=== PATIENT | male | born 1950 | race Caucasian/White ===

== ENCOUNTER 2017-05-16 08:00 | Day surgery (SDC) | payer MEDICARE, OTHER ==
[~2017-05-16] VITALS: Ht 167.6 cm; Wt 105.7 kg
[~2017-05-16 08:00] MED LIST: ASCORBIC ACID250 MG PO; ASPIR 8181 MG PO; ASPIRIN EC325 MG PO; ASPIRIN325 MG PO; AZATHIOPRINE50 MG PO; DOXYCYCLINE HY100 MG PO; FLUOXETINE HCL20 MG PO; GABAPENTIN300 MG PO; GLIPIZIDE XL5 MG; GLIPIZIDE5 MG PO; IMURAN50 MG PO; JANUVIA100 MG PO; LANTUS SOL100 UNIT/1 SUB-Q; LISINOPRIL-HCT1 EACH PO; METFORMIN HCL1000 MG PO; METOPROLOL SUCC50 MG PO; SIMVASTATIN10 MG PO; TRAZODONE HCL50 MG PO; VIT C-BIOFLAVO1 EACH; VITAMIN C500 M1 PO; VITAMIN D32000 UNIT PO; VITAMIN D3400 UNIT PO; VITAMIN D5000 UNIT; VITAMIN E400 UNI5 PO; [UNRECOGNIZED DRUG - OTHER]
--- NOTE | 2017-05-16 09:57 | NUR ---
05[facility]16/17 [facility]957 [facility] AR[facility]IV[facility] PACU SLEEPY. ABD SOFT AND PASSING FLATUS. BLOOD SUGAR 319. DR AMBROSIO.
--- NOTE | 2017-05-24 18:42 | OR ---
[facility] [address], [place] [address] Signed DATE OF OPERATION: 05/16/2017 SURGEON: Mt Owens MD PREOPERATIVE DIAGNOSES: 1. History of sigmoidectomy for diverticular disease, 1999. 2. Screening. POSTOPERATIVE DIAGNOSES: 1. Periappendiceal polyp/biopsy. 2. A 4 mm polyp at 18 cm. 3. Minimal small distal left colon diverticulosis. 4. Internal hemorrhoids. PROCEDURE: Colonoscopy with hot biopsy. ESTIMATED BLOOD LOSS: None. INDICATIONS: Robbie is a 67-year-old gentleman, who had a colonoscopy. His last colonoscopy back in 2005. He had a previous sigmoid resection in 1999 for diverticular disease. There was still a couple diverticula in that distal left colon. Otherwise, no findings. He has no previous history of colonic polyps. There is no family history of colon cancer or polyps. In the meantime, he said he is doing great. He said he retired and moved [place] to [place] He [place] being there very much, but he does come to town almost every day, just to visit go to lunch and so forth. In the office, I gave him a pamphlet on colonoscopy. We looked at that together along with the risks including, but not limited to, gas bloating, crampy abdominal pain, bleeding, perforation, requiring surgery, and missed diagnosis. We also discussed the need for IV conscious sedation. He has done well with Versed and fentanyl in the past. He did develop diabetes and he has trouble controlling it. 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 I think it is affected his ability to think in detail. Overall, he does fine, but in more detail I think the harder is for him. Nevertheless, he has been through colonoscopy before. He has expressed understanding and wished to proceed. PROCEDURE NOTE: Robbie was taken into our endoscopy suite and placed in the left lateral decubitus position. He was given IV sedation with 4 mg of Versed and 100 mcg of fentanyl. A Electronically Signed By: MT OWENS MD 05/24/17 1842 PATIENT NAME: ROBBIE RESTREPO OPERATIVE REPORT DATE OF : 54 PHYSICIAN: MT OWENS MD REPORT #: [id number] REPORT IS CONFIDENTIAL AND NOT TO BE RELEASED WITHOUT AUTHORIZATION [facility] [address] [place] [address] Signed digital rectal exam was performed and this was unremarkable. The adult colonoscope was introduced and advanced under direct visualization of camera. Unfortunately, he still had quite a bit large stool balls scattered throughout the entire colon. We slowly, but surely made our way up the colon and into the cecum itself. We could easily see the appendiceal orifice. Next to the appendiceal orifice was a small area that we decided to go ahead and biopsy. It is probably fine, but we would check that for definitive diagnosis and treatment. The scope was then slowly withdrawn. We could see the end of his left colon near the anastomosis. The actual anastomosis I think was covered in some stool. Down in the top of his rectum at 18 cm was a small 4 mm polyp, which we removed with a hot biopsy forceps. Upon retroflexion of the scope, he also has moderate internal hemorrhoids. After this, the gas was suctioned out and the colonoscope removed. Robbie tolerated the procedure quite well. RECOMMENDATIONS: I will see Robbie back in my office in 7 to 14 days to review his results. He could always consider a double bowel prep and repeating his colonoscopy over shorter interval. Mt Owens MD ALB/MODL /[id number] cc: MD Leoncio Castellanos MD Electronically Signed By: MT OWENS MD 05/24/17 1842 PATIENT NAME: ROBBIE RESTREPO OPERATIVE REPORT DATE OF : 54 PHYSICIAN: MT OWENS MD REPORT #: [id number] REPORT IS CONFIDENTIAL AND NOT TO BE RELEASED WITHOUT AUTHORIZATION
== END 2017-05-16 10:07 | disposition home or self-care (01) ==
LOC: OPS 08:00 → DS 08:00 → OPS 10:07
PROVIDERS: Colon & Rectal Surgery
PROC: 0DBP8ZX Excision of Rectum, Via Natural or Artificial Opening Endoscopic, Diagnostic (ICD-10-PCS; 2017-05-16)
PROC: 0DBH8ZX Excision of Cecum, Via Natural or Artificial Opening Endoscopic, Diagnostic (ICD-10-PCS; principal; 2017-05-16 06:45)
DX: Z12.11 Encounter for screening for malignant neoplasm of colon (principal); K62.1 Rectal polyp; K62.6 Ulcer of anus and rectum; K57.30 Diverticulosis of large intestine without perforation or abscess without bleeding; K64.8 Other hemorrhoids; I12.9 Hypertensive chronic kidney disease with stage 1 through stage 4 chronic kidney disease, or unspecified chronic kidney disease; E11.22 Type 2 diabetes mellitus with diabetic chronic kidney disease; N18.3 Chronic kidney disease, stage 3 (moderate); E78.89 Other lipoprotein metabolism disorders; M06.9 Rheumatoid arthritis, unspecified; F32.9 Major depressive disorder, single episode, unspecified; F43.9 Reaction to severe stress, unspecified; D64.9 Anemia, unspecified; Z86.19 Personal history of other infectious and parasitic diseases; Z87.891 Personal history of nicotine dependence; Z86.14 Personal history of Methicillin resistant Staphylococcus aureus infection; Z90.49 Acquired absence of other specified parts of digestive tract; Z98.890 Other specified postprocedural states; Z79.899 Other long term (current) 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
CPT/HCPCS: 88305; 99153; G0500; J2250; J3010; J7120

== ENCOUNTER 2017-09-25 14:33 | Emergency (ER) | payer MEDICARE, OTHER ==
[~2017-09-25] VITALS: Ht 167.6 cm; Wt 105.7 kg
--- NOTE | 2017-09-25 19:07 | EKG ---
[facility] [address] [facility] [place] [address] Signed Normal sinus rhythm Minimal voltage criteria for LVH, may be normal variant Borderline ECG No previous ECGs available Confirmed by TANO SANTOS MD ([id number]) on 09/25/2017 7:07:08 PM Electronically Signed By: TANO SANTOS MD 09/25/17 1907 PATIENT NAME: ROBBIE RESTREPO SHIVANI Electrocardiogram DATE OF : 54 PHYSICIAN: TANO SANTOS MD REPORT #: [id number] REPORT IS CONFIDENTIAL AND NOT TO BE RELEASED WITHOUT AUTHORIZATION
== END 2017-09-25 18:00 | disposition short-term general hospital (02) ==
LOC: ED 14:33
DX: I21.4 Non-ST elevation (NSTEMI) myocardial infarction (principal); I10 Essential (primary) hypertension; E11.9 Type 2 diabetes mellitus without complications; Z79.899 Other long term (current) 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; Z79.4 Long term (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 of insulin
CPT/HCPCS: 71046; 80053; 83735; 83880; 84484; 85025; 93005; 93010; 96374; 99285

== ENCOUNTER 2017-11-26 16:26 | Emergency (ER) | payer MEDICARE, OTHER ==
[~2017-11-26] VITALS: Ht 167.6 cm; Wt 90.7 kg
[2017-11-26] MEDS ORDERED: FERROUS SULFAT325 MG PO (17:08)
[2017-11-26] MEDS ORDERED: FUROSEMIDE20 MG PO (17:08)
[2017-11-26] MEDS ORDERED: ADMELOG SO100 UNIT/1 (17:09)
[2017-11-26] MEDS ORDERED: MIRTAZAPINE30 MG PO (17:10)
[2017-11-26] MEDS ORDERED: NITROGLYCERIN0.4 MG SL (17:11)
[2017-11-26] MEDS ORDERED: DITROPAN XL5 MG PO (17:12)
[2017-11-26] MEDS ORDERED: AMBIEN5 MG PO (17:36)
[2017-11-26] MEDS ORDERED: MESTINON60 MG PO (17:38)
[2017-11-26] MEDS ORDERED: OXYCODONE HYDROC5 GM MISC (20:31)
[2017-11-26] MEDS ORDERED: PERCOCET 5-3251 EACH PO (20:46)
[2017-11-26] MEDS ORDERED: OXYCODONE HCL5 MG PO (20:55)
--- NOTE | 2017-11-27 20:47 | EKG ---
[facility] [address] [facility] [place] [address] Signed Normal sinus rhythm ST \T\ T wave abnormality, consider inferolateral ischemia Prolonged QT Abnormal ECG When compared with ECG of 26-NOV-2017 16:34, (Unconfirmed) No significant change was found Confirmed by ISAMAR WHITE MD ([id number]) on 11/27/2017 8:47:20 PM Electronically Signed By: ISAMAR WHITE MD 11/27/17 2047 PATIENT NAME: ROBBIE RESTREPO Electrocardiogram DATE OF : 54 PHYSICIAN: ISAMAR WHITE MD REPORT #: [id number] REPORT IS CONFIDENTIAL AND NOT TO BE RELEASED WITHOUT AUTHORIZATION
--- NOTE | 2017-11-27 20:47 | EKG ---
[facility] [address] [facility] [place] [address] Signed Normal sinus rhythm ST \T\ T wave abnormality, consider inferolateral ischemia Abnormal ECG When compared with ECG of 26-NOV-2017 16:29, (Unconfirmed) MA interval has decreased Confirmed by ISAMAR WHITE MD ([id number]) on 11/27/2017 8:46:59 PM Electronically Signed By: ISAMAR WHITE MD 11/27/17 2047 PATIENT NAME: ROBBIE RESTREPO Electrocardiogram DATE OF : 54 PHYSICIAN: ISAMAR WHITE MD REPORT #: [id number] REPORT IS CONFIDENTIAL AND NOT TO BE RELEASED WITHOUT AUTHORIZATION
== END 2017-11-26 21:00 | disposition home or self-care (01) ==
LOC: ED 16:26
DX: M54.6 Pain in thoracic spine (principal); F41.9 Anxiety disorder, unspecified; F32.9 Major depressive disorder, single episode, unspecified; I10 Essential (primary) hypertension; E11.9 Type 2 diabetes mellitus without complications; Z87.891 Personal history of nicotine dependence; Z88.8 Allergy status to other drugs, medicaments and biological substances; Z91.018 Allergy to other foods; Z79.899 Other long term (current) 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; Z79.4 Long term (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 of insulin
CPT/HCPCS: 71046; 80053; 83735; 83880; 84484; 85025; 93005; 93010; 99285

== ENCOUNTER 2018-10-17 11:48 | Emergency (ER) | payer MEDICARE, OTHER ==
[~2018-10-17] VITALS: Ht 167.6 cm; Wt 95.5 kg
[~2018-10-17 11:48] MED LIST changes: +ADMELOG SO100 UNIT/1 SUB-Q; +AMBIEN5 MG PO; +ASPIR-LOW81 MG PO; +ATORVASTATIN CA40 MG PO; +COZAAR50 MG PO; +DITROPAN XL5 MG PO; +ELIQUIS5 MG PO; +FERROUS SULFAT325 MG PO; +FUROSEMIDE20 MG PO; +GABAPENTIN100 MG PO; +GABAPENTIN400 MG PO; +LOSARTAN POTASS25 MG PO; +MESTINON60 MG PO; +METFORMIN HCL500 M1 PO; +MIRTAZAPINE30 MG PO; +NITROGLYCERIN0.4 MG SL; +OXYBUTYNIN CHLOR5 MG PO; +OXYCODONE HCL5 MG PO; +OXYCODONE HYDROC5 GM MISC; +PERCOCET 5-3251 EACH PO; +POTASSIUM CHLO20 ME1 PO
--- OUTSIDE RECORDS SUMMARY | 2018-10-17 11:50 | XMS ---
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 Ajit VISIT COUNT (12 MO.) [facility] T[facility] 5 NOTE: Visits indicate total known visits. ED/UCC VISIT TRACKING (12 MO.) 10/17/2018 11:48 [facility] [place] TYPE: Emergency COMPLAINT: - BLOOD PRESSURE PROBLEM 02/05/2018 20:37 [facility] Lyndsey PughGerardoChidiGerardo [place] [facility] TYPE: Emergency DIAGNOSES: - Back Pain - Fall - Contusion of unspecified back wall of thorax, initial encounter 01/18/2018 11:02 [facility] TYPE: Emergency COMPLAINT: - LT SIDED TINGLING/VISION PROBLEM 12/06/2017 21:58 [facility] TYPE: Emergency COMPLAINT: - PULMONARY EMBOLISM 11/26/2017 16:26 [facility] TYPE: Emergency COMPLAINT: - POST OP PROBLEM DIAGNOSES: - Personal history of nicotine dependence - Allergy to other foods - Allergy status to other drugs, medicaments and biological substances status - Other m[facility] (current) 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 - Essential (primary) hypertension - 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 faculty for medical 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 (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 of 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 - Major depressive disorder, single episode, unspecified - Anxiety disorder, unspecified - Type 2 diabetes mellitus without complications - Pain in thoracic spine INPATIENT VISIT TRACKING (12 MO.) 01/18/2018 11:03 [facility] [place] TYPE: Medical Surgical COMPLAINT: - WEAKNESS DIAGNOSES: - Hypertensive chronic kidney disease with stage 1 through stage 4 chronic kidney disease, or unspecified chronic kidney disease - Atherosclerotic heart disease of [place] coronary artery without angina pectoris - Myasthenia gravis without (acute) exacerbation - Personal history of transient ischemic attack (TIA), and cerebral infarction without residual deficits - adjunct faculty for medical terminology (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 - alf (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 of antithrombotics/antiplatelets - Type 2 diabetes mellitus with diabetic chronic kidney disease - alf (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 of opiate analgesic - Other specified abnormalities of plasma proteins - Personal history of pulmonary embolism - Presence of aortocoronary bypass graft - Old myocardial infarction - Weakness - Dizziness and giddiness - Do not resuscitate - Presence of xenogenic heart valve - Anesthesia of skin - Personal history of Methicillin resistant Staphylococcus aureus infection - Unspecified mood [affective] disorder - Chronic kidney disease, stage 2 (mild) - Occlusion and stenosis of bilateral carotid arteries - Type 2 diabetes mellitus with diabetic nephropathy - Allergy status to other drugs, medicaments and biological substances status - Other manager intermediate (current) 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 - Personal history of other infectious and parasitic diseases - alf (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 of insulin 12/06/2017 21:[address] 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 DIAGNOSES: - Chronic systolic (congestive) heart failure - Other fatigue - Acute on chronic systolic (congestive) heart failure - Presence of prosthetic heart valve - Type 2 diabetes mellitus with unspecified complications - Nonrheumatic aortic (valve) insufficiency - Hyperglycemia, unspecified - Sleep apnea, unspecified - Atherosclerotic heart disease of [place] coronary artery without angina pectoris - Body mass index (BMI) 34.0-34.9, adult - Nonrheumatic mitral (valve) insufficiency - Hypoxemia - Retention of urine, unspecified - Non-ST elevation (NSTEMI) myocardial infarction - Acute kidney failure, unspecified - Thrombocytopenia, unspecified - Precipitous drop in hematocrit - Metabolic syndrome - Essential (primary) hypertension - Heart failure, unspecified - Other obesity due to excess calories - alf (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 of insulin [email or web address]
== END 2018-10-17 16:47 | disposition home or self-care (01) ==
LOC: ED 11:48
DX: R51 Headache (principal); E11.65 Type 2 diabetes mellitus with hyperglycemia; I25.2 Old myocardial infarction; Z86.73 Personal history of transient ischemic attack (TIA), and cerebral infarction without residual deficits; Z87.891 Personal history of nicotine dependence; Z90.49 Acquired absence of other specified parts of digestive tract; Z95.1 Presence of aortocoronary bypass graft; Z88.8 Allergy status to other drugs, medicaments and biological substances; Z91.09 Other allergy status, other than to drugs and biological substances; Z79.899 Other long term (current) 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; Z79.82 Long term (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; Z79.84 Long term (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 drugs
CPT/HCPCS: 70450; 71046; 80053; 83880; 84484; 85025; 96374; 99285-25; J1170

== ENCOUNTER 2019-02-12 03:33 | Emergency (ER) | payer MEDICARE, OTHER ==
[~2019-02-12] VITALS: Ht 167.6 cm; Wt 95.5 kg
[2019-02-12] MEDS ORDERED: AMLODIPINE BESY10 MG PO (03:46)
[2019-02-12] MEDS ORDERED: MYRBETRIQ50 MG PO (03:46)
[2019-02-12] MEDS ORDERED: DROPLET NE EAC MC (03:47)
--- NOTE | 2019-02-12 20:39 | EKG ---
[facility] [address] [facility] [place], [place] [address] Signed Sinus bradycardia Otherwise normal ECG When compared with ECG of 18-JAN-2018 11:44, No significant change was found Confirmed by TANO SANTOS MD ([id number]) on 02/12/2019 8:39:20 PM Electronically Signed By: TANO SANTOS MD 02/12/19 2039 PATIENT NAME: ROBBIE RESTREPO SHIVANI Electrocardiogram DATE OF : 54 PHYSICIAN: TANO SANTOS MD REPORT #: [id number] REPORT IS CONFIDENTIAL AND NOT TO BE RELEASED WITHOUT AUTHORIZATION
== END 2019-02-12 05:41 | disposition home or self-care (01) ==
LOC: ED 03:33
DX: R51 Headache (principal); R53.1 Weakness; R53.81 Other malaise; E11.65 Type 2 diabetes mellitus with hyperglycemia; I10 Essential (primary) hypertension; I25.2 Old myocardial infarction; I25.10 Atherosclerotic heart disease of native coronary artery without angina pectoris; Z87.891 Personal history of nicotine dependence; Z88.8 Allergy status to other drugs, medicaments and biological substances; Z91.018 Allergy to other foods; Z79.899 Other long term (current) 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; Z79.84 Long term (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 drugs; Z79.82 Long term (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
CPT/HCPCS: 70450; 71045; 93005; 93010; 99284-25; J7040

== ENCOUNTER 2019-03-02 09:17 | Emergency (ER) | payer MEDICARE, OTHER ==
[~2019-03-02] VITALS: Ht 167.6 cm; Wt 95.5 kg
[~2019-03-02 09:17] MED LIST changes: +AMLODIPINE BESY10 MG PO; +DROPLET NE EAC MC; +MYRBETRIQ50 MG PO
--- OUTSIDE RECORDS SUMMARY | 2019-03-02 09:20 | XMS ---
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 Ajit VISIT COUNT (12 MO.) 3 [facility] TOTAL 3 NOTE: Visits indicate total known visits. ED/UCC VISIT TRACKING (12 MO.) 03/02/2019 09:18 [facility] [place] TYPE: Emergency COMPLAINT: - SKIN PROBLEM 02/12/2019 03:34 [facility] [place] TYPE: Emergency COMPLAINT: - STROKE SYMPTOMS DIAGNOSES: - Other malaise - Athscl heart disease of [place] coronary artery w/o ang pctrs - 1 Type 2 diabetes mellitus with hyperglycemia - Allergy to other foods - group home (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 - long term care phlebotomist (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 drugs - Headache - Essential (primary) hypertension - Old myocardial infarction - Personal history of nicotine dependence - Allergy status to oth drug/meds/biol subst status - Weakness - Other half-way (current) 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 10/17/2018 11:48 [facility] [place] TYPE: Emergency COMPLAINT: - BLOOD PRESSURE PROBLEM DIAGNOSES: - Headache - Essential (primary) hypertension - Prsnl hx of TIA (TIA), and cereb infrc w/o resid deficits - Acquired absence of other specified parts of digestive tract - Other exterminator termite (current) 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 - Old myocardial infarction - long term care phlebotomist (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 - Personal history of nicotine dependence - 1 Type 2 diabetes mellitus with hyperglycemia - Oth allergy status, oth than to drugs and biolg substances - Allergy status to oth drug/meds/biol subst status - Presence of aortocoronary bypass graft - group home (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 drugs INPATIENT VISIT TRACKING (12 MO.) No inpatient visits to display in this time frame [email or web address]
[2019-03-02] MEDS ORDERED: DOXYCYCLINE HY100 MG PO (11:08)
== END 2019-03-02 11:19 | disposition home or self-care (01) ==
LOC: ED 09:17
DX: L03.115 Cellulitis of right lower limb (principal); E11.65 Type 2 diabetes mellitus with hyperglycemia; I10 Essential (primary) hypertension; I25.2 Old myocardial infarction; Z87.891 Personal history of nicotine dependence; Z91.018 Allergy to other foods; Z88.8 Allergy status to other drugs, medicaments and biological substances; Z79.84 Long term (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 drugs; Z79.82 Long term (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; Z79.899 Other long term (current) 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
CPT/HCPCS: 80053; 85025; 96365; 99283-25; J7060

== ENCOUNTER 2019-04-28 08:42 | Emergency (ER) | payer MEDICARE, OTHER ==
[~2019-04-28] VITALS: Ht 167.6 cm; Wt 95.5 kg
[2019-04-28] MEDS ORDERED: AZATHIOPRINE50 MG PO (08:58)
[2019-04-28] MEDS ORDERED: LOSARTAN POTAS100 MG PO (08:58)
[2019-04-28] MEDS ORDERED: KEFLEX500 MG PO (09:10)
[2019-04-28] MEDS ORDERED: BACTRIM DS TAB1 EACH PO (09:10)
== END 2019-04-28 09:15 | disposition home or self-care (01) ==
LOC: ED 08:42
DX: L03.115 Cellulitis of right lower limb (principal); I10 Essential (primary) hypertension; E11.9 Type 2 diabetes mellitus without complications; I25.10 Atherosclerotic heart disease of native coronary artery without angina pectoris; I25.2 Old myocardial infarction; Z86.73 Personal history of transient ischemic attack (TIA), and cerebral infarction without residual deficits; Z88.8 Allergy status to other drugs, medicaments and biological substances; Z91.018 Allergy to other foods; Z79.899 Other long term (current) 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; Z79.84 Long term (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 drugs; Z79.82 Long term (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; Z79.01 Long term (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 of anticoagulants
CPT/HCPCS: 99282

== ENCOUNTER 2019-06-10 03:13 | Emergency (ER) | payer MEDICARE, OTHER ==
[~2019-06-10] VITALS: Ht 167.6 cm; Wt 95.5 kg
[~2019-06-10 03:13] MED LIST changes: +BACTRIM DS TAB1 EACH PO; +KEFLEX500 MG PO; +LOSARTAN POTAS100 MG PO
[2019-06-10] MEDS ORDERED: NORCO 5-325 TA1 EACH PO (05:57)
== END 2019-06-10 06:12 | disposition home or self-care (01) ==
LOC: ED 03:13
DX: S30.1XXA Contusion of abdominal wall, initial encounter (principal); W18.30XA Fall on same level, unspecified, initial encounter; I10 Essential (primary) hypertension; E11.9 Type 2 diabetes mellitus without complications; I25.2 Old myocardial infarction; Z88.8 Allergy status to other drugs, medicaments and biological substances; Z91.018 Allergy to other foods; Z79.899 Other long term (current) 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; Z79.84 Long term (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 drugs; Z79.82 Long term (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
CPT/HCPCS: 74177; 80053; 81001; 82150; 83690; 85025; 99284-25; Q9967

== ENCOUNTER 2019-11-13 10:17 | Emergency (ER) | payer MEDICARE, OTHER ==
[~2019-11-13] VITALS: Ht 167.6 cm; Wt 95.5 kg
[~2019-11-13 10:17] MED LIST changes: +NORCO 5-325 TA1 EACH PO
[2019-11-13] MEDS ORDERED: HYDROCHLOROTHIA25 MG PO (14:08)
--- NOTE | 2019-11-13 16:39 | EKG ---
[facility] [address] [facility] [place], [place] [address] Signed Normal sinus rhythm Normal ECG When compared with ECG of 12-FEB-2019 04:07, No significant change was found Confirmed by KIMI KAPLAN DO ([id number]) on 11/13/2019 4:39:38 PM Electronically Signed By: KIMI KAPLAN DO 11/13/19 1639 PATIENT NAME: ROBBIE RESTREPO SHIVANI Electrocardiogram DATE OF : 54 PHYSICIAN: KIMI KAPLAN DO REPORT #: [id number] REPORT IS CONFIDENTIAL AND NOT TO BE RELEASED WITHOUT AUTHORIZATION
== END 2019-11-13 14:19 | disposition home or self-care (01) ==
LOC: ED 10:17
DX: S06.0X9A Concussion with loss of consciousness of unspecified duration, initial encounter (principal); G44.309 Post-traumatic headache, unspecified, not intractable; H61.23 Impacted cerumen, bilateral; I10 Essential (primary) hypertension; E11.9 Type 2 diabetes mellitus without complications; I25.2 Old myocardial infarction; Z88.8 Allergy status to other drugs, medicaments and biological substances; Z91.018 Allergy to other foods; Z79.899 Other long term (current) 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; Z79.82 Long term (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; Z79.01 Long term (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 of anticoagulants; W19.XXXA Unspecified fall, initial encounter
CPT/HCPCS: 70450; 72125; 80053; 81001; 83735; 84484; 85025; 93005; 93010; 99284-25

== ENCOUNTER 2020-07-16 13:20 | Emergency (ER) | payer MEDICARE, OTHER ==
[~2020-07-16] VITALS: Ht 167.6 cm; Wt 95.5 kg
[~2020-07-16 13:20] MED LIST changes: +HYDROCHLOROTHIA25 MG PO
--- NOTE | 2020-07-16 19:14 | EKG ---
[facility] [address] [facility] [place] [address] Signed Normal sinus rhythm ST \T\ T wave abnormality, consider lateral ischemia Prolonged QT Abnormal ECG When compared with ECG of 13-NOV-2019 11:42, No significant change was found Confirmed by ISAMAR WHITE MD ([id number]) on 07/16/2020 7:14:04 PM Electronically Signed By: ISAMAR WHITE MD 07/16/201913 PATIENT NAME: ROBBIE RESTREPO SHIVANI Electrocardiogram DATE OF : 54 PHYSICIAN: ISAMAR WHITE MD REPORT #: [id number] REPORT IS CONFIDENTIAL AND NOT TO BE RELEASED WITHOUT AUTHORIZATION
== END 2020-07-16 20:02 | disposition short-term general hospital (02) ==
LOC: ED 13:20
DX: I21.4 Non-ST elevation (NSTEMI) myocardial infarction (principal); G89.29 Other chronic pain; R51.9 Headache, unspecified; I10 Essential (primary) hypertension; E11.9 Type 2 diabetes mellitus without complications; I25.10 Atherosclerotic heart disease of native coronary artery without angina pectoris; I25.2 Old myocardial infarction; Z87.891 Personal history of nicotine dependence; Z88.8 Allergy status to other drugs, medicaments and biological substances; Z91.018 Allergy to other foods; Z20.822 Contact with and (suspected) exposure to COVID-19; Z79.84 Long term (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 drugs; Z79.899 Other long term (current) 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; Z79.82 Long term (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
CPT/HCPCS: 70450; 71045; 80053; 81001; 83735; 84484; 85025; 85610; 85730; 93005; 93010; 99285-25; C9803; U0003

== ENCOUNTER 2020-12-08 17:46 | Emergency (ER) | payer MEDICARE, OTHER ==
[~2020-12-08] VITALS: Ht 167.6 cm; Wt 95.5 kg
[2020-12-08] MEDS ORDERED: BRILINTA90 MG PO (18:12)
--- NOTE | 2020-12-08 20:14 | EKG ---
[facility] [address] [facility] [place], [place] [address] Signed Normal sinus rhythm Prolonged QT Abnormal ECG When compared with ECG of 16-JUL-2020 16:13, No significant change was found Confirmed by KIMI KAPLAN DO ([id number]) on 12/08/2020 8:13:50 PM Electronically Signed By: KIMI KAPLAN DO 12/08/202013 PATIENT NAME: ROBBIE RESTREPO SHIVANI Electrocardiogram DATE OF : 54 PHYSICIAN: KIMI KAPLAN DO REPORT #: [id number] REPORT IS CONFIDENTIAL AND NOT TO BE RELEASED WITHOUT AUTHORIZATION
== END 2020-12-08 20:52 | disposition home or self-care (01) ==
LOC: ED 17:46
DX: E86.0 Dehydration (principal); I10 Essential (primary) hypertension; E11.9 Type 2 diabetes mellitus without complications; I25.2 Old myocardial infarction; Z87.891 Personal history of nicotine dependence; Z88.8 Allergy status to other drugs, medicaments and biological substances; Z91.018 Allergy to other foods; Z79.899 Other long term (current) 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; Z79.82 Long term (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
CPT/HCPCS: 80053; 83735; 84484; 85025; 93005; 93010; 99284-25; J7030

== ENCOUNTER 2021-01-27 06:17 | Emergency (ER) | payer MEDICARE, OTHER ==
[~2021-01-27] VITALS: Ht 167.6 cm; Wt 93.9 kg
[~2021-01-27 06:17] MED LIST changes: +BRILINTA90 MG PO
[2021-01-27] MEDS ORDERED: AZATHIOPRINE50 MG PO (07:29)
[2021-01-27] MEDS ORDERED: PROZAC40 MG PO (07:30)
[2021-01-27] MEDS ORDERED: CARVEDILOL12.5 MG PO (07:30)
[2021-01-27] MEDS ORDERED: NEURONTIN300 MG PO (07:31)
[2021-01-27] MEDS ORDERED: LANTUS SOL100 UNIT/1 SUB-Q (07:32)
[2021-01-27] MEDS ORDERED: METFORMIN HCL500 M2 PO (07:33)
[2021-01-27] MEDS ORDERED: K-TAB ER20 MEQ PO (07:34)
[2021-01-27] MEDS ORDERED: ZOFRAN4 MG PO (07:34)
[2021-01-27] MEDS ORDERED: BRILINTA90 MG PO (07:37)
== END 2021-01-27 08:18 | disposition home or self-care (01) ==
LOC: ED 06:17
PROC: 0T9B70Z Drainage of Bladder with Drainage Device, Via Natural or Artificial Opening (ICD-10-PCS; principal; 2021-01-27)
DX: R32 Unspecified urinary incontinence (principal); I10 Essential (primary) hypertension; Z91.19 Patient's noncompliance with other medical treatment and regimen; E11.9 Type 2 diabetes mellitus without complications; I25.10 Atherosclerotic heart disease of native coronary artery without angina pectoris; I25.2 Old myocardial infarction; Z86.73 Personal history of transient ischemic attack (TIA), and cerebral infarction without residual deficits; Z87.891 Personal history of nicotine dependence; Z88.8 Allergy status to other drugs, medicaments and biological substances; Z91.018 Allergy to other foods; Z79.899 Other long term (current) 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; Z79.84 Long term (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 drugs; Z79.82 Long term (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
CPT/HCPCS: 51702; 81001; 99283-25

== ENCOUNTER 2021-02-14 01:24 | Emergency (ER) | payer MEDICARE, OTHER ==
[~2021-02-14] VITALS: Ht 167.6 cm; Wt 94.2 kg
[~2021-02-14 01:24] MED LIST changes: +CARVEDILOL12.5 MG PO; +K-TAB ER20 MEQ PO; +METFORMIN HCL500 M2 PO; +NEURONTIN300 MG PO; +PROZAC40 MG PO; +ZOFRAN4 MG PO
--- OUTSIDE RECORDS SUMMARY | 2021-02-14 01:26 | XMS ---
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 - 2 Visits in 30 Days CARE PROVIDERS PRACHI COSTA [facility] Current PHONE: [phone] Shaunna has no Care Guidelines for this patient. Ajit VISIT COUNT (12 MO.) 4 [facility] TOTAL 4 NOTE: Visits indicate total known visits. ED/UCC VISIT TRACKING (12 MO.) 02/14/2021 01:25 [facility] [place] TYPE: Emergency COMPLAINT: - BLOOD IN URINE BAG 01/27/2021 06:17 [facility] TYPE: Emergency COMPLAINT: - URINARY PROBLEM DIAGNOSES: - Patient's noncompliance with other medical treatment and regimen - Atherosclerotic heart disease of [place] coronary artery without angina pectoris - [facility] (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 drugs - Personal history of transient ischemic attack (TIA), and cerebral infarction without residual deficits - termite control service representative (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 - Allergy status to other drugs, medicaments and biological substances - Unspecified urinary incontinence - Old myocardial infarction - Allergy to other foods - Other termite control service representative (current) 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 - Essential (primary) hypertension - Type 2 diabetes mellitus without complications - Personal history of nicotine dependence 12/08/2020 17:47 [facility] TYPE: Emergency COMPLAINT: - FLU SYMPTOMS DIAGNOSES: - Dizziness and giddiness - Allergy status to other drugs, medicaments and biological substances - Other senior living (current) 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 - [facility] (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 - Dehydration - Essential (primary) hypertension - Type 2 diabetes mellitus without complications - Personal history of nicotine dependence - Allergy to other foods - Old myocardial infarction 07/16/2020 13:22 [facility] TYPE: Emergency COMPLAINT: - HEADACHE, FALLING, DIABETIC ISSUES DIAGNOSES: - Personal history of nicotine dependence - Headache, unspecified - Type 2 diabetes mellitus without complications - Essential (primary) hypertension - Allergy status to other drugs, medicaments and biological substances - Non-ST elevation (NSTEMI) myocardial infarction - Atherosclerotic heart disease of [place] coronary artery without angina pectoris - termite control service representative (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 drugs - Allergy to other foods - Other termite control service representative (current) 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 - Other chronic pain - Old myocardial infarction - [facility] (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 INPATIENT VISIT TRACKING (12 MO.) 07/16/2020 21:12 [facility] Lyndsey [facility] TYPE: Medical Surgical DIAGNOSES: - NSTEMI - Non-ST elevation (NSTEMI) myocardial infarction - Type 2 diabetes mellitus with unspecified complications - Essential (primary) hypertension - Atherosclerotic heart disease of [place] coronary artery without angina pectoris - Myasthenia gravis without (acute) exacerbation [email or web address]
[2021-02-14] MEDS ORDERED: ATORVASTATIN CA80 MG PO (01:38)
== END 2021-02-14 03:00 | disposition home or self-care (01) ==
LOC: ED 01:24
DX: R31.9 Hematuria, unspecified (principal); I10 Essential (primary) hypertension; I25.10 Atherosclerotic heart disease of native coronary artery without angina pectoris; I25.2 Old myocardial infarction; M10.9 Gout, unspecified; Z87.891 Personal history of nicotine dependence; Z91.018 Allergy to other foods; Z88.2 Allergy status to sulfonamides; Z88.8 Allergy status to other drugs, medicaments and biological substances; Z79.52 Long term (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 of systemic steroids; Z79.4 Long term (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 of insulin; Z79.899 Other long term (current) 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
CPT/HCPCS: 81001; 99283

== ENCOUNTER 2021-02-14 13:41 | Emergency (ER) | payer MEDICARE, OTHER ==
[~2021-02-14] VITALS: Ht 167.6 cm; Wt 94.2 kg
[~2021-02-14 13:41] MED LIST changes: +ATORVASTATIN CA80 MG PO
--- OUTSIDE RECORDS SUMMARY | 2021-02-14 13:44 | XMS ---
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 Ajit VISIT COUNT (12 MO.) 5 [facility] TOTAL 5 NOTE: Visits indicate total known visits. ED/UCC VISIT TRACKING (12 MO.) 02/14/2021 13:42 [facility] TYPE: Emergency COMPLAINT: - POSS STROKE 02/14/2021 01:25 [facility] TYPE: Emergency COMPLAINT: - BLOOD IN URINE BAG 01/27/2021 06:17 [facility] TYPE: Emergency COMPLAINT: - URINARY PROBLEM DIAGNOSES: - Patient's noncompliance with other medical treatment and regimen - Atherosclerotic heart disease of [place] coronary artery without angina pectoris - intermodal customer service (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 drugs - Personal history of transient ischemic attack (TIA), and cerebral infarction without residual deficits - [facility] (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 - Allergy status to other drugs, medicaments and biological substances - Unspecified urinary incontinence - Old myocardial infarction - Allergy to other foods - Other exterminator helper termite (current) 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 - Essential (primary) hypertension - Type 2 diabetes mellitus without complications - Personal history of nicotine dependence 12/08/2020 17:47 [facility] TYPE: Emergency COMPLAINT: - FLU SYMPTOMS DIAGNOSES: - Dizziness and giddiness - Allergy status to other drugs, medicaments and biological substances - Other exterminator helper termite (current) 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 - [facility] (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 - Dehydration - Essential (primary) hypertension - Type 2 diabetes mellitus without complications - Personal history of nicotine dependence - Allergy to other foods - Old myocardial infarction 07/16/2020 13:22 [facility] [place] TYPE: Emergency COMPLAINT: - HEADACHE, FALLING, DIABETIC ISSUES DIAGNOSES: - Personal history of nicotine dependence - Headache, unspecified - Type 2 diabetes mellitus without complications - Essential (primary) hypertension - Allergy status to other drugs, medicaments and biological substances - Non-ST elevation (NSTEMI) myocardial infarction - Atherosclerotic heart disease of [place] coronary artery without angina pectoris - [facility] (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 drugs - Allergy to other foods - Other care home (current) 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 - Other chronic pain - Old myocardial infarction - [facility] (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 INPATIENT VISIT TRACKING (12 MO.) 07/16/2020 21:12 [facility] Perri [facility] TYPE: Medical Surgical DIAGNOSES: - NSTEMI - Non-ST elevation (NSTEMI) myocardial infarction - Type 2 diabetes mellitus with unspecified complications - Essential (primary) hypertension - Atherosclerotic heart disease of [place] coronary artery without angina pectoris - Myasthenia gravis without (acute) exacerbation [email or web address]
--- NOTE | 2021-02-14 18:57 | EKG ---
[facility] [address] [facility] [place] [address] \T\ T wave abnormality, consider lateral ischemia Abnormal ECG When compared with ECG of 08-DEC-2020 18:18, No significant change was found Confirmed by TANO SANTOS MD ([id number]) on 02/14/2021 6:57:33 PM Electronically Signed By: TANO SANTOS MD 02/14/21 1857 PATIENT NAME: ROBBIE RESTREPO SHIVANI Electrocardiogram DATE OF : 54 PHYSICIAN: TANO SANTOS MD REPORT #: [id number] REPORT IS CONFIDENTIAL AND NOT TO BE RELEASED WITHOUT AUTHORIZATION
== END 2021-02-14 16:59 | disposition home or self-care (01) ==
LOC: ED 13:41
DX: F12.90 Cannabis use, unspecified, uncomplicated (principal); R41.82 Altered mental status, unspecified; M10.9 Gout, unspecified; R29.700 NIHSS score 0; I10 Essential (primary) hypertension; I25.10 Atherosclerotic heart disease of native coronary artery without angina pectoris; I25.2 Old myocardial infarction; Z88.2 Allergy status to sulfonamides; Z91.018 Allergy to other foods; Z88.8 Allergy status to other drugs, medicaments and biological substances; Z79.2 Long term (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 of antibiotics; Z79.82 Long term (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; Z79.899 Other long term (current) 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; Z87.891 Personal history of nicotine dependence
CPT/HCPCS: 70450; 70496; 70498; 71045; 80053; 84484; 85025; 85610; 85730; 93005; 93010; 99285-25; Q9967

== ENCOUNTER 2021-03-03 09:33 | Emergency (ER) | payer MEDICARE, OTHER ==
[~2021-03-03] VITALS: Ht 167.6 cm; Wt 94.6 kg
--- OUTSIDE RECORDS SUMMARY | 2021-03-03 09:36 | XMS ---
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 Care History Medical/Surgical 02/16/2021 [facility] - PATIENT IS CURRENTLY RECEIVING HOME HEALTH SERVICES THRU [facility]. PLEASE CONTACT HOME HEALTH AGENCY IF PATIENT IS SEEN IN THE ED. - PER REQUEST OF PATIENT- SENDING RECENT ED CHART NOTES TO [facility]. [place]. VISIT COUNT (12 MO.) 6 [facility] TOTAL 6 NOTE: Visits indicate total known visits. ED/UCC VISIT TRACKING (12 MO.) 03/03/2021 09:33 [facility] [place] TYPE: Emergency COMPLAINT: - WEAKNESS 02/14/2021 13:42 [facility] [place] TYPE: Emergency COMPLAINT: - POSS STROKE DIAGNOSES: - Cannabis use, unspecified, uncomplicated - Weakness - Other senior living (current) 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 - Essential (primary) hypertension - Atherosclerotic heart disease of [place] coronary artery without angina pectoris - Personal history of nicotine dependence - Allergy status to other drugs, medicaments and biological substances - custodial (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 of antibiotics - custodial (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 - Altered mental status, unspecified - Allergy to other foods - Gout, unspecified - Allergy status to sulfonamides - NIHSS score 0 - Old myocardial infarction 02/14/2021 01:25 [facility] [place] TYPE: Emergency COMPLAINT: - BLOOD IN URINE BAG DIAGNOSES: - Unspecified urinary incontinence - Hematuria, unspecified - Personal history of nicotine dependence - Essential (primary) hypertension - Allergy status to sulfonamides - Gout, unspecified - oil heaterman (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 of systemic steroids - custodial (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 of insulin - Allergy to other foods - 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 - Old myocardial infarction - Atherosclerotic heart disease of [place] coronary artery without angina pectoris - Allergy status to other drugs, medicaments and biological substances 01/27/2021 06:17 [facility] [place] TYPE: Emergency COMPLAINT: - URINARY PROBLEM DIAGNOSES: - Patient's noncompliance with other medical treatment and regimen - Atherosclerotic heart disease of [place] coronary artery without angina pectoris - custodial (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 drugs - Personal history of transient ischemic attack (TIA), and cerebral infarction without residual deficits - oil heaterman (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 - Allergy status to other drugs, medicaments and biological substances - Unspecified urinary incontinence - Old myocardial infarction - Allergy to other foods - 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 - Essential (primary) hypertension - Type 2 diabetes mellitus without complications - Personal history of nicotine dependence 12/08/2020 17:47 [facility] [place] TYPE: Emergency COMPLAINT: - FLU SYMPTOMS DIAGNOSES: - Dizziness and giddiness - Allergy status to other drugs, medicaments and biological substances - Other senior living (current) 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 - custodial (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 - Dehydration - [...] myocardial infarction - Atherosclerotic heart disease of [place] coronary artery without angina pectoris - custodial (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 drugs - Allergy to other foods - Other senior living (current) 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 - Other chronic pain - Old myocardial infarction - custodial (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 INPATIENT VISIT TRACKING (12 MO.) 07/16/2020 21:[address] [facility] TYPE: Medical Surgical DIAGNOSES: - NSTEMI - Non-ST elevation (NSTEMI) myocardial infarction - Type 2 diabetes mellitus with unspecified complications - Essential (primary) hypertension - Atherosclerotic heart disease of [place] coronary artery without angina pectoris - Myasthenia gravis without (acute) exacerbation [email or web address]
[2021-03-03] MEDS ORDERED: JANUVIA100 MG PO (09:47)
[2021-03-03] MEDS ORDERED: LISINOPRIL10 MG PO (11:32)
--- NOTE | 2021-03-04 18:13 | EKG ---
[facility] [address] [place] [address] Signed Normal sinus rhythm Nonspecific ST and T wave abnormality Abnormal ECG When compared with ECG of 14-FEB-2021 14:55, Vent. rate has increased BY 31 BPM Confirmed by TANO SANTOS MD ([id number]) on 03/04/2021 6:13:35 PM Electronically Signed By: TANO SANTOS MD 03/04/211812 PATIENT NAME: ROBBIE RESTREPO SHIVANI Electrocardiogram DATE OF : 54 PHYSICIAN: TANO SANTOS MD REPORT #: [id number] REPORT IS CONFIDENTIAL AND NOT TO BE RELEASED WITHOUT AUTHORIZATION
== END 2021-03-03 11:55 | disposition home or self-care (01) ==
LOC: ED 09:33
DX: I10 Essential (primary) hypertension (principal); R53.1 Weakness; E11.9 Type 2 diabetes mellitus without complications; I25.10 Atherosclerotic heart disease of native coronary artery without angina pectoris; I25.2 Old myocardial infarction; M10.9 Gout, unspecified; Z87.891 Personal history of nicotine dependence; Z91.018 Allergy to other foods; Z88.8 Allergy status to other drugs, medicaments and biological substances; Z79.82 Long term (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; Z79.899 Other long term (current) 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; Z79.4 Long term (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 of insulin; Z79.84 Long term (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 drugs
CPT/HCPCS: 80053; 83735; 84484; 85025; 93005; 93010; 99285-25

== ENCOUNTER 2021-04-07 08:58 | Emergency (ER) | payer MEDICARE, OTHER ==
[~2021-04-07] VITALS: Ht 167.6 cm; Wt 94.3 kg
[~2021-04-07 08:58] MED LIST changes: +LISINOPRIL10 MG PO
--- OUTSIDE RECORDS SUMMARY | 2021-04-07 09:06 | XMS ---
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 Care History Medical/Surgical 02/16/2021 [facility] - PATIENT IS CURRENTLY RECEIVING HOME HEALTH SERVICES THRU [facility]. PLEASE CONTACT HOME HEALTH AGENCY IF PATIENT IS SEEN IN THE ED. - PER REQUEST OF PATIENT- SENDING RECENT ED CHART NOTES TO [facility]. E.D. VISIT COUNT (12 MO.) 7 [facility] TOTAL 7 NOTE: Visits indicate total known visits. ED/UCC VISIT TRACKING (12 MO.) 04/07/2021 08:59 [facility] [place] TYPE: Emergency COMPLAINT: - ALTERED MENTAL STATUS 03/03/2021 09:33 [facility] [place] TYPE: Emergency COMPLAINT: - WEAKNESS DIAGNOSES: - Other residential (current) 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 - Allergy to other foods - Allergy status to other drugs, medicaments and biological substances - Old myocardial infarction - Weakness - Gout, unspecified - terminal make up operator (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 - senior living (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 of insulin - Personal history of nicotine dependence - senior living (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 drugs - Type 2 diabetes mellitus without complications - Essential (primary) hypertension - Atherosclerotic heart disease of [place] coronary artery without angina pectoris 02/14/2021 13:42 [facility] [place] TYPE: Emergency COMPLAINT: - POSS STROKE DIAGNOSES: - Cannabis use, unspecified, uncomplicated - Weakness - 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 - Essential (primary) hypertension - Atherosclerotic heart disease of [place] coronary artery without angina pectoris - Personal history of nicotine dependence - Allergy status to other drugs, medicaments and biological substances - senior living (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 of antibiotics - terminal make up operator (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 - Altered mental [...] status to sulfonamides - Gout, unspecified - terminal make up operator (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 of systemic steroids - terminal make up operator (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 of insulin - Allergy to other foods - 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 - Old myocardial infarction - Atherosclerotic heart disease of [place] coronary artery without angina pectoris - Allergy status to other drugs, medicaments and biological substances 01/27/2021 06:17 [facility] [place] TYPE: Emergency COMPLAINT: - URINARY PROBLEM DIAGNOSES: - Patient's noncompliance with other medical treatment and regimen - Atherosclerotic heart disease of [place] coronary artery without angina pectoris - senior living (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 drugs - Personal history of transient ischemic attack (TIA), and cerebral infarction without residual deficits - senior living (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 - Allergy status to other drugs, medicaments and biological substances - Unspecified urinary incontinence - Old myocardial infarction - Allergy to other foods - Other residential (current) 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 - Essential (primary) hypertension - Type 2 diabetes mellitus without complications - Personal history of nicotine dependence 12/08/2020 17:47 [facility] [place] TYPE: Emergency COMPLAINT: - FLU SYMPTOMS DIAGNOSES: - Dizziness and giddiness - Allergy status to other drugs, medicaments and biological substances - 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 - terminal make up operator (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 - Dehydration - [...] myocardial infarction - Atherosclerotic heart disease of [place] coronary artery without angina pectoris - senior living (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 drugs - Allergy to other foods - Other residential (current) 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 - Other chronic pain - Old myocardial infarction - senior living (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 INPATIENT VISIT TRACKING (12 MO.) 07/16/2020 21:12 [place] [facility] TYPE: Medical Surgical DIAGNOSES: - NSTEMI - Non-ST elevation (NSTEMI) myocardial infarction - Type 2 diabetes mellitus with unspecified complications - Essential (primary) hypertension - Atherosclerotic heart disease of [place] coronary artery without angina pectoris - Myasthenia gravis without (acute) exacerbation [email or web address]
--- NOTE | 2021-04-07 19:57 | EKG ---
[facility] [address] [place] [address] Signed Normal sinus rhythm Minimal voltage criteria for LVH, may be normal variant ( [employer] product ) Nonspecific ST and T wave abnormality Abnormal ECG When compared with ECG of 03-MAR-2021 10:09, No significant change was found Confirmed by KIMI KAPLAN DO ([id number]) on 04/07/2021 7:57:09 PM Electronically Signed By: KIMI KAPLAN DO 04/07/211956 PATIENT NAME: ROBBIE RESTREPO SHIVANI Electrocardiogram DATE OF : 54 PHYSICIAN: KIMI KAPLAN DO REPORT #: [id number] REPORT IS CONFIDENTIAL AND NOT TO BE RELEASED WITHOUT AUTHORIZATION
== END 2021-04-07 14:00 | disposition home or self-care (01) ==
LOC: ED 08:58
DX: U07.1 COVID-19 (principal); Z23 Encounter for immunization; I10 Essential (primary) hypertension; E11.9 Type 2 diabetes mellitus without complications; I25.10 Atherosclerotic heart disease of native coronary artery without angina pectoris; I25.2 Old myocardial infarction; M10.9 Gout, unspecified; Z87.891 Personal history of nicotine dependence; Z88.8 Allergy status to other drugs, medicaments and biological substances; Z91.018 Allergy to other foods; Z79.899 Other long term (current) 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; Z79.82 Long term (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; Z79.4 Long term (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 of insulin; Z79.84 Long term (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 drugs
CPT/HCPCS: 71045; 80053; 81001; 83605; 83880; 84484; 85025; 87040; 87502; 93005; 93010; 99285-25; C9803; M0247; U0003

== ENCOUNTER 2021-06-10 15:38 | Inpatient (IN) | payer MEDICARE, OTHER ==
[~2021-06-10] VITALS: Ht 167.6 cm; Wt 90.4 kg
--- OUTSIDE RECORDS SUMMARY | 2021-06-10 15:42 | XMS ---
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 Care History Medical/Surgical 04/12/2021 [facility] - PATIENT RECENTLY DISCHARGED FROM [facility] . 02/16/2021 [facility] - PATIENT IS CURRENTLY RECEIVING HOME HEALTH SERVICES THRU [facility]. PLEASE CONTACT HOME HEALTH AGENCY IF PATIENT IS SEEN IN THE ED. - PER REQUEST OF PATIENT- SENDING RECENT ED CHART NOTES TO [facility]. E.D. VISIT COUNT (12 MO.) 8 [facility] TOTAL 8 NOTE: Visits indicate total known visits. 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 - Essential (primary) hypertension - Other fpc (current) 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 - Gout, unspecified - Type 2 diabetes mellitus without complications - Altered mental status, unspecified - Atherosclerotic heart disease of [place] coronary artery without angina pectoris - Encounter for immunization - Allergy status to other drugs, medicaments and biological substances - COVID-19 - Allergy to other foods - Personal history of nicotine dependence 03/03/2021 09:33 [facility] [place] TYPE: Emergency COMPLAINT: - WEAKNESS DIAGNOSES: - 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 - Allergy to other foods - Allergy status to other drugs, medicaments and biological substances - Old myocardial infarction - Weakness - Gout, unspecified - halfway (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 - halfway (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 of insulin - Personal history of nicotine dependence - halfway (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 drugs - Type 2 diabetes mellitus without complications - Essential (primary) hypertension - Atherosclerotic heart disease of [place] coronary artery without angina pectoris 02/14/2021 13:42 [facility] [place] TYPE: Emergency COMPLAINT: - POSS STROKE DIAGNOSES: - Cannabis use, unspecified, uncomplicated - Weakness - 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 - Essential (primary) hypertension - Atherosclerotic heart disease of [place] coronary artery without angina pectoris - Personal history of nicotine dependence - Allergy status to other drugs, medicaments and biological substances - regional intermodal truck driver (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 of antibiotics - regional intermodal truck driver (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 - Altered mental [...] status to sulfonamides - Gout, unspecified - regional intermodal truck driver (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 of systemic steroids - regional intermodal truck driver (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 of insulin - Allergy to other foods - 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 - Old myocardial infarction - Atherosclerotic heart disease of [place] coronary artery without angina pectoris - Allergy status to other drugs, medicaments and biological substances 01/27/2021 06:17 [facility] [place] TYPE: Emergency COMPLAINT: - URINARY PROBLEM DIAGNOSES: - Patient's noncompliance with other medical treatment and regimen - Atherosclerotic heart disease of [place] coronary artery without angina pectoris - halfway (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 drugs - Personal history of transient ischemic attack (TIA), and cerebral infarction without residual deficits - halfway (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 - Allergy status to other drugs, medicaments and biological substances - Unspecified urinary incontinence - Old myocardial infarction - Allergy to other foods - Other fpc (current) 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 - Essential (primary) hypertension - Type 2 diabetes mellitus without complications - Personal history of nicotine dependence 12/08/2020 17:47 [facility] [place] TYPE: Emergency COMPLAINT: - FLU SYMPTOMS DIAGNOSES: - Dizziness and giddiness - Allergy status to other drugs, medicaments and biological substances - 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 - regional intermodal truck driver (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 - Dehydration - [...] myocardial infarction - Atherosclerotic heart disease of [place] coronary artery without angina pectoris - regional intermodal truck driver (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 drugs - Allergy to other foods - Other fpc (current) 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 - Other chronic pain - Old myocardial infarction - halfway (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 INPATIENT VISIT TRACKING (12 MO.) 07/16/2020 21:12 [place] [facility] TYPE: Medical Surgical DIAGNOSES: - NSTEMI - Non-ST elevation (NSTEMI) myocardial infarction - Type 2 diabetes mellitus with unspecified complications - Essential (primary) hypertension - Atherosclerotic heart disease of [place] coronary artery without angina pectoris - Myasthenia gravis without (acute) exacerbation [email or web address]
[2021-06-11] MEDS ORDERED: LISINOPRIL20 MG PO (13:34)
[2021-06-11] MEDS ORDERED: PIOGLITAZONE HC15 MG PO (13:35)
[2021-06-11] MEDS ORDERED: BRILINTA90 MG PO (13:39)
--- NOTE | 2021-06-11 15:30 | NUR ---
MED REC COMPLETED BY PHARMACY
--- NOTE | 2021-06-11 18:23 | NUR ---
PT. ASSISTED TO BATHROOM WITH FWW. INSTRUCTED ON SAFETY AND CALL LIGHT.
--- NOTE | 2021-06-11 19:49 | NUR ---
BEDSIDE REPORT, PT SITTING UP IN RECLINER, RIGHT HAND ELEVATED IN PILLOW SLING. PT ALERT AND ORIENTED. CHAIR ALARM IN PLACE PT HAS BEEN GETTING UP WITHOUT CALLING ON DAYSHIFT. PT HAS NO REQUESTS AT THIS TIME
--- NOTE | 2021-06-11 20:29 | NUR ---
PT ASSISTED BACK TO BED FROM RECLINER. HE REPORTS NO PAIN OR NAUSEA, V/S STABLE
--- NOTE | 2021-06-11 20:54 | NUR ---
DRESSING CHANGED SEE ASSESSMENT
--- NOTE | 2021-06-11 22:22 | NUR ---
OUTLINED REDNESS ON PT RIGHT HAND NOTED TO EXTEND PROXIMAL TO WRIST.
--- NOTE | 2021-06-12 00:25 | NUR ---
IN TO ASSIST RN WITH BOOST IN BED
--- NOTE | 2021-06-12 00:26 | NUR ---
PT REPORTS HE HAS NOT BEEN ABLE TO SLEEP THE PAST FEW HOURS, WHEN ASKED IF THERE IS ANYTHING STAFF CAN PROVIDE TO HELP WITH SLEEP, HE SAID NO, WHEN ASKED IF HE WOULD LIKE A SNACK HE SAID "YES PLEASE" LUNCH BOX IN FRIDGE ON UNIT PROVIDED TO PT, ASSISTED WITH SETTING UP LUNCH BOX AND BOOSTED PT UP IN BED AND SAT HEAD OF BED UP. PT REPORTS HE HAS NO OTHER NEEDS AT THIS TIME.
--- NOTE | 2021-06-12 02:30 | NUR ---
IN TO ASSIST RN WITH VITALS, PT ASSISTED UP TO THE TOILET, PT WAS ALREADY INCONT OF URINE, WHOLE NEW BED CHANGE, NEW ATTENDS IN PLACE, PT BACK TO BED, NO FURTHER NEEDS
--- NOTE | 2021-06-12 03:31 | NUR ---
PT HAS BEEN SLEEPING INTERMITTENLY, RIGHT HAND TO PROXIMAL ABOVE WRIST OUTLINED FOR REDNESS AND PAIN. HE IS ONE PERSON ASSIST WITH FWW, HE HAS HAD INCONT OF URINE, FULL BED CHANGE X2. HE WAS HUNGERY IN NIGHT WAS GIVEN LUNCH BOX. HE HAS REPORTED NO PAIN OTHER THAN WITH DRESSING CHANGE. HE REMAINS STABLE ON TELEMETRY. TREATMENT INCLUDES ABX THERAPY AND DRESSING CHANGE. HE IS ORIENTED X4, HAS HAD BED ALARM ON HE HAS ATTEMPTED TO TRANSFER WITHOUT CALL, FOR PT SAFETY. NO NEW CONCERNS THIS SHIFT.
--- NOTE | 2021-06-12 04:28 | NUR ---
PT RESTING IN BED EYES CLOSED RR EVEN AT 17 BPM, NO DISTRESS NOTED AT THIS TIME.
--- NOTE | 2021-06-12 05:42 | NUR ---
PT UP TO BATHROOM, STANDBY ASSIST WITH FWW. NO DISTRESS NOTED AT THIS TIME. HE REPORTS NO PAIN, NO SOB, NO NAUSEA.
--- NOTE | 2021-06-12 05:50 | NUR ---
VSS, UP TO THE TOILET, INCONT ATTENDS, NEW IN PLACE, PT UP TO THE EGDE OF THE BED, SITTING, PROVIDED TIME TO SIT, THEN PT THEN ASSISTED TO THE CAHIR, ALARM IS IN PLACE, PERSONAL ITEMS AND CALL LIGHT IN REACH, NO FURTHER NEEDS AT THIS TIME
--- NOTE | 2021-06-12 08:30 | NUR ---
REPORT RECEIVED FROM NIGHT RN AND PT. CARE RESUMED. PT. IS ALERT AND ORIENTED. ASSISTED FROM CHAIR TO BED WITH FWW. BED ALARM ON, PT. IS IMPULSIVE. PT. REPORTS TOLERABLE PAIN IN RIGHT THIRD FINGER. DRESSING IS C.D.I. REDNESS IN RIGHT HAND HAS BEEN OUTLINED AND IS WITHIN OUTLINE. BLE HAS +2 EDEMA THAT PT. REPORTS IS CHRONIC. LT. UPPER ARM IV IS LEAKING AND REMOVED WITH CATH. INTACT. DISCUSSED MEDS, POC AND SAFETY. PATIENT LEFT RESTING WITH CALL LIGHT IN REACH.
--- NOTE | 2021-06-12 12:54 | NUR ---
PT ASSISTED UP TO CHAIR SBA WITH FWW FOR LUNCH. PT DENIES PAIN. CALL LIGHT IN REACH.
--- NOTE | 2021-06-12 19:33 | NUR ---
SHIFT REPORT RECEIVED FROM ROGELIO XIAO. PT RESTING IN BED, WATCHING TV. TELE HR SR @ 71, SPO2 96% ON RA. NO NEEDS AT THIS TIME. CALL LIGHT IN REACH.
--- NOTE | 2021-06-12 20:24 | NUR ---
PRN VALIUM 10 MG IV GIVEN PRIOR TO CARES. PATIENT CARE COMPLETE. REPOSITIONED. RESTRAINT CARE COMPLETE AND ROM. PULSES FELT STRONG. ORAL CARE AND SUCTIONING COMPLETE.
--- NOTE | 2021-06-12 20:34 | NUR ---
assisted pt to stand at bedside to use urinal, minimal assist required. pt voided clear yellow urine. assisted back to bed. pt c/o "neck ache", prn given. side rails up x2, call light in reach. bed alarm on. pt denies further needs at this time.
--- NOTE | 2021-06-12 21:15 | NUR ---
ASSESSMENT, VS AND I&O COMPLETED. SCHEDULED MED PROVIDED. GCS 15, A&O X4. LUNGS CLEAR. HEART TONES HAVE MURMUR AND CLICK. ABD SOFT, NONTENDER, BOWEL TONES ACTIVE. BLE HAVE 2+ EDEMA. RIGHT MIDDLE FINGER WOUND CLEANED AND DRESSED, PT DENIES PAIN. NUMBNESS AND TINGLING IN FEET, PULSES INTACT. CMS INTACT IN UPPER EXTREMITIES.IV WNL, CDI, FLUSHED WELL. IV FLUIDS INFUSING PER ORDER. RIGHT HAND ELEVATED. SNACK AND WATER PROVIDED. NO OTHER NEEDS. CALL LIGHT IN REACH.
--- NOTE | 2021-06-12 22:25 | NUR ---
SCHEDULED MED PROVIDED. PT DENIES PAIN AT THIS TIME. NO OTHER NEEDS. CALL LIGHT IN REACH.
--- NOTE | 2021-06-12 23:46 | NUR ---
PT BED ALARMING. PT ASSISTED, FWW TO BR AND TO CHAIR. WARM TEA PROVIDED. CHAIR ALARM ON. CALL LIGHT IN REACH.
--- NOTE | 2021-06-13 00:10 | NUR ---
PT CHAIR ALARM SOUNDING. PT TRYING TO TURN OFF CHAIR ALARM, EDUCATION ON SAFETY PROVIDED. PT ASSISTED TO BED. ALL NEEDS AT BEDSIDE. RIGHT HAND ELEVATED. BED ALARM ON, RAILS UP, CALL LIGHT IN REACH.
--- NOTE | 2021-06-13 02:00 | NUR ---
PT RESTING IN BED, EYES CLOSED. RR EVEN, UNLABORED. CALL LIGHT IN REACH, BED ALARM ON.
--- NOTE | 2021-06-13 04:05 | NUR ---
PT FOUND SITTING UP IN BED, SLEEPING. PT WAKES WHEN DOOR IS OPENED. PT STATES HE IS CONFUSED BUT ANSWERS ALL ORIENTATION QUESTIONS PROPERLY. PT STATES HE FEELS LIKE HE IS ORINETED AFTER SEVERAL MINUTES. PT HAS NO NEW WEAKNESS, SPEECH CHANGES OR FACIAL DROOP. PT UP TO BR, FWW. BRIEFS AND BEDDING CHANGED, NEW GOWN PROVIDED. PT UP IN CHAIR, CHAIR ALARM ON, SAFETY EDUCATION PROVIDED. ASSESSMENT COMPLETED. WOUND DRESSING CDI. HOT CHOCOLATE PROVIDED. NO OTHER NEEDS. CALL LIGHT IN REACH WITH CHAIR ALARM ON.
--- NOTE | 2021-06-13 05:19 | NUR ---
PT CHAIR ALARM SOUNDING, PT WANTS TO USE BR. SBA FWW TO BR AND BACK TO BED. VS AND I&O COMPLETED. PT STATES HE HAS A 4/10 GUILLERMO, PRN PAIN MED PROVIDED. SCHEDULED MED PROVIDED. NO OTHER NEEDS. CALL LIGHT IN REACH, RAILS UP, BED ALARM ON.
--- NOTE | 2021-06-13 07:33 | NUR ---
Shift report received from NINOSKA Nixon, pt resting safely w/ call light in reach, bed alarm on, and eyes closed. RR even and unlabored on RA.
--- NOTE | 2021-06-13 08:54 | NUR ---
PATIENT WANTED TO SLEEP.
--- NOTE | 2021-06-13 09:32 | NUR ---
Pt sitting up in bed w/ call light in reach and bed alarm on, eating breakfast. Morning assesment complete, scheduled meds given, and IV fluids hung and infusing per provider order. removed dressing and asseses would on R middle finger, no new orders at this time, dressing change completed. Pt denies any pain or needs at this time.
--- NOTE | 2021-06-13 11:31 | NUR ---
PATIENT UP TO BATHROOM TO BM, SBA. INCONTINENT OF COPIOUS AMOUNTS OF URINE. DRY ATTENDS IN PLACE
--- NOTE | 2021-06-13 11:55 | NUR ---
Pt sitting up in chair w/ call light in reach and chair alarm on, eating lunch. Insulin given per SS/provider order, IV abx hung and infusing, pt denies any pain or further needs at this time.
--- NOTE | 2021-06-13 14:00 | NUR ---
Pt sitting up in chair w/ call light in reach. IV abx hung and infusing w/ IU fluids per provider order. Pt denies any needs at this time, dressing to R middle finger CDI.
--- NOTE | 2021-06-13 14:06 | NUR ---
PT NAPPING. CALL LIGHT WITHIN REACH NO FURTHER NEEDS
--- NOTE | 2021-06-13 16:28 | NUR ---
Pt sitting up in chair w/ call light in reach, IV fluids and abx infusing per provider orders. Pt denies any needs at this time
--- NOTE | 2021-06-13 18:33 | NUR ---
Pt sitting up in chair w/ call light in reach, IV abx complete, IV fluids insfusing per provider orders, no needs at this time, chair alarm on.
--- NOTE | 2021-06-13 19:32 | NUR ---
pt lac iv site leaking, bent at insertion site. removed, tried 2x, unable to restart. pt cooperative, procedures explained. will notify charge nurse.
--- NOTE | 2021-06-13 19:54 | NUR ---
NEW IV STARTED IN RFA, 20 G. BRISK BLOOD RETURN NOTED, FLUSHED WITH 10 ML NS. FLUSHES WELL. PT TOLERATED WELL, STATES "I DIDN'T FEEL IT". DENIES FURTHER NEEDS AT THIS TIME CALL LIGHT IN REACH.
--- NOTE | 2021-06-13 21:12 | NUR ---
iv restarted earlier rfa. dressing to r fingers, to be changed as per orders. on room air, see assessment. chair alarm in place. pleasantly forgetful. cooperative, encouraged to elevate legs, declines. tolerating liquids well. medicated with tylenol prior to dressing changes. procedure excplained, cooperative. cbg w ss insulin, see emar, uses call light
--- NOTE | 2021-06-13 22:25 | NUR ---
up to br, voided, back to bed with 1pa, ivf infusing. R mid finger dressing changed. viable red/pink moist area. rinsed with NS, dried, covered with adaptic/gauze kerlix and coban. very coop. no c/o pain. Up in chair watching tv
--- NOTE | 2021-06-13 23:33 | NUR ---
Pt back to bed. no c/o pain.
--- NOTE | 2021-06-14 01:45 | NUR ---
resting, eyes closed. on room air, IVF infusing. turns and repositions in bed, legs elevated. R hand mid finger dressing intact elevated w pillows. Fluids and liquids at bedside
--- NOTE | 2021-06-14 03:12 | NUR ---
RESATING, EYES CLOSED, ON ROOM AIR, IVF INFUSING. R ARM ELEVATED
--- NOTE | 2021-06-14 05:59 | NUR ---
ON ROOM AIR, SBA, IVF INFUSING W/O PROBLEMS. R MID FINGER DRESSING INTACT, ELEVATED WITH PILLOWS DRESSING CHANGED THIS SHIFT. IMPROVING. EDEMA TO LE ENCOURAGED TO ELEVATE LEGS, TOLERATING LIQUIDS AND DIET WELL, CBG 281 RECEIVED SS INSULIN. ALERT, ORIENTED, COOPERATIVE. VOIDING QS, SBA
[2021-06-14] MEDS ORDERED: CLINDAMYCIN HC300 MG PO (08:06)
--- NOTE | 2021-06-14 08:45 | NUR ---
PER AM MEETING WITH DR. WHITE PATIENT TO DISCHARGE HOME TODAY. PATIENT STATES HE CURRENTLY HAS A CAREGIVER AT HOME DUE TO SOME MILD COGNATIVE DECLINE. PER DR. WHITE AND STAFF NO FURTHER CASE MANAGEMENT NEEDS AT THIS TIME.
--- NOTE | 2021-06-14 09:12 | NUR ---
PATIENT'S FINGER REDRESSED AFTER NEW PICTURES TAKEN FOR THE CHART. PATIENT WAS INCONTINENT URINE THROUGHOUT THE BED AND CLUB ATTENDANT'S CALLED TO GET PATIENT WASHED UP AND SET UP FOR BREAKFAST. CLUB ATTENDANT'S WITH PATIENT NOW.
--- NOTE | 2021-06-14 09:40 | NUR ---
PATIENT UP IN THE BEDSIDE ARMCHAIR AND HAS FINISHED BREAKFAST. AM MEDS HAVE BEEN PASSED AND AM ASSESSMENT COMPLETE. PATIENT DENIES ANY OTHER CARE NEEDS AT THIS TIME. PATIENT HAS DRESSING CHANGE SUPPLIES FOR 4 DAYS AND WILL BE CALLING HIS RIDE SHORTLY AND WILL LET ME KNOW WHEN HIS RIDE WILL ARRIVE. CALL LIGHT IN REACH.
--- NOTE | 2021-06-14 10:30 | NUR ---
PATIENT'S CAREGIVER/LIFE PARTNER INGE IS HERE AND DC INSTRUCTIONS READ TO BOTH INDIVIDUALS AND WRITTEN COPIES GIVEN. IV WAS DC'D INTACT. INFORMED OF PRESCRITION TO AGRICULTURAL INSPECTOR AT THE PHARMACY AND PHARMACIST HAS ALREADY SPOKEN TO BOTH INDIVIDUALS WELL. VS ARE STABLE AND NINOSKA JAMA TAKING PATIENT OUT IN WHEELCHAIR.
== END 2021-06-14 10:30 | disposition home or self-care (01) | DRG 602 ==
LOC: ED 15:38 → MS 06-11 11:19
PROVIDERS: ADMIT Student in an Organized Health Care Education/Training Program; ATTEND Student in an Organized Health Care Education/Training Program
PROC: 0H9QXZZ Drainage of Finger Nail, External Approach (ICD-10-PCS; principal; 2021-06-11)
DX: L03.011 Cellulitis of right finger (principal); G93.41 Metabolic encephalopathy; I25.10 Atherosclerotic heart disease of native coronary artery without angina pectoris; M10.9 Gout, unspecified; Z20.822 Contact with and (suspected) exposure to COVID-19; G70.00 Myasthenia gravis without (acute) exacerbation; I12.9 Hypertensive chronic kidney disease with stage 1 through stage 4 chronic kidney disease, or unspecified chronic kidney disease; N18.9 Chronic kidney disease, unspecified; E11.22 Type 2 diabetes mellitus with diabetic chronic kidney disease; E11.21 Type 2 diabetes mellitus with diabetic nephropathy; F41.9 Anxiety disorder, unspecified; F32.A Depression, unspecified; I25.2 Old myocardial infarction; Z86.73 Personal history of transient ischemic attack (TIA), and cerebral infarction without residual deficits; Z98.890 Other specified postprocedural states; Z86.14 Personal history of Methicillin resistant Staphylococcus aureus infection; Z87.19 Personal history of other diseases of the digestive system; Z87.891 Personal history of nicotine dependence; Z95.5 Presence of coronary angioplasty implant and graft; Z95.1 Presence of aortocoronary bypass graft; Z88.8 Allergy status to other drugs, medicaments and biological substances; Z91.018 Allergy to other foods; Z79.4 Long term (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 of insulin; Z79.82 Long term (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; Z79.899 Other long term (current) 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
CPT/HCPCS: 26010; 36415; 70450; 73140; 80048; 80053; 80202; 83735; 85025; 99285-25; A9270; C9803; J0692; J1650; J1815; J2270; J2405; J3370; J7050; J7060; J7121; Q9967; U0003

== ENCOUNTER 2021-06-29 17:09 | Emergency (ER) | payer MEDICARE, OTHER ==
[~2021-06-29] VITALS: Ht 167.6 cm; Wt 91.6 kg
[~2021-06-29 17:09] MED LIST changes: +CLINDAMYCIN HC300 MG PO; +LISINOPRIL20 MG PO; +PIOGLITAZONE HC15 MG PO
--- OUTSIDE RECORDS SUMMARY | 2021-06-29 17:12 | XMS ---
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 Care History Medical/Surgical 04/12/2021 [facility] - PATIENT RECENTLY DISCHARGED FROM [facility] . 02/16/2021 [facility] - PATIENT IS CURRENTLY RECEIVING HOME HEALTH SERVICES THRU [facility]. PLEASE CONTACT HOME HEALTH AGENCY IF PATIENT IS SEEN IN THE ED. - PER REQUEST OF PATIENT- SENDING RECENT ED CHART NOTES TO [facility]. E.D. VISIT COUNT (12 MO.) 9 [place] TOTAL 9 NOTE: Visits indicate total known visits. ED/UCC VISIT TRACKING (12 MO.) 06/29/2021 17:10 [facility] [place] TYPE: Emergency COMPLAINT: - R KNEE PAIN 06/10/2021 15:40 [facility] [place] TYPE: Emergency COMPLAINT: - R MIDDLE FINGER FESTER/PAIN 04/07/2021 08:59 [facility] [place] TYPE: Emergency COMPLAINT: - ALTERED MENTAL STATUS DIAGNOSES: - Old myocardial infarction - halfway (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 - halfway (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 of insulin - halfway (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 drugs - Essential (primary) hypertension - Other senior care (current) 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 - Gout, unspecified - Type 2 diabetes mellitus without complications - Altered mental status, unspecified - Atherosclerotic heart disease of [place] coronary artery without angina pectoris - Encounter for immunization - Allergy status to other drugs, medicaments and biological substances - COVID-19 - Allergy to other foods - Personal history of nicotine dependence 03/03/2021 09:33 [facility] [place] TYPE: Emergency COMPLAINT: - WEAKNESS DIAGNOSES: - Other senior care (current) 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 - Allergy to other foods - Allergy status to other drugs, medicaments and biological substances - Old myocardial infarction - Weakness - Gout, unspecified - joint terminal attack controller (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 - halfway (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 of insulin - Personal history of nicotine dependence - halfway (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 drugs - Type 2 diabetes mellitus without complications - Essential (primary) hypertension - Atherosclerotic heart disease of [place] coronary artery without angina pectoris 02/14/2021 13:42 [facility] [place] TYPE: Emergency COMPLAINT: - POSS STROKE DIAGNOSES: - Cannabis use, unspecified, uncomplicated - Weakness - Other senior care (current) 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 - Essential (primary) hypertension - Atherosclerotic heart disease of [place] coronary artery without angina pectoris - Personal history of nicotine dependence - Allergy status to other drugs, medicaments and biological substances - halfway (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 of antibiotics - joint terminal attack controller (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 - Altered mental [...] status to sulfonamides - Gout, unspecified - halfway (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 of systemic steroids - joint terminal attack controller (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 of insulin - Allergy to other foods - Other senior care (current) 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 - Old myocardial infarction - Atherosclerotic heart disease of [place] coronary artery without angina pectoris - Allergy status to other drugs, medicaments and biological substances 01/27/2021 06:17 [facility] [place] TYPE: Emergency COMPLAINT: - URINARY PROBLEM DIAGNOSES: - Patient's noncompliance with other medical treatment and regimen - Atherosclerotic heart disease of [place] coronary artery without angina pectoris - joint terminal attack controller (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 drugs - Personal history of transient ischemic attack (TIA), and cerebral infarction without residual deficits - halfway (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 - Allergy status to other drugs, medicaments and biological substances - Unspecified urinary incontinence - Old myocardial infarction - Allergy to other foods - Other lobsterman (current) 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 - Essential (primary) hypertension - Type 2 diabetes mellitus without complications - Personal history of nicotine dependence 12/08/2020 17:47 [facility] TYPE: Emergency COMPLAINT: - FLU SYMPTOMS DIAGNOSES: - Dizziness and giddiness - Allergy status to other drugs, medicaments and biological substances - Other lobsterman (current) 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 - halfway (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 - Dehydration - [...] myocardial infarction - Atherosclerotic heart disease of [place] coronary artery without angina pectoris - joint terminal attack controller (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 drugs - Allergy to other foods - Other senior care (current) 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 - Other chronic pain - Old myocardial infarction - halfway (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 INPATIENT VISIT TRACKING (12 MO.) 06/11/2021 11:[address] [facility] [place] TYPE: Medical Surgical COMPLAINT: - CELLULITIS DIAGNOSES: - Atherosclerotic heart disease of [place] coronary artery without angina pectoris - Old myocardial infarction - Other lobsterman (current) 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 - Other senior care (current) 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 - Chronic kidney disease, unspecified - Atherosclerotic heart disease of [place] coronary artery without angina pectoris - Allergy to other foods - Presence of coronary angioplasty implant and graft - Hypertensive chronic kidney disease with stage 1 through stage 4 chronic kidney disease, or unspecified chronic kidney disease - Presence of aortocoronary bypass graft - Metabolic encephalopathy - Personal history of transient ischemic attack (TIA), and cerebral infarction without residual deficits - Cellulitis of right finger - Type 2 diabetes mellitus with diabetic nephropathy - joint terminal attack controller (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 of insulin - Metabolic encephalopathy - Myasthenia gravis without (acute) exacerbation - Chronic kidney disease, unspecified - Anxiety disorder, unspecified - Essential (primary) hypertension - Allergy to other foods - Personal history of other diseases of the digestive system - DEPRESSION, UNSPECIFIED - Type 2 diabetes mellitus with diabetic nephropathy - Cellulitis of left finger - Type 2 diabetes mellitus without complications - Personal history of nicotine dependence - DEPRESSION, UNSPECIFIED - Personal history of nicotine dependence - Personal history of Methicillin resistant Staphylococcus aureus infection - Type 2 diabetes mellitus with diabetic chronic kidney disease - Presence of coronary angioplasty implant and graft - Personal history of other diseases of the digestive system - Personal history of Methicillin resistant Staphylococcus aureus infection - Gout, unspecified - halfway (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 of insulin - Type 2 diabetes mellitus with diabetic chronic kidney disease - Old myocardial infarction - Personal history of transient ischemic attack (TIA), and cerebral infarction without residual deficits - Other specified postprocedural states - Myasthenia gravis without (acute) exacerbation - joint terminal attack controller (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 - Hypertensive chronic kidney disease with stage 1 through stage 4 chronic kidney disease, or unspecified chronic kidney disease - halfway (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 - Presence of aortocoronary bypass graft - Other specified postprocedural states - Allergy status to other drugs, medicaments and biological substances - Gout, unspecified - Anxiety disorder, unspecified - Allergy status to other drugs, medicaments and biological substances [facility] DIAGNOSES: - NSTEMI - Non-ST elevation (NSTEMI) myocardial infarction - Type 2 diabetes mellitus with unspecified complications - Essential (primary) hypertension - Atherosclerotic heart disease of [place] coronary artery without angina pectoris - Myasthenia gravis without (acute) exacerbation [id number]
[2021-06-29] MEDS ORDERED: POTASSIUM CHLO20 ME1 PO (17:25)
[2021-06-29] MEDS ORDERED: PIOGLITAZONE HC15 MG PO (17:26)
== END 2021-06-29 18:43 | disposition home or self-care (01) ==
LOC: ED 17:09
DX: S83.91XA Sprain of unspecified site of right knee, initial encounter (principal); I10 Essential (primary) hypertension; E11.9 Type 2 diabetes mellitus without complications; I25.10 Atherosclerotic heart disease of native coronary artery without angina pectoris; I25.2 Old myocardial infarction; M10.9 Gout, unspecified; Z87.891 Personal history of nicotine dependence; Z88.0 Allergy status to penicillin; Z88.8 Allergy status to other drugs, medicaments and biological substances; Z91.018 Allergy to other foods; Z79.82 Long term (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; Z79.84 Long term (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 drugs; Z79.899 Other long term (current) 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; X50.9XXA Other and unspecified overexertion or strenuous movements or postures, initial encounter
CPT/HCPCS: 73560; 99283-25; A9270

== ENCOUNTER 2021-07-11 22:01 | Emergency (ER) | payer MEDICARE, OTHER ==
[~2021-07-11] VITALS: Ht 167.6 cm; Wt 89.4 kg
--- OUTSIDE RECORDS SUMMARY | 2021-07-11 22:04 | XMS ---
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 Care History Medical/Surgical 04/12/2021 [facility] - PATIENT RECENTLY DISCHARGED FROM [facility] OF . 02/16/2021 [facility] - PATIENT IS CURRENTLY RECEIVING HOME HEALTH SERVICES THRU [facility]. PLEASE CONTACT HOME HEALTH AGENCY IF PATIENT IS SEEN IN THE ED. - PER REQUEST OF PATIENT- SENDING RECENT ED CHART NOTES TO [facility]. E.D. VISIT COUNT (12 MO.) 10 [place] TOTAL 10 NOTE: Visits indicate total known visits. ED/UCC VISIT TRACKING (12 MO.) 07/11/2021 22:01 [facility] [place] TYPE: Emergency COMPLAINT: - WEAKNESS 06/29/2021 17:10 [facility] [place] TYPE: Emergency COMPLAINT: - R KNEE PAIN DIAGNOSES: - Old myocardial infarction - Allergy status to penicillin - Other and unspecified overexertion or strenuous movements or postures, initial encounter - Essential (primary) hypertension - Personal history of nicotine dependence - Allergy to other foods - Atherosclerotic heart disease of [place] coronary artery without angina pectoris - Gout, unspecified - [facility] [place] [facility] (current[facility] 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 - marine oil terminal superintendent (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 - marine oil terminal superintendent (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 drugs - Pain in right knee - Sprain of unspecified site of right knee, initial encounter - Allergy status to other drugs, medicaments and biological substances - Type 2 diabetes mellitus without complications 06/10/2021 15:40 [facility] TYPE: Emergency COMPLAINT: - R MIDDLE FINGER FESTER/PAIN 04/07/2021 08:59 [facility] TYPE: Emergency COMPLAINT: - ALTERED MENTAL STATUS DIAGNOSES: - Old myocardial infarction - marine oil terminal superintendent (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 - USP (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 of insulin - USP (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 drugs - Essential (primary) hypertension - Other [place] [facility] (current) 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 - Gout, unspecified - Type 2 diabetes mellitus without complications - Altered mental status, unspecified - Atherosclerotic heart disease of [place] coronary artery without angina pectoris - Encounter for immunization - Allergy status to other drugs, medicaments and biological substances - COVID-19 - Allergy to other foods - Personal history of nicotine dependence 03/03/2021 09:33 [facility] TYPE: Emergency COMPLAINT: - WEAKNESS DIAGNOSES: - [facility] [place] [facility] (current[facility] 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 - Allergy to other foods - Allergy status to other drugs, medicaments and biological substances - Old myocardial infarction - Weakness - Gout, unspecified - USP (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 - marine oil terminal superintendent (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 of insulin - Personal history of nicotine dependence - USP (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 drugs - Type 2 diabetes mellitus without complications - Essential (primary) hypertension - Atherosclerotic heart disease of [place] coronary artery without angina pectoris 02/14/2021 13:42 [facility] TYPE: Emergency COMPLAINT: - POSS STROKE DIAGNOSES: - Cannabis use, unspecified, uncomplicated - Weakness - Other 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 supervisor (current) 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 - Essential (primary) hypertension - Atherosclerotic heart disease of [place] coronary artery without angina pectoris - Personal history of nicotine dependence - Allergy status to other drugs, medicaments and biological substances - USP (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 of antibiotics - USP (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 - Altered mental [...] status to sulfonamides - Gout, unspecified - marine oil terminal superintendent (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 of systemic steroids - marine oil terminal superintendent (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 of insulin - Allergy to other foods - Other 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 supervisor (current) 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 - Old myocardial infarction - Atherosclerotic heart disease of [place] coronary artery without angina pectoris - Allergy status to other drugs, medicaments and biological substances 01/27/2021 06:17 [facility] TYPE: Emergency COMPLAINT: - URINARY PROBLEM DIAGNOSES: - Patient's noncompliance with other medical treatment and regimen - Atherosclerotic heart disease of [place] coronary artery without angina pectoris - USP (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 drugs - Personal history of transient ischemic attack (TIA), and cerebral infarction without residual deficits - USP (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 - Allergy status to other drugs, medicaments and biological substances - Unspecified urinary incontinence - Old myocardial infarction - Allergy to other foods - Other [place] [facility] (current) 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 - Essential (primary) hypertension - Type 2 diabetes mellitus without complications - Personal history of nicotine dependence 12/08/2020 17:47 [facility] TYPE: Emergency COMPLAINT: - FLU SYMPTOMS DIAGNOSES: - Dizziness and giddiness - Allergy status to other drugs, medicaments and biological substances - Other 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 supervisor (current) 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 - marine oil terminal superintendent (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 - Dehydration - [...] myocardial infarction - Atherosclerotic heart disease of [place] coronary artery without angina pectoris - USP (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 drugs - Allergy to other foods - Other 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 supervisor (current) 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 - Other chronic pain - Old myocardial infarction - USP (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 INPATIENT VISIT TRACKING (12 MO.) 06/11/2021 11:19 [facility] TYPE: Medical Surgical COMPLAINT: - CELLULITIS DIAGNOSES: - Atherosclerotic heart disease of [place] coronary artery without angina pectoris - Old myocardial infarction - Other [place] [facility] ([facility] 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 - Other [place] [facility] (current) 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 - Chronic kidney disease, unspecified - Atherosclerotic heart disease of [place] coronary artery without angina pectoris - Allergy [...] 2 diabetes mellitus with diabetic nephropathy - USP (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 of insulin - Metabolic encephalopathy [...] Staphylococcus aureus infection - Gout, unspecified - USP (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 of insulin - Type 2 diabetes mellitus with diabetic chronic kidney disease - Old myocardial infarction - Personal history of transient ischemic attack (TIA), and cerebral infarction without residual deficits - Other specified postprocedural states - Myasthenia gravis without (acute) exacerbation - marine oil terminal superintendent (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 - Hypertensive chronic kidney disease with stage 1 through stage 4 chronic kidney disease, or unspecified chronic kidney disease - USP (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 - Presence of aortocoronary bypass graft - Other specified postprocedural states - Allergy status to other drugs, medicaments and biological substances - Gout, unspecified - Anxiety disorder, unspecified - Allergy status to other drugs, medicaments and biological substances 07/16/2020 21:12 [facility] TYPE: Medical Surgical DIAGNOSES: - NSTEMI - Non-ST elevation (NSTEMI) myocardial infarction - Type 2 diabetes mellitus with unspecified complications - Essential (primary) hypertension - Atherosclerotic heart disease of [place] coronary artery without angina pectoris - Myasthenia gravis without (acute) exacerbation [email or web address]
--- NOTE | 2021-07-12 20:35 | EKG ---
[facility] [address] [place], [place] [address] Signed Normal sinus rhythm Cannot rule out Anterior infarct , age undetermined Abnormal ECG When compared with ECG of 07-APR-2021 09:03, No significant change was found Confirmed by ISAMAR WHITE MD ([id number] on 07/12/2021 8:34:54 PM Electronically Signed By: ISAMAR WHITE MD 07/12/212034 PATIENT NAME: ROBBIE RESTREPO SHIVANI Electrocardiogram DATE OF : 54 PHYSICIAN: ISAMAR WHITE MD REPORT #: [id number] REPORT IS CONFIDENTIAL AND NOT TO BE RELEASED WITHOUT AUTHORIZATION
[2021-07-13] MEDS ORDERED: PROZAC40 MG PO (00:34)
[2021-07-13] MEDS ORDERED: PRAVASTATIN SOD10 MG PO (00:35)
[2021-07-13] MEDS ORDERED: SLOW-MAG71.5 MG PO (17:36)
== END 2021-07-12 01:00 | disposition home or self-care (01) ==
LOC: ED 22:01
DX: E86.0 Dehydration (principal); N17.9 Acute kidney failure, unspecified; R53.1 Weakness; I10 Essential (primary) hypertension; E11.9 Type 2 diabetes mellitus without complications; I25.10 Atherosclerotic heart disease of native coronary artery without angina pectoris; I25.2 Old myocardial infarction; M10.9 Gout, unspecified; Z87.891 Personal history of nicotine dependence; Z88.8 Allergy status to other drugs, medicaments and biological substances; Z88.0 Allergy status to penicillin; Z91.018 Allergy to other foods; Z79.82 Long term (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; Z79.899 Other long term (current) 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; Z79.84 Long term (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 drugs; Z20.822 Contact with and (suspected) exposure to COVID-19
CPT/HCPCS: 36415; 51701; 71045; 80048; 80053; 81001; 83880; 84484; 85025; 93005; 93010; 99285-25; C9803; J7030; U0003

== ENCOUNTER 2021-07-12 23:46 | Emergency (ER) | payer MEDICARE, OTHER ==
[~2021-07-12] VITALS: Ht 167.6 cm; Wt 89.4 kg
--- OUTSIDE RECORDS SUMMARY | 2021-07-12 23:48 | XMS ---
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 Care History Medical/Surgical 04/12/2021 [facility] - PATIENT RECENTLY DISCHARGED FROM [facility] . 02/16/2021 [facility] - PATIENT IS CURRENTLY RECEIVING HOME HEALTH SERVICES THRU [facility]. PLEASE CONTACT HOME HEALTH AGENCY IF PATIENT IS SEEN IN THE ED. - PER REQUEST OF PATIENT- SENDING RECENT ED CHART NOTES TO [facility]. E.D. VISIT COUNT (12 MO.) 11 [place] TOTAL 11 NOTE: Visits indicate total known visits. ED/UCC VISIT TRACKING (12 MO.) 07/12/2021 23:46 [facility] [place] TYPE: Emergency COMPLAINT: - VOMITING 07/11/2021 22:01 [facility] [place] TYPE: Emergency [...] other foods - Atherosclerotic heart disease of [place] coronary artery without angina pectoris - Gout, unspecified - Other halfway (current) 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 - halfway (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 - medical terminologist (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 drugs - [...] STATUS DIAGNOSES: - Old myocardial infarction - medical terminologist (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 - medical terminologist (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 of insulin - halfway (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 drugs - Essential (primary) hypertension - Other intermediate manager (current) 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 - Gout, unspecified - Type 2 diabetes mellitus without complications - Altered mental status, unspecified - Atherosclerotic heart disease of [place] coronary artery without angina pectoris - Encounter for immunization - Allergy status to other drugs, medicaments and biological substances - COVID-19 - Allergy to other foods - Personal history of nicotine dependence 03/03/2021 09:33 [facility] [place] TYPE: Emergency COMPLAINT: - WEAKNESS DIAGNOSES: - Other halfway (current) 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 - Allergy to other foods - Allergy status to other drugs, medicaments and biological substances - Old myocardial infarction - Weakness - Gout, unspecified - medical terminologist (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 - halfway (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 of insulin - Personal history of nicotine dependence - medical terminologist (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 drugs - Type 2 diabetes mellitus without complications - Essential (primary) hypertension - Atherosclerotic heart disease of [place] coronary artery without angina pectoris 02/14/2021 13:42 [facility] [place] TYPE: Emergency COMPLAINT: - POSS STROKE DIAGNOSES: - Cannabis use, unspecified, uncomplicated - Weakness - Other halfway (current) 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 - Essential (primary) hypertension - Atherosclerotic heart disease of [place] coronary artery without angina pectoris - Personal history of nicotine dependence - Allergy status to other drugs, medicaments and biological substances - halfway (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 of antibiotics - medical terminologist (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 - Altered mental [...] status to sulfonamides - Gout, unspecified - medical terminologist (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 of systemic steroids - medical terminologist (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 of insulin - Allergy to other foods - Other intermediate manager (current) 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 - Old myocardial infarction - Atherosclerotic heart disease of [place] coronary artery without angina pectoris - Allergy status to other drugs, medicaments and biological substances 01/27/2021 06:17 [facility] [place] TYPE: Emergency COMPLAINT: - URINARY PROBLEM DIAGNOSES: - Patient's noncompliance with other medical treatment and regimen - Atherosclerotic heart disease of [place] coronary artery without angina pectoris - halfway (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 drugs - Personal history of transient ischemic attack (TIA), and cerebral infarction without residual deficits - halfway (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 - Allergy status to other drugs, medicaments and biological substances - Unspecified urinary incontinence - Old myocardial infarction - Allergy to other foods - Other halfway (current) 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 - Essential (primary) hypertension - Type 2 diabetes mellitus without complications - Personal history of nicotine dependence 12/08/2020 17:47 [facility] [place] TYPE: Emergency COMPLAINT: - FLU SYMPTOMS DIAGNOSES: - Dizziness and giddiness - Allergy status to other drugs, medicaments and biological substances - Other intermediate manager (current) 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 - halfway (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 [...] myocardial infarction - Atherosclerotic heart disease of [place] coronary artery without angina pectoris - medical terminologist (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 drugs - Allergy to other foods - Other halfway (current) 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 - Other chronic pain - Old myocardial infarction - halfway (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 INPATIENT VISIT TRACKING (12 MO.) 06/11/2021 11:[address] [facility] [place] TYPE: Medical Surgical COMPLAINT: - CELLULITIS DIAGNOSES: - Atherosclerotic heart disease of [place] coronary artery without angina pectoris - Old myocardial infarction - Other halfway (current) 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 - Other intermediate manager (current) 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 - Chronic kidney disease, unspecified - Atherosclerotic heart disease of [place] coronary artery without angina pectoris - Allergy [...] 2 diabetes mellitus with diabetic nephropathy - medical terminologist (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 of insulin - Metabolic encephalopathy [...] - Myasthenia gravis without (acute) exacerbation - medical terminologist (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 - Hypertensive chronic kidney disease with stage 1 through stage 4 chronic kidney disease, or unspecified chronic kidney disease - medical terminologist (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 - Presence of aortocoronary bypass graft - Other specified postprocedural states - Allergy status to other drugs, medicaments and biological substances - Gout, unspecified - Anxiety disorder, unspecified - Allergy status to other drugs, medicaments and biological substances 07/16/2020 21:[address] [facility] TYPE: Medical Surgical DIAGNOSES: - NSTEMI - Non-ST elevation (NSTEMI) myocardial infarction - Type 2 diabetes mellitus with unspecified complications - Essential (primary) hypertension - Atherosclerotic heart disease of [place] coronary artery without angina pectoris - Myasthenia gravis without (acute) exacerbation [email or web address]
[2021-07-13] MEDS ORDERED: PROZAC40 MG PO (00:34)
[2021-07-13] MEDS ORDERED: PRAVASTATIN SOD10 MG PO (00:35)
[2021-07-13] MEDS ORDERED: SLOW-MAG71.5 MG PO (17:36)
== END 2021-07-13 02:34 | disposition home or self-care (01) ==
LOC: ED 23:46
DX: R11.10 Vomiting, unspecified (principal); E11.9 Type 2 diabetes mellitus without complications; I10 Essential (primary) hypertension; I25.10 Atherosclerotic heart disease of native coronary artery without angina pectoris; I25.2 Old myocardial infarction; M10.9 Gout, unspecified; Z87.891 Personal history of nicotine dependence; Z88.8 Allergy status to other drugs, medicaments and biological substances; Z91.018 Allergy to other foods; Z88.0 Allergy status to penicillin; Z79.899 Other long term (current) 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; Z79.82 Long term (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; Z79.84 Long term (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 drugs
CPT/HCPCS: 36415; 80053; 85025; 96374; 99284-25; J2765; J7030

== ENCOUNTER 2021-07-13 13:30 | Emergency (ER) | payer MEDICARE, OTHER ==
[~2021-07-13] VITALS: Ht 167.6 cm; Wt 89.6 kg
[~2021-07-13 13:30] MED LIST changes: +PRAVASTATIN SOD10 MG PO
--- OUTSIDE RECORDS SUMMARY | 2021-07-13 13:32 | XMS ---
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 Current PHONE: [phone] Shaunna has no Care Guidelines for this patient. Care History Medical/Surgical 04/12/2021 [facility] - PATIENT RECENTLY DISCHARGED FROM [facility] . 02/16/2021 [facility] - PATIENT IS CURRENTLY RECEIVING HOME HEALTH SERVICES THRU [facility]. PLEASE CONTACT HOME HEALTH AGENCY IF PATIENT IS SEEN IN THE ED. - PER REQUEST OF PATIENT- SENDING RECENT ED CHART NOTES TO [facility]. E.D. VISIT COUNT (12 MO.) [address] [facility] TOTAL 12 NOTE: Visits indicate total known visits. 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 - assisted (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 drugs - [...] STATUS DIAGNOSES: - Old myocardial infarction - 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 - 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 (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 of insulin - assisted (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 drugs - Essential (primary) hypertension - Other middle or intermediate school principal (current) 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 - Gout, unspecified - Type 2 diabetes mellitus without complications - Altered mental status, unspecified - Atherosclerotic heart disease of [place] coronary artery without angina pectoris - Encounter for immunization - Allergy status to other drugs, medicaments and biological substances - COVID-19 - Allergy to other foods - Personal history of nicotine dependence 03/03/2021 09:33 [facility] [place] TYPE: Emergency COMPLAINT: - WEAKNESS DIAGNOSES: - Other middle or intermediate school principal (current) 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 - Allergy to other foods - Allergy status to other drugs, medicaments and biological substances - Old myocardial infarction - Weakness - Gout, unspecified - assisted (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 - assisted (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 of insulin - Personal history of nicotine dependence - 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 (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 drugs - Type 2 diabetes mellitus without complications - Essential (primary) hypertension - Atherosclerotic heart disease of [place] coronary artery without angina pectoris 02/14/2021 13:42 [facility] [place] TYPE: Emergency COMPLAINT: - POSS STROKE DIAGNOSES: - Cannabis use, unspecified, uncomplicated - Weakness - Other middle or intermediate school principal (current) 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 - Essential (primary) hypertension - Atherosclerotic heart disease of [place] coronary artery without angina pectoris - Personal history of nicotine dependence - Allergy status to other drugs, medicaments and biological substances - 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 (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 of antibiotics - 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 - [...] status to sulfonamides - Gout, unspecified - 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 (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 of systemic steroids - 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 (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 of insulin - Allergy to other foods - Other middle or intermediate school principal (current) 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 - Old myocardial infarction - Atherosclerotic heart disease of [place] coronary artery without angina pectoris - Allergy status to other drugs, medicaments and biological substances 01/27/2021 06:17 [facility] [place] TYPE: Emergency COMPLAINT: - URINARY PROBLEM DIAGNOSES: - Patient's noncompliance with other medical treatment and regimen - Atherosclerotic heart disease of [place] coronary artery without angina pectoris - assisted (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 drugs - Personal history of transient ischemic attack (TIA), and cerebral infarction without residual deficits - 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 - Allergy status to other drugs, medicaments and biological substances - Unspecified urinary incontinence - Old myocardial infarction - Allergy to other foods - Other fci (current) 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 - Essential (primary) hypertension - Type 2 diabetes mellitus without complications - Personal history of nicotine dependence 12/08/2020 17:47 [facility] [place] TYPE: Emergency COMPLAINT: - FLU SYMPTOMS DIAGNOSES: - Dizziness and giddiness - Allergy status to other drugs, medicaments and biological substances - Other middle or intermediate school principal (current) 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 - 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 - [...] myocardial infarction - Atherosclerotic heart disease of [place] coronary artery without angina pectoris - 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 (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 drugs - Allergy to other foods - Other fci (current) 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 - Other chronic pain - Old myocardial infarction - assisted (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 INPATIENT VISIT TRACKING (12 MO.) 06/11/2021 11:19 [facility] [place] TYPE: Medical Surgical COMPLAINT: - CELLULITIS DIAGNOSES: - Atherosclerotic heart disease of [place] coronary artery without angina pectoris - Old myocardial infarction - Other middle or intermediate school principal (current) 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 - Other middle or intermediate school principal (current) 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 - Chronic kidney disease, unspecified - Atherosclerotic heart disease of [place] coronary artery without angina pectoris - Allergy [...] 2 diabetes mellitus with diabetic nephropathy - 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 (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 of insulin - Metabolic encephalopathy [...] Staphylococcus aureus infection - Gout, unspecified - assisted (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 of insulin - Type 2 diabetes mellitus with diabetic chronic kidney disease - Old myocardial infarction - Personal history of transient ischemic attack (TIA), and cerebral infarction without residual deficits - Other specified postprocedural states - Myasthenia gravis without (acute) exacerbation - assisted (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 - Hypertensive chronic kidney disease with stage 1 through stage 4 chronic kidney disease, or unspecified chronic kidney disease - assisted (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 - Presence of aortocoronary bypass graft - Other specified postprocedural states - Allergy status to other drugs, medicaments and biological substances - Gout, unspecified - Anxiety disorder, unspecified - Allergy status to other drugs, medicaments and biological substances [facility] DIAGNOSES: - NSTEMI - Non-ST elevation (NSTEMI) myocardial infarction - Type 2 diabetes mellitus with unspecified complications - Essential (primary) hypertension - Atherosclerotic heart disease of [place] coronary artery without angina pectoris - Myasthenia gravis without (acute) exacerbation [email or web address]
[2021-07-13] MEDS ORDERED: SLOW-MAG71.5 MG PO (17:36)
--- NOTE | 2021-07-14 07:23 | EKG ---
[facility] [address] [place] [address] Signed Normal sinus rhythm Nonspecific ST and T wave abnormality Abnormal ECG When compared with ECG of 11-JUL-2021 22:26, Nonspecific T wave abnormality, worse in Inferior leads Confirmed by ISAMAR WHITE MD ([id number] on 07/14/2021 7:23:15 AM Electronically Signed By: ISAMAR WHITE MD 07/14/21 07 PATIENT NAME: ROBBIE RESTREPO SHIVANI Electrocardiogram DATE OF : 54 PHYSICIAN: ISAMAR WHITE MD REPORT #: [id number] REPORT IS CONFIDENTIAL AND NOT TO BE RELEASED WITHOUT AUTHORIZATION
== END 2021-07-13 18:10 | disposition home or self-care (01) ==
LOC: ED 13:30
DX: E83.42 Hypomagnesemia (principal); Z04.3 Encounter for examination and observation following other accident; I10 Essential (primary) hypertension; E11.9 Type 2 diabetes mellitus without complications; I25.10 Atherosclerotic heart disease of native coronary artery without angina pectoris; I25.2 Old myocardial infarction; M10.9 Gout, unspecified; Z87.891 Personal history of nicotine dependence; Z91.018 Allergy to other foods; Z88.8 Allergy status to other drugs, medicaments and biological substances; Z88.0 Allergy status to penicillin; Z79.82 Long term (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; Z79.84 Long term (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 drugs; Z79.899 Other long term (current) 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
CPT/HCPCS: 36415; 70450; 71045; 72125; 80053; 81001; 82310; 82553; 83735; 84484; 85025; 87045; 87493; 93005; 93010; 96365; 96375; 97162; 99285-25; J2405; J3475; J7030

== ENCOUNTER 2021-07-16 06:28 | Inpatient (IN) | payer MEDICARE, OTHER ==
[~2021-07-16] VITALS: Ht 167.6 cm; Wt 85.9 kg
[~2021-07-16 06:28] MED LIST changes: +SLOW-MAG71.5 MG PO
--- OUTSIDE RECORDS SUMMARY | 2021-07-16 06:30 | XMS ---
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 Care History Medical/Surgical 07/14/2021 [facility] CHW CALLED PATIENT LIFE [employer] INGE-PATIENT WAS NOT ANSWERING HIS PHONE- CONCERNED FOR PATIENT SAFETY AT HOME ALONE DUE TO RECENT FALLS. INGE STATED PATIENT HAS A NEUROLOGIST DR WORTHINGTON AND IS CURRENTLY WAITING FOR A REFERRAL TO PROCESS AT [facility] LOC[facility]. CHW CALLED [facility]- ASKED FOR AN URGENT FOLLOW UP APT DUE TO RECENT ED VISITS AND CONTINUED FALLS. THEY HAD PATIENT WAITING FOR AN AUTH. I HAD STATED MEDICARE PATIENT AN AUTH IS NOT NEEDED. THEY QUICKLY SENT FOR MD REVIEW. INGE CONTACTED CHW-STATED THEY HAD AN APT SCHEDULED WITH NEUROLOGIST DR WORTHINGTON 07/20/21 IN [place] AND INGE WILL TAKE THE PATIENT FOR THE APT. CHW CONTACTED LOCAL POLICE DEPT FOR A WELFARE CHECK DUE TO NOT BEING ABLE TO CONTACT PATIENT AND LIFE [employer]NER WAS AT WORK. [employer] CONTACTED CHW AND STATED PATIENT WAS DOING FINE AND JUST DID NOT HAVE HIS PHONE NEAR HIM. SO THEY ADVISED HIM TO KEEP HIS PHONE ON HIM AND USE THE WALKER. THEY STATED HE LOOKED BETTER THAN THE PREVIOUS DAY. INGE STATED THEY WILL BE GOING TO DR NATANAEL DILLARD ON 07/16/21 @ 12:15 AND INGE WILL MAKE SURE PATIENT MAKES IT TO THE APT. THEY WILL FOLLOW UP WITH CHW WITH UPDATES. NEUROLOGIST- DR WORTHINGTON CONTACT NUMBER [phone] 04/12/2021 [facility] - PATIENT RECENTLY DISCHARGED FROM [facility] . 02/16/2021 [facility] - PATIENT IS CURRENTLY RECEIVING HOME HEALTH SERVICES THRU [facility]. PLEASE CONTACT HOME HEALTH AGENCY IF PATIENT IS SEEN IN THE ED. - PER REQUEST OF PATIENT- SENDING RECENT ED CHART NOTES TO [facility]. E.D. VISIT COUNT (12 MO.) 13 [facility]. TOTAL 13 NOTE: Visits indicate total known visits. ED/UCC VISIT TRACKING (12 MO.) 07/16/2021 06:28 [facility] [place] TYPE: Emergency COMPLAINT: - WEAKNESS 07/13/2021 13:30 [facility] TYPE: Emergency COMPLAINT: - FALL DIAGNOSES: - Allergy status to other drugs, medicaments and biological substances - Old myocardial infarction - Encounter for examination and observation following other accident - Gout, unspecified - Weakness - Personal history of nicotine dependence - Atherosclerotic heart disease of [place] coronary artery without angina pectoris - Type 2 diabetes mellitus without complications - Other custodial (current) 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 - Essential (primary) hypertension - terminal operator (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 drugs - Allergy status to penicillin - FPC (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 - Hypomagnesemia - Allergy to other foods 07/12/2021 23:46 [facility] [place] TYPE: Emergency COMPLAINT: - VOMITING DIAGNOSES: - Other custodial (current) 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 - Essential (primary) hypertension - Allergy to other foods - Old myocardial infarction - Allergy status to other drugs, medicaments and biological substances - Personal history of nicotine dependence - Type 2 diabetes mellitus without complications - Allergy status to penicillin - Gout, unspecified - FPC (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 - terminal operator (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 drugs - Vomiting, unspecified - Atherosclerotic heart disease of [place] coronary artery without angina pectoris 07/11/2021 22:01 [facility] [place] TYPE: Emergency COMPLAINT: - WEAKNESS DIAGNOSES: - Personal history of nicotine dependence - FPC (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 - Allergy status to penicillin - Type 2 diabetes mellitus without complications - Old myocardial infarction - Weakness - Gout, unspecified - Acute kidney failure, unspecified - Allergy status to other drugs, medicaments and biological substances - Essential (primary) hypertension - Other terminal operator (current) 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 - Allergy to other foods - Atherosclerotic heart disease of [place] coronary artery without angina pectoris - terminal operator (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 drugs - Dehydration 06/29/2021 17:10 [facility] [place] TYPE: Emergency COMPLAINT: - R KNEE PAIN DIAGNOSES: - Old myocardial infarction - Allergy status to penicillin - Other and unspecified overexertion or strenuous movements or postures, initial encounter - Essential (primary) hypertension - Personal history of nicotine dependence - Allergy to other foods - Atherosclerotic heart disease of [place] coronary artery without angina pectoris - Gout, unspecified - Other terminal operator (current) 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 - FPC (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 - terminal operator (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 drugs - [...] STATUS DIAGNOSES: - Old myocardial infarction - terminal operator (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 - terminal operator (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 of insulin - terminal operator (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 drugs - Essential (primary) hypertension - Other terminal operator (current) 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 - Gout, unspecified - Type 2 diabetes mellitus without complications - Altered mental status, unspecified - Atherosclerotic heart disease of [place] coronary artery without angina pectoris - Encounter for immunization - Allergy status to other drugs, medicaments and biological substances - COVID-19 - Allergy to other foods - Personal history of nicotine dependence 03/03/2021 09:33 [facility] TYPE: Emergency COMPLAINT: - WEAKNESS DIAGNOSES: - Other custodial (current) 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 - Allergy to other foods - Allergy status to other drugs, medicaments and biological substances - Old myocardial infarction - Weakness - Gout, unspecified - FPC (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 - FPC (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 of insulin - Personal history of nicotine dependence - FPC (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 drugs - Type 2 diabetes mellitus without complications - Essential (primary) hypertension - Atherosclerotic heart disease of [place] coronary artery without angina pectoris 02/14/2021 13:42 [facility] TYPE: Emergency COMPLAINT: - POSS STROKE DIAGNOSES: - Cannabis use, unspecified, uncomplicated - Weakness - Other terminal operator (current) 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 - Essential (primary) hypertension - Atherosclerotic heart disease of [place] coronary artery without angina pectoris - Personal history of nicotine dependence - Allergy status to other drugs, medicaments and biological substances - FPC (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 of antibiotics - FPC (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 - Altered mental [...] status to sulfonamides - Gout, unspecified - FPC (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 of systemic steroids - FPC (current) use of insulin - Allergy to other foods - Other terminal operator (current) 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 - Old myocardial infarction - Atherosclerotic heart disease of [place] coronary artery without angina pectoris - Allergy status to other drugs, medicaments and biological substances 01/27/2021 06:17 [facility] [place] TYPE: Emergency COMPLAINT: - URINARY PROBLEM DIAGNOSES: - Patient's noncompliance with other medical treatment and regimen - Atherosclerotic heart disease of [place] coronary artery without angina pectoris - terminal operator (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 drugs - Personal history of transient ischemic attack (TIA), and cerebral infarction without residual deficits - FPC (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 - Allergy status to other drugs, medicaments and biological substances - Unspecified urinary incontinence - Old myocardial infarction - Allergy to other foods - Other custodial (current) 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 - Essential (primary) hypertension - Type 2 diabetes mellitus without complications - Personal history of nicotine dependence 12/08/2020 17:47 [facility] TYPE: Emergency COMPLAINT: - FLU SYMPTOMS DIAGNOSES: - Dizziness and giddiness - Allergy status to other drugs, medicaments and biological substances - Other terminal operator (current) 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 - terminal operator (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 - Dehydration [...] myocardial infarction - Atherosclerotic heart disease of [place] coronary artery without angina pectoris - FPC (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 drugs - Allergy to other foods - Other terminal operator (current) 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 - Other chronic pain - Old myocardial infarction - FPC (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 INPATIENT VISIT TRACKING (12 MO.) 06/11/2021 11:19 [facility] TYPE: Medical Surgical COMPLAINT: - CELLULITIS DIAGNOSES: - Atherosclerotic heart disease of [place] coronary artery without angina pectoris - Old myocardial infarction - Other terminal operator (current) 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 - Other terminal operator (current) 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 - Chronic kidney disease, unspecified - Atherosclerotic heart disease of [place] coronary artery without angina pectoris - Allergy [...] 2 diabetes mellitus with diabetic nephropathy - FPC (current) use of insulin - Metabolic encephalopathy [...] Staphylococcus aureus infection - Gout, unspecified - terminal operator (current) use of insulin - Type 2 diabetes mellitus with diabetic chronic kidney disease - Old myocardial infarction - Personal history of transient ischemic attack (TIA), and cerebral infarction without residual deficits - Other specified postprocedural states - Myasthenia gravis without (acute) exacerbation - terminal operator (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 - Hypertensive chronic kidney disease with stage 1 through stage 4 chronic kidney disease, or unspecified chronic kidney disease - terminal operator (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 - Presence of aortocoronary bypass graft - Other specified postprocedural states - Allergy status to other drugs, medicaments and biological substances - Gout, unspecified - Anxiety disorder, unspecified - Allergy status to other drugs, medicaments and biological substances [facility] DIAGNOSES: - NSTEMI - Non-ST elevation (NSTEMI) myocardial infarction - Type 2 diabetes mellitus with unspecified complications - Essential (primary) hypertension - Atherosclerotic heart disease of [place] coronary artery without angina pectoris - Myasthenia gravis without (acute) exacerbation [email or web address]
[2021-07-16] MEDS ORDERED: CEPHALEXIN500 MG PO (09:54)
--- NOTE | 2021-07-16 13:17 | NUR ---
REPORT RECEIVED FROM NINOSKA MUSA. AWAITING PTS ARRIVAL TO UNIT.
--- NOTE | 2021-07-16 14:04 | NUR ---
PT ARRIVED FROM ER. PT TRANSFERED TO BED WITH 3 PERSON ASSIST. PT DENIES PAIN AND NAUSEA. PT DIORIENTED TO PLACE, EVENTS AND DATE/TIME. PT STATES "I'[place]ICAL [place]." PT REORIENTED TO PLACE, TIME AND EVENTS BUT IS UNABLE TO REPEAT INFORMATION GIVEN. PT ABLE TO FOLLOW DIRECTIONS. GENERALIZED WEAKENESS NOTED. PT IS ABLE TO LIFT ARMS AND LEGS. TREMMORS NOTED. PT REPORTS FEELING "WEAK." PT ANSWERING QUESTIONS APPROPRIATLY ALTHOUGH PT DOES NOT ALWAYS MAKE SENSE. LUNG SOUNDS CLEAR. HEART TONES REGULAR. FAINT PULSES NOTED TO BLE, STRONG RADIAL PULSES NOTED. RIGHT LOWER EXTREMITY SHOWS +2 EDEMA. PT REPORTS OLD INJURIES TO THIS LEG, SCARS NOTED. PT DENIES NUMBNESS AND TINGLING IN EXREMITIES. FEET NOTED TO BE KORINA AND DRY.PT NOTED TO BE RECENTLY INCONTANT. RED POPULAR RASH NOTED OVER BACK AND BACKSIDE WELL IN TUTU AREA. PT REPORTS "I JUST DON'T LIKET TO GET UP. DEPENDS CHANGED. TUTU CARE DONE. IRREGULAR WOUND NOTED TO COCCYX, AREA CLEANED, PICUTRES TAKEN (CONSENT SIGNED), AND ALELVYN APPLIED. SEE PHOTOGRAPHS. YELLOW/WHITE SLOUGH NOTED IN WOUND BED. PT REPORTS HE USES HIS WHEELCHAIR AT HOME AND "SCOOTS" FROM PLACE TO PLACE. MEDICATIONS GIVEN. PT WATCHING TV. NO ADDITIONAL REQUESTS OR COMPLAINTS. CALL LIGHT WITHIN REACH. BED RAILS UP. BED ALARM ON.
--- NOTE | 2021-07-16 14:53 | NUR ---
CONSULTED REGARDING INSULIN. DR. WHITE STATES TO HOLD 1200 INSULIN AND WAIT FOR 1700 DOSE. THIS RN TO ROOM TO CHECK ON PT. PT HAS STRIPPED CLOTHING AND IS 1/2 OUT OF BED. PT ASSTED BACK TO BED. SHEET USED TO COVER PT. PT CONTINUES TO BE CONFUSED AND DISORIENTED. PT DENIES NASUEA. NO ADDITONAL NEEDS. BED RAILS UP BED ALARM ON.
--- NOTE | 2021-07-16 15:44 | EKG ---
[facility] [address] [place] [address] Signed Normal sinus rhythm Minimal voltage criteria for LVH, may be normal variant ( Tiger product ) Nonspecific ST and T wave abnormality Abnormal ECG When compared with ECG of 13-JUL-2021 13:35, Nonspecific T wave abnormality no longer evident in Inferior leads Confirmed by ISAMAR WHITE MD ([id number]) on 07/16/2021 3:43:55 PM Electronically Signed By: ISAMAR WHITE MD 07/16/21 1544 PATIENT NAME: ROBBIE RESTREPO Electrocardiogram DATE OF : 54 PHYSICIAN: ISAMAR WHITE MD REPORT #: [id number] REPORT IS CONFIDENTIAL AND NOT TO BE RELEASED WITHOUT AUTHORIZATION
--- NOTE | 2021-07-16 16:38 | NUR ---
THIS RN TO ROOM TO CHECK ON PT. PT RESTING ON RIGHT SIDE, PTS PARNETER AT BEDSIDED. PT REMAINS DISORIENTED TO PLACE, TIME AND EVENTS BUT IS CALM AND COOPERATIVE AT THIS TIME. PT DENIES PAIN AND NASUEA AT THIS TIME. CALL LIGTH WITHIN REACH. BED ALARM ON.
--- NOTE | 2021-07-16 17:04 | NUR ---
DINNER ARRIVED, DELIVERED TO PT. PT ASSISTED WITH REPOSITIONING IN BED FOR DINNER. MEDICATION GIVEN (SEE MAR). PT EATING DINNER, SIGNIFICANT OTHER AT BEDSIDE. CALL LIGHT WITHIN REACH. BED RAILS UP. BED ALARM ON.
--- NOTE | 2021-07-16 17:49 | NUR ---
THIS RN TO ROOM TO CHECK ON PT. PT CHEWING ON CAP FROM WATER BOTTLE. THIS RN OFFERS TO OPEN WATER BOTTLE AND PT STATES "NO!" PT FRUSTRATED WITH INTERACTIONS. WATER OPENED FOR PT AND PT TAKES A DRINK AND ABANDONS ENDEVOR. PT DENIES PAIN. NO ADDITIONAL REQUESTS OR COMPLAINTS. PT CONTINUES TO BE DISORIENTED TO PLACE, TIME/DATE AND EVENTS. CALL LIGHT WITHIN REACH. BED ALARM ON.
--- NOTE | 2021-07-16 18:03 | NUR ---
PT ADDMITED THIS SHIFT FOR UTI, CONFUSION AND DECONDITIONING. PT UP WITH 2 PERSON ASSIST AND FRONT WHEEL WALKER, TO BEDSIDE COMODE, HEAVY ASSIST. PT TOELRATING 60 GRAM CARB DIET WITH GOOD APPITITE, BLOOD SUGAR CHECKS WITH MEALS WITH SLIDING SCALE INSULIN GIVEN. PT DISORIENTED TO PLACE, EVENTS, AND DATE/TIME. IV ABX GIVEN. IV FLUIDS GIVEN. PT DENIES PAIN THIS HSIFT. WOUND NOTED OVER COCYX, PICTURES TAKEN. PT INCONTINANT AT THIS TIME. DEPENDS IN PLACE. BED/CHAIR ALARM FOR SAFETY, PT DOES NOT USE CALL LIGHT.
--- NOTE | 2021-07-16 18:13 | NUR ---
MED REC COMPLETED
--- NOTE | 2021-07-16 18:39 | NUR ---
THIS RN CALLED TO ROOM BY RUG BACKING STENCILER. PT HAS PULLED OUT HIS LEFT FORARM IV SITE. GAUZE AND COBAN APPLIED. IV FLUIDS TRANSFERED TO LEFT AC IV SITE. EDUCATION DONE WITH PT. PT REORIENTED TO PLACE AND EVENTS. VITAL SIGNS STABLE. DEPENDS CHANGED. TUTU CARE DONE. LINENS CHANGED. PT REPOSITIONED IN BED FOR COMFORT. PT UNABLE TO STAND AT EDGE OF BED EVEN WITH 2 PERSON ASSISTANCE AND FWW. NO ADDITONAL NEEDS AT THIS TIME. BED ALARM ON. CALL LIGHT WITHIN REACH. BED ALARM ON.
--- NOTE | 2021-07-16 23:14 | NUR ---
PT'S SIG OTHER CALLED SAYING PT PULLED IV OUT. IT BLED A LITTLE ON THE SHEET AND IT HAD ALREADY STOPPED BLEEDING. COVERED WITH COBAN AND GAUZE. PT PULLED IT OFF BEFORE THIS RN LEFT THE ROOM, IT IS NOT BLEEDING SO WE LEFT IT OFF. PT DENIES NEEDS. CALL LIGHT IS CLOSE.
--- NOTE | 2021-07-17 04:00 | NUR ---
zofran given for nausea. Pt states nausea is resolving. IVF infusing without issue.
--- NOTE | 2021-07-17 06:32 | NUR ---
PT HAS BEEN RESTLESS. HAS ONLY BEEN ASLEEP FOR THE LAST SEVERAL HOURS. EXPERIENCED NAUSEA WITH SMALL AMOUNT OF EMESIS. ZOFRAN GIVEN. PT STATES NAUSEA RESOLVED. MOVES SELF IN BED HOWEVER LACKS THE STRENGTH TO STAND. TREMORS PRESENT AT TIMES. NOT ABLE TO MAKE DECISIONS OR UNDERSTAND COMPLEX IDEAS. HAS PULLED OUT MULTIPLE IV'S.
--- NOTE | 2021-07-17 07:10 | NUR ---
REPORT RECEIVED FROM VEENA RN, PT RESTING IN BED. PT AWAKE, REMAINS DISORINTED. IV FLUIDS COMPLETE, NEW BAG HUNG. PT DENIES PAIN AND NAUSEA. NO ADDITIONAL REQUESTS OR COMPLAINTS. CALL LIGHT WITHIN REACH. BED RAILS UP. BED ALARM ON.
--- NOTE | 2021-07-17 07:43 | NUR ---
MORNING ASSESSMENT AND MEDICATION DUE. PT RESTING IN BED. PTS SIGNIFICANT OTHER AT BEDSIDE. PT DENIES PAIN AND NAUSEA. PT REMAINS DISORIENTED TO PLACE ("I'M IN [place]. IN THE [place]") AND DATE/TIME ("June"), PT UNABEL TO STATE YEAR OR WHY HE IS AT THE HOSPITAL. PT UNABLE TO REPEAT BACK INFORMATION WHEN TOLD WHERE HE IS. ORTHOSTATIC VITALS SIGNS ATTEMPTED. PT UNABLE TO SIT OR STAND ON HIS OWN. 2ND BLOOD PRESSURE TAKEN WITH PT STTING IN BED, HEAD OF BED ELEVATED TO 80 DEGREES. BLOOD PRESSURE NOTED TO BE ELEVATED, MEDICATION GIVEN. MESSAGE SENT TO MD. PT MAKES MINIMAL ATTEMPTS TO MOVE ARMS, LEGS OR ASSIST WITH CARES. PT UNABLE TO STAND. DELVIS LIFT UP TO CHAIR. DEPENDS SATURATED WITH URINE AND EXTRA LARGE SOFT BROWN STOOL NOTED WELL. TUTU CARE DONE. BARRIER CREAM APPLIED. NEW ALLEVYN APPLIED. PT IS ABLE TO ASSIST MINIMALLY WITH ROLLING SIDE TO SIDE. EQUAL TAP GRINDER STRENGTH BILATERALLY. PT REMAINS UP TO CHAIR. MEDICATION GIVEN. CALL LIGTH WITHIN REACH. PTS SIGNIFICANT OTHER REMAINS AT BEDSIDE. NO ADDITIONAL NEEDS AT THIS TIME.
--- NOTE | 2021-07-17 09:48 | NUR ---
THIS RN TO ROOM TO CHECK ON PT. PT UP TO CHAIR. PT NOW ALERT AND ORIENTED TO ALL. PT IS ABLE TO STATE HE IS IN [place], PT KNOWS THE MONTH BUT NOT THE YEAR. PT ALSO ABLE TO STATE HE IS AT THE HOSPITAL "BECAUSE I'M WEAK." VITAL SIGNS TAKEN. BLOOD PRESSURE IMPROVING. MEDICATION GIVEN. PT DENIES PAIN AND NAUSEA. NO ADDITIONAL REQUESTS OR COMPLAINTS. CALL LIGHT WITHIN REACH.
--- NOTE | 2021-07-17 11:11 | NUR ---
THIS RN TO ROOM TO CHECK ON PT. PT ABLE TO GET UP TO BEDSIDE COMODE NOW WITH 2 PERSON ASSIST, BOARD SAW RUNNER'S WORKING WITH PT. PT HAS ADDITIONAL SOFT BOWEL MOVEMENT. TUTU CARE DONE, FRESH DEPENDS IN PLACE. 2 PERSON ASSIST BACK TO CHAIR. PT REMAINS ORIENTED AT THIS TIME AND IS ANSWERING QUESTIONS APPROPRIATLY. BOARD SAW RUNNER'S REMAIN WITH PT. NO ADDITIONAL REQUESTS OR COMPLAINTS. CALL LIGHT WITHIN REACH.
--- NOTE | 2021-07-17 11:13 | NUR ---
Pt uses call light appropriately to use that BSC. Pt stood using FWW and 2 person assist with ques to transfer to the BSC. Pt did well and followed directions. Pt had bowel movement in briefs and small amount in BSC. Pt used call light appropriately to notify staff that he was finished. Pt transfered well from BSC to chair as well, with minimal verbal cues. Sacrum dressing was changed at this time as it had gotten stool on it. Call light in reach. Pt rests in chair.
--- NOTE | 2021-07-17 12:15 | NUR ---
PT READY FOR LUNCH. LUNCH DELIVERED. BLOOD SUGAR TAKEN. PT PULLING AT IV LINE. FAMILY ENCOUAGED TO CALL NURSING STAFF IF PT PULLS AT LINES. PT NOW DISORINTED TO PLACE "I'M IN THE [employer] PARKING LOT." DATE/TIME ("JULY 2022) AND EVENTS. BUT IS ABLE TO INTERACT WITH MORE FOCUS AND CAN REPEAT BACK INFORMATION/REORIENTATION. PT REPORTS HIS DEPENDS IS WET. PT UP TO STAND WITH 2 PERSON ASSIST AND FWW. DEPENDS DRY, SMALL SMEAR OF STOOL NOTED. PT DECLINES BEDSIDE COMODE USE. TUTU CARE DONE. DEPENDS CHANGED. NO ADDITIONAL REQUESTS OR COMPLAINTS. CALL LIGHT WITHIN REACH. FAMILY AT BEDSIDE.
--- NOTE | 2021-07-17 13:20 | NUR ---
PATIENT IN CHAIR RESTING AT THIS TIME. VITALS AND I&O'S CHARTED. CALL LIGHT IN REACH. NO FURTHER NEEDS AT THIS TIME.
--- NOTE | 2021-07-17 14:00 | NUR ---
THIS RN TO ROOM TO CHECK ON PT. PT RESTING IN CHAIR WITH EYES CLOSED, RESPIRATIONS EVEN AND UNLABORED. PTS SIGNIFICANT OTHER ALSO AT BEDSIDE RESTING WITH EYES CLOSED. PT ALLOWED TO REST. CALL LIGHT WITHIN REACH.
--- NOTE | 2021-07-17 15:30 | NUR ---
AFTERNOON ASSESSMETN AND MEDICATION DUE. PT FOUND AWAKE IN CHAIR AND COVERED IN STOOL FROM HIPS TO FEET. PT UP TO STAND. TUTU CARE DONE. PT ONTO BEDSIDE COMODE AND HAS ADDITIONAL LOOSE STOOL BOWEL MOVEMENT. PT UP TO SHOWER. ASSESSMENT DONE. LUNG SOUNDS CLEAR. HEART TONES REGULAR. PT AGAIN DISORIENTED TO ALL STATING HE IS "IN THE PARKING LOT." PT IS ABLE TO STATE HE IS IN [place]. DOES NOT KNOW MONTH OR YEAR OR EVENTS. PT ABLE TO STAND WITH FWW AND CONSIDERABLET 2 PERSON ASSIST, PIVOTS UP TO BEDSIDE COMODE AND TO SHOWER CHAIR. BOWEL TONES HYPERACTIVE. PT REMAINS UP TO SHOWER WITH NOC TECHNICIAN'S X2. TUTU CARE DONE. FRESH GOWN, DEPENDS, SOCKS, BARRIER CREAM APPLIED. NEW ALLEVYN APPLIED. NO ADDITONAL NEEDS AT THIS TIME.
--- NOTE | 2021-07-17 16:32 | NUR ---
THIS RN TO ROOM TO CHECK ON PT. PT FINISHED WITH SHOWER AND BACK TO BED. PT RESTING ON RIGHT SIDE. PT DENEIS PAIN AND NAUSEA. BLOOD SUGAR TAKEN, NO INSULIN NEEDED. MEDICATION GIVEN. PT REPORTS "IT'S GOOD TO BE CLEAN." NO ADDITONAL REQUESTS OR COMPLAINTS. BED RAILS UP. BED ALARM ON. CALL LIGHT WITHIN REACH.
--- NOTE | 2021-07-17 17:02 | NUR ---
PT HERE FOR UTI AND DECONDITIONING. PT UP TO CHAIR THIS SHIFT WITH DELVIS LIFT IN AM AND ABLE TO STAND WITH FWW AND 2 PERSON ASSIST IN AFTERNOON. PT TOLERATING 60G CARB DIET WITH GOOD APPITITE. BLOOD SUGAR CHECKS AND SLIDING SCALE INSLUIN PERFORMED. PT HAS MULITPLE EPISODES OF INCONTINANT SOFT BROWN STOOL THIS SHIFT. FREQUENT TUTU CARE. [place] HELD. PT GENERALLY DISORIENTED AND CONFUSED HOWEVER HAS PERIODS OF LUCIDITY THIS SHIFT. LUNG SOUNDS CLEAR. HEART TONES REGULAR. NEW ALLEVYN PLACED TO COCCYX. SHOWER THIS HSIFT. PT INCONTINANT OF URINE WITH MULTIPLE SATURATED DEPENDS. PT/OT INVOLVED. PT DENIES PAIN THIS SHIFT. NO EMESIS NOTED SO FAR THIS SHIFT. PT USES CALL LIGHT INCONSISTANTLY. BED/CHAIR ALARM FOR SAFETY.
--- NOTE | 2021-07-17 17:20 | NUR ---
DINNER DELIVERED TO PT. PT DROWSY BUT AWAKENS TO VOICE AND LIGHT TOUCH. DR. SANTOS TO BEDSIDE FOR ROUDNS. UPDATED ON PTS CONDITION. PT OREINTED TO PLACE AT THIS TIME, REMAINS DISORIENTED TO DATE/TIME AND SITUATION. VITAL SIGNS STABLE. PT DENIES PAIN AND NAUSEA. NO ADDITIONAL REQUESTS OR COMPLAINTS. CALL LIGHT WIHTIN REACH. BED RAILS UP. BED ALARM ON.
--- NOTE | 2021-07-17 18:36 | NUR ---
THIS RN TO ROOM TO CHECK ON PT. PT FINISHED WITH DINNER, ABLE TO EAT ~50%. DEPENDS WET. TUTU CARE DONE. DEPENDS CHANGED WITH 2 PERSON ASSIST. PT DENIES PAIN AND NAUSEA. PT DENIES ANY ADDITIONAL REQUESTS OR COMPLAINTS. CALL LIGHT WITHIN REACH. BED RAILS UP. PTS SIGNIFICANT OTHER AT BEDSIDE.
--- NOTE | 2021-07-17 20:00 | NUR ---
PT CALM AND RESTING WITH EYE CLOSED. BRIEF CHECKED.
--- NOTE | 2021-07-17 21:45 | NUR ---
VS AND ACCU-CHECK COMPLETE, PT ATTENDS CDI AT THIS TIME, PT AWAKES TO VOICE, NO FURTHER NEEDS AT THIS TIME
--- NOTE | 2021-07-18 01:31 | NUR ---
HAS BEEN SLEEPING WELL THIS SHIFT. MOVES SELF IN BED.
--- NOTE | 2021-07-18 04:00 | NUR ---
IN TO ASSIST RN WITH PT INCONT BM AND URINE, NEW ATTENDS AND CHUX IN PLACE, PT BOOSTED IN BED, PT WAS OFFERED SIPS OF WATER, PT DECLINED NEED, NO FURTHER NEEDS AT THIS TIME, BED ALARM SET
--- NOTE | 2021-07-18 05:57 | NUR ---
PT HAS SLEPT WELL THROUGH THE NIGHT. NOTED IN DIFFERENT POSITIONS IN THE BED THOUGHOUT THE NIGHT. WAS INCONTINENT OF STOOL AND URINE. FLUIDS OFFERED THOUGHOUT THE SHIFT. DENIES ANY NAUSEA, SOB, CP.
--- NOTE | 2021-07-18 07:25 | NUR ---
REPORT RECEIVED FROM NINOSKA PYANE. PT UP TO CHAIR WITH 2 PERSON ASSIST AND FWW. DEPENDS CHANGED, TUTU CARE DONE. PT DENIES PAIN AND NAUSEA. NO ADDITIONAL REQUESTS OR COMPLAINTS. CALL LIGHT WITHIN REACH. PRINCESS, HELPING HANDS RN, AT BEDSIDE WITH PT.
--- NOTE | 2021-07-18 07:57 | NUR ---
PT AWAKE IN CHAIR WATCHING TV. CALL LIGHT IN REACH. WHITE BOARD UPDATED. NO FURTHER NEEDS AT THIS TIME.
--- NOTE | 2021-07-18 08:03 | NUR ---
MORNING ASSESSMENT AND MEDICATION DUE. PT UP TO CHAIR. PT DENIES PAIN AND NAUSEA. PT ALERT AND OREINTED TO SELF, FAMILY, AND SITUATION. PT NOT ABLE TO STATE THAT HE IS AT THE HOPSITAL, PT STATES HE IS IN "[place]." AFTER REORIENTATION PT IS ABLE TO REPEAT BACK WHERE HE IS AND STATE THAT HE IS AT THE HOSPITAL FOR "A URINE INFECTION." PT ANSWERS QUESTIONS APPROPRIATLY. PT REMAINS DISORIENTED TO DATE/TIME. PT REMAINS GENERALLY WEAK BUT IS ABLE TO STAND WITH FWW AND HEAVY 2 PERSON ASSIST. OCCATIONAL TREMORS NOTED. LUGN SOUNDS CLEAR. HEART MURMUR CONTINUES, UNCHANGED. +1 PITTINE EEMA NOTED IN RIGHT LOWER LEG, LEGS ELEVATED. PT SIGNIFICANT OTHER REPORTS CHRONIC PROBLEMS WITH ANKLE SWELLING R/T PAST SURGERIES AND INJURIES. NO DIARRHEA NOTED AT THIS TIME BUT WAS OCCURING OVER ENVIRONMENTAL ENGINEERING TECHNICIAN. BOWEL TONES ACTIVE. MIRILAX HELD. WOUDN TO COCCYX UNCHANGED, RASH TO TUTU AREA IMPROVING. PTS SIGNIFICAN OTHER AT BEDSIDE. NO ADDITIONAL REQUESTS OR COMPLAINTS. CALL LIGHT WITHIN REACH. BED
--- NOTE | 2021-07-18 09:16 | NUR ---
PATIENT SALINE LOCKED. DRESSING WNL.
--- NOTE | 2021-07-18 10:29 | NUR ---
THIS RN TO ROOM TO CHECK ON PT. PT UP TO RESTROOM WITH 2 PERSON ASSIST AND FWW. PT ABLE TO AMBULATE TO TOILET, VERY SLOW BUT ABLE TO TAKE SHUFFELING STEPS. PT VOIDS AND HAS BOWEL MOVEMENT. TUTU CARE DONE. FRESH DEPENDS IN PLACE. 2 PERSON ASSIST FWW BACK TO CHAIR. IV SALINE LOCKED. ALCOHOL CAP APPLIED. NO ADDITIONAL REQUESTS OR COMPLAINTS. CALL LIGHT WITHIN REACH.
--- NOTE | 2021-07-18 11:44 | NUR ---
THIS RN TO ROOM TO CHECK ON PT. PT SLIDING OUT OF CHAIR. PT ASSISTED WITH REPOSITIONING IN CHAIR. PT UP TO STAND WITH 2 PERSON ASSIST AND FWW. BLOOD SUGAR CHECK PERFORMED, INSULIN GIVEN. PT EATING A SNACK PRIOR TO LUNCH. PT DENEIS PAIN AND NAUSEA. PT CONTINUES TO BE DROWSY BUT RESPONDING APPROPRIATLY. NO ADDITIONAL REQUESTS OR COMPLAINTS. CALL LIGHT WITHIN REACH.
--- NOTE | 2021-07-18 12:27 | NUR ---
THIS RN TO ROOM TO CHECK ON PT. PT NOT EATING VERY MUCH LUNCH. PT DROWSY BUT AWAKENS TO VOICE. PT OREINTED TO ALL BUT YEAR AT THIS TIME. PT DENIES REQUESTS OR COMPLAINTS. CALL LIGHT WITHIN REACH. PT ENCOURAGED TO TRY A FEW BITES OF FOOD. PT AGREES. PT DENEIS PAIN AND NASUEA. NO ADDITONAL REQUESTS OR COMPLAINTS. CALL LIGHT WITHIN REACH.
--- NOTE | 2021-07-18 13:25 | NUR ---
PATIENT IN CHAIR WATCHING TV AT THIS TIME. VITALS AND I&O'S CHARTED. NO VOID AT THIS TIME, RN IN ROOM AND AWARE. CALL LIGHT IN REACH. NO FURTHER NEEDS AT THIS TIME.
--- NOTE | 2021-07-18 13:27 | NUR ---
AFTERNOON ASSESSMENT DUE. PT REMAINS UP TO CHAIR. PT RESTING WITH EYES CLOSED, DROWSY, BUT AWAKENS TO VOICE. PT NOW ORIENTED TO ALL INCLUDING DATE/TIME/YEAR. PT DENIES PAIN AND NAUSEA. PT NOW ABLE TO STAND WITH MINIMAL ASSISTANCE AND STAY STANDING WITH FWW. DEPENDS CHANGED, TUTU CARE DONE. SMALL SMEAL OF STOOL NOTED. DEPNDS DRY, NO VOIDS RECORDED FOR THIS SHIFT. PT ENCOARUGED TO DRINK FLUID. DRINKS 100ML OF WATER. PT DECLINES LUNCH STATING "I'M NOT HUNGRY." BOWEL TONES ACTIVE. STOOL REMAINS SOFT BUT LESS FREQUENT TODAY. MINMIAL EDEMA NOTED IN RIGHT LOWER LEG. FOAM DRESSING REMAINS OVER COCCYX. PT OFFERED TIME BACK TO BED TO REST. PT STATES "NO, I'LL STAY IN THE CHAIR." MD UPDATED REGARDING PTS URINE OUTPUT. MD STATES TO ENCORUAGE ORAL HYDRATION, NO ADDITONAL NEW ORDERS. PT REMAINS UP TO CHAIR. CALL LIGHT WITHIN REACH.
--- NOTE | 2021-07-18 15:15 | NUR ---
MEDICATION DUE. PT FINISHED WITH PHYSICAL THERAPY. PT WAS ABLE TO AMBULATE A FULL LAP IN [place] WITH 1 PERSON ASSIST AND FRONT WHEEL WALKER. PT UP TO CHAIR. DEPENDS REMAINS DRY. PT ENCAOURGED TO DRINK FLUID, DRINKS ANOTHER 150ML WATER. MEDICATIONS GIVEN. PT DENIES PAIN AND NAUSEA. NO ADDITIONAL REQUESTS OR COMPLAINTS. CALL LIGHT WITHIN REACH.
--- NOTE | 2021-07-18 15:53 | NUR ---
PT HERE FOR UTI AND DECONDITIONING. PT UP WITH 1 PERSON ASSIST AND FWW WALKER TO CHAIR, RESTROOM AND TO AMBULATE IN [place] THIS SHIFT. PT HAS MINIMAL APPITITE FOR 60G CARB DIET. BLOOD SUGAR CHECKS WITH SLIDING SCALE INSULIN PERFORMED. PT DROWSY THIS SHIFT BUT INCREASINGLY ORIENTED. ORIENTED X4 THIS AFTERNOON. MINIMAL DIARRHEA NOTED THIS SHIFT. BOWEL TONES ACTIVE. ALLEVYN REMAINS OVER COCCYX, WOUND UNCHANGED. IV SALINE LOCKED, PT DRINKING MINIMAL PO FLUIDS. ORAL HYDRATION ENCOURAGED. IV ABX. PT VOIDING MINMALLY THIS SHIFT, MONITORING. PT USES CALL LIGHT INCONSISTANTLY. FAMILY AT BEDSIDE THIS SHIFT.
--- NOTE | 2021-07-18 17:23 | NUR ---
MEDICATION DUE. THIS RN TO ROOM TO CHECK ON PT. PT REMAINS UP TO CHAIR. PT ASSISTED WITH REPOSITONING IN CHAIR FOR DINNER. MEDICAITON GIVEN. PT DENIES PAIN AND NAUSEA. DEPENDS REMAIN DRY, PT ASSISTED WITH DRINKING WATER. PTS SIGNIFCANT OTHER ALSO ENCROUAGED TO ASSIST PT WITH DRINKING WATER. NO ADDITIONAL REQUESTS OR COMPLAINTS. CALL [facility] WITHIN REACH.
--- NOTE | 2021-07-18 18:06 | NUR ---
THIS RN TO ROOM TO CHECK ON PT AND ASSESS PTS VOIDING STATUS. PT UP TO STAND. PT DENIES NEED TO VOID AND STATES HE IS NOT WET. PT ALERT AND OREINTED TO ALL AT THIS TIME. DEPENDS SATURATED. TUTU CARE DONE, DEPENDS CHANGED. ONGOING ENCORUAGEMENT TO DRINK WATER GIVEN. PT AND SIGNIFICANT OTHER VERBALIZE UNDERSTANDING. PT DENIES PAIN AND NAUSEA. NO ADDITIONAL REQUESTS OR COMPLAINTS. ONE PERSON ASSIST WITH FWW BACK TO BED. HEAD OF BED ELEVATED TO 20 DEGREES. PT REPORTS FEELING COMFORTABLE. BED RAILS UP. CALL LIGHT WITHIN REACH. BED ALARM ON.
--- NOTE | 2021-07-18 20:20 | NUR ---
ALERT. DENIES ANY NEEDS. PT DRY. FLUIDS OFFERED BUT DECLINED
--- NOTE | 2021-07-18 23:00 | NUR ---
PT APPEARS ASLEEP. RESPIRATIONS EVEN AND UNLABORED.
--- NOTE | 2021-07-19 00:45 | NUR ---
THIS ANTIQUE FINISHER AND PRIMARY RN VEENA Torres CHANGED PATIENT'S INCONTINENT OF URINE ATTENDS AND PATIENT REPOSITIONED. WARM BLANKET PROVIDED. BED ALARM ON FOR SAFETY.
--- NOTE | 2021-07-19 01:34 | NUR ---
Texted [facility] and they will have a bed open this week. Lydia asked I fax the chart. Face sheet, H&P, progress notes, Covid test results faxed.
--- NOTE | 2021-07-19 02:50 | NUR ---
Pt opened eyes during rounding. Denies any needs. Fluids offered. Pt declinced. Pt's brief dry.
--- NOTE | 2021-07-19 05:19 | NUR ---
ASSISTED RN VEENA Torres CHANGED PATIENT'S INCONTINENT ATTEND. CHANGED BED LINEN AND GOWN. V/S AND I&O'S DONE. PICKED UP GARBAGE AND USED BLANKET. PRIMARY RN WAS WITH PATIENT.
--- NOTE | 2021-07-19 05:32 | NUR ---
PT DOZED ON AND OFF THROUGH THE NIGHT. PT FEELS HE HAS NOT GOTTEN A GOOD NIGHT'S SLEEP. DOES NOT USE CALL LIGHT AND DOES NOT EXPRESS HIS NEEDS HOWEVER IF ASKED SPECIFICIALLY HE WILL. FOR EXAMPLE IF ASKED IF HE NEEDS OR WANTS ANYTHING PT WILL SAY NO. THEN WHEN IMMEDIATELY AFTER ASKED IF HE WOULD LIKE HIS TV AND LIGHTS OFF OR IF HE WOULD LIKE WATER PT STATES YES. PT DOES NOT APPEAR TO BE DRINKING WATER ON HIS OWN AND DOES NOT EXPRESS THIRST. .
--- NOTE | 2021-07-19 07:43 | NUR ---
REPORT RECIEVED FROM VEENA Torres RN
--- NOTE | 2021-07-19 08:16 | NUR ---
PATIENT UP TO CHAIR WITH ASSIST, TRANSITORY NAUSEA, PATIENT NOW DENIES THE NEED FOR ZOFRAN. PATIENT DENIES PAIN, AWAITING BREAKFAST AND WILL PLAN TO GIVEN MEDICATIONS WITH FOOD.
--- NOTE | 2021-07-19 09:18 | NUR ---
OT IN TO WORK WITH PATIENT.
--- NOTE | 2021-07-19 10:37 | NUR ---
PATIENT UP AMBULATING IN [place] WITH PHYSICAL THERAPY.
--- NOTE | 2021-07-19 11:00 | NUR ---
Spoke with pt and he lives with is SO, Kaden. He uses a cane, walker , or crutches. He has had bilat fx of lower legs. Pt has had several ER trips due to falls and weakness. Pt feels ER trips are due to his UTI Myasthenia gravis, hx of fx in lower legs. He is not sure if he wants a SNF as recommended by Dr. Nguyen. He will discuss with is [facility]. I called and spoke with Kaden as pt is a poor historian. Per Kaden, pt needs a SNF for rehab. Kaden works and pt has become deconditioned and is has worsened with his UTI. He will call and speak with pt.
--- NOTE | 2021-07-19 11:15 | NUR ---
Notified by Dr. Nguyen and he spoke with pt. He is in agreement to go to a SNF.
--- NOTE | 2021-07-19 12:56 | NUR ---
LAB IN TO DRAW BLOOD. PATIENT UP TO CHAIR. 5 UNITS OF NOVOLOG GIVEN FOR BG OF 237.
--- NOTE | 2021-07-19 13:51 | NUR ---
Received call from douglas Alfonso in agreement to go to a SNF. UPdated I have faxed his chart to [facility] in [facility]. They are both wanting pt to stay in [facility].
--- NOTE | 2021-07-19 13:59 | NUR ---
PT AWAKE IN CHAIR WATCHING TV. CALL LIGHT IN REACH. NO FURTHER NEEDS AT THIS TIME.
--- NOTE | 2021-07-19 14:12 | NUR ---
PATIENT REFUSED TO HAVE HIS ATTENDS CHANGED.
--- NOTE | 2021-07-19 15:10 | NUR ---
PATIENT GIVEN AFTERNOON MEDICATIONS. THIS NURSE ASKED PATIENT IF HE WOULD BE WILLING TO CHANGE HIS OWN ATTENDS, HE CHECKED ATTENDS AND SAID, "I'M DRY, I SWEAR."
--- NOTE | 2021-07-19 16:14 | NUR ---
PATIENT UP AND OUT OF ROOM, PT CALLED TO HELP PATIENT. ABLE TO GIVE PATIENT WALKER AND REDIRECT HIM TO HIS ROOM. PATIENT IS ACUTELY CONFUSED, SOMEWHAT ARGUMENTATIVE. TAKEN BACK TO ROOM, ATTENDS CHANGED WITH LARGE URINARY INCONTINENCE. PATIENT IS IN BED, PILLOW UNDER LEFT SIDE. LEFT BUTTOCK ALLEVYN REMOVED.
--- NOTE | 2021-07-19 17:30 | NUR ---
PATIENT IS RESTING IN BED, REFUSES DINNER, BG IS 103 WITH NO INSULIN, GLUCOPHAGE HELD.
--- NOTE | 2021-07-19 18:03 | NUR ---
PATIENT GIVEN 4MG IV ZOFRAN FOR NAUSEA.
--- NOTE | 2021-07-19 18:58 | NUR ---
PATIENT IN BED RESTING AT THIS TIME. VISITOR IN ROOM. PATIENT DID NOT WANT ANY DINNER. VITALS AND I&O'S CHARTED. CALL LIGHT IN REACH. BED ALARM ON. NO FURTHER NEEDS AT THIS TIME.
--- NOTE | 2021-07-19 19:32 | NUR ---
RECEIVED REPORT FROM DAY SHIFT RN. PATIENT IS RESTING IN BED. NO NEEDS NOTED. CALL LIGHT IN REACH. BED ALARM ON FOR SAFETY.
--- NOTE | 2021-07-19 21:15 | NUR ---
THIS LABOR TRAINER ASSISTED NINOSKA CHONG. V/S AND I&O'S TAKEN AND RECORDED. CHANGED PATIENT'S INCONTINENT ATTENDS. BLOOD SUGAR CHECK DONE. BED LINEN CHANGED AND PUT ON FRESH GOWN. FED AND FINISHED VANILLA PUDDING AND DRINK WATER. NO OTHER CARE NEEDS AT THIS TIME. BED ALARM ON FOR SAFETY. CALL LIGHT WITHIN REACH.
--- NOTE | 2021-07-19 21:43 | NUR ---
PATIENT ASSESMENT COMPLETED. PATIENTS BEDDING CHANGED AND ATTEND CHANGED PATIENT INCONT OF URINE. PATIENT DENIES ANY PAIN. PATIENTS BS WNL. PATIENTS VITALS TAKEN AND RECORDED. INTAKE AND OUTPUT RECORDED. PATIENTS SCHEDULED MEDICATION GIVEN PER ORDER. PATIENT DENIES ANY NEEDS. PATIENT ATE PUDDING FOR A SNACK. IV FLUSHED AND SL PER ORDER. FRECH ICE WATER PROVIDED. PATIENT DENIES ANY FURTHER NEEDS. CALL LIGHT IN REACH. BED ALARM ON FOR SAFETY.
--- NOTE | 2021-07-19 22:49 | NUR ---
PATIENT IS RESTING IN BED WATCHING TV. NO NEEDS NOTED. CALL LIGHT IN REACH. BED ALARM ON FOR SAFETY.
--- NOTE | 2021-07-20 00:42 | NUR ---
PATIENT IS RESTING IN BED WITH EYES CLOSED, RR 18. PATIENT IS WEARING HOME CPAP. CALL LIGHT IN REACH.
--- NOTE | 2021-07-20 00:43 | NUR ---
PATIENT IS RESTING IN BED WITH EYES CLSOED, RR 16. CALL LIGHT IN REACH. BED ALARM ON FOR SAFETY.
--- NOTE | 2021-07-20 02:59 | NUR ---
THIS CORPORATE BANKING OFFICER AND NINOSKA CHONG CHANGED PATIENT'S INCONTINENT ATTENDS, GOWN AND WHITE CHUX. BARRIER CREAM APPLIED. BED ALARM ON. CALL LIGHT WITHIN REACH.
--- NOTE | 2021-07-20 03:02 | NUR ---
PATIENT INCONT OF URINE. PATIENTS ATTEND CHANGED AND TUTU CARE COMPLETED. PATIENT REPOSITIONED IN BED. PATIENT PROVIDED WITH WARM BLANKET. PATIENT DENIES ANY FURTHER NEEDS. CALL LIGHT IN REACH. BED ALARM ON FOR SAFETY.
--- NOTE | 2021-07-20 05:18 | NUR ---
PATIENTS BED ALARM ALERTED STAFF. PATIENT STATED "I NEED TO GO TO THE BATHROOM". PATIENT ASSISTED TO THE RESTROOM A 1PA W/FWW. PATIENT INCONT URINE. PATIENT HAD SMALL BM. PATIENT IS BACK IN BED RESTING. PATIENTS VITALS TAKEN AND RECORDED. INTAKE AND OUTPUT RECORDED. PATIENT DENIES ANY NEEDS. CALL LIGHT IN REACH. BED ALARM ON FOR SAFETY.
--- NOTE | 2021-07-20 07:49 | NUR ---
REPORT RECIEVED FROM NINOSKA CHONG. PT LAYING IN BED WITH EYES CLOSED AND BED ALARMS ON.
--- NOTE | 2021-07-20 08:00 | NUR ---
Texted [facility], and requested when they will have beds open this week. Faxed H&P, Face sheet, progress notes, covid test, and medication list to [facility].
--- NOTE | 2021-07-20 09:14 | NUR ---
PT RESTING IN BED EATING BREAKFAST AND WATCHING TV. PARTNER BROUGHT HIM A COFFEE FROM [employer], HAS NOW GONE TO WORK. PT ANSWERS QUESTIONS APPROP. AND IS PLEASANT THIS MORNING. ADMINISTERED MORNING MEDS WO DIFFICULTY. DRINKING MIRALAX. VS STABLE. PT DRY.
--- NOTE | 2021-07-20 11:21 | NUR ---
Received message from [facility], they can accept this pt on Monday at 10:00. Called and updated Kaden and asked if can transport and he will. Went to pts room at 12:30 to update Kaden is in the room and has let Ray know. Kaden let me know he cancelled pts neurology appt which was scheduled for today in [place].
--- NOTE | 2021-07-20 12:45 | NUR ---
PT IN BED HOLDING HANDS WITH HIS PARTNER IN THE CHAIR. PT DID NOT EAT ANY OF HIS LUNCH AND STATED HE DID NOT LIKE IT. OFFERED OTHER FOOD BUT HE JUST WANTED SOME JUICE. MIXED ENSURE CLEAR WITH CRANGRAPE IT HAS THE LOWEST CARB.
--- NOTE | 2021-07-20 14:54 | NUR ---
PATIENT HAD LARGE INCONT. THIS PARTY PLAN DEMONSTRATOR AND RN EVITA IN TO CHANGE PATIENT. TUTU CARE DONE. NEW ATTENDS IN PLACE. PATIENT UP TO CHAIR, 2PA FWW. CHAIR ALARM ON. PARTNER IN ROOM. DR. SANTOS THEN IN ROOM. CALL LIGHT IN REACH. NO FURTHER NEEDS AT THIS TIME.
--- NOTE | 2021-07-20 18:24 | NUR ---
PATIENT IN CHAIR WATCHING TV, VISITOR IN ROOM. VITALS AND I&O'S CHARTED. BLOOD PRESSURE LOWER THAN PATIENTS NORMAL, RN NOTIFIED. CALL LIGHT IN REACH. NO FURTHER NEEDS AT THIS TIME.
--- NOTE | 2021-07-20 18:31 | NUR ---
PT NOT WANTING TO EAT ANY DINNER FOR US TONIGHT BUT HIS PARTNER WAS ABLE TO GET HIM TO EAT SOME NACHOS FROM DOWNSTAIRS. DENIES NEED TO VOID. DRY ATTENDS.
--- NOTE | 2021-07-20 19:45 | NUR ---
RECEIVED REPORT FROM DAY SHIFT RN. PATIENT IS RESTING IN RECLINER. NO NEEDS NOTED. CALL LIGHT IN REACH.
--- NOTE | 2021-07-20 20:20 | NUR ---
CHAIR ALARM SOUNDING, PT STANDING FACING WINDOW, SAID HE WANTED TO GO TO BED. SLOW TO MOVE FEET, FOLLOW INSTRUCTIONS SLOW, WANTED TO KNOW WHO WAS GOING TO GET HIM UP. FIRST SAID HE WAS AT [facility], SM[facility]ED, ASKED PT IF ROOM LOOKED LIKE [facility], HE SAID NO, [facility]. DENIED NEED TO USE BATHROOM, COVERED, BED ALARM PLACED, CALL LIGHT IN HAND, INSTRUCTED TO CALL IF HE NEEDED TO GET UP. LIGHTS OUT, TV OFF PER CHOICE.
--- NOTE | 2021-07-20 20:45 | NUR ---
THIS CHRISTMAS TREE GROWER ASSISTED NINOSKA CHONG CHANGED PATIENT'S INCONTINENT ATTENDS AND GOWN. BARRIER CREAM APPLIED. PATIENT IS BOOSTED UP/REPOSITIONED IN BED. BED ALARM ON FOR SAFETY. CALL LIGHT WITHIN REACH.
--- NOTE | 2021-07-20 20:59 | NUR ---
PATIENT ASSESMENT COMPLETED. PATIENTS VITALS TAKEN AND RECORDED. PATIENT INCONT OR URINE ATTEND CAHNGED, AND TUTU CARE COMPLETED. PATIENT REPOSITIONED IN BED. SCHEDULED MEDICATIONS GIVEN PER ORDER. PATIENTS IV FLUSHES WELL AND IS SL PER ORDER. PATIENT DENIES ANY PAIN. NO FURTHER NEEDS NOTED. CALL LIGHT IN REACH. BED ALARM ON FOR SAFETY.
--- NOTE | 2021-07-20 23:45 | NUR ---
PATIENT IS RESTING IN BED WITH EYES CLSOED, RR 15. CALL LIGHT IN REACH. BED ALARM ON FOR SAFETY.
--- NOTE | 2021-07-21 02:03 | NUR ---
PATIENTS ATTEND CHECKED AND IS DRY AT THIS TIME. PATIENT DENIES ANY NEEDS. CALL LIGHT IN REACH. BED ALARM ON FOR SAFETY.
--- NOTE | 2021-07-21 03:59 | NUR ---
PATIENT IS RESTING IN BED WITH EYES CLSOED, RR 16. CALL LIGHT IN REACH. BED ALARM ON FOR SAFETY.
--- NOTE | 2021-07-21 05:57 | NUR ---
PATIENT INCONT OF URINE BEDDING AND ATTEND CHANGED. ALLEVYN ON COCYX INTACT. BARRIER CREAM APPLIED TO TUTU AREA. VITALS TAKEN AND RECORDED. INTAKE AND OUTPUT RECORDED. PATIENT PROVIDED SIPS OF WATER. NO NEEDS NTOED. CALL LIGHT IN REACH. BED ALARM ON FOR SAFETY.
--- NOTE | 2021-07-21 07:45 | NUR ---
this rn received report from brett sood. pt appears to be resting at this time with respirtians noted. bed alarm on
--- NOTE | 2021-07-21 08:15 | NUR ---
this rn in pts room to assist jim bundy. full bed change done and pt up to chair at this time due to incontience of urine. pt states before he moved that he was having hiccups, when pt up to chair pt did vomit 100ml. this rn provided pt with 4mg of zofran.
--- NOTE | 2021-07-21 08:20 | NUR ---
Plan remains for dc to SNF on Monday.
--- NOTE | 2021-07-21 08:45 | NUR ---
this rn in pts room to recheck pts nausea- pt states that he feels like it is heartburn-this rn repositioned pt in chair and provided pt with 7up and crackers. pt needs nothing further- chair alarm on
--- NOTE | 2021-07-21 09:17 | NUR ---
PATIENT WAS INCONT. OF URINE RIGHT AT SHIFT CHANGE, BEDBATH PROVIDED. 2PA PATIENT AMBULATED TO CHAIR WITH FWW. FAMILY IN ROOM. PATIENT NAUSEOUS- 100 INTO EMESIS BAG. RN AWARE. PATIENT REFUSED BREAKFAST, DRINKS AND CRACKERS ON BEDSIDE TABLE. VITALS AND I&OS CHARTED, CALL LIGHT IN EASY REACH. CHAIR ALARM ON FOR SAFETY.
--- NOTE | 2021-07-21 09:45 | NUR ---
this rn in pts room to give morning meds. pt states that he took a sip of 7up but no crackers- pt willing to take morning meds now though. no other needs at this time. pt did eat a cracker prior to P.T. coming in to work with pt.
--- NOTE | 2021-07-21 11:45 | NUR ---
this rn in pts room with jim bundy to change pt due to this rn walking by pts room and pt using tissues to wipe up a bowel movement. when this rn back in room after getting supplies- pt bletched and then vomited and peed on the floor. pt cleaned up. emesis appeared to look like stomach acid. pt reports that he still feels nauseous. this rn called - new orders placed.
--- NOTE | 2021-07-21 12:05 | NUR ---
this rn in pts room to give pt compazine. pt sitting up in chair, still states that he is nauseous. pt prefers to sit forward in chair than lay backwards. call light within reach and pt does not show the ability to remember to use it. chair alarm on
--- NOTE | 2021-07-21 13:59 | NUR ---
PT SITTING IN CHAIR, ALERT AND SEEMS TO BE ENJOYING SITTING IN SUN. VISIT PROGRESSED IT WAS APPARENT THAT PT HAD SOME COGNITIVE DECLINE. PT MENTIONED HE HAD BEEN OUTSIDE THIS AM AND THAT WIND WAS COLD. BEGAN TO ALSO SAY THINGS THAT FURTHER SHOWED DIFFICULTY IN HIS THOUGHT PROCESS. GAVE ENCOURAGEMENT, WILL CONTINUE TO FOLLOW
--- NOTE | 2021-07-21 14:10 | NUR ---
THIS RN HEARD PTS CHAIR ALARM. PT WAS STARTING TO TRY AND STAND UP. PT WANTS TO GO BACK TO BED. THIS RN ASSISTED PT BACK TO BED. PT WANTING TO SIT ON EDGE OF BED AT THIS TIME. PT PULLED IV OUT, STATED HE THOUGHT HE DIDN'T NEED IT ANYMORE. THIS RN ENCOURAGED PT TO EAT SOMETHING, EDUCATED PT ABOUT THAT HIS VOMIT APPEARED TO BE STOMACH ACID- PT DENIED WANTING FOOD BUT STATES THAT HE FEELS MUCH BETTER.
--- NOTE | 2021-07-21 16:46 | NUR ---
THIS RN TO ROOM TO ASSIST WITH IV START. IV STARTED TO RIGHT FORARM PER PROTOCOL. BRISK BLOOD RETURN NOTED WITH IV START. IV SALINE LOCKED AT THIS TIME, ALCOHOL CAP APPLIED. SOCK USED A SLEEVE TO COVER IV AND PREVENT UNINTENTIONAL DISLOGING. BED RAILS UP. CALL LIGHT WITHIN REACH. NO ADDITIONAL REQUESTS OR COMPLAINTS. PTS PRIMARY RN UPDATED.
--- NOTE | 2021-07-21 17:30 | NUR ---
THIS RN IN PTS ROOM TO GIVE PT SCHEDULED MEDS AND TO CHANGE PT. PT TOLERATED WELL AND THIS RN ENCOURAGED PT TO DRINK CLEAR ENSURE. PT STATES THAT HE IS FEELING OKAY DESPITE HAVING DIRARRHEA AGAIN AND HIS FACE APPEARS RED. CALL LIGHT WITHIN REACH AND BED ALARM ON
--- NOTE | 2021-07-21 18:15 | NUR ---
PTS S.O. IN ROOM AND CALLED OUT TO STATE THAT PT HAD VOMITED AGAIN. THIS RN IN ROOM TO ASSESS PT. DAVID RN IN ROOM TO GIVE 4MG ZOFRAN. PTS S.O. ASKING FOR MED LIST AND WANTS "TO RESEARCH" MEDS DUE TO NAUSEA MED LIST PROVIDED AND THIS RN DISCUSSED ABOUT TIMES THE MD MIGHT BE BY TO SEE PT.
--- NOTE | 2021-07-21 19:37 | NUR ---
RECEIVED REPORT FROM DAY SHIFT RN. PATIENT IS RESTING IN BED WATCHING TV. PATIENT DENIES ANY NEEDS. CALL LIGHT IN REACH. BED ALARM ON FOR SAFETY.
--- NOTE | 2021-07-21 20:30 | NUR ---
IN WITH RN TO GET VITALS, ASSISTED PT TO THE TOILET, 1PA-SBA FWW, PT BACK TO BED, BED ALARM SET, NO FURTHER NEEDS AT THIS TIME
--- NOTE | 2021-07-21 20:36 | NUR ---
PATIENT ASSESMENT COMPLETED. VITALS TAKEN AND RECORDED. PATIENTS INTAKE AND OUTPUT RECORDED. ATTEND IS DRY. PATIENT ASSISTED TO THE RESTROOM A SBA W/FWW. PATIENT ABLE TO VOID SMALL AMOUNT. PATIENT IS BACK IN BED RESTING WITH BED ALARM ON. PATIENTS SCHEDULED MEDICATION GIVEN PER ORDER. MELATONIN PRN GIVEN PER ORDER. PATIENT DENIES ANY PAIN OR NAUSEA. PATIENTS IV FLUSHED AND IS SL PER ORDER. NO FURTHER NEEDS. NOTED. CALL LIGHT IN REACH. BED ALARM ON FOR SAFETY.
--- NOTE | 2021-07-21 22:16 | NUR ---
PATIENT IS RESTING IN BED WITH EYES CLSOED, RR 15. CALL LIGHT IN REACH. BED ALARM ON FOR SAFETY.
--- NOTE | 2021-07-21 23:14 | NUR ---
PATIENT IS RESTING IN BED WATCHING TV. PATIENT DENIES ANY NEEDS. CALL LIGHT IN REACH. BED ALARM ON FOR SAFETY.
--- NOTE | 2021-07-22 02:25 | NUR ---
PATIENT INCONT OF STOOL AND URINE. PATIENTS ATTEND CHANGED, ALLEVYN ON COCYX CHANGED, BARRIER CREAM APPLIED TO TUTU AREA. PATIENT REPOSITIONE DIN BED. PATIENT DENIES [place] NEEDS. CALL LIGHT IN REACH. BED ALARM ON FOR SAFETY.
--- NOTE | 2021-07-22 04:39 | NUR ---
PATIENT IS RESTING IN BED WITH EYES CLOSED, RR 16. CALL LIGHT IN REACH. BED ALARM ON FOR SAFETY.
--- NOTE | 2021-07-22 06:28 | NUR ---
VITALS TAKEN AND RECORDED. INTAKE AND OUTPUT RECORDED. PATIENTS ATTEND CHANGE, TUTU CARE COMPLETED, BARRIER CREAM APPLIED TO TUTU AREA. PATIENR PROVIDED WITH SIPS OF WATER. NO NEEDS NOTED. CALL LIGHT IN REACH. BED ALARM ON FOR SAFETY.
--- NOTE | 2021-07-22 07:07 | NUR ---
Bedside Report completed at door due to patient is resting. He is laying on his left side, appearing to be in no acute distress. Bed alarm in place. Reviewed medication, labs, history, and plan of care with the night nurse.
--- NOTE | 2021-07-22 08:22 | NUR ---
Gave the patient his AM medications, the SCHOOL BOAT DRIVER and myself assisted him to his chair. Chair alarm is on.
--- NOTE | 2021-07-22 09:05 | NUR ---
Patient completed his breakfast, continues to sit up in the chair. He has no compliants or needs at this time. Chair alarm continued
--- NOTE | 2021-07-22 10:03 | NUR ---
Patient ambulating the son with PT. SCHEDULE ANNOUNCER did notify of some low BPs and a manual completed by PT showing decreased BP. Patient is asymptomatic and will be reassessed after completed of his walk.
--- NOTE | 2021-07-22 11:28 | NUR ---
Patient c/o dizziness/nausea. Patient has had periodic episodes of low BP this AM, hydration discussed with patient and signifcant other Kaden. Will update MD. Patient is stable at this time.
--- NOTE | 2021-07-22 11:54 | NUR ---
Dr Nguyen was notified of patient's flucuating BP, and the OT got a reading in the 80s. The patient is sitting in the chair, some dizziness per the patient, talk with the patient about possible hydration needing to be increased, he verablized understanding and so did his signifcant other Kaden. Kaden did ask for the physical therapist name from this morning and says he needed to have it before seeing the MD. The [employer] IN[employer]UMENT REPAIRER was able to give the name, I also gave a heads up to the MD, and will update the Charge Nurse. Patient's manual BP is 102/48
--- NOTE | 2021-07-22 13:18 | NUR ---
Patient is receiving IV fluid bolus at this time. He continues to sit up in his chair. Chair alarm continues to be in place as well.
--- NOTE | 2021-07-22 14:25 | NUR ---
THIS [employer] OR [employer] OBS[employer]ER ASKED PT TO USE BR, PT REFUSED STATED HE JUST WENT
--- NOTE | 2021-07-22 14:46 | NUR ---
Patient up in the chair. He states he has no needs at this time. He reports no more dizziness since his fluid bolus. 1500 medication given
--- NOTE | 2021-07-22 15:26 | NUR ---
PT REFUSED TO GO TO BR, RN NOTIFED.
--- NOTE | 2021-07-22 15:59 | NUR ---
patient continues to refuse to get up for the bathroom. Plan to walk him in about 20 minutes, then just ambulate him to the bathroom and have him attempt to urinate, and change his attends if needed
--- NOTE | 2021-07-22 16:33 | NUR ---
attempt again to try and have the patient use the restroom and/or check his attends. He continues to refuses and states he doesnt need his attends checked. I advised him on the importance of allowing us, however he is adament that he is dry. I did ask again if he would go for a walk and he refuses. I am hoping when his signifcant other arrives he will be able to assist.
--- NOTE | 2021-07-22 17:13 | NUR ---
patient continues to deny us to check his attends, nor go to the bathroom.
--- NOTE | 2021-07-22 18:12 | NUR ---
Patient allowed myself to change his attend. He stood in front of the chair with LOEN and Kaden (significant other). His pull-up was removed, minimal moisture with small stool. Clean the patient front to back, placed attends on him.
--- NOTE | 2021-07-22 19:05 | NUR ---
RECEIVED BEDSIDE REPORT FROM DAYSHIFT NURSE. PT SITTING UP IN THE CHAIR IN NO ACUTE DISTRESS VISITING WITH FAMILY. DENIES ANY NEEDS AT THIS TIME, CALL LIGHT WITHIN REACH .
--- NOTE | 2021-07-22 20:08 | NUR ---
iv fluids provided. iv wnl. s.o. in room. call light in reach.
--- NOTE | 2021-07-22 21:00 | NUR ---
ASSESSMENT COMPLETED, SIGNICANT OTHER AT BEDSIDE. PO SCHEDULED MEDS GIVEN TOLERTAED WELL. NO S/SX OF ANY DISTRESS NOTED. PT ALERT X PERSON AND PLACE. REAPPLIED ALLEVYN DRESSING STAGE 1-2 PRESSURE SORE NOTED TO BUTTOCKS . CALL LIGHT WITHIN REACH .
--- NOTE | 2021-07-22 22:50 | NUR ---
IN TO CHECK ON PT, PT IS NOT INCONT OF URINE AT THIS TIME, PT DID NOT WANT TO GET UP AT THIS TIME, SIP OF WATER REFUSED BY PT, IV ALARMING, RN TOLD, WILL CHECK BACK WITH PT ON VOIDING NEEDS, BED ALARM IS IN PLACE
--- NOTE | 2021-07-22 23:15 | NUR ---
in to assist rn with pivoting pt to the bsc, pt has voided and passed bm, pt assisted back to bed, bed alarm set, no further needs
--- NOTE | 2021-07-23 00:24 | NUR ---
PT LAYING IN BED WITH EYES CLOSED IN NO ACUTE DISTRESS. RESP EVEN AND UNLABORED. CALL LIGHT WITHIN REACH WILL CONTINUE TO MONITOR.
--- NOTE | 2021-07-23 02:52 | NUR ---
BED ALARM SET OFF, PT TURNING OVER TO THE RIGHT SIDE, LEGS OFF OF THE BED, PT IS VERY INCONT AT THIS TIME, NEW LINEN ON THE BED, NEW CHUX, NEW PT GOWN, PT CLEANED UP, BED ALARM SET, FRESH ICE WATER GIVEN
--- NOTE | 2021-07-23 03:12 | NUR ---
PT INCONT X 2 SATURATED BED. PT REPORTS NOT KNOWING WHEN HE IS WET OR HAS NO URGENCY. COMPLETE BED CHANGE PROVIDED, REAPPLIED ALLEVYN. BED ALARM ON AND CALL LIGHT WITHIN REACH.
--- NOTE | 2021-07-23 05:30 | NUR ---
IN TO GET VITALS, PT IS INCONT WITH TUTU PAD, REMOVED, BED ALARM REMAINS IN PLACE, NO FURTHER NEEDS
--- NOTE | 2021-07-23 06:40 | NUR ---
COVID 19 SWAB DONE TO BOTH NARES AND SENT TO IN HOUSE LAB.
--- NOTE | 2021-07-23 06:48 | NUR ---
PT LAYING IN BED IN NO ACUTE DISTRESS , RESP EVEN AND UNLABORED. PT REPORTS FEELING WELL. POC TO DC TO REHAB TODAY CALL LIGHT WITHIN REACH .
--- NOTE | 2021-07-23 07:02 | NUR ---
Patient sleeping at this time, bedside shift report given outside of room. White board was updated for the day. Plan at this time is to still discharge to [facility].
--- NOTE | 2021-07-23 08:55 | NUR ---
patient up in the chair, with his breakfast in front of him. AM medications are being given, IV fluids were stopped by the MD this AM. MD is preparing his discharge to [facility] at this time. IV flushed without difficulty.
[2021-07-23] MEDS ORDERED: PYRIDOSTIGMINE60 MG PO (08:57)
[2021-07-23] MEDS ORDERED: TYLENOL325 MG PO (08:59)
--- NOTE | 2021-07-23 09:09 | NUR ---
patient finishing breakfast, Kaden (significant other) at bedside. The patient is drinking and eating better this AM, after receiving 2 bolus and continous infusion of IV fluids until this AM. He is up in the chair at this time.
--- NOTE | 2021-07-23 09:13 | NUR ---
Assessment completed, IV assess removed.
--- NOTE | 2021-07-23 09:24 | NUR ---
DC ORDERS RECVD FROM DR. SANTOS. DC PACKET FAXED TO [facility] AND PLACED ON PATIENTS CHART.
--- NOTE | 2021-07-23 10:06 | NUR ---
BEDBATH GIVEN, PATIENT S/O REQUEST MACIEL TRIM AND CLEAN UP OF PATIENTS NECK HAIR. PATIENT DRESSED IN PERSONAL CLOTHES AND READY FOR D/C. VITALS AND I&OS CHARTED. NO OTHER NEEDS AT THIS TIME
--- NOTE | 2021-07-23 10:22 | NUR ---
Call report to NINOSKA Lechuga at [facility].
--- NOTE | 2021-07-23 11:31 | NUR ---
PT SITTING IN CHAIR-DRESSED AND WAITING FOR DC. FAMILY PRESENT, PT SMILES AND THANKED ME FOR COMING BY. GAVE BLESSING AND WILL FOLLOW
== END 2021-07-23 10:25 | disposition home or self-care (01) | DRG 689 ==
LOC: ED 06:28 → MS 12:19
PROVIDERS: ADMIT Internal Medicine; ATTEND Internal Medicine
DX: N30.00 Acute cystitis without hematuria (principal); G93.41 Metabolic encephalopathy; R53.2 Functional quadriplegia; I67.4 Hypertensive encephalopathy; E86.0 Dehydration; E83.42 Hypomagnesemia; I25.10 Atherosclerotic heart disease of native coronary artery without angina pectoris; Z95.5 Presence of coronary angioplasty implant and graft; E11.9 Type 2 diabetes mellitus without complications; G70.00 Myasthenia gravis without (acute) exacerbation; I35.0 Nonrheumatic aortic (valve) stenosis; Z88.8 Allergy status to other drugs, medicaments and biological substances; Z90.49 Acquired absence of other specified parts of digestive tract; Z98.890 Other specified postprocedural states; Z79.899 Other long term (current) 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; Z79.82 Long term (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; Z79.84 Long term (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 drugs; I16.0 Hypertensive urgency; B95.4 Other streptococcus as the cause of diseases classified elsewhere; Z88.0 Allergy status to penicillin; Z91.018 Allergy to other foods; F41.9 Anxiety disorder, unspecified; F32.A Depression, unspecified; Z95.1 Presence of aortocoronary bypass graft; Z79.01 Long term (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 of anticoagulants; Z95.2 Presence of prosthetic heart valve; Z87.891 Personal history of nicotine dependence; I10 Essential (primary) hypertension
CPT/HCPCS: 36415; 80048; 81001; 83036; 83735; 84484; 85025; 85610; 87077; 87088; 87186; 93005; 93010; 96365; 96366; 96367; 97110; 97116; 97163; 97165; 97530; 99285-25; C9803; J0696; J0780; J1650; J1815; J2405; J3475; J7030; J7121; U0003

== ENCOUNTER 2021-08-07 12:53 | Emergency (ER) | payer OTHER, MEDICARE ==
[~2021-08-07] VITALS: Ht 167.6 cm; Wt 86.0 kg
[~2021-08-07 12:53] MED LIST changes: +CEPHALEXIN500 MG PO; +PYRIDOSTIGMINE60 MG PO; +TYLENOL325 MG PO
--- OUTSIDE RECORDS SUMMARY | 2021-08-07 12:54 | XMS ---
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 Service Advocate Contact Events No recent Security Events currently on file CRITERIA MET - 6 ED Visits in 6 Months - [facility] - 2 Visits in 30 Days - [facility] - Has Care Guidelines CARE PROVIDERS CHLOE KINGSTON DPM PHONE: [phone] JORGE LUIS DENG Internal Medicine Current PHONE: Unknown CARLOS SANCHEZ Nurse Practitioner Current PHONE: [phone] PRACHI COSTA Family Medicine 02/15/2021-Current PHONE: Unknown DEE ESPAÑA Nurse Practitioner: Family Current PHONE: Unknown JORGE SOUTH Internal Medicine Current PHONE: [phone] CHRYSTAL REA Nurse Practitioner Current PHONE: [phone] MARIA A VICK Recording Studio Set Up Worker [facility]ONE: Unknown [facility] Current PHONE: [phone] KELLY NUÑEZ Physician Recording Studio Set Up Worker [facility]: Unknown Shaunna has no Care Guidelines for this patient. Care History Medical/Surgical 07/15/2021 [facility] CHW CALLED PATIENT [facility]GE-PATIENT WAS NOT ANSWERING HIS PHONE- CONCERNED FOR PATIENT SAFETY AT HOME ALONE DUE TO RECENT FALLS. INGE STATED PATIENT HAS A NEUROLOGIST DR WORTHINGTON AND IS CURRENTLY WAITING FOR A REFERRAL TO PROCESS AT [facility] LOCATION. CHW CALLED [facility]- ASKED FOR AN URGENT FOLLOW UP APT DUE TO RECENT ED VISITS AND CONTINUED FALLS. THEY HAD PATIENT WAITING FOR AN AUTH. I HAD STATED MEDICARE PATIENT AN AUTH IS NOT NEEDED. THEY QUICKLY SENT FOR MD REVIEW. INGE CONTACTED CHW-STATED THEY HAD AN APT SCHEDULED WITH NEUROLOGIST DR WORTHINGTON 07/20/21 IN [place] AND INGE WILL TAKE THE PATIENT FOR [...] STATED THEY WILL BE GOING TO DR SANTOYO APT ON 07/16/21 @ 12:15 AND INGE WILL MAKE SURE PATIENT MAKES IT TO THE APT. THEY WILL FOLLOW UP WITH CHW WITH UPDATES. PATIENT HAS HAD HOME HEALTH SERVICES PREVIOUSLY BUT WOULD DECLINE PT AND AT TIMES WOULD NOT BE AT HOME WHEN THEY WOULD SHOW UP FOR HIS APT. PATIENT WOULD BENEFIT FROM PT AND OT FOLLOW UP. PATIENT HAS AN APT @ 12:15PM FOR FURTHER REFERRAL NEEDS. [facility] IS AWARE AND AGREES. NEUROLOGIST- DR WORTHINGTON CONTACT NUMBER [phone] 04/12/2021 [facility] - PATIENT RECENTLY DISCHARGED FROM [facility] . 02/16/2021 [facility] - PATIENT IS CURRENTLY RECEIVING HOME HEALTH SERVICES THRU [facility] PLEASE CONTACT HOME HEALTH AGENCY IF PATIENT IS SEEN IN THE ED. - PER REQUEST OF PATIENT- SENDING RECENT ED CHART NOTES TO [facility]. E.D. VISIT COUNT (12 MO.) [facility] TOTAL 13 NOTE: Visits indicate total known visits. ED/UCC VISIT TRACKING (12 MO.) 08/07/2021 12:53 [facility] [place] TYPE: Emergency COMPLAINT: - FALL 07/16/2021 06:28 [facility] [place] TYPE: Emergency COMPLAINT: - WEAKNESS 07/13/2021 13:30 [facility] [place] TYPE: Emergency COMPLAINT: - FALL DIAGNOSES: - Allergy status to other drugs, medicaments and biological substances - Old myocardial infarction - Encounter for examination and observation following other accident - Gout, unspecified - Weakness - Personal history of nicotine dependence - Atherosclerotic heart disease of [place] coronary artery without angina pectoris - Type 2 diabetes mellitus without complications - Other fci (current) 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 - Essential (primary) hypertension - halfway (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 drugs - Allergy status to penicillin - terminal makeup operator (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 - Hypomagnesemia - Allergy to other foods 07/12/2021 23:46 [facility] [place] TYPE: Emergency COMPLAINT: - VOMITING DIAGNOSES: - Other fci (current) 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 - Essential (primary) hypertension - Allergy to other foods - Old myocardial infarction - Allergy status to other drugs, medicaments and biological substances - Personal history of nicotine dependence - Type 2 diabetes mellitus without complications - Allergy status to penicillin - Gout, unspecified - halfway (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 - terminal makeup operator (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 drugs - Vomiting, unspecified - Atherosclerotic heart disease of [place] coronary artery without angina pectoris 07/11/2021 22:01 [facility] [place] TYPE: Emergency COMPLAINT: - WEAKNESS DIAGNOSES: - Personal history of nicotine dependence - terminal makeup operator (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 - Allergy status to penicillin - Type 2 diabetes mellitus without complications - Old myocardial infarction - Weakness - Gout, unspecified - Acute kidney failure, unspecified - Allergy status to other drugs, medicaments and biological substances - Essential (primary) hypertension - Other fci (current) 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 - Allergy to other foods - Atherosclerotic heart disease of [place] coronary artery without angina pectoris - halfway [...] other foods - Atherosclerotic heart disease of [place] coronary artery without angina pectoris - Gout, unspecified - Other fci (current) 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 - terminal makeup operator (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 - terminal makeup operator (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 drugs [...] - halfway (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 - terminal makeup operator (current) use of insulin - terminal makeup operator (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 drugs - Essential (primary) hypertension - Other fci (current) 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 - Gout, unspecified - Type 2 diabetes mellitus without complications - Altered mental status, unspecified - Atherosclerotic heart disease of [place] coronary artery without angina pectoris - Encounter for immunization - Allergy status to other drugs, medicaments and biological substances - COVID-19 - Allergy to other foods - Personal history of nicotine dependence 03/03/2021 09:33 [facility] [place] TYPE: Emergency COMPLAINT: - WEAKNESS DIAGNOSES: - Other tank terminal gauger (current) 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 - Allergy to other [...] (primary) hypertension - Atherosclerotic heart disease of [place] coronary artery without angina pectoris 02/14/2021 13:42 [facility] TYPE: Emergency COMPLAINT: - POSS STROKE DIAGNOSES: - Cannabis use, unspecified, uncomplicated - Weakness - Other fci (current) 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 - Essential (primary) hypertension - Atherosclerotic heart disease of [place] coronary artery without angina pectoris - Personal history of nicotine dependence - Allergy status to other drugs, medicaments and biological substances - halfway (current) use of antibiotics - halfway (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 - Altered mental [...] to sulfonamides - Gout, unspecified - terminal makeup operator (current) use of systemic steroids - halfway (current) use of insulin - Allergy to other foods - Other fci (current) 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 - Old myocardial infarction - Atherosclerotic heart disease of [place] coronary artery without angina pectoris - Allergy status to other drugs, medicaments and biological substances 01/27/2021 06:17 [facility] [place] TYPE: Emergency COMPLAINT: - URINARY PROBLEM DIAGNOSES: - Patient's noncompliance with other medical treatment and regimen - Atherosclerotic heart disease of [place] coronary artery without angina pectoris - terminal makeup operator (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 drugs - Personal history of transient ischemic attack (TIA), and cerebral infarction without residual deficits - halfway (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 - Allergy status to other drugs, medicaments and biological substances - Unspecified urinary incontinence - Old myocardial infarction - Allergy to other foods - Other tank terminal gauger (current) 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 - Essential (primary) hypertension - Type 2 diabetes mellitus without complications - Personal history of nicotine dependence 12/08/2020 17:47 [facility] TYPE: Emergency COMPLAINT: - FLU SYMPTOMS DIAGNOSES: - Dizziness and giddiness - Allergy status to other drugs, medicaments and biological substances - Other fci (current) 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 - halfway (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 - Dehydration - Essential (primary) hypertension - Type 2 diabetes mellitus without complications - Personal history of nicotine dependence - Allergy to other foods - Old myocardial infarction INPATIENT VISIT TRACKING (12 MO.) 07/16/2021 12:19 [facility] TYPE: Medical Surgical COMPLAINT: - CHEST PAIN,WEAKNESS,UTI,MYASTHENIA GRAVIS,HYPOMAGE DIAGNOSES: - Type 2 diabetes mellitus without complications - Allergy status to other drugs, medicaments and biological substances - Presence of coronary angioplasty implant and graft - Functional quadriplegia - Other specified postprocedural states - Essential (primary) hypertension - Personal history of nicotine dependence - Urinary tract infection, site not specified - Atherosclerotic heart disease of [place] coronary artery without angina pectoris - Hypomagnesemia - Presence of coronary angioplasty implant and graft - Acute cystitis without hematuria - Hypomagnesemia - terminal makeup operator (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 drugs - DEPRESSION, UNSPECIFIED - Atherosclerotic heart disease of [place] coronary artery without angina pectoris - terminal makeup operator (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 drugs - Allergy status to other drugs, medicaments and biological substances - Myasthenia gravis without (acute) exacerbation - Myasthenia gravis without (acute) exacerbation - Allergy to other foods - terminal makeup operator (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 - halfway (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 of anticoagulants - Other streptococcus as the cause of diseases classified elsewhere - Acute cystitis without hematuria - Other fci (current) 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 - Presence of prosthetic heart valve - Metabolic encephalopathy - Hypertensive urgency - Presence of aortocoronary bypass graft - Other tank terminal gauger (current) 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 - Type 2 diabetes mellitus without complications - Functional quadriplegia - Allergy status to penicillin - Anxiety disorder, unspecified - Acquired absence of other specified parts of digestive tract - Metabolic encephalopathy - Nonrheumatic aortic (valve) stenosis - Nonrheumatic aortic (valve) stenosis - Other specified postprocedural states - Acquired absence of other specified parts of digestive tract - halfway (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 - Hypertensive encephalopathy - Dehydration - Dehydration - Hypertensive encephalopathy 06/11/2021 11:[address] [facility] [place] TYPE: Medical Surgical COMPLAINT: - CELLULITIS DIAGNOSES: - Atherosclerotic heart disease of [place] coronary artery without angina pectoris - Old myocardial infarction - Other tank terminal gauger (current) 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 - Other fci (current) 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 - Chronic kidney disease, unspecified - Atherosclerotic heart disease of [place] coronary artery without angina pectoris - Allergy [...] 2 diabetes mellitus with diabetic nephropathy - terminal makeup operator (current) use of insulin - Metabolic encephalopathy [...] aureus infection - Gout, unspecified - terminal makeup operator (current) use of insulin - Type 2 diabetes mellitus with diabetic chronic kidney disease - Old myocardial infarction - Personal history of transient ischemic attack (TIA), and cerebral infarction without residual deficits - Other specified postprocedural states - Myasthenia gravis without (acute) exacerbation - halfway (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 - Hypertensive chronic kidney disease with stage 1 through stage 4 chronic kidney disease, or unspecified chronic kidney disease - terminal makeup operator (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 - Presence of aortocoronary bypass graft - Other specified postprocedural states - Allergy status to other drugs, medicaments and biological substances - Gout, unspecified - Anxiety disorder, unspecified - Allergy status to other drugs, medicaments and biological substances [email or web address]
[2021-08-07] MEDS ORDERED: AZATHIOPRINE50 MG PO (14:24)
[2021-08-07] MEDS ORDERED: DULCOLAX10 MG PR (14:25)
[2021-08-07] MEDS ORDERED: FLEET ENEMA EX230 ML PR (14:26)
[2021-08-07] MEDS ORDERED: FISH OIL 1,0001 EAC2 PO (14:26)
[2021-08-07] MEDS ORDERED: LISINOPRIL10 MG PO (14:27)
[2021-08-07] MEDS ORDERED: METFORMIN HCL500 M1 PO (14:28)
[2021-08-07] MEDS ORDERED: ONDANSETRON ODT4 MG PO (14:31)
== END 2021-08-07 17:15 ==
LOC: ED 12:53
DX: S09.90XA Unspecified injury of head, initial encounter (principal); E83.42 Hypomagnesemia; W01.10XA Fall on same level from slipping, tripping and stumbling with subsequent striking against unspecified object, initial encounter; I10 Essential (primary) hypertension; E11.9 Type 2 diabetes mellitus without complications; I25.10 Atherosclerotic heart disease of native coronary artery without angina pectoris; I25.2 Old myocardial infarction; M10.9 Gout, unspecified; Z87.891 Personal history of nicotine dependence; Z88.8 Allergy status to other drugs, medicaments and biological substances; Z88.0 Allergy status to penicillin; Z91.018 Allergy to other foods; Z79.899 Other long term (current) 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; Z79.84 Long term (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 drugs; Z79.82 Long term (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
CPT/HCPCS: 36415; 70450; 72125; 80053; 83735; 85025; 86850; 86900; 86901; 96365; 96375; 99284-25; J0360; J3475

== ENCOUNTER 2021-08-28 19:12 | Emergency (ER) | payer MEDICARE, OTHER ==
[~2021-08-28] VITALS: Ht 167.6 cm; Wt 85.7 kg
[~2021-08-28 19:12] MED LIST changes: +DULCOLAX10 MG PR; +FISH OIL 1,0001 EAC2 PO; +FLEET ENEMA EX230 ML PR; +ONDANSETRON ODT4 MG PO
--- OUTSIDE RECORDS SUMMARY | 2021-08-28 19:14 | XMS ---
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 Starch Crab Events No recent Security Events currently on file CRITERIA MET - 6 ED Visits in 6 Months - [facility] - Has Care Guidelines - [facility] - 2 Visits in 30 Days CARE PROVIDERS CHLOE KINGSTON DPM PHONE: [phone] JORGE LUIS DENG Internal Medicine Current PHONE: Unknown CARLOS SANCHEZ Nurse Practitioner Current PHONE: [phone] PRACHI COSTA Family Medicine 02/15/2021-Current PHONE: Unknown DEE ESPAÑA Nurse Practitioner: Family Current PHONE: Unknown JORGE SOUTH Internal Medicine Current PHONE: [phone] CHRYSTAL REA Nurse Practitioner Current PHONE: [phone] MARIA A VICK [address] Sign Installer Current PHONE: Unknown ELLIOT CARDENAS Nurse Practitioner Current PHONE: Unknown MARQUIS [facility] Current PHONE: [phone] KELLY NUÑEZ Physician Road Sign Installer [facility]: Unknown Shaunna has no Care Guidelines for this patient. Care History Medical/Surgical 07/15/2021 [facility] CHW CALLED PATIENT [facility] INGE-PATIENT WAS NOT ANSWERING HIS PHONE- CONCERNED FOR PATIENT SAFETY AT HOME ALONE DUE TO RECENT FALLS. IGNE STATED PATIENT HAS A NEUROLOGIST DR WORTHINGTON AND IS CURRENTLY WAITING FOR A REFERRAL TO PROCESS AT [facility]. CHW CALLED [facility]- ASKED FOR AN URGENT FOLLOW UP APT DUE TO RECENT ED VISITS AND CONTINUED FALLS. THEY HAD PATIENT WAITING FOR AN AUTH. I HAD STATED MEDICARE PATIENT AN AUTH IS NOT NEEDED. THEY QUICKLY SENT FOR MD REVIEW. INGE CONTACTED CHW-STATED THEY HAD AN APT SCHEDULED WITH NEUROLOGIST DR WORTHINGTON 07/20/21 IN [place] AND INGE WILL TAKE THE PATIENT FOR [...] AND AGREES. NEUROLOGIST- DR WORTHINGTON CONTACT NUMBER [phone] 04/12/2021 [facility] - PATIENT RECENTLY DISCHARGED FROM [facility] . 02/16/2021 [facility] - PATIENT IS CURRENTLY RECEIVING HOME HEALTH SERVICES THRU [facility]. PLEASE CONTACT HOME HEALTH AGENCY IF PATIENT IS SEEN IN THE ED. - PER REQUEST OF PATIENT- SENDING RECENT ED CHART NOTES TO [facility]. E.D. VISIT COUNT (12 MO.) 14 [facility] TOTAL 14 NOTE: Visits indicate total known visits. ED/UCC VISIT TRACKING (12 MO.) 08/28/2021 19:13 [facility] [place] TYPE: Emergency COMPLAINT: - WEAKNESS 08/07/2021 12:53 [facility] [place] TYPE: Emergency COMPLAINT: - FALL DIAGNOSES: - Gout, unspecified - Allergy status to other drugs, medicaments and biological substances - Allergy to other foods - Essential (primary) hypertension - Hypomagnesemia - Other alf (current) 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 - Type 2 diabetes mellitus without complications - [facility] (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 drugs - Fall on same level from slipping, tripping and stumbling with subsequent striking against unspecified object, initial encounter - Personal history of nicotine dependence - Atherosclerotic heart disease of [place] coronary artery without angina pectoris - Old myocardial infarction - Allergy status to penicillin - Unspecified injury of head, initial encounter - 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 07/16/2021 06:28 [facility] [place] TYPE: Emergency COMPLAINT: - WEAKNESS 07/13/2021 13:30 [facility] [place] TYPE: Emergency COMPLAINT: - FALL DIAGNOSES: - Allergy status to other drugs, medicaments and biological substances - Old myocardial infarction - Encounter for examination and observation following other accident - Gout, unspecified - Weakness - Personal history of nicotine dependence - Atherosclerotic heart disease of [place] coronary artery without angina pectoris - Type 2 diabetes mellitus without complications - 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 - Essential (primary) hypertension - 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 - Allergy status to penicillin - [facility] (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 - Hypomagnesemia - Allergy to other foods 07/12/2021 23:46 [facility] TYPE: Emergency COMPLAINT: - VOMITING DIAGNOSES: - Other alf (current) 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 - Essential (primary) hypertension - Allergy to other foods - Old myocardial infarction - Allergy status to other drugs, medicaments and biological substances - Personal history of nicotine dependence - Type 2 diabetes mellitus without complications - Allergy status to penicillin - Gout, unspecified - [facility] (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 - 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 - Vomiting, unspecified - Atherosclerotic heart disease of [place] coronary artery without angina pectoris 07/11/2021 22:01 [facility] [place] TYPE: Emergency COMPLAINT: - WEAKNESS DIAGNOSES: - Personal history of nicotine dependence - [facility] (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 - Allergy status to penicillin - Type 2 diabetes mellitus without complications - Old myocardial infarction - Weakness - Gout, unspecified - Acute kidney failure, unspecified - Allergy status to other drugs, medicaments and biological substances - Essential (primary) hypertension - 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 - Allergy to other foods - Atherosclerotic heart disease of [place] coronary artery without angina pectoris - [facility] (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 drugs - Dehydration 06/29/2021 17:10 [facility] [place] TYPE: Emergency COMPLAINT: - R KNEE PAIN DIAGNOSES: - Old myocardial infarction - Allergy status to penicillin - Other and unspecified overexertion or strenuous movements or postures, initial encounter - Essential (primary) hypertension - Personal history of nicotine dependence - Allergy to other foods - Atherosclerotic heart disease of [place] coronary artery without angina pectoris - Gout, unspecified - Other alf (current) 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 - [facility] (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 - 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 [...] STATUS DIAGNOSES: - Old myocardial infarction - [facility] (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 - 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 - [facility] (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 drugs - Essential (primary) hypertension - Other alf (current) 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 - Gout, unspecified - Type 2 diabetes mellitus without complications - Altered mental status, unspecified - Atherosclerotic heart disease of [place] coronary artery without angina pectoris - Encounter for immunization - Allergy status to other drugs, medicaments and biological substances - COVID-19 - Allergy to other foods - Personal history of nicotine dependence 03/03/2021 09:33 [facility] [place] TYPE: Emergency COMPLAINT: - WEAKNESS DIAGNOSES: - 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 - Allergy to other foods - Allergy status to other drugs, medicaments and biological substances - Old myocardial infarction - Weakness - Gout, unspecified - [facility] (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 - 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 - Personal history of nicotine dependence - 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 - Type 2 diabetes mellitus without complications - Essential (primary) hypertension - Atherosclerotic heart disease of [place] coronary artery without angina pectoris 02/14/2021 13:42 [facility] TYPE: Emergency COMPLAINT: - POSS STROKE DIAGNOSES: - Cannabis use, unspecified, uncomplicated - Weakness - 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 - Essential (primary) hypertension - Atherosclerotic heart disease of [place] coronary artery without angina pectoris - Personal history of nicotine dependence - Allergy status to other drugs, medicaments and biological substances - [facility] (current) use of antibiotics - [facility] (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 - Altered mental [...] status to sulfonamides - Gout, unspecified - [facility] (current) use of systemic steroids - [facility] (current) use of insulin - Allergy to other foods - Other alf (current) 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 - Old myocardial infarction - Atherosclerotic heart disease of [place] coronary artery without angina pectoris - Allergy status to other drugs, medicaments and biological substances 01/27/2021 06:17 [facility] [place] TYPE: Emergency COMPLAINT: - URINARY PROBLEM DIAGNOSES: - Patient's noncompliance with other medical treatment and regimen - Atherosclerotic heart disease of [place] coronary artery without angina pectoris - [facility] (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 drugs - Personal history of transient ischemic attack (TIA), and cerebral infarction without residual deficits - 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 - Allergy status to other drugs, medicaments and biological substances - Unspecified urinary incontinence - Old myocardial infarction - Allergy to other foods - 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 - Essential (primary) hypertension - Type 2 diabetes mellitus without complications - Personal history of nicotine dependence 12/08/2020 17:47 [facility] [place] TYPE: Emergency COMPLAINT: - FLU SYMPTOMS DIAGNOSES: - Dizziness and giddiness - Allergy status to other drugs, medicaments and biological substances - 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 - DEPRESSION, UNSPECIFIED - Atherosclerotic heart disease of [place] coronary artery without angina pectoris - [facility] (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 drugs - Allergy status to other drugs, medicaments and biological substances - Myasthenia gravis without (acute) exacerbation - Myasthenia gravis without (acute) exacerbation - Allergy to other foods - 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 - [facility] (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 of anticoagulants - Other streptococcus as the cause of diseases classified elsewhere - Acute cystitis without hematuria - 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 - Presence of prosthetic heart valve - Metabolic encephalopathy - Hypertensive urgency - Presence of aortocoronary bypass graft - 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 - Other alf (current) 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 - Chronic kidney disease, unspecified - Atherosclerotic heart disease of [place] coronary artery without angina pectoris - Allergy [...] 2 diabetes mellitus with diabetic nephropathy - [facility] (current) use of insulin - Metabolic encephalopathy [...] Staphylococcus aureus infection - Gout, unspecified - [facility] (current) use of insulin - Type 2 diabetes mellitus with diabetic chronic kidney disease - Old myocardial infarction - Personal history of transient ischemic attack (TIA), and cerebral infarction without residual deficits - Other specified postprocedural states - Myasthenia gravis without (acute) exacerbation - 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
== END 2021-08-28 21:55 | disposition home or self-care (01) ==
LOC: ED 19:12
DX: R53.1 Weakness (principal); I10 Essential (primary) hypertension; E11.9 Type 2 diabetes mellitus without complications; I25.10 Atherosclerotic heart disease of native coronary artery without angina pectoris; I25.2 Old myocardial infarction; M10.9 Gout, unspecified; Z87.891 Personal history of nicotine dependence; Z88.0 Allergy status to penicillin; Z88.8 Allergy status to other drugs, medicaments and biological substances; Z91.018 Allergy to other foods; Z79.899 Other long term (current) 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; Z79.84 Long term (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 drugs; Z79.82 Long term (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
CPT/HCPCS: 36415; 70450; 80053; 81001; 85025; 96374; 99285-25; J2405

== ENCOUNTER 2021-09-03 06:47 | Emergency (ER) | payer MEDICARE, OTHER ==
[~2021-09-03] VITALS: Ht 167.6 cm; Wt 84.1 kg
--- OUTSIDE RECORDS SUMMARY | 2021-09-03 06:48 | XMS ---
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 Events No recent Security Events currently on file CRITERIA MET - [facility] - 2 Visits in 30 Days - [facility] - Has Care Guidelines - 6 ED Visits in 6 Months CARE PROVIDERS CHLOE KINGSTON DPM PHONE: [phone] JORGE LUIS DENG Internal Medicine Current PHONE: Unknown CARLOS SANCHEZ Nurse Practitioner Current PHONE: [phone] PRACHI COSTA Family Medicine 02/15/2021-Current PHONE: Unknown DEE ESPAÑA Nurse Practitioner: Family Current PHONE: Unknown JORGE SOUTH Internal Medicine Current PHONE: [phone] CHRYSTAL REA Nurse Practitioner Current PHONE: [phone] MARIA A VICK Membership Director Current PHONE: Unknown ELLIOT CARDENAS Nurse Practitioner Current PHONE: Unknown MARQUIS [facility] Current PHONE: [phone] KELLY NUÑEZ Physician Membership Director Current PHONE: Unknown [facility] Current PHONE: Unknown Shaunna has no Care Guidelines for this patient. Care History Medical/Surgical 07/15/2021 [facility] CHW CALLED PATIENT [facility] INGE-PATIENT WAS NOT ANSWERING HIS PHONE- CONCERNED FOR PATIENT SAFETY AT HOME ALONE DUE TO RECENT FALLS. INGE STATED PATIENT HAS A NEUROLOGIST DR WORTHINGTON AND IS CURRENTLY WAITING FOR A REFERRAL TO PROCESS AT [facility]. CHW CALLED [facility]- ASKED FOR AN URGENT FOLLOW UP APT DUE TO RECENT ED VISITS AND CONTINUED FALLS. THEY HAD PATIENT WAITING FOR AN AUTH. I HAD STATED MEDICARE PATIENT AN AUTH IS NOT NEEDED. THEY QUICKLY SENT FOR MD REVIEW. INGE CONTACTED CHW-STATED THEY HAD AN APT SCHEDULED WITH NEUROLOGIST DR WORTHINGTON 07/20/21 IN [place] AND INGE WILL TAKE THE PATIENT FOR [...] AND AGREES. NEUROLOGIST- DR WORTHINGTON CONTACT NUMBER [phone] 04/12/2021 [facility] - PATIENT RECENTLY DISCHARGED FROM [facility] . 02/16/2021 [facility] - PATIENT IS CURRENTLY RECEIVING HOME HEALTH SERVICES THRU [facility]. PLEASE CONTACT HOME HEALTH AGENCY IF PATIENT IS SEEN IN THE ED. - PER REQUEST OF PATIENT- SENDING RECENT ED CHART NOTES TO [facility]. E.D. VISIT COUNT (12 MO.) 15 [facility] TOTAL 15 NOTE: Visits indicate total known visits. 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 - Weakness - Atherosclerotic heart disease of [place] coronary artery without angina pectoris - Allergy status to penicillin - Old myocardial infarction - Allergy status to other drugs, medicaments and biological substances - Gout, unspecified 08/07/2021 12:53 [facility] [place] TYPE: Emergency COMPLAINT: - FALL DIAGNOSES: - Gout, unspecified - Allergy status to other drugs, medicaments and biological substances - Allergy to other foods - Essential (primary) hypertension - Hypomagnesemia - Other 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 supervisor (current) 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 - Type 2 diabetes mellitus without complications - MCFP (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 drugs - Fall on same level from slipping, tripping and stumbling with subsequent striking against unspecified object, initial encounter - Personal history of nicotine dependence - Atherosclerotic heart disease of [place] coronary artery without angina pectoris - Old myocardial infarction - Allergy status to penicillin - Unspecified injury of head, initial encounter - MCFP (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 07/16/2021 06:28 [facility] [...] nicotine dependence - Atherosclerotic heart disease of [place] coronary artery without angina pectoris - Type 2 diabetes mellitus without complications - Other 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 supervisor (current) 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 - Essential (primary) hypertension - MCFP (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 drugs - Allergy status to penicillin - MCFP (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 - Hypomagnesemia - Allergy to other foods 07/12/2021 23:46 [facility] [place] TYPE: Emergency COMPLAINT: - VOMITING DIAGNOSES: - Other 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 supervisor (current) 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 - Essential (primary) hypertension - Allergy to other foods - Old myocardial infarction - Allergy status to other drugs, medicaments and biological substances - Personal history of nicotine dependence - Type 2 diabetes mellitus without complications - Allergy status to penicillin - Gout, unspecified - MCFP (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 - 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 - Vomiting, unspecified - Atherosclerotic heart disease of [place] coronary artery without angina pectoris 07/11/2021 22:01 [facility] [place] TYPE: Emergency COMPLAINT: - WEAKNESS DIAGNOSES: - Personal history of nicotine dependence - 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 - Allergy status to penicillin - Type 2 diabetes mellitus without complications - Old myocardial infarction - Weakness - Gout, unspecified - Acute kidney failure, unspecified - Allergy status to other drugs, medicaments and biological substances - Essential (primary) hypertension - Other 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 supervisor (current) 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 - Allergy to other foods - Atherosclerotic heart disease of [place] coronary artery without angina pectoris - 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 - Dehydration 06/29/2021 17:10 [facility] TYPE: Emergency COMPLAINT: - R KNEE PAIN DIAGNOSES: - Old myocardial infarction - Allergy status to penicillin - Other and unspecified overexertion or strenuous movements or postures, initial encounter - Essential (primary) hypertension - Personal history of nicotine dependence - Allergy to other foods - Atherosclerotic heart disease of [place] coronary artery without angina pectoris - Gout, unspecified - Other 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 supervisor (current) 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 - MCFP (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 - 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 - [...] STATUS DIAGNOSES: - Old myocardial infarction - 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 - 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 - MCFP (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 drugs - Essential (primary) hypertension - Other 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 supervisor (current) 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 - Gout, unspecified - Type 2 diabetes mellitus without complications - Altered mental status, unspecified - Atherosclerotic heart disease of [place] coronary artery without angina pectoris - Encounter for immunization - Allergy status to other drugs, medicaments and biological substances - COVID-19 - Allergy to other foods - Personal history of nicotine dependence 03/03/2021 09:33 [facility] TYPE: Emergency COMPLAINT: - WEAKNESS DIAGNOSES: - Other 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 supervisor (current) 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 - Allergy to other foods - Allergy status to other drugs, medicaments and biological substances - Old myocardial infarction - Weakness - Gout, unspecified - MCFP (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 - 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 - Personal history of nicotine dependence - MCFP (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 drugs - Type 2 diabetes mellitus without complications - Essential (primary) hypertension - Atherosclerotic heart disease of [place] coronary artery without angina pectoris 02/14/2021 13:42 [facility] TYPE: Emergency COMPLAINT: - POSS STROKE DIAGNOSES: - Cannabis use, unspecified, uncomplicated - Weakness - Other senior care (current) 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 - Essential (primary) hypertension - Atherosclerotic heart disease of [place] coronary artery without angina pectoris - Personal history of nicotine dependence - Allergy status to other drugs, medicaments and biological substances - 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 supervisor (current) 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 of antibiotics - 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 - Altered mental [...] status to sulfonamides - Gout, unspecified - MCFP (current) use of systemic steroids - MCFP (current) use of insulin - Allergy to other foods - Other 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 supervisor (current) 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 - Old myocardial infarction - Atherosclerotic heart disease of [place] coronary artery without angina pectoris - Allergy status to other drugs, medicaments and biological substances 01/27/2021 06:17 [facility] TYPE: Emergency COMPLAINT: - URINARY PROBLEM DIAGNOSES: - Patient's noncompliance with other medical treatment and regimen - Atherosclerotic heart disease of [place] coronary artery without angina pectoris - 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 - Personal history of transient ischemic attack (TIA), and cerebral infarction without residual deficits - MCFP (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 - Allergy status [...] medicaments and biological substances - Other senior care (current) 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 - MCFP (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 - Dehydration - Essential (primary) hypertension - Type 2 diabetes mellitus without complications - Personal history of nicotine dependence - Allergy to other foods - Old myocardial infarction INPATIENT VISIT TRACKING (12 MO.) 07/16/2021 12:19 [facility] TYPE: Medical Surgical COMPLAINT: - CHEST PAIN,WEAKNESS,UTI,MYASTHENIA GRAVIS,HYPOMAGE DIAGNOSES: - Acute cystitis without hematuria - Hypomagnesemia - Allergy status to other drugs, medicaments and biological substances - Presence of coronary angioplasty implant and graft - Functional quadriplegia - Other specified postprocedural states - Essential (primary) hypertension - Personal history of nicotine dependence - Urinary tract infection, site not specified - Atherosclerotic heart disease of [place] coronary artery without angina pectoris - Hypomagnesemia - Presence of coronary angioplasty implant and graft - Hypertensive encephalopathy - Type 2 diabetes mellitus without complications - MCFP (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 drugs - DEPRESSION, UNSPECIFIED - Atherosclerotic heart disease of [place] coronary artery without angina pectoris - 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 - Allergy status to other drugs, medicaments and biological substances - Myasthenia gravis without (acute) exacerbation - Myasthenia gravis without (acute) exacerbation - Allergy to other foods - MCFP (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 - 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 supervisor (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 of anticoagulants - Other streptococcus as the cause of diseases classified elsewhere - Acute cystitis without hematuria - Other 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 supervisor (current) 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 - Presence of prosthetic heart valve - Metabolic encephalopathy - Hypertensive urgency - Presence of aortocoronary bypass graft - Other 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 supervisor (current) 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 - Type 2 diabetes mellitus without complications - Functional quadriplegia - Allergy status to penicillin - Anxiety disorder, unspecified - Acquired absence of other specified parts of digestive tract - Metabolic encephalopathy - Nonrheumatic aortic (valve) stenosis - Nonrheumatic aortic (valve) stenosis - Depression, unspecified - Other specified postprocedural states - Acquired absence of other specified parts of digestive tract - MCFP (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 - Hypertensive encephalopathy - Dehydration - Dehydration 06/11/2021 11:[address] [facility] [place] TYPE: Medical Surgical COMPLAINT: - CELLULITIS DIAGNOSES: - Atherosclerotic heart disease of [place] coronary artery without angina pectoris - Old myocardial infarction - Other senior care (current) 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 - Other 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 supervisor (current) 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 - Chronic kidney disease, unspecified - Atherosclerotic heart disease of [place] coronary artery without angina pectoris - Allergy [...] 2 diabetes mellitus with diabetic nephropathy - MCFP (current) use of insulin - Metabolic encephalopathy [...] Staphylococcus aureus infection - Gout, unspecified - 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 - Type 2 diabetes mellitus with diabetic chronic kidney disease - Old myocardial infarction - Personal history of transient ischemic attack (TIA), and cerebral infarction without residual deficits - Other specified postprocedural states - Myasthenia gravis without (acute) exacerbation - 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 - Hypertensive chronic kidney disease with stage 1 through stage 4 chronic kidney disease, or unspecified chronic kidney disease - 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 - Presence of aortocoronary bypass graft - Other specified postprocedural states - Allergy status to other drugs, medicaments and biological substances - Gout, unspecified - Anxiety disorder, unspecified - Allergy status to other drugs, medicaments and biological substances [email or web address]
== END 2021-09-03 09:45 | disposition home or self-care (01) ==
LOC: ED 06:47
DX: G70.00 Myasthenia gravis without (acute) exacerbation (principal); R53.1 Weakness; I10 Essential (primary) hypertension; E11.9 Type 2 diabetes mellitus without complications; I25.10 Atherosclerotic heart disease of native coronary artery without angina pectoris; I25.2 Old myocardial infarction; M10.9 Gout, unspecified; Z87.891 Personal history of nicotine dependence; Z88.8 Allergy status to other drugs, medicaments and biological substances; Z91.018 Allergy to other foods; Z88.0 Allergy status to penicillin; Z79.899 Other long term (current) 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; Z79.84 Long term (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 drugs
CPT/HCPCS: 36415; 80048; 81001; 83735; 85025; 99285; J7040

== ENCOUNTER 2021-09-10 06:17 | Emergency (ER) | payer MEDICARE, OTHER ==
[~2021-09-10] VITALS: Ht 167.6 cm; Wt 88.5 kg
--- OUTSIDE RECORDS SUMMARY | 2021-09-10 06:24 | XMS ---
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 - Has Care Guidelines - [facility] - 2 Visits in 30 Days CARE PROVIDERS CHLOE KINGSTON DPM PHONE: [phone] JORGE LUIS DENG Internal Medicine Current PHONE: Unknown CARLOS SANCHEZ Nurse Practitioner Current PHONE: [phone] PRACHI COSTA Family Medicine 02/15/2021-Current PHONE: Unknown DEE ESPAÑA Nurse Practitioner: Family Current PHONE: Unknown JORGE SOUTH Internal Medicine Current PHONE: [phone] CHRYSTAL REA Nurse Practitioner Current PHONE: [phone] MARIA A VICK Mid Level Game Designer Current PHONE: Unknown ELLIOT CARDENAS Nurse Practitioner Current PHONE: Unknown MARQUIS [facility] Current PHONE: [phone] KELLY NUÑEZ Physician Mid Level Game Designer [facility]: Unknown Shaunna has no Care Guidelines for this patient. Care History Medical/Surgical 07/15/2021 [facility] CHW CALLED PATIENT LIFE [facility]NER INGE-PATIENT WAS NOT ANSWERING HIS PHONE- CONCERNED FOR PATIENT SAFETY AT HOME ALONE DUE TO RECENT FALLS. INGE STATED PATIENT HAS A NEUROLOGIST DR WORTHINGTON AND IS CURRENTLY WAITING FOR A REFERRAL TO PROCESS AT [facility] LOCATION. CHW CALLED [facility]- ASKED FOR AN URGENT FOLLOW UP APT DUE TO RECENT ED VISITS AND CONTINUED FALLS. THEY HAD PATIENT WAITING FOR AN AUTH. I HAD STATED MEDICARE PATIENT AN AUTH IS NOT NEEDED. THEY QUICKLY SENT FOR MD REVIEW. INGE CONTACTED CHW-STATED THEY HAD AN APT SCHEDULED WITH NEUROLOGIST DR WORTHINGTON 07/20/21 [facility] AND [facility] WILL TAKE THE PATIENT FOR [...] AND AGREES. NEUROLOGIST- DR WORTHINGTON CONTACT NUMBER [phone] 04/12/2021 [facility] - PATIENT RECENTLY DISCHARGED FROM [facility] . 02/16/2021 [facility] - PATIENT IS CURRENTLY RECEIVING HOME HEALTH SERVICES THRU [facility] PLEASE CONTACT HOME HEALTH AGENCY IF PATIENT IS SEEN IN THE ED. - PER REQUEST OF PATIENT- SENDING RECENT ED CHART NOTES TO [facility]. E.D. VISIT COUNT (12 MO.) 17 [facility] TOTAL 17 NOTE: Visits indicate total known visits. 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 - Allergy to other foods - Allergy status to other drugs, medicaments and biological substances - Old myocardial infarction - Weakness - Gout, unspecified - 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 - Allergy status to penicillin - Type 2 diabetes mellitus without complications 09/03/2021 06:47 [facility] [place] TYPE: Emergency COMPLAINT: - WEAKNESS DIAGNOSES: - Other chcf (current) 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 - Personal history of nicotine dependence - Allergy status to other drugs, medicaments and biological substances - Gout, unspecified - Allergy status to penicillin - Essential (primary) hypertension - 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 - Weakness - Allergy to other foods - 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 - Myasthenia gravis without (acute) exacerbation - Type 2 diabetes mellitus without complications - Old myocardial infarction 08/28/2021 19:13 [facility] [place] TYPE: Emergency COMPLAINT: - WEAKNESS DIAGNOSES: - longterm (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 - Type 2 diabetes mellitus without complications - Allergy to other foods - Personal history of nicotine dependence - Other chcf (current) 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 - Essential (primary) hypertension - 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 - Weakness - 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 - Allergy [...] Essential (primary) hypertension - Hypomagnesemia - Other chcf (current) 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 - Type 2 diabetes mellitus without complications - 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 - Fall on same level from slipping, tripping and stumbling with subsequent striking against unspecified object, initial encounter - Personal history of nicotine dependence - 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 - Old myocardial infarction - Allergy status to penicillin - Unspecified injury of head, initial encounter - longterm (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 07/16/2021 06:28 [facility] [...] nicotine dependence - 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 - Type 2 diabetes mellitus without complications - Other chcf (current) 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 - Essential (primary) hypertension - longterm (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 drugs - Allergy status to penicillin - 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 - Hypomagnesemia - Allergy to other foods 07/12/2021 23:46 [facility] [place] TYPE: Emergency COMPLAINT: - VOMITING DIAGNOSES: - 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 - Essential (primary) hypertension - Allergy to other foods - Old myocardial infarction - Allergy status to other drugs, medicaments and biological substances - Personal history of nicotine dependence - Type 2 diabetes mellitus without complications - Allergy status to penicillin - Gout, unspecified - longterm (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 - longterm (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 drugs - Vomiting, unspecified - 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 07/11/2021 22:01 [facility] [place] TYPE: Emergency COMPLAINT: - WEAKNESS DIAGNOSES: - Personal history of nicotine dependence - longterm (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 - Allergy status to penicillin - Type 2 diabetes mellitus without complications - Old myocardial infarction - Weakness - Gout, unspecified - Acute kidney failure, unspecified - Allergy status to other drugs, medicaments and biological substances - Contact with and (suspected) exposure to COVID-19 - Essential (primary) hypertension - Other chcf (current) 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 - Allergy to other foods - 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 - 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 - Dehydration 06/29/2021 17:10 [facility] [place] TYPE: Emergency COMPLAINT: - R KNEE PAIN DIAGNOSES: - Old myocardial infarction - Allergy status to penicillin - Other and unspecified overexertion or strenuous movements or postures, initial encounter - Essential (primary) hypertension - Personal history of nicotine dependence - Allergy to other foods - 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 - Gout, unspecified - Other chcf (current) 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 - longterm (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 - 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 [...] STATUS DIAGNOSES: - Old myocardial infarction - longterm (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 - longterm (current) use of insulin - 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 - Essential (primary) hypertension - 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 - Gout, unspecified - Type 2 diabetes mellitus without complications - Altered mental status, unspecified - 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 - Encounter for immunization - Allergy status to other drugs, medicaments and biological substances - COVID-19 - Allergy to other foods - Personal history of nicotine dependence 03/03/2021 09:33 [facility] [place] TYPE: Emergency COMPLAINT: - WEAKNESS DIAGNOSES: - Other chcf (current) 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 - Allergy to other foods - Allergy status to other drugs, medicaments and biological substances - Old myocardial infarction - Weakness - Gout, unspecified - 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 - 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 - Personal history of nicotine dependence - 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 - Type 2 diabetes mellitus without complications - Essential (primary) hypertension - 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 02/14/2021 13:42 [facility] [place] TYPE: Emergency COMPLAINT: - POSS STROKE DIAGNOSES: - Cannabis use, unspecified, uncomplicated - Weakness - 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 - Essential (primary) hypertension - 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 - Personal history of nicotine dependence - Allergy status to other drugs, medicaments and biological substances - 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 - longterm (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 - Altered mental [...] status to sulfonamides - Gout, unspecified - longterm (current) use of systemic steroids - longterm (current) use of insulin - Allergy to other foods - 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 - Old myocardial infarction - 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 - Allergy status to other drugs, medicaments and biological substances 01/27/2021 06:17 [facility] [place] TYPE: Emergency COMPLAINT: - URINARY PROBLEM DIAGNOSES: - Patient's noncompliance with other medical treatment and regimen - 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 - longterm (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 drugs - Personal history of transient ischemic attack (TIA), and cerebral infarction without residual deficits - 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 - Allergy status to other drugs, medicaments and biological substances - Unspecified urinary incontinence - Old myocardial infarction - Allergy to other foods - Other chcf (current) 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 - Essential (primary) hypertension - Type 2 diabetes mellitus without complications - Personal history of nicotine dependence 12/08/2020 17:47 [facility] [place] TYPE: Emergency COMPLAINT: - FLU SYMPTOMS DIAGNOSES: - Dizziness and giddiness - Allergy status to other drugs, medicaments and biological substances - Other chcf (current) 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 - 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 - Dehydration [...] not specified - 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 - Hypomagnesemia - Presence of coronary angioplasty implant and graft - Hypertensive encephalopathy - Type 2 diabetes mellitus without complications - 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 - DEPRESSION, UNSPECIFIED - 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 - 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 - Allergy status to other drugs, medicaments and biological substances - Myasthenia gravis without (acute) exacerbation - Myasthenia gravis without (acute) exacerbation - Allergy to other foods - 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 - Old myocardial infarction - Metabolic encephalopathy - Myasthenia gravis without (acute) exacerbation - Chronic kidney disease, unspecified - Anxiety disorder, unspecified - Essential (primary) hypertension - Allergy to other foods - Personal history of other diseases of the digestive system - DEPRESSION, UNSPECIFIED - Depression, unspecified - Type 2 diabetes mellitus with diabetic nephropathy - Cellulitis of left finger - Contact with and (suspected) exposure to COVID-19 - Type 2 diabetes mellitus without complications [...] Staphylococcus aureus infection - Gout, unspecified - longterm (current) use of insulin - Type 2 diabetes mellitus with diabetic chronic kidney disease - Old myocardial infarction - Personal history of transient ischemic attack (TIA), and cerebral infarction without residual deficits - Other specified postprocedural states - Myasthenia gravis without (acute) exacerbation - longterm (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 - Hypertensive chronic kidney disease with stage 1 through stage 4 chronic kidney disease, or unspecified chronic kidney disease - longterm (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 - Presence of aortocoronary bypass graft - Other specified postprocedural states - Allergy status to other drugs, medicaments and biological substances - Gout, unspecified - Anxiety disorder, unspecified - Allergy status to other drugs, medicaments and biological substances - Type 2 diabetes mellitus with diabetic nephropathy [email or web address]
--- NOTE | 2021-09-10 18:55 | EKG ---
[facility] [address] [facility] [facility] [place] [address] Signed Normal sinus rhythm Minimal voltage criteria for LVH, may be normal variant ( Bradley product ) Possible Inferior infarct , age undetermined Abnormal ECG When compared with ECG of 16-JUL-2021 06:50, No significant change was found Confirmed by ISAMAR WHITE MD ([id number] on 09/10/2021 6:55:43 PM Electronically Signed By: ISAMAR WHITE MD 09/10/21 1855 PATIENT NAME: ROBBIE RESTREPO SHIVANI Electrocardiogram DATE OF : 54 PHYSICIAN: ISAMAR WHITE MD REPORT #: [id number] REPORT IS CONFIDENTIAL AND NOT TO BE RELEASED WITHOUT AUTHORIZATION
== END 2021-09-10 11:02 | disposition home or self-care (01) ==
LOC: ED 06:17
DX: R53.1 Weakness (principal); I10 Essential (primary) hypertension; E11.9 Type 2 diabetes mellitus without complications; I25.10 Atherosclerotic heart disease of native coronary artery without angina pectoris; I25.2 Old myocardial infarction; M10.9 Gout, unspecified; Z87.891 Personal history of nicotine dependence; Z88.8 Allergy status to other drugs, medicaments and biological substances; Z88.0 Allergy status to penicillin; Z91.018 Allergy to other foods; Z79.899 Other long term (current) 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; Z79.84 Long term (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 drugs; Z79.82 Long term (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; Z20.822 Contact with and (suspected) exposure to COVID-19
CPT/HCPCS: 36415; 51701; 80053; 81001; 83735; 85025; 85610; 87502; 93005; 93010; 99285-25; C9803; J7040; U0003

== ENCOUNTER 2021-09-12 05:51 | Emergency (ER) | payer MEDICARE, OTHER ==
[~2021-09-12] VITALS: Ht 167.6 cm; Wt 88.5 kg
--- OUTSIDE RECORDS SUMMARY | 2021-09-12 05:54 | XMS ---
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 Events No recent Security Events currently on file CRITERIA MET - [facility] - Has Care Guidelines - [facility] - 2 Visits in 30 Days - 6 ED Visits in 6 Months CARE PROVIDERS CHLOE KINGSTON DPM PHONE: [phone] JORGE LUIS DENG Internal Medicine Current PHONE: Unknown CARLOS SANCHEZ Nurse Practitioner Current PHONE: [phone] PRACHI COSTA Family Medicine 02/15/2021-Current PHONE: Unknown DEE ESPAÑA Nurse Practitioner: Family Current PHONE: Unknown JORGE SOUTH Internal Medicine Current PHONE: [phone] CHRYSTAL REA Nurse Practitioner Current PHONE: [phone] MARIA A VICK Brothel Keeper Current PHONE: Unknown ELLIOT CARDENAS Nurse Practitioner Current PHONE: Unknown [facility] Current PHONE: [phone] KELLY NUÑEZ Physician Brothel Keeper Current PHONE[facility]Current PHONE: Unknown Shaunna has no Care Guidelines for this patient. Care History Medical/Surgical 07/15/2021 [facility] CHW CALLED PATIENT LIFE [facility]NER INGE-PATIENT WAS NOT ANSWERING HIS PHONE- CONCERNED FOR PATIENT SAFETY AT HOME ALONE DUE TO RECENT FALLS. INGE STATED PATIENT HAS A NEUROLOGIST DR WORTHINGTON AND IS CURRENTLY WAITING FOR A REFERRAL TO PROCESS AT [facility] LOCATION. CHW CALLED [facility]- ASKED FOR AN URGENT FOLLOW UP APT DUE TO RECENT ED VISITS AND CONTINUED FALLS. THEY HAD PATIENT WAITING FOR AN AUTH. I HAD STATED MEDICARE PATIENT AN AUTH IS NOT NEEDED. THEY QUICKLY SENT FOR MD REVIEW. INGE CONTACTED CHW-STATED THEY HAD AN APT SCHEDULED WITH NEUROLOGIST DR WORTHINGTON 07/20/21 IN [place] AND INGE WILL TAKE THE PATIENT FOR [...] AND AGREES. NEUROLOGIST- DR WORTHINGTON CONTACT NUMBER [phone] 04/12/2021 [facility] - PATIENT RECENTLY DISCHARGED FROM [facility] . 02/16/2021 [facility] - PATIENT IS CURRENTLY RECEIVING HOME HEALTH SERVICES THRU [facility]. PLEASE CONTACT HOME HEALTH AGENCY IF PATIENT IS SEEN IN THE ED. - PER REQUEST OF PATIENT- SENDING RECENT ED CHART NOTES TO [facility]. E.D. VISIT COUNT ([address] 18 [facility] TOTAL 18 NOTE: Visits indicate total known visits. ED/UCC VISIT TRACKING (12 MO.) 09/12/2021 05:51 [facility] [place] TYPE: Emergency COMPLAINT: - WEAKNESS 09/10/2021 06:18 [facility] [place] TYPE: Emergency COMPLAINT: - WEAKNESS 09/05/2021 06:33 [facility] [place] TYPE: Emergency COMPLAINT: - URINE PROBLEMS DIAGNOSES: - termite exterminator (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 - Other oil heaterman (current) 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 - Retention of urine, unspecified - Personal history of nicotine dependence - Essential (primary) hypertension - Atherosclerotic heart disease of [place] coronary artery without angina pectoris - Allergy to other foods - Allergy status to other drugs, medicaments and biological substances - Old myocardial infarction - Weakness - Gout, unspecified - termite exterminator (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 drugs - Allergy status to penicillin - Type 2 diabetes mellitus without complications 09/03/2021 06:47 [facility] [place] TYPE: Emergency COMPLAINT: - WEAKNESS DIAGNOSES: - Other oil heaterman (current) 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 - Personal history of nicotine dependence - Allergy status to other drugs, medicaments and biological substances - Gout, unspecified - Allergy status to penicillin - Essential (primary) hypertension - MCC (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 drugs - Weakness - Allergy to other foods - Atherosclerotic heart disease of [place] coronary artery without angina pectoris - Myasthenia gravis without (acute) exacerbation - Type 2 diabetes mellitus without complications - Old myocardial infarction 08/28/2021 19:13 [facility] [place] TYPE: Emergency COMPLAINT: - WEAKNESS DIAGNOSES: - MCC (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 - Type 2 diabetes mellitus without complications - Allergy to other foods - Personal history of nicotine dependence - Other oil heaterman (current) 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 - Essential (primary) hypertension - termite exterminator (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 drugs - Weakness - Atherosclerotic heart disease of [place] coronary artery without angina pectoris - Allergy [...] Essential (primary) hypertension - Hypomagnesemia - Other oil heaterman (current) 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 - Type 2 diabetes mellitus without complications - MCC (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 drugs - Fall on same level from slipping, tripping and stumbling with subsequent striking against unspecified object, initial encounter - Personal history of nicotine dependence - Atherosclerotic heart disease of [place] coronary artery without angina pectoris - Old myocardial infarction - Allergy status to penicillin - Unspecified injury of head, initial encounter - termite exterminator (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 07/16/2021 06:28 [facility] [...] nicotine dependence - Atherosclerotic heart disease of [place] coronary artery without angina pectoris - Type 2 diabetes mellitus without complications - Other jail (current) 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 - Essential (primary) hypertension - MCC (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 drugs - Allergy status to penicillin - termite exterminator (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 - Hypomagnesemia - Allergy to other foods 07/12/2021 23:46 [facility] [place] TYPE: Emergency COMPLAINT: - VOMITING DIAGNOSES: - Other oil heaterman (current) 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 - Essential (primary) hypertension - Allergy to other foods - Old myocardial infarction - Allergy status to other drugs, medicaments and biological substances - Personal history of nicotine dependence - Type 2 diabetes mellitus without complications - Allergy status to penicillin - Gout, unspecified - termite exterminator (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 - MCC (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 drugs - Vomiting, unspecified - Atherosclerotic heart disease of [place] coronary artery without angina pectoris 07/11/2021 22:01 [facility] TYPE: Emergency COMPLAINT: - WEAKNESS DIAGNOSES: - Personal history of nicotine dependence - termite exterminator (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 - Allergy status to penicillin - Type 2 diabetes mellitus without complications - Old myocardial infarction - Weakness - Gout, unspecified - Acute kidney failure, unspecified - Allergy status to other drugs, medicaments and biological substances - Contact with and (suspected) exposure to COVID-19 - Essential (primary) hypertension - Other jail (current) 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 - Allergy to other foods - Atherosclerotic heart disease of [place] coronary artery without angina pectoris - MCC [...] other foods - Atherosclerotic heart disease of [place] coronary artery without angina pectoris - Gout, unspecified - Other jail (current) 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 - termite exterminator (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 - termite exterminator (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 drugs - [...] STATUS DIAGNOSES: - Old myocardial infarction - termite exterminator (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 - termite exterminator (current) use of insulin - MCC (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 drugs - Essential (primary) hypertension - Other jail (current) 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 - Gout, unspecified - Type 2 diabetes mellitus without complications - Altered mental status, unspecified - Atherosclerotic heart disease of [place] coronary artery without angina pectoris - Encounter for immunization - Allergy status to other drugs, medicaments and biological substances - COVID-19 - Allergy to other foods - Personal history of nicotine dependence 03/03/2021 09:33 [facility] TYPE: Emergency COMPLAINT: - WEAKNESS DIAGNOSES: - Other jail (current) 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 - Allergy to other foods - Allergy status to other drugs, medicaments and biological substances - Old myocardial infarction - Weakness - Gout, unspecified - MCC (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 - MCC (current) use of insulin - Personal history of nicotine dependence - termite exterminator (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 drugs - Type 2 diabetes mellitus without complications - Essential (primary) hypertension - Atherosclerotic heart disease of [place] coronary artery without angina pectoris 02/14/2021 13:42 [facility] TYPE: Emergency COMPLAINT: - POSS STROKE DIAGNOSES: - Cannabis use, unspecified, uncomplicated - Weakness - Other oil heaterman (current) 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 - Essential (primary) hypertension - Atherosclerotic heart disease of [place] coronary artery without angina pectoris - Personal history of nicotine dependence - Allergy status to other drugs, medicaments and biological substances - termite exterminator (current) use of antibiotics - termite exterminator (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 - Altered mental [...] status to sulfonamides - Gout, unspecified - MCC (current) use of systemic steroids - MCC (current) use of insulin - Allergy to other foods - Other jail (current) 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 - Old myocardial infarction - Atherosclerotic heart disease of [place] coronary artery without angina pectoris - Allergy status to other drugs, medicaments and biological substances 01/27/2021 06:17 [facility] TYPE: Emergency COMPLAINT: - URINARY PROBLEM DIAGNOSES: - Patient's noncompliance with other medical treatment and regimen - Atherosclerotic heart disease of [place] coronary artery without angina pectoris - MCC (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 drugs - Personal history of transient ischemic attack (TIA), and cerebral infarction without residual deficits - MCC (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 - Allergy status to other drugs, medicaments and biological substances - Unspecified urinary incontinence - Old myocardial infarction - Allergy to other foods - Other oil heaterman (current) 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 - Essential (primary) hypertension - Type 2 diabetes mellitus without complications - Personal history of nicotine dependence 12/08/2020 17:47 [facility] [place] TYPE: Emergency COMPLAINT: - FLU SYMPTOMS DIAGNOSES: - Dizziness and giddiness - Allergy status to other drugs, medicaments and biological substances - Other oil heaterman (current) 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 - MCC (current) use [...] not specified - Atherosclerotic heart disease of [place] coronary artery without angina pectoris - Hypomagnesemia - Presence of coronary angioplasty implant and graft - Hypertensive encephalopathy - Type 2 diabetes mellitus without complications - MCC (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 drugs - DEPRESSION, UNSPECIFIED - Atherosclerotic heart disease of [place] coronary artery without angina pectoris - termite exterminator (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 drugs - Allergy status to other drugs, medicaments and biological substances - Myasthenia gravis without (acute) exacerbation - Myasthenia gravis without (acute) exacerbation - Allergy to other foods - MCC (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 - MCC (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 of anticoagulants - Other streptococcus as the cause of diseases classified elsewhere - Acute cystitis without hematuria - Other jail (current) 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 - Presence of prosthetic heart valve - Metabolic encephalopathy - Hypertensive urgency - Presence of aortocoronary bypass graft - Other oil heaterman (current) 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 - Type 2 diabetes [...] other specified parts of digestive tract - MCC (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 - Hypertensive encephalopathy - Dehydration - Dehydration 06/11/2021 11:[address] [facility] [place] TYPE: Medical Surgical COMPLAINT: - CELLULITIS DIAGNOSES: - MCC (current) use of insulin - Other oil heaterman (current) 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 - Other jail (current) 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 - Chronic kidney disease, unspecified - Atherosclerotic heart disease of [place] coronary artery without angina pectoris - Allergy [...] right finger - Atherosclerotic heart disease of [place] coronary artery without angina pectoris - Old [...] Staphylococcus aureus infection - Gout, unspecified - MCC (current) use of insulin - Type 2 diabetes mellitus with diabetic chronic kidney disease - Old myocardial infarction - Personal history of transient ischemic attack (TIA), and cerebral infarction without residual deficits - Other specified postprocedural states - Myasthenia gravis without (acute) exacerbation - MCC (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 - Hypertensive chronic kidney disease with stage 1 through stage 4 chronic kidney disease, or unspecified chronic kidney disease - termite exterminator (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 - Presence of aortocoronary bypass graft - Other specified postprocedural states - Allergy status to other drugs, medicaments and biological substances - Gout, unspecified - Anxiety disorder, unspecified - Allergy status to other drugs, medicaments and biological substances - Type 2 diabetes mellitus with diabetic nephropathy [email or web address]
[2021-09-12] MEDS ORDERED: AMITRIPTYLINE H25 MG PO (06:46)
== END 2021-09-12 07:00 | disposition home or self-care (01) ==
LOC: ED 05:51
DX: R30.0 Dysuria (principal); I10 Essential (primary) hypertension; E11.9 Type 2 diabetes mellitus without complications; I25.10 Atherosclerotic heart disease of native coronary artery without angina pectoris; M10.9 Gout, unspecified; Z87.891 Personal history of nicotine dependence; Z88.0 Allergy status to penicillin; Z88.8 Allergy status to other drugs, medicaments and biological substances; Z91.018 Allergy to other foods; Z79.899 Other long term (current) 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; Z79.84 Long term (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 drugs; Z79.82 Long term (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
CPT/HCPCS: 36415; 51701; 51798; 80048; 81001; 85025; 99283-25

== ENCOUNTER 2021-09-16 12:58 | Emergency (ER) | payer MEDICARE, OTHER ==
[~2021-09-16] VITALS: Ht 167.6 cm; Wt 88.8 kg
[~2021-09-16 12:58] MED LIST changes: +AMITRIPTYLINE H25 MG PO
--- OUTSIDE RECORDS SUMMARY | 2021-09-16 13:00 | XMS ---
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 No recent Security Events currently on file CRITERIA MET - [facility] - Has Care Guidelines - [facility] - 2 Visits in 30 Days - 6 ED Visits in 6 Months CARE PROVIDERS CHLOE KINGSTON DPM PHONE: [phone] JORGE LUIS DENG Internal Medicine Current PHONE: Unknown CARLOS SANCHEZ Nurse Practitioner Current PHONE: [phone] PRACHI COSTA Family Medicine 02/15/2021-Current PHONE: Unknown DEE ESPAÑA Nurse Practitioner: Family Current PHONE: Unknown JORGE SOUTH Internal Medicine Current PHONE: [phone] CHRYSTAL REA Nurse Practitioner Current PHONE: [phone] MARIA A VICK Licensed Veterinary Technician Current PHONE: Unknown ELLIOT CARDENAS Nurse Practitioner Current PHONE: Unknown [facility]IS [facility] Current PHONE: [phone] KELLY NUÑEZ Physician Licensed Veterinary Technician [facility]: Unknown Shaunna has no Care Guidelines for this patient. Care History Medical/Surgical 07/15/2021 [facility] CHW CALLED PATIENT LIFE PARTNER INGE-PATIENT WAS NOT ANSWERING HIS PHONE- CONCERNED FOR PATIENT SAFETY AT HOME ALONE DUE TO RECENT FALLS. INGE STATED PATIENT HAS A NEUROLOGIST DR WORTHINGTON AND IS CURRENTLY WAITING FOR A REFERRAL TO PROCESS AT [facility] LOCATION. CHW CALLED [facility]- ASKED FOR AN URGENT FOLLOW UP APT DUE TO RECENT ED VISITS AND CONTINUED FALLS. THEY HAD PATIENT WAITING FOR AN AUTH. I HAD STATED MEDICARE PATIENT AN AUTH IS NOT NEEDED. THEY QUICKLY SENT FOR MD REVIEW. INGE CONTACTED CHW-STATED THEY HAD AN APT SCHEDULED WITH NEUROLOGIST DR WORTHINGTON 07/20/21 IN [place] AND INGE WILL TAKE THE PATIENT FOR [...] AND AGREES. NEUROLOGIST- DR WORTHINGTON CONTACT NUMBER [phone] 04/12/2021 [facility] - PATIENT RECENTLY DISCHARGED FROM [facility] . 02/16/2021 [facility] - PATIENT IS CURRENTLY RECEIVING HOME HEALTH SERVICES THRU [facility]. PLEASE CONTACT HOME HEALTH AGENCY IF PATIENT IS SEEN IN THE ED. - PER REQUEST OF PATIENT- SENDING RECENT ED CHART NOTES TO [facility]. E.D. VISIT COUNT (12 MO.) 19 [facility] TOTAL 19 NOTE: Visits indicate total known visits. 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 - Weakness - Type 2 diabetes mellitus without complications - shelter (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 - Allergy status to penicillin - Allergy status to other drugs, medicaments and biological substances - Personal history of nicotine dependence - Gout, unspecified - Dysuria - 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 - Allergy to other foods 09/10/2021 06:18 [facility] [place] TYPE: Emergency COMPLAINT: - WEAKNESS DIAGNOSES: - Personal history of nicotine dependence - shelter (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 - 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 - Old myocardial infarction - Essential (primary) hypertension - Atherosclerotic heart disease of ute coronary artery without angina pectoris - Allergy status to penicillin - Contact with and (suspected) exposure to COVID-19 - Type 2 diabetes mellitus without complications - Weakness - 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 - Allergy status to other drugs, medicaments and biological substances - Gout, unspecified - Allergy to other foods 09/05/2021 06:33 [facility] [place] TYPE: Emergency COMPLAINT: - URINE PROBLEMS DIAGNOSES: - shelter (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 - Other nursing home (current) 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 - Retention of urine, unspecified - Personal history of nicotine dependence - Essential (primary) hypertension - Atherosclerotic heart disease of ute coronary artery without angina pectoris - Allergy to other foods - Allergy status to other drugs, medicaments and biological substances - Old myocardial infarction - Weakness - Gout, unspecified - 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 - Allergy status to penicillin - Type 2 diabetes mellitus without complications 09/03/2021 06:47 [facility] [place] TYPE: Emergency COMPLAINT: - WEAKNESS DIAGNOSES: - Other nursing home (current) 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 - Personal history of nicotine dependence - Allergy status to other drugs, medicaments and biological substances - Gout, unspecified - Allergy status to penicillin - Essential (primary) hypertension - shelter (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 drugs - Weakness - Allergy to other foods - Atherosclerotic heart disease of ute coronary artery without angina pectoris - Myasthenia gravis without (acute) exacerbation - Type 2 diabetes mellitus without complications - Old myocardial infarction 08/28/2021 19:13 [facility] [place] TYPE: Emergency COMPLAINT: - WEAKNESS DIAGNOSES: - shelter (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 - Type 2 diabetes mellitus without complications - Allergy to other foods - Personal history of nicotine dependence - Other nursing home (current) 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 - Essential (primary) hypertension - shelter (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 drugs - Weakness - Atherosclerotic heart disease of ute coronary artery without angina pectoris - Allergy [...] Essential (primary) hypertension - Hypomagnesemia - 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 - Type 2 diabetes mellitus without complications - 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 - Fall on same level from slipping, tripping and stumbling with subsequent striking against unspecified object, initial encounter - Personal history of nicotine dependence - Atherosclerotic heart disease of ute coronary artery without angina pectoris - Old myocardial infarction - Allergy status to penicillin - Unspecified injury of head, initial encounter - shelter (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 07/16/2021 06:28 [facility] [...] nicotine dependence - Atherosclerotic heart disease of ute coronary artery without angina pectoris - Type 2 diabetes mellitus without complications - Other nursing home (current) 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 - Essential (primary) hypertension - shelter (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 drugs - Allergy status to penicillin - shelter (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 - Hypomagnesemia - Allergy to other foods 07/12/2021 23:46 [facility] [place] TYPE: Emergency COMPLAINT: - VOMITING DIAGNOSES: - 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 - Essential (primary) hypertension - Allergy to other foods - Old myocardial infarction - Allergy status to other drugs, medicaments and biological substances - Personal history of nicotine dependence - Type 2 diabetes mellitus without complications - Allergy status to penicillin - Gout, unspecified - shelter (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 - shelter (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 drugs - Vomiting, unspecified - Atherosclerotic heart disease of ute coronary artery without angina pectoris 07/11/2021 22:01 [facility] [place] TYPE: Emergency COMPLAINT: - WEAKNESS DIAGNOSES: - Personal history of nicotine dependence - shelter (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 - Allergy status to penicillin - Type 2 diabetes mellitus without complications - Old myocardial infarction - Weakness - Gout, unspecified - Acute kidney failure, unspecified - Allergy status to other drugs, medicaments and biological substances - Contact with and (suspected) exposure to COVID-19 - Essential (primary) hypertension - 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 - Allergy to other foods - Atherosclerotic heart disease of ute coronary artery without angina pectoris - shelter (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 drugs - Dehydration 06/29/2021 17:10 [facility] [place] TYPE: Emergency COMPLAINT: - R KNEE PAIN DIAGNOSES: - Old myocardial infarction - Allergy status to penicillin - Other and unspecified overexertion or strenuous movements or postures, initial encounter - Essential (primary) hypertension - Personal history of nicotine dependence - Allergy to other foods - Atherosclerotic heart disease of ute coronary artery without angina pectoris - Gout, unspecified - Other nursing home (current) 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 - 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 - 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 [...] STATUS DIAGNOSES: - Old myocardial infarction - shelter (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 - 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 (current) use of insulin - shelter (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 drugs - Essential (primary) hypertension - Other nursing home (current) 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 - Gout, unspecified - Type 2 diabetes mellitus without complications - Altered mental status, unspecified - Atherosclerotic heart disease of ute coronary artery without angina pectoris - Encounter for immunization - Allergy status to other drugs, medicaments and biological substances - COVID-19 - Allergy to other foods - Personal history of nicotine dependence 03/03/2021 09:33 [facility] [place] TYPE: Emergency COMPLAINT: - WEAKNESS DIAGNOSES: - 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 - Allergy to other foods - Allergy status to other drugs, medicaments and biological substances - Old myocardial infarction - Weakness - Gout, unspecified - 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 - 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 (current) use of insulin - Personal history of nicotine dependence - shelter (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 drugs - Type 2 diabetes mellitus without complications - Essential (primary) hypertension - Atherosclerotic heart disease of ute coronary artery without angina pectoris 02/14/2021 13:42 [facility] [place] TYPE: Emergency COMPLAINT: - POSS STROKE DIAGNOSES: - Cannabis use, unspecified, uncomplicated - Weakness - 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 - Essential (primary) hypertension - Atherosclerotic heart disease of ute coronary artery without angina pectoris - Personal history of nicotine dependence - Allergy status to other drugs, medicaments and biological substances - 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 (current) use of antibiotics - shelter (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 - Altered mental [...] to sulfonamides - Gout, unspecified - 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 (current) use of systemic steroids - shelter (current) use of insulin - Allergy to other foods - Other nursing home (current) drug therapy - Old myocardial infarction - Atherosclerotic heart disease of ute coronary artery without angina pectoris - Allergy status to other drugs, medicaments and biological substances 01/27/2021 06:17 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 - Essential (primary) hypertension - Type 2 diabetes mellitus without complications - Personal history of nicotine dependence 12/08/2020 17:47 [facility] [place] TYPE: Emergency COMPLAINT: - FLU SYMPTOMS DIAGNOSES: - Dizziness and giddiness - Allergy status to other drugs, medicaments and biological substances - Other nursing home (current) drug therapy - 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 - Dehydration [...] not specified - Atherosclerotic heart disease of ute coronary artery without angina pectoris - Hypomagnesemia - Presence of coronary angioplasty implant and graft - Hypertensive encephalopathy - Type 2 diabetes mellitus without complications - shelter (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 drugs - DEPRESSION, UNSPECIFIED - Atherosclerotic heart disease of ute coronary artery without angina pectoris - 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 - Allergy status to other drugs, medicaments and biological substances - Myasthenia gravis without (acute) exacerbation - Myasthenia gravis without (acute) exacerbation - Allergy to other foods - shelter (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 - shelter (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 of anticoagulants - Other streptococcus as the cause of diseases classified elsewhere - Acute cystitis without hematuria - Other nursing home (current) drug therapy - Presence of prosthetic heart valve - Metabolic encephalopathy - Hypertensive urgency - Presence of aortocoronary bypass graft - 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 [place] TYPE: Medical Surgical COMPLAINT: - CELLULITIS DIAGNOSES: - shelter (current) use of insulin - Other nursing home (current) drug therapy - Other nursing home (current) drug therapy - Chronic kidney disease, unspecified - Atherosclerotic heart disease of ute coronary artery without angina pectoris - Allergy [...] right finger - Atherosclerotic heart disease of ute coronary artery without angina pectoris - Old [...] Staphylococcus aureus infection - Gout, unspecified - shelter (current) use of insulin - Type 2 diabetes mellitus with diabetic chronic kidney disease - Old myocardial infarction - Personal history of transient ischemic attack (TIA), and cerebral infarction without residual deficits - Other specified postprocedural states - Myasthenia gravis without (acute) exacerbation - shelter (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 - Hypertensive chronic kidney disease with stage 1 through stage 4 chronic kidney disease, or unspecified chronic kidney disease - 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
== END 2021-09-16 17:32 | disposition home or self-care (01) ==
LOC: ED 12:58
DX: R53.1 Weakness (principal); I10 Essential (primary) hypertension; E11.9 Type 2 diabetes mellitus without complications; I25.10 Atherosclerotic heart disease of native coronary artery without angina pectoris; I25.2 Old myocardial infarction; M10.9 Gout, unspecified; Z87.891 Personal history of nicotine dependence; Z88.8 Allergy status to other drugs, medicaments and biological substances; Z91.018 Allergy to other foods; Z88.0 Allergy status to penicillin; Z79.899 Other long term (current) 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; Z79.84 Long term (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 drugs; Z79.82 Long term (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
CPT/HCPCS: 36415; 51701; 80053; 81001; 85025; 99285-25; J7030

== ENCOUNTER 2021-09-21 06:57 | Emergency (ER) | payer MEDICARE, OTHER ==
[~2021-09-21] VITALS: Ht 167.6 cm; Wt 88.8 kg
--- OUTSIDE RECORDS SUMMARY | 2021-09-21 07:00 | XMS ---
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 Clinical Supervisor Events No recent Security Events currently on file CRITERIA MET - [facility] - 2 Visits in 30 Days - 6 ED Visits in 6 Months - [facility] - Has Care Guidelines CARE PROVIDERS CHLOE KINGSTON DPM PHONE: [phone] JORGE LUIS DENG Internal Medicine Current PHONE: Unknown CARLOS SANCHEZ Nurse Practitioner Current PHONE: [phone] PRACHI COSTA [facility] Medicine 02/15/2021-Current PHONE: Unknown DEE ESPAÑA Nurse Practitioner: Family Current PHONE: Unknown JORGE SOUTH Internal Medicine Current PHONE: [phone] CHRYSTAL REA Nurse Practitioner Current PHONE: [phone] MARIA A VICK Act Tutor Current PHONE: Unknown ELLIOT CARDENAS Nurse Practitioner Current PHONE: Unknown MARQUIS [facility] Current PHONE: [phone] KELLY NUÑEZ Physician Act Tutor Current PHONE: Unknown [facility]Current PHONE: Unknown Shaunna has no Care Guidelines for this patient. Care History Medical/Surgical 07/15/[address] [facility] CHW CALLED PATIENT LIFE [facility]NER INGE-PATIENT WAS NOT ANSWERING HIS PHONE- CONCERNED FOR PATIENT SAFETY AT HOME ALONE DUE TO RECENT FALLS. INGE STATED PATIENT HAS A NEUROLOGIST DR WORTHINGTON AND IS CURRENTLY WAITING FOR A REFERRAL TO PROCESS AT [facility] LOCATION. CHW CALLED [facility]- ASKED FOR AN URGENT FOLLOW UP APT DUE TO RECENT ED VISITS AND CONTINUED FALLS. THEY HAD PATIENT WAITING FOR AN AUTH. I HAD STATED MEDICARE PATIENT AN AUTH IS NOT NEEDED. THEY QUICKLY SENT FOR MD REVIEW. INGE CONTACTED CHW-STATED THEY HAD AN APT SCHEDULED WITH NEUROLOGIST DR WORTHINGTON 07/20/21 IN [place] AND INGE WILL TAKE THE PATIENT FOR [...] AND AGREES. NEUROLOGIST- DR WORTHINGTON CONTACT NUMBER [phone] 04/12/[address] [facility] - PATIENT RECENTLY DISCHARGED FROM [facility] . 02/16/[address] [facility] - PATIENT IS CURRENTLY RECEIVING HOME HEALTH SERVICES THRU [facility]. PLEASE CONTACT HOME HEALTH AGENCY IF PATIENT IS SEEN IN THE ED. - PER REQUEST OF PATIENT- SENDING RECENT ED CHART NOTES TO [facility]. E.D. VISIT COUNT (12 MO.) 20 [facility] TOTAL 20 NOTE: Visits indicate total known visits. 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 - Allergy status to other drugs, medicaments and biological substances - Weakness - Allergy to other foods - Essential (primary) hypertension - intermediate frame tender (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 drugs 09/12/2021 05:51 [facility] [place] TYPE: Emergency COMPLAINT: - WEAKNESS DIAGNOSES: - 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 - Essential (primary) hypertension - [facility] (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 drugs - Weakness - Type 2 diabetes mellitus without complications - [facility] (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 - Allergy status to penicillin - Allergy status to other drugs, medicaments and biological substances - Personal history of nicotine dependence - Gout, unspecified - Dysuria - 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 - Allergy to other foods 09/10/2021 06:18 [facility] [place] TYPE: Emergency COMPLAINT: - WEAKNESS DIAGNOSES: - Personal history of nicotine dependence - intermediate frame tender (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 - 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 - Old myocardial infarction - Essential (primary) hypertension - 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 - Allergy status to penicillin - Contact with and (suspected) exposure to COVID-19 - Type 2 diabetes mellitus without complications - Weakness - intermediate frame tender (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 drugs - Allergy status to other drugs, medicaments and biological substances - Gout, unspecified - Allergy to other foods 09/05/2021 06:33 [facility] [place] TYPE: Emergency COMPLAINT: - URINE PROBLEMS DIAGNOSES: - intermediate frame tender (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 - 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 - Retention of urine, unspecified - Personal history of nicotine dependence - Essential (primary) hypertension - 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 - Allergy to other foods - Allergy status to other drugs, medicaments and biological substances - Old myocardial infarction - Weakness - Gout, unspecified - [facility] (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 drugs - Allergy status to penicillin - Type 2 diabetes mellitus without complications 09/03/2021 06:47 [facility] [place] TYPE: Emergency COMPLAINT: - WEAKNESS DIAGNOSES: - 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 - Personal history of nicotine dependence - Allergy status to other drugs, medicaments and biological substances - Gout, unspecified - Allergy status to penicillin - Essential (primary) hypertension - intermediate frame tender (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 drugs - Weakness - Allergy to other foods - 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 - Myasthenia gravis without (acute) exacerbation - Type 2 diabetes mellitus without complications - Old myocardial infarction 08/28/2021 19:13 [facility] TYPE: Emergency COMPLAINT: - WEAKNESS DIAGNOSES: - [facility] (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 - Type 2 diabetes mellitus without complications - Allergy to other foods - Personal history of nicotine dependence - 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 - Essential (primary) hypertension - intermediate frame tender (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 drugs - Weakness - 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 - Allergy [...] Essential (primary) hypertension - Hypomagnesemia - 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 - Type 2 diabetes mellitus without complications - [facility] (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 drugs - Fall on same level from slipping, tripping and stumbling with subsequent striking against unspecified object, initial encounter - Personal history of nicotine dependence - 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 - Old myocardial infarction - Allergy status to penicillin - Unspecified injury of head, initial encounter - [facility] (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 07/16/2021 06:28 [facility] [...] nicotine dependence - 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 - Type 2 diabetes mellitus without complications - Other nursing home (current) drug therapy - Essential (primary) hypertension - intermediate frame tender (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 drugs - Allergy status to penicillin - intermediate frame tender (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 - Hypomagnesemia - Allergy to other foods 07/12/2021 23:46 [facility] TYPE: Emergency COMPLAINT: - VOMITING DIAGNOSES: - Other nursing home (current) drug therapy - Essential (primary) hypertension - Allergy to other foods - Old myocardial infarction - Allergy status to other drugs, medicaments and biological substances - Personal history of nicotine dependence - Type 2 diabetes mellitus without complications - Allergy status to penicillin - Gout, unspecified - [facility] (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 - intermediate frame tender (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 drugs - Vomiting, unspecified - 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 07/11/2021 22:01 [facility] TYPE: Emergency COMPLAINT: - WEAKNESS DIAGNOSES: - Personal history of nicotine dependence - intermediate frame tender (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 - Allergy status to penicillin - Type 2 diabetes mellitus without complications - Old myocardial infarction - Weakness - Gout, unspecified - Acute kidney failure, unspecified - Allergy status to other drugs, medicaments and biological substances - Contact with and (suspected) exposure to COVID-19 - Essential (primary) hypertension - Other nursing home (current) drug therapy - Allergy to other foods - 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 - intermediate frame tender (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 drugs - Dehydration 06/29/2021 17:10 [facility] TYPE: Emergency COMPLAINT: - R KNEE PAIN DIAGNOSES: - Old myocardial infarction - Allergy status to penicillin - Other and unspecified overexertion or strenuous movements or postures, initial encounter - Essential (primary) hypertension - Personal history of nicotine dependence - Allergy to other foods - 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 - Gout, unspecified - Other nursing home (current) drug therapy - intermediate frame tender (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 - [facility] (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 [...] STATUS DIAGNOSES: - Old myocardial infarction - intermediate frame tender (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 - [facility] (current) use of insulin - [facility] (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 drugs - Essential (primary) hypertension - Other nursing home (current) drug therapy - Gout, unspecified - Type 2 diabetes mellitus without complications - Altered mental status, unspecified - 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 - Encounter for immunization - Allergy status to other drugs, medicaments and biological substances - COVID-19 - Allergy to other foods - Personal history of nicotine dependence 03/03/2021 09:33 [facility] [place] TYPE: Emergency COMPLAINT: - WEAKNESS DIAGNOSES: - Other nursing home (current) drug therapy - Allergy to other foods - Allergy status to other drugs, medicaments and biological substances - Old myocardial infarction - Weakness - Gout, unspecified - [facility] (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 - intermediate frame tender (current) use of insulin - Personal history of nicotine dependence - intermediate frame tender (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 drugs - Type 2 diabetes mellitus without complications - Essential (primary) hypertension - 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 02/14/2021 13:42 [facility] TYPE: Emergency COMPLAINT: - POSS STROKE DIAGNOSES: - Cannabis use, unspecified, uncomplicated - Weakness - Other nursing home (current) drug therapy - Essential (primary) hypertension - 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 - Personal history of nicotine dependence - Allergy status to other drugs, medicaments and biological substances - intermediate frame tender (current) use of antibiotics - intermediate frame tender (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 - Altered mental [...] [facility] (current) use of systemic steroids - intermediate frame tender (current) use of insulin - Allergy to other foods - 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 - Old myocardial infarction - 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 - Allergy status to other drugs, medicaments and biological substances 01/27/2021 06:17 [facility] TYPE: Emergency COMPLAINT: - URINARY PROBLEM DIAGNOSES: - Patient's noncompliance with other medical treatment and regimen - 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 - intermediate frame tender (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 drugs - Personal history of transient ischemic attack (TIA), and cerebral infarction without residual deficits - [facility] (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 - [...] drugs, medicaments and biological substances - 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 - intermediate frame tender (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 - Dehydration - [...] not specified - 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 - Hypomagnesemia - Presence of coronary angioplasty implant and graft - Hypertensive encephalopathy - Type 2 diabetes mellitus without complications - [facility] (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 drugs - DEPRESSION, UNSPECIFIED - 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 - intermediate frame tender (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 drugs - Allergy status to other drugs, medicaments and biological substances - Myasthenia gravis without (acute) exacerbation - Myasthenia gravis without (acute) exacerbation - Allergy to other foods - [facility] (current) use of aspirin - [facility] (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 of anticoagulants - Other streptococcus as the cause of diseases classified elsewhere - Acute cystitis without hematuria - 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 - Old [...] - Myasthenia gravis without (acute) exacerbation - [facility] (current) use of aspirin - Hypertensive chronic kidney disease with stage 1 through stage 4 chronic kidney disease, or unspecified chronic kidney disease - intermediate frame tender (current) use of aspirin - Presence of aortocoronary bypass graft - Other specified postprocedural states - Allergy status to other drugs, medicaments and biological substances - Gout, unspecified - Anxiety disorder, unspecified - Allergy status to other drugs, medicaments and biological substances - Type 2 diabetes mellitus with diabetic nephropathy [email or web address]
== END 2021-09-21 10:25 | disposition home or self-care (01) ==
LOC: ED 06:57
DX: R53.1 Weakness (principal); G70.00 Myasthenia gravis without (acute) exacerbation; I10 Essential (primary) hypertension; E11.9 Type 2 diabetes mellitus without complications; I25.10 Atherosclerotic heart disease of native coronary artery without angina pectoris; I25.2 Old myocardial infarction; M10.9 Gout, unspecified; Z87.891 Personal history of nicotine dependence; Z91.018 Allergy to other foods; Z88.8 Allergy status to other drugs, medicaments and biological substances; Z88.0 Allergy status to penicillin; Z79.899 Other long term (current) 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; Z79.84 Long term (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 drugs; Z79.82 Long term (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
CPT/HCPCS: 36415; 51701; 80053; 81001; 83735; 85025; 99285-25; J2405; J7030

== ENCOUNTER 2021-10-08 19:56 | Inpatient (IN) | payer MEDICARE, OTHER ==
[~2021-10-08] VITALS: Ht 167.6 cm; Wt 79.6 kg
--- OUTSIDE RECORDS SUMMARY | 2021-10-08 19:58 | XMS ---
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 Electrical Events No recent Security Events currently on file CRITERIA MET - [facility] - Has Care Guidelines - [facility] - 2 Visits in 30 Days - 6 ED Visits in 6 Months CARE PROVIDERS CHLOE KINGSTON DPM PHONE: [phone] JORGE LUIS DENG Internal Medicine Current PHONE: Unknown CARLOS SANCHEZ Nurse Practitioner Current PHONE: [phone] PRACHI COSTA Family Medicine 02/15/2021-Current PHONE: Unknown DEE ESPAÑA Nurse Practitioner: Family Current PHONE: Unknown JORGE SOUTH Internal Medicine Current PHONE: [phone] CHRYSTAL REA Nurse Practitioner Current PHONE: [phone] MARIA A VICK General [address] Foreman Current PHONE: Unknown ELLIOT CARDENAS Nurse Practitioner Current PHONE: Unknown MARQUIS [facility] Current PHONE: [phone] KELLY NUÑEZ Physician General Road Foreman [facility]: Unknown Shaunna has no Care Guidelines for this patient. 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 NEUROLOGIST- DR WORTHINGTON CONTACT NUMBER [phone] 04/12/2021 [facility] - PATIENT RECENTLY DISCHARGED FROM [facility] . 02/16/2021 [facility] - PATIENT IS CURRENTLY RECEIVING HOME HEALTH SERVICES THRU [facility]. PLEASE CONTACT HOME HEALTH AGENCY IF PATIENT IS SEEN IN THE ED. - PER REQUEST OF PATIENT- SENDING RECENT ED CHART NOTES TO [facility]. E.D. VISIT COUNT (12 MO.) [facility] TOTAL 21 NOTE: Visits indicate total known visits. 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 - Allergy status to penicillin - prison (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 drugs - Type 2 diabetes mellitus without complications - Other senior care (current) drug therapy - Allergy to other foods - Atherosclerotic heart disease of [place] coronary artery without angina pectoris - Personal history of nicotine dependence - Gout, unspecified - Weakness - Old myocardial infarction 09/16/2021 12:59 [facility] [place] TYPE: Emergency COMPLAINT: - WEAKNESS DIAGNOSES: - Old myocardial infarction - sales representative 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 (current) use of aspirin - Type 2 diabetes mellitus without complications - Other senior care (current) drug therapy - Personal history of nicotine dependence - Gout, unspecified - Allergy status to penicillin - Atherosclerotic heart disease of [place] coronary artery without angina pectoris - Allergy status to other drugs, medicaments and biological substances - Weakness - Allergy to other foods - Essential (primary) hypertension - prison (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 drugs 09/12/2021 05:51 [facility] TYPE: Emergency COMPLAINT: - WEAKNESS DIAGNOSES: - Atherosclerotic heart disease of [place] coronary artery without angina pectoris - Essential (primary) hypertension - sales representative 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 (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 drugs - Weakness - Type 2 diabetes mellitus without complications - prison (current) use of aspirin - Allergy status to penicillin - Allergy status to other drugs, medicaments and biological substances - Personal history of nicotine dependence - Gout, unspecified - Dysuria - 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 - Allergy to other foods 09/10/2021 06:18 [facility] TYPE: Emergency COMPLAINT: - WEAKNESS DIAGNOSES: - Personal history of nicotine dependence - sales representative 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 (current) use of aspirin - Other senior care (current) drug therapy - Old myocardial infarction - Essential (primary) hypertension - Atherosclerotic heart disease of [place] coronary artery without angina pectoris - Allergy status to penicillin - Contact with and (suspected) exposure to COVID-19 - Type 2 diabetes mellitus without complications - Weakness - prison (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 drugs - Allergy status to other drugs, medicaments and biological substances - Gout, unspecified - Allergy to other foods 09/05/2021 06:33 [facility] TYPE: Emergency COMPLAINT: - URINE PROBLEMS DIAGNOSES: - 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 representative 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 (current) use of 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 - Other senior care (current) drug therapy - Retention of urine, unspecified - Personal history of nicotine dependence - Essential (primary) hypertension - Atherosclerotic heart disease of [place] coronary artery without angina pectoris - Allergy to other foods - Allergy status to other drugs, medicaments and biological substances - Old myocardial infarction - Weakness - Gout, unspecified - sales representative 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 (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 drugs - Allergy status to penicillin - Type 2 diabetes mellitus without complications 09/03/2021 06:47 [facility] TYPE: Emergency COMPLAINT: - WEAKNESS DIAGNOSES: - 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 - Personal history of nicotine dependence - Allergy status to other drugs, medicaments and biological substances - Gout, unspecified - Allergy status to penicillin - Essential (primary) hypertension - prison (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 drugs - Weakness - Allergy to other foods - Atherosclerotic heart disease of [place] coronary artery without angina pectoris - Myasthenia gravis without (acute) exacerbation - Type 2 diabetes mellitus without complications - Old myocardial infarction 08/28/2021 19:13 [facility] [place] TYPE: Emergency COMPLAINT: - WEAKNESS DIAGNOSES: - prison (current) use of aspirin - Type 2 diabetes mellitus without complications - Allergy to other foods - Personal history of nicotine dependence - 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 - Essential (primary) hypertension - 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 representative 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 (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 - Weakness - Atherosclerotic heart disease of [place] coronary artery without angina pectoris - Allergy [...] Essential (primary) hypertension - Hypomagnesemia - Other senior care (current) drug therapy - Type 2 diabetes mellitus without complications - prison (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 drugs - Fall on same level from slipping, tripping and stumbling with subsequent striking against unspecified object, initial encounter - Personal history of nicotine dependence - Atherosclerotic heart disease of [place] coronary artery without angina pectoris - Old myocardial infarction - Allergy status to penicillin - Unspecified injury of head, initial encounter - sales representative 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 (current) use of aspirin 07/16/2021 06:28 [facility] [...] nicotine dependence - Atherosclerotic heart disease of [place] coronary artery without angina pectoris - Type 2 diabetes mellitus without complications - Other senior care (current) drug therapy - Essential (primary) hypertension - prison (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 drugs - Allergy status to penicillin - prison (current) use of aspirin - Hypomagnesemia - Allergy to other foods 07/12/2021 23:46 [facility] TYPE: Emergency COMPLAINT: - VOMITING DIAGNOSES: - 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 - Essential (primary) hypertension - Allergy to other foods - Old myocardial infarction - Allergy status to other drugs, medicaments and biological substances - Personal history of nicotine dependence - Type 2 diabetes mellitus without complications - Allergy status to penicillin - Gout, unspecified - prison (current) use of aspirin - sales representative 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 (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 drugs - Vomiting, unspecified - Atherosclerotic heart disease of [place] coronary artery without angina pectoris 07/11/2021 22:01 [facility] TYPE: Emergency COMPLAINT: - WEAKNESS DIAGNOSES: - Personal history of nicotine dependence - sales representative 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 (current) use of 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 - Allergy status to penicillin - Type 2 diabetes mellitus without complications - Old myocardial infarction - Weakness - Gout, unspecified - Acute kidney failure, unspecified - Allergy status to other drugs, medicaments and biological substances - Contact with and (suspected) exposure to COVID-19 - Essential (primary) hypertension - Other senior care (current) drug therapy - Allergy to other foods - Atherosclerotic heart disease of [place] coronary artery without angina pectoris - sales representative 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 (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 drugs - Dehydration 06/29/2021 17:10 [facility] TYPE: Emergency COMPLAINT: - R KNEE PAIN DIAGNOSES: - Old myocardial infarction - Allergy status to penicillin - Other and unspecified overexertion or strenuous movements or postures, initial encounter - Essential (primary) hypertension - Personal history of nicotine dependence - Allergy to other foods - Atherosclerotic heart disease of [place] coronary artery without angina pectoris - Gout, unspecified - 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 - sales representative 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 (current) use of aspirin - prison (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 drugs - [...] STATUS DIAGNOSES: - Old myocardial infarction - sales representative 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 (current) use of aspirin - sales representative 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 (current) use of insulin - sales representative 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 (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 drugs - Essential (primary) hypertension - 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 - Gout, unspecified - Type 2 diabetes mellitus without complications - Altered mental status, unspecified - Atherosclerotic heart disease of [place] coronary artery without angina pectoris - Encounter for immunization - Allergy status to other drugs, medicaments and biological substances - COVID-19 - Allergy to other foods - Personal history of nicotine dependence 03/03/2021 09:33 [facility] TYPE: Emergency COMPLAINT: - WEAKNESS DIAGNOSES: - 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 - Allergy to other foods - Allergy status to other drugs, medicaments and biological substances - Old myocardial infarction - Weakness - Gout, unspecified - prison (current) use of aspirin - sales representative 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 (current) use of insulin - Personal history of nicotine dependence - prison (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 drugs - Type 2 diabetes mellitus without complications - Essential (primary) hypertension - Atherosclerotic heart disease of [place] coronary artery without angina pectoris 02/14/2021 13:42 [facility] TYPE: Emergency COMPLAINT: - POSS STROKE DIAGNOSES: - Cannabis use, unspecified, uncomplicated - Weakness - Other senior care (current) drug therapy - Essential (primary) hypertension - Atherosclerotic heart disease of [place] coronary artery without angina pectoris - Personal history of nicotine dependence - Allergy status to other drugs, medicaments and biological substances - sales representative 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 (current) use of antibiotics - sales representative 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 (current) use of aspirin - Altered mental [...] status to sulfonamides - Gout, unspecified - sales representative 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 (current) use of systemic steroids - prison (current) use of insulin - Allergy to other foods - Other senior care (current) drug therapy - Old myocardial infarction - Atherosclerotic heart disease of [place] coronary artery without angina pectoris - Allergy status to other drugs, medicaments and biological substances 01/27/2021 06:17 [facility] TYPE: Emergency COMPLAINT: - URINARY PROBLEM DIAGNOSES: - Patient's noncompliance with other medical treatment and regimen - Atherosclerotic heart disease of [place] coronary artery without angina pectoris - sales representative 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 (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 drugs - Personal history of transient ischemic attack (TIA), and cerebral infarction without residual deficits - prison (current) use of aspirin - Allergy status to other drugs, medicaments and biological substances - Unspecified urinary incontinence - Old myocardial infarction - Allergy to other foods - Other senior care (current) drug therapy - Essential (primary) hypertension - Type 2 diabetes mellitus without complications - Personal history of nicotine dependence Plus 1 More Visit INPATIENT VISIT TRACKING (12 MO.) 07/16/2021 12:19 [...] not specified - Atherosclerotic heart disease of [place] coronary artery without angina pectoris - Hypomagnesemia - Presence of coronary angioplasty implant and graft - Hypertensive encephalopathy - Type 2 diabetes mellitus without complications - sales representative 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 (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 drugs - DEPRESSION, UNSPECIFIED - Atherosclerotic heart disease of [place] coronary artery without angina pectoris - sales representative 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 (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 drugs - Allergy status to other drugs, medicaments and biological substances - Myasthenia gravis without (acute) exacerbation - Myasthenia gravis without (acute) exacerbation - Allergy to other foods - prison (current) use of aspirin - sales representative 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 (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 of anticoagulants - Other streptococcus as the cause of diseases classified elsewhere - Acute cystitis without hematuria - Other senior care (current) drug therapy - Presence of prosthetic heart valve - Metabolic encephalopathy - Hypertensive urgency - Presence of aortocoronary bypass graft - 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 - Chronic kidney disease, unspecified - Atherosclerotic heart disease of [place] coronary artery without angina pectoris - Allergy [...] right finger - Atherosclerotic heart disease of [place] coronary artery without angina pectoris - Old [...] Staphylococcus aureus infection - Gout, unspecified - sales representative 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 (current) use of insulin - Type 2 diabetes mellitus with diabetic chronic kidney disease - Old myocardial infarction - Personal history of transient ischemic attack (TIA), and cerebral infarction without residual deficits - Other specified postprocedural states - Myasthenia gravis without (acute) exacerbation - sales representative 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 (current) use of aspirin - Hypertensive chronic kidney disease with stage 1 through stage 4 chronic kidney disease, or unspecified chronic kidney disease - prison (current) use of aspirin - Presence of aortocoronary bypass graft - Other specified postprocedural states - Allergy status to other drugs, medicaments and biological substances - Gout, unspecified - Anxiety disorder, unspecified - Allergy status to other drugs, medicaments and biological substances - Type 2 diabetes mellitus with diabetic nephropathy [email or web address]
[2021-10-09] MEDS ORDERED: ZESTRIL40 MG PO (08:00)
[2021-10-09] MEDS ORDERED: AMLODIPINE BESYL5 MG PO (09:19)
[2021-10-09] MEDS ORDERED: CARVEDILOL25 MG PO (09:19)
[2021-10-09] MEDS ORDERED: FLUOXETINE HCL40 MG PO (09:19)
[2021-10-09] MEDS ORDERED: LISINOPRIL40 MG PO (09:20)
[2021-10-09] MEDS ORDERED: PRAVASTATIN SOD10 MG PO (09:28)
[2021-10-09] MEDS ORDERED: ONDANSETRON HCL4 MG PO (09:29)
[2021-10-10] MEDS ORDERED: HYDRALAZINE HCL25 MG PO (17:42)
[2021-10-13] MEDS ORDERED: BRILINTA90 MG PO (11:42)
[2021-10-13] MEDS ORDERED: PYRIDOSTIGMINE60 MG PO (11:42)
[2021-10-13] MEDS ORDERED: AMLODIPINE BESYL5 MG PO (11:43)
[2021-10-13] MEDS ORDERED: CARVEDILOL6.25 MG PO (11:43)
[2021-10-13] MEDS ORDERED: PROZAC40 MG PO (11:44)
[2021-10-13] MEDS ORDERED: POTASSIUM CHLO20 ME1 PO (11:44)
[2021-10-13] MEDS ORDERED: ONDANSETRON HCL4 MG PO (11:45)
[2021-10-13] MEDS ORDERED: METFORMIN HCL500 M1 PO (11:45)
[2021-10-13] MEDS ORDERED: AZATHIOPRINE50 MG PO (11:45)
== END 2021-10-14 10:20 | DRG 684 ==
LOC: ED 19:56 → MS 19:57
PROVIDERS: ADMIT Internal Medicine; ATTEND Internal Medicine
DX: N17.9 Acute kidney failure, unspecified (principal); E86.0 Dehydration; Z20.822 Contact with and (suspected) exposure to COVID-19; I25.10 Atherosclerotic heart disease of native coronary artery without angina pectoris; I10 Essential (primary) hypertension; E11.9 Type 2 diabetes mellitus without complications; G70.00 Myasthenia gravis without (acute) exacerbation; K59.09 Other constipation; F41.9 Anxiety disorder, unspecified; F32.A Depression, unspecified; F39 Unspecified mood [affective] disorder; I25.2 Old myocardial infarction; M10.9 Gout, unspecified; Z87.891 Personal history of nicotine dependence; Z95.2 Presence of prosthetic heart valve; Z98.890 Other specified postprocedural states; Z95.1 Presence of aortocoronary bypass graft; Z95.5 Presence of coronary angioplasty implant and graft; Z90.49 Acquired absence of other specified parts of digestive tract; Z88.0 Allergy status to penicillin; Z88.8 Allergy status to other drugs, medicaments and biological substances; Z91.018 Allergy to other foods; Z79.899 Other long term (current) 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; Z79.84 Long term (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 drugs
CPT/HCPCS: 36415; 74018; 80048; 80053; 81001; 83036; 83735; 85025; 87502; 96366; 97110; 97116; 97162; 97166; 97530; A9270; C9803; G0378; J0780; J1815; J2405; J7030; J7121; J7500; U0003

== ENCOUNTER 2021-12-11 19:21 | Emergency (ER) | payer MEDICARE, OTHER ==
[~2021-12-11] VITALS: Ht 167.6 cm; Wt 79.4 kg
[~2021-12-11 19:21] MED LIST changes: +AMLODIPINE BESYL5 MG PO; +CARVEDILOL25 MG PO; +CARVEDILOL6.25 MG PO; +FLUOXETINE HCL40 MG PO; +HYDRALAZINE HCL25 MG PO; +LISINOPRIL40 MG PO; +ONDANSETRON HCL4 MG PO; +ZESTRIL40 MG PO
--- OUTSIDE RECORDS SUMMARY | 2021-12-11 19:24 | XMS ---
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 [place] 6 Months CARE PROVIDERS [place]LOE [place] 3Rd Grade Teacherbob Simon PHONE: [phone] JORGE LUIS DENG Internal Medicine Current PHONE: Unknown CARLOS SANCHEZ Nurse Practitioner Current PHONE: [phone] PRACHI COSTA Family Medicine 02/15/2021-Current PHONE: Unknown DEE ESPAÑA Nurse Practitioner: Family Current PHONE: Unknown JORGE SOUTH Internal Medicine Current PHONE: [phone] CHRYSTAL REA Nurse Practitioner Current PHONE: [phone] MARIA A VICK I. Physician Specimen Preparation Assistant Current PHONE: Unknown ELLIOT CARDENAS Nurse Practitioner Current PHONE: Unknown [facility] Current PHONE: [phone] KELLY NUÑEZ Physician Specimen Preparation Assistant [facility] PHONE[facility] PH[facility]: Unknown Shaunna has no Care Guidelines for this patient. Care History Medical/Surgical 07/15/2021 [facility] [place] CHW CALLED PATIENT LIFE PARTNER INGE-PATIENT WAS NOT ANSWERING HIS PHONE- CONCERNED FOR PATIENT SAFETY AT HOME ALONE DUE TO RECENT FALLS. INGE STATED PATIENT HAS A NEUROLOGIST DR WORTHINGTON AND IS CURRENTLY WAITING FOR A REFERRAL TO PROCESS AT [facility]. CHW CALLED [facility]- ASKED FOR AN URGENT FOLLOW UP APT DUE TO RECENT ED VISITS AND CONTINUED FALLS. THEY HAD PATIENT WAITING FOR AN AUTH. I HAD STATED MEDICARE PATIENT AN AUTH IS NOT NEEDED. THEY QUICKLY SENT FOR MD REVIEW. INGE CONTACTED CHW-STATED THEY HAD AN APT SCHEDULED WITH NEUROLOGIST DR WORTHINGTON 07/20/21 IN [place] AND INGE WILL TAKE THE PATIENT FOR [...] SANTOYO APT ON 07/16/21 @ 12:15 AND NIGE WILL MAKE SURE PATIENT MAKES IT TO [...] AND AGREES. NEUROLOGIST- DR WORTHINGTON CONTACT NUMBER [phone] 04/12/2021 [facility] - PATIENT RECENTLY DISCHARGED FROM [facility] . 02/16/2021 [facility] - PATIENT IS CURRENTLY RECEIVING HOME HEALTH SERVICES THRU [facility]. PLEASE CONTACT HOME HEALTH AGENCY IF PATIENT IS SEEN IN THE ED. - PER REQUEST OF PATIENT- SENDING RECENT ED CHART NOTES TO [facility]. E.D. VISIT COUNT (12 MO.) 21 [facility] TOTAL 21 NOTE: Visits indicate total known visits. 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 - Type 2 diabetes mellitus without complications - Other belly roller (current) drug therapy - Allergy to other foods - Atherosclerotic heart disease of [place] coronary artery without angina pectoris - Personal history of nicotine dependence - Gout, unspecified - Weakness - Old myocardial infarction 09/16/2021 12:59 [facility] TYPE: Emergency COMPLAINT: - WEAKNESS DIAGNOSES: - Old myocardial infarction - MCFP (current) use of aspirin - Type 2 diabetes mellitus without complications - Other belly roller (current) drug therapy - Personal history of nicotine dependence - Gout, unspecified - Allergy status to penicillin - Atherosclerotic heart disease of [place] coronary artery without angina pectoris - Allergy status to other drugs, medicaments and biological substances - Weakness - Allergy to other foods - Essential (primary) hypertension - MCFP (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 drugs 09/12/2021 05:51 [facility] TYPE: Emergency COMPLAINT: - WEAKNESS DIAGNOSES: - Atherosclerotic heart disease of [place] coronary artery without angina pectoris - Essential (primary) hypertension - 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 - Weakness - Type 2 diabetes mellitus without complications - MCFP (current) use of aspirin - Allergy status to penicillin - Allergy status to other drugs, medicaments and biological substances - Personal history of nicotine dependence - Gout, unspecified - Dysuria - Other group home (current) drug therapy - Allergy to other foods 09/10/2021 06:18 [facility] TYPE: Emergency COMPLAINT: - WEAKNESS DIAGNOSES: - Personal history of nicotine dependence - 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 - Other belly roller (current) drug therapy - Old myocardial infarction - Essential (primary) hypertension - Atherosclerotic heart disease of [place] coronary artery without angina pectoris - Allergy status to penicillin - Contact with and (suspected) exposure to COVID-19 - Type 2 diabetes mellitus without complications - Weakness - 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 - Allergy status to other drugs, medicaments and biological substances - Gout, unspecified - Allergy to other foods 09/05/2021 06:33 [facility] TYPE: Emergency COMPLAINT: - URINE PROBLEMS DIAGNOSES: - 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 - Other group home (current) drug therapy - Retention of urine, unspecified - Personal history of nicotine dependence - Essential (primary) hypertension - Atherosclerotic heart disease of [place] coronary artery without angina pectoris - Allergy to other foods - Allergy status to other drugs, medicaments and biological substances - Old myocardial infarction - Weakness - Gout, unspecified - 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 - Allergy status to penicillin - Type 2 diabetes mellitus without complications 09/03/2021 06:47 [facility] TYPE: Emergency COMPLAINT: - WEAKNESS DIAGNOSES: - Other group home (current) drug therapy - Personal history of nicotine dependence - Allergy status to other drugs, medicaments and biological substances - Gout, unspecified - Allergy status to penicillin - Essential (primary) hypertension - MCFP (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 drugs - Weakness - Allergy to other foods - Atherosclerotic heart disease of [place] coronary artery without angina pectoris - Myasthenia gravis without (acute) exacerbation - Type 2 diabetes mellitus without complications - Old myocardial infarction 08/28/2021 19:13 [facility] TYPE: Emergency COMPLAINT: - WEAKNESS DIAGNOSES: - MCFP (current) use of aspirin - Type 2 diabetes mellitus without complications - Allergy to other foods - Personal history of nicotine dependence - Other belly roller (current) drug therapy - Essential (primary) hypertension - MCFP (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 drugs - Weakness - Atherosclerotic heart disease of [place] coronary artery without angina pectoris - Allergy [...] Essential (primary) hypertension - Hypomagnesemia - Other belly roller (current) drug therapy - Type 2 diabetes mellitus without complications - 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 - Fall on same level from slipping, tripping and stumbling with subsequent striking against unspecified object, initial encounter - Personal history of nicotine dependence - Atherosclerotic heart disease of [place] coronary artery without angina pectoris - Old [...] nicotine dependence - Atherosclerotic heart disease of [place] coronary artery without angina pectoris - Type 2 diabetes mellitus without complications - Other belly roller (current) drug therapy - Essential (primary) hypertension - MCFP (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 drugs - Allergy status to penicillin - MCFP (current) use of aspirin - Hypomagnesemia - Allergy to other foods 07/12/2021 23:46 [facility] TYPE: Emergency COMPLAINT: - VOMITING DIAGNOSES: - Other group home (current) drug therapy - Essential (primary) hypertension - Allergy to other foods - Old myocardial infarction - Allergy status to other drugs, medicaments and biological substances - Personal history of nicotine dependence - Type 2 diabetes mellitus without complications - Allergy status to penicillin - Gout, unspecified - 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 - MCFP (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 drugs - Vomiting, unspecified - Atherosclerotic heart disease of [place] coronary artery without angina pectoris 07/11/2021 22:01 [facility] TYPE: Emergency COMPLAINT: - WEAKNESS DIAGNOSES: - Personal history of nicotine dependence - 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 - Allergy status to penicillin - Type 2 diabetes mellitus without complications - Old myocardial infarction - Weakness - Gout, unspecified - Acute kidney failure, unspecified - Allergy status to other drugs, medicaments and biological substances - Contact with and (suspected) exposure to COVID-19 - Essential (primary) hypertension - Other belly roller (current) drug therapy - Allergy to other foods - Atherosclerotic heart disease of [place] coronary artery without angina pectoris - 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 - Dehydration 06/29/2021 17:10 [facility] TYPE: Emergency COMPLAINT: - R KNEE PAIN DIAGNOSES: - Old myocardial infarction - Allergy status to penicillin - Other and unspecified overexertion or strenuous movements or postures, initial encounter - Essential (primary) hypertension - Personal history of nicotine dependence - Allergy to other foods - Atherosclerotic heart disease of [place] coronary artery without angina pectoris - Gout, unspecified - Other group home (current) drug therapy - 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 - 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 [...] STATUS DIAGNOSES: - Old myocardial infarction - MCFP (current) use of aspirin - MCFP (current) use of insulin - 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 - Essential (primary) hypertension - Other belly roller (current) drug therapy - Gout, unspecified - Type 2 diabetes mellitus without complications - Altered mental status, unspecified - Atherosclerotic heart disease of [place] coronary artery without angina pectoris - Encounter for immunization - Allergy status to other drugs, medicaments and biological substances - COVID-19 - Allergy to other foods - Personal history of nicotine dependence 03/03/2021 09:33 [facility] TYPE: Emergency COMPLAINT: - WEAKNESS DIAGNOSES: - Other belly roller (current) drug therapy - Allergy to other foods - Allergy status to other drugs, medicaments and biological substances - Old myocardial infarction - Weakness - Gout, unspecified - 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 - MCFP (current) use of insulin - Personal history of nicotine dependence - MCFP (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 drugs - Type 2 diabetes mellitus without complications - Essential (primary) hypertension - Atherosclerotic heart disease of [place] coronary artery without angina pectoris 02/14/2021 13:42 [facility] TYPE: Emergency COMPLAINT: - POSS STROKE DIAGNOSES: - Cannabis use, unspecified, uncomplicated - Weakness - Other group home (current) drug therapy - Essential (primary) hypertension - Atherosclerotic heart disease of [place] coronary artery without angina pectoris - Personal history of nicotine dependence - Allergy status to other drugs, medicaments and biological substances - MCFP (current) use of antibiotics - MCFP (current) use of aspirin - Altered mental [...] MCFP (current) use of systemic steroids - 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 [place] TYPE: Medical Surgical COMPLAINT: - ACUTE RENAL FAILURE DIAGNOSES: - Allergy status to penicillin - MCFP (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 drugs - Old myocardial infarction - Essential (primary) hypertension - Atherosclerotic heart disease of [place] coronary artery without angina pectoris - Acquired absence of other specified parts of digestive tract - Unspecified mood [affective] disorder - Contact with and (suspected) exposure to COVID-19 - Anxiety disorder, unspecified - Acute kidney failure, unspecified - Presence of coronary angioplasty implant and graft - Gout, unspecified - Personal history of nicotine dependence - Other specified postprocedural states - Other belly roller (current) drug therapy - Allergy status to other drugs, medicaments and biological substances - Type 2 diabetes mellitus without complications - Presence of prosthetic heart valve - Presence of aortocoronary bypass graft - Dehydration - Allergy to other foods - Myasthenia gravis without (acute) exacerbation - Other constipation - Depression, unspecified 07/16/2021 12:19 [facility] TYPE: Medical [...] not specified - Atherosclerotic heart disease of [place] coronary artery without angina pectoris - Hypomagnesemia - Presence of coronary angioplasty implant and graft - Hypertensive encephalopathy - Type 2 diabetes mellitus without complications - 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 - DEPRESSION, UNSPECIFIED - Atherosclerotic heart disease of [place] coronary artery without angina pectoris - 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 - Allergy status to other drugs, medicaments and biological substances - Myasthenia gravis without (acute) exacerbation - Myasthenia gravis without (acute) exacerbation - Allergy to other foods - MCFP (current) use of aspirin - MCFP (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 of anticoagulants - Other streptococcus as the cause of diseases classified elsewhere - Acute cystitis without hematuria - Other group home (current) drug therapy - Presence of prosthetic heart valve - Metabolic encephalopathy - Hypertensive urgency - Presence of aortocoronary bypass graft - Other belly roller (current) drug therapy - Type 2 diabetes [...] Medical Surgical COMPLAINT: - CELLULITIS DIAGNOSES: - 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 - Other belly roller (current) drug therapy - Other group home (current) drug therapy - Chronic kidney disease, unspecified - Atherosclerotic heart disease of [place] coronary artery without angina pectoris - Allergy [...] right finger - Atherosclerotic heart disease of [place] coronary artery without angina pectoris - Old [...] Staphylococcus aureus infection - Gout, unspecified - MCFP (current) use of insulin - Type 2 diabetes mellitus with diabetic chronic kidney disease - Old myocardial infarction - Personal history of transient ischemic attack (TIA), and cerebral infarction without residual deficits - Other specified postprocedural states - Myasthenia gravis without (acute) exacerbation - 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
--- NOTE | 2021-12-12 08:29 | EKG ---
[facility] [address] [place], [place] [address] Signed Normal sinus rhythm Minimal voltage criteria for LVH, may be normal variant ( [place] product ) Cannot rule out Anterior infarct , age undetermined Abnormal ECG When compared with ECG of 10-SEP-2021 08:04, Minimal criteria for Anterior infarct are now present No significant change was found Confirmed by ISAMAR WHITE MD ([id number]) on 12/12/2021 8:29:09 AM Electronically Signed By: ISAMAR WHITE MD 12/12/21 0829 PATIENT NAME: ROBBIE RESTREPO Electrocardiogram DATE OF : 54 PHYSICIAN: ISAMAR WHITE MD REPORT #: [id number] REPORT IS CONFIDENTIAL AND NOT TO BE RELEASED WITHOUT AUTHORIZATION
== END 2021-12-11 22:05 | disposition home or self-care (01) ==
LOC: ED 19:21
DX: E86.0 Dehydration (principal); I10 Essential (primary) hypertension; E11.9 Type 2 diabetes mellitus without complications; I25.2 Old myocardial infarction; I25.10 Atherosclerotic heart disease of native coronary artery without angina pectoris; Z86.73 Personal history of transient ischemic attack (TIA), and cerebral infarction without residual deficits; Z87.891 Personal history of nicotine dependence; Z95.2 Presence of prosthetic heart valve; Z95.1 Presence of aortocoronary bypass graft; Z88.0 Allergy status to penicillin; Z88.8 Allergy status to other drugs, medicaments and biological substances; Z79.899 Other long term (current) 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; Z79.82 Long term (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
CPT/HCPCS: 36415; 71045; 80053; 81001; 82553; 83605; 83690; 83880; 84484; 85025; 85060; 93005; 93010; G0480; J2405; J7121

== ENCOUNTER 2021-12-13 16:39 | Emergency (ER) | payer MEDICARE, OTHER ==
[~2021-12-13] VITALS: Ht 167.6 cm; Wt 71.5 kg
--- NOTE | ~2021-12-13 | EKG ---
[facility] [address] [place], [place] [address] Draft EK completed, results pending confirmation PATIENT NAME: ROBBIE RESTREPO SHIVANI Electrocardiogram DATE OF : 54 PHYSICIAN: PRELIMINARY REPORT #: [id number] REPORT IS CONFIDENTIAL AND NOT TO BE RELEASED WITHOUT AUTHORIZATION
--- OUTSIDE RECORDS SUMMARY | 2021-12-13 16:41 | XMS ---
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 No recent Security Events currently on file CRITERIA MET - [facility] - Has Care Guidelines - [facility] - 2 Visits in 30 Days - 6 ED Visits in 6 Months CARE PROVIDERS CHLOE KINGSTON DPM PHONE: [phone] JORGE LUIS DENG Internal Medicine Current PHONE: [phone] CARLOS SANCHEZ Nurse Practitioner Current PHONE: [phone] PRACHI COSTA Family Medicine 02/15/2021-Current PHONE: Unknown DEE ESPAÑA Nurse Practitioner: Family Current PHONE: Unknown JORGE SOUTH Internal Medicine Current PHONE: [phone] CHRYSTAL REA Nurse Practitioner Current PHONE: [phone] MARIA A VICK I. Physician Bank Accountant Current PHONE: Unknown ELLIOT CARDENAS Nurse Practitioner Current PHONE: Unknown MARQUIS [facility] Current PHONE: [phone] KELLY NUÑEZ Physician Bank Accountant Current PHONE: Unknown NATANAEL [facility] 04/12/2021-Current PHONE: Unknown Shaunna has no Care Guidelines for this patient. Care History Medical/Surgical 07/15/2021 [facility] CHW CALLED PATIENT LIFE PARTNER INGE-PATIENT WAS NOT ANSWERING HIS PHONE- CONCERNED FOR PATIENT SAFETY AT HOME ALONE DUE TO RECENT FALLS. INGE STATED PATIENT HAS A NEUROLOGIST DR WORTHINGTON AND IS CURRENTLY WAITING FOR A REFERRAL TO PROCESS AT [facility] LOCATION. CHW CALLED [facility]- ASKED FOR AN URGENT FOLLOW UP APT DUE TO RECENT ED VISITS AND CONTINUED FALLS. THEY HAD PATIENT WAITING FOR AN AUTH. I HAD STATED MEDICARE PATIENT AN AUTH IS NOT NEEDED. THEY QUICKLY SENT FOR MD REVIEW. INGE CONTACTED CHW-STATED THEY HAD AN APT SCHEDULED WITH NEUROLOGIST DR WORTHINGTON 07/20/21 IN [place] AND INGE WILL TAKE THE PATIENT FOR [...] AND AGREES. NEUROLOGIST- DR WORTHINGTON CONTACT NUMBER [phone] 04/12/2021 [facility] - PATIENT RECENTLY DISCHARGED FROM [facility] . 02/16/2021 [facility] - PATIENT IS CURRENTLY RECEIVING HOME HEALTH SERVICES THRU [facility] PLEASE CONTACT HOME HEALTH AGENCY IF PATIENT IS SEEN IN THE ED. - PER REQUEST OF PATIENT- SENDING RECENT ED CHART NOTES TO [facility]. E.D. VISIT COUNT (12 MO.) [facility] TOTAL 22 NOTE: Visits indicate total known visits. ED/UCC VISIT TRACKING (12 MO.) 12/13/2021 16:39 [facility] [place] TYPE: Emergency COMPLAINT: - DIZZINESS 12/11/2021 19:21 [facility] [place] TYPE: Emergency COMPLAINT: - VOMITING DIAGNOSES: - Old myocardial infarction - Allergy status to penicillin - Essential (primary) hypertension - Weakness - Atherosclerotic heart disease of [place] coronary artery without angina pectoris - Presence of prosthetic heart valve - Other medical terminologist (current) drug therapy - skilled nursing (current) use of aspirin - Personal history of transient ischemic attack (TIA), and cerebral infarction without residual deficits - Type 2 diabetes mellitus without complications - Personal history of nicotine dependence - Allergy status to other drugs, medicaments and biological substances - Presence of aortocoronary bypass graft - Dehydration 10/08/2021 19:[address] [facility] [facility] [place] [facility] COMPLAINT: - WEAKNESS 09/21/2021 06:57 [facility] [place] TYPE: Emergency COMPLAINT: - WEAKNESS DIAGNOSES: - Essential (primary) hypertension - Myasthenia gravis without (acute) exacerbation - Allergy status to other drugs, medicaments and biological substances - skilled nursing (current) use of aspirin - Allergy status to penicillin - skilled nursing (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 drugs - Type 2 diabetes mellitus without complications - Other fdc (current) drug therapy - Allergy to other foods - Atherosclerotic heart disease of [place] coronary artery without angina pectoris - Personal history of nicotine dependence - Gout, unspecified - Weakness - Old myocardial infarction 09/16/2021 12:59 [facility] [place] TYPE: Emergency COMPLAINT: - WEAKNESS DIAGNOSES: - Old myocardial infarction - skilled nursing (current) use of aspirin - Type 2 diabetes mellitus without complications - Other fdc (current) drug therapy - Personal history of nicotine dependence - Gout, unspecified - Allergy status to penicillin - Atherosclerotic heart disease of [place] coronary artery without angina pectoris - Allergy status to other drugs, medicaments and biological substances - Weakness - Allergy to other foods - Essential (primary) hypertension - skilled nursing (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 drugs 09/12/2021 05:51 [facility] [place] TYPE: Emergency COMPLAINT: - WEAKNESS DIAGNOSES: - Atherosclerotic heart disease of [place] coronary artery without angina pectoris - Essential (primary) hypertension - lobsterman (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 drugs - Weakness - Type 2 diabetes mellitus without complications - skilled nursing (current) use of aspirin - Allergy status to penicillin - Allergy status to other drugs, medicaments and biological substances - Personal history of nicotine dependence - Gout, unspecified - Dysuria - Other medical terminologist (current) drug therapy - Allergy to other foods 09/10/2021 06:18 [facility] [place] TYPE: Emergency COMPLAINT: - WEAKNESS DIAGNOSES: - Personal history of nicotine dependence - lobsterman (current) use of aspirin - Other medical terminologist (current) drug therapy - Old myocardial infarction - Essential (primary) hypertension - Atherosclerotic heart disease of [place] coronary artery without angina pectoris - Allergy status to penicillin - Contact with and (suspected) exposure to COVID-19 - Type 2 diabetes mellitus without complications - Weakness - lobsterman (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 drugs - Allergy status to other drugs, medicaments and biological substances - Gout, unspecified - Allergy to other foods 09/05/2021 06:33 [facility] [place] TYPE: Emergency COMPLAINT: - URINE PROBLEMS DIAGNOSES: - skilled nursing (current) use of aspirin - Other fdc (current) drug therapy - Retention of urine, unspecified - Personal history of nicotine dependence - Essential (primary) hypertension - Atherosclerotic heart disease of [place] coronary artery without angina pectoris - Allergy to other foods - Allergy status to other drugs, medicaments and biological substances - Old myocardial infarction - Weakness - Gout, unspecified - skilled nursing (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 drugs - Allergy status to penicillin - Type 2 diabetes mellitus without complications 09/03/2021 06:47 [facility] [place] TYPE: Emergency COMPLAINT: - WEAKNESS DIAGNOSES: - Other medical terminologist (current) drug therapy - Personal history of nicotine dependence - Allergy status to other drugs, medicaments and biological substances - Gout, unspecified - Allergy status to penicillin - Essential (primary) hypertension - lobsterman (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 drugs - Weakness - Allergy to other foods - Atherosclerotic heart disease of [place] coronary artery without angina pectoris - Myasthenia gravis without (acute) exacerbation - Type 2 diabetes mellitus without complications - Old myocardial infarction 08/28/2021 19:13 [facility] [place] TYPE: Emergency COMPLAINT: - WEAKNESS DIAGNOSES: - lobsterman (current) use of aspirin - Type 2 diabetes mellitus without complications - Allergy to other foods - Personal history of nicotine dependence - Other medical terminologist (current) drug therapy - Essential (primary) hypertension - skilled nursing (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 drugs - Weakness - Atherosclerotic heart disease of [place] coronary artery without angina pectoris - Allergy [...] Essential (primary) hypertension - Hypomagnesemia - Other fdc (current) drug therapy - Type 2 diabetes mellitus without complications - skilled nursing (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 drugs - Fall on same level from slipping, tripping and stumbling with subsequent striking against unspecified object, initial encounter - Personal history of nicotine dependence - Atherosclerotic heart disease of [place] coronary artery without angina pectoris - Old myocardial infarction - Allergy status to penicillin - Unspecified injury of head, initial encounter - lobsterman (current) use of aspirin 07/16/2021 06:28 [facility] [...] nicotine dependence - Atherosclerotic heart disease of [place] coronary artery without angina pectoris - Type 2 diabetes mellitus without complications - Other fdc (current) drug therapy - Essential (primary) hypertension - lobsterman (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 drugs - Allergy status to penicillin - skilled nursing (current) use of aspirin - Hypomagnesemia - Allergy to other foods 07/12/2021 23:46 [facility] [place] TYPE: Emergency COMPLAINT: - VOMITING DIAGNOSES: - Other medical terminologist (current) drug therapy - Essential (primary) hypertension - Allergy to other foods - Old myocardial infarction - Allergy status to other drugs, medicaments and biological substances - Personal history of nicotine dependence - Type 2 diabetes mellitus without complications - Allergy status to penicillin - Gout, unspecified - skilled nursing (current) use of aspirin - lobsterman (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 drugs - Vomiting, unspecified - Atherosclerotic heart disease of [place] coronary artery without angina pectoris 07/11/2021 22:01 [facility] [place] TYPE: Emergency COMPLAINT: - WEAKNESS DIAGNOSES: - Personal history of nicotine dependence - skilled nursing (current) use of aspirin - Allergy status to penicillin - Type 2 diabetes mellitus without complications - Old myocardial infarction - Weakness - Gout, unspecified - Acute kidney failure, unspecified - Allergy status to other drugs, medicaments and biological substances - Contact with and (suspected) exposure to COVID-19 - Essential (primary) hypertension - Other fdc (current) drug therapy - Allergy to other foods - Atherosclerotic heart disease of [place] coronary artery without angina pectoris - lobsterman (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 drugs - Dehydration 06/29/2021 17:10 [facility] [place] TYPE: Emergency COMPLAINT: - R KNEE PAIN DIAGNOSES: - Old myocardial infarction - Allergy status to penicillin - Other and unspecified overexertion or strenuous movements or postures, initial encounter - Essential (primary) hypertension - Personal history of nicotine dependence - Allergy to other foods - Atherosclerotic heart disease of [place] coronary artery without angina pectoris - Gout, unspecified - Other medical terminologist (current) drug therapy - skilled nursing (current) use of aspirin - lobsterman (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 drugs - [...] STATUS DIAGNOSES: - Old myocardial infarction - lobsterman (current) use of aspirin - lobsterman (current) use of insulin - skilled nursing (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 drugs - Essential (primary) hypertension - Other medical terminologist (current) drug therapy - Gout, unspecified - Type 2 diabetes mellitus without complications - Altered mental status, unspecified - Atherosclerotic heart disease of [place] coronary artery without angina pectoris - Encounter for immunization - Allergy status to other drugs, medicaments and biological substances - COVID-19 - Allergy to other foods - Personal history of nicotine dependence 03/03/2021 09:33 [facility] [place] TYPE: Emergency COMPLAINT: - WEAKNESS DIAGNOSES: - Other fdc (current) drug therapy - Allergy to other foods - Allergy status to other drugs, medicaments and biological substances - Old myocardial infarction - Weakness - Gout, unspecified - lobsterman (current) use of aspirin - lobsterman (current) use of insulin - Personal history of nicotine dependence - skilled nursing (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 drugs - Type 2 diabetes mellitus without complications - Essential (primary) hypertension - Atherosclerotic heart disease of [place] coronary artery without angina pectoris 02/14/2021 13:42 [facility] [place] TYPE: Emergency COMPLAINT: - POSS STROKE DIAGNOSES: - Cannabis use, unspecified, uncomplicated - Weakness - Other medical terminologist (current) drug therapy - Essential (primary) hypertension - Atherosclerotic heart disease of [place] coronary artery without angina pectoris - Personal history of nicotine dependence - Allergy status to other drugs, medicaments and biological substances - skilled nursing (current) use of antibiotics - skilled nursing (current) use of aspirin - Altered mental status, unspecified - Allergy to other foods - Gout, unspecified - Allergy status to sulfonamides - NIHSS score 0 - Old myocardial infarction Plus 2 More Visits INPATIENT VISIT TRACKING (12 MO.) 10/10/2021 13:[address] [facility] [place] TYPE: Medical Surgical COMPLAINT: - ACUTE RENAL FAILURE DIAGNOSES: - Allergy status to penicillin - lobsterman (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 drugs - Old myocardial infarction - Essential (primary) hypertension - Atherosclerotic heart disease of [place] coronary artery without angina pectoris - Acquired absence of other specified parts of digestive tract - Unspecified mood [affective] disorder - Contact with and (suspected) exposure to COVID-19 - Anxiety disorder, unspecified - Acute kidney failure, unspecified - Presence of coronary angioplasty implant and graft - Gout, unspecified - Personal history of nicotine dependence - Other specified postprocedural states - Other fdc (current) drug therapy - Allergy status to other drugs, medicaments and biological substances - Type 2 diabetes mellitus without complications - Presence of prosthetic heart valve - Presence of aortocoronary bypass graft - Dehydration - Allergy to other foods - Myasthenia gravis without (acute) exacerbation - Other constipation - Depression, unspecified 07/16/2021 12:[address] [facility] [place] [...] not specified - Atherosclerotic heart disease of [place] coronary artery without angina pectoris - Hypomagnesemia - Presence of coronary angioplasty implant and graft - Hypertensive encephalopathy - Type 2 diabetes mellitus without complications - lobsterman (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 drugs - DEPRESSION, UNSPECIFIED - Atherosclerotic heart disease of [place] coronary artery without angina pectoris - skilled nursing (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 drugs - Allergy status to other drugs, medicaments and biological substances - Myasthenia gravis without (acute) exacerbation - Myasthenia gravis without (acute) exacerbation - Allergy to other foods - skilled nursing (current) use of aspirin - skilled nursing (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 of anticoagulants - Other streptococcus as the cause of diseases classified elsewhere - Acute cystitis without hematuria - Other fdc (current) drug therapy - Presence of prosthetic heart valve - Metabolic encephalopathy - Hypertensive urgency - Presence of aortocoronary bypass graft - Other fdc (current) drug therapy - Type 2 diabetes [...] other specified parts of digestive tract - skilled nursing (current) use of aspirin - Hypertensive encephalopathy - Dehydration - Dehydration 06/11/2021 11:[address] [facility] [place] TYPE: Medical Surgical COMPLAINT: - CELLULITIS DIAGNOSES: - lobsterman (current) use of insulin - Other medical terminologist (current) drug therapy - Other fdc (current) drug therapy - Chronic kidney disease, unspecified - Atherosclerotic heart disease of [place] coronary artery without angina pectoris - Allergy [...] right finger - Atherosclerotic heart disease of [place] coronary artery without angina pectoris - Old [...] Staphylococcus aureus infection - Gout, unspecified - skilled nursing (current) use of insulin - Type 2 diabetes mellitus with diabetic chronic kidney disease - Old myocardial infarction - Personal history of transient ischemic attack (TIA), and cerebral infarction without residual deficits - Other specified postprocedural states - Myasthenia gravis without (acute) exacerbation - lobsterman (current) use of aspirin - Hypertensive chronic kidney disease with stage 1 through stage 4 chronic kidney disease, or unspecified chronic kidney disease - skilled nursing (current) use of aspirin - Presence of aortocoronary bypass graft - Other specified postprocedural states - Allergy status to other drugs, medicaments and biological substances - Gout, unspecified - Anxiety disorder, unspecified - Allergy status to other drugs, medicaments and biological substances - Type 2 diabetes mellitus with diabetic nephropathy [email or web address]
== END 2021-12-13 20:00 | disposition home or self-care (01) ==
LOC: ED 16:39
DX: R53.1 Weakness (principal); G70.00 Myasthenia gravis without (acute) exacerbation; I10 Essential (primary) hypertension; E11.9 Type 2 diabetes mellitus without complications; I25.10 Atherosclerotic heart disease of native coronary artery without angina pectoris; I25.2 Old myocardial infarction; Z87.891 Personal history of nicotine dependence; Z95.2 Presence of prosthetic heart valve; Z95.1 Presence of aortocoronary bypass graft; Z88.0 Allergy status to penicillin; Z88.8 Allergy status to other drugs, medicaments and biological substances; Z91.018 Allergy to other foods
CPT/HCPCS: 36415; 80053; 83735; 84484; 85025; 85060; 93005; 93010

== ENCOUNTER 2021-12-27 13:38 | Emergency (ER) | payer MEDICARE, OTHER ==
[~2021-12-27] VITALS: Ht 167.6 cm; Wt 71.5 kg
--- OUTSIDE RECORDS SUMMARY | 2021-12-27 13:46 | XMS ---
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 No recent Security Events currently on file CRITERIA MET - 6 ED Visits in 6 Months - [facility] - Has Care Guidelines - [facility] - 2 Visits in 30 Days CARE PROVIDERS CHLOE KINGSTON DPM PHONE: [phone] JORGE LUIS DENG Internal Medicine Current PHONE: [phone] CARLOS SANCHEZ Nurse Practitioner Current PHONE: [phone] PRACHI COSTA Family Medicine 02/15/2021-Current PHONE: Unknown DEE ESPAÑA Nurse Practitioner: Family Current PHONE: Unknown JORGE SOUTH Internal Medicine Current PHONE: [phone] CHRYSTAL REA Nurse Practitioner Current PHONE: [phone] MARIA A VICK I. Physician Cosmetic Chemist Current PHONE: Unknown ELLIOT CARDENAS Nurse Practitioner Current PHONE: Unknown MARQUIS [facility] Current PHONE: [phone] KELLY NUÑEZ Physician Cosmetic Chemist Current PHONE: Unknown NATANAEL [facility] 04/12/2021-Current PHONE: Unknown Shaunna has no Care Guidelines for this patient. Care History Medical/Surgical 07/15/2021 [facility] CHW CALLED PATIENT LIFE [facility] INGE-PATIENT WAS NOT ANSWERING HIS PHONE- CONCERNED FOR PATIENT SAFETY AT HOME ALONE DUE TO RECENT FALLS. INGE STATED PATIENT HAS A NEUROLOGIST DR WORTHINGTON AND IS CURRENTLY WAITING FOR A REFERRAL TO PROCESS AT [facility] LOCATION. CHW CALLED [facility]- ASKED FOR AN URGENT FOLLOW UP APT DUE TO RECENT ED VISITS AND CONTINUED FALLS. THEY HAD PATIENT WAITING FOR AN AUTH. I HAD STATED MEDICARE PATIENT AN AUTH IS NOT NEEDED. THEY QUICKLY SENT FOR MD REVIEW. INGE CONTACTED CHW-STATED THEY HAD AN APT SCHEDULED WITH NEUROLOGIST DR WORTHINGTON 07/20/21 IN [place] AND INGE WILL TAKE THE PATIENT FOR [...] AND AGREES. NEUROLOGIST- DR WORTHINGTON CONTACT NUMBER [phone] 04/12/2021 [facility] - PATIENT RECENTLY DISCHARGED FROM [facility] . 02/16/2021 [facility] - PATIENT IS CURRENTLY RECEIVING HOME HEALTH SERVICES THRU [facility]. PLEASE CONTACT HOME HEALTH AGENCY IF PATIENT IS SEEN IN THE ED. - PER REQUEST OF PATIENT- SENDING RECENT ED CHART NOTES TO [facility]. [facility]12 MO.) [facility] TOTAL [facility] NOTE: Visits indicate total known visits. ED/UCC VISIT TRACKING (12 MO.) 12/27/2021 13:39 [facility] TYPE: Emergency COMPLAINT: - CONSTIPATION 12/27/2021 11:32 [facility] [place] TYPE: Emergency COMPLAINT: - CONSTIPATION 12/20/2021 15:[address] [facility] FIGUER[facility] TYPE: Emergency DIAGNOSES: - Constipation, unspecified - constipation 12/20/2021 12:54 [facility] [place] TYPE: Emergency COMPLAINT: - CONSTIPATION 12/13/2021 16:39 [facility] [place] TYPE: Emergency COMPLAINT: - DIZZINESS DIAGNOSES: - Syncope and collapse - Type 2 diabetes mellitus without complications - Allergy to other foods - Allergy status to other drugs, medicaments and biological substances - Atherosclerotic heart disease of koi coronary artery without angina pectoris - Old myocardial infarction - Myasthenia gravis without (acute) exacerbation - Allergy status to penicillin - Presence of prosthetic heart valve - Essential (primary) hypertension - Presence of aortocoronary bypass graft - Weakness - Personal history of nicotine dependence 12/11/2021 19:21 [facility] [place] TYPE: Emergency COMPLAINT: - VOMITING DIAGNOSES: - Old myocardial infarction - utilization review specialist (current) use of aspirin - Presence of prosthetic heart valve - Presence of aortocoronary bypass graft - Weakness - Personal history of nicotine dependence - Allergy status to penicillin - Personal history of transient ischemic attack (TIA), and cerebral infarction without residual deficits - Other halfway (current) drug therapy - Dehydration - Atherosclerotic heart disease of koi coronary artery without angina pectoris - Allergy status to other drugs, medicaments and biological substances - Essential (primary) hypertension - Type 2 diabetes mellitus without complications 10/08/2021 19:56 [facility] [place] TYPE: Emergency COMPLAINT: - WEAKNESS 09/21/2021 06:57 [facility] [place] TYPE: Emergency COMPLAINT: - WEAKNESS DIAGNOSES: - Essential (primary) hypertension - Other visitor services technician (current) drug therapy - utilization review specialist (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 drugs - Weakness - jail (current) use of aspirin - Personal history of nicotine dependence - Myasthenia gravis without (acute) exacerbation - Allergy to other foods - Type 2 diabetes mellitus without complications - Old myocardial infarction - Allergy status to penicillin - Gout, unspecified - Allergy status to other drugs, medicaments and biological substances - Atherosclerotic heart disease of koi coronary artery without angina pectoris 09/16/2021 12:59 [facility] [place] TYPE: Emergency COMPLAINT: - WEAKNESS DIAGNOSES: - Old myocardial infarction - Atherosclerotic heart disease of koi coronary artery without angina pectoris - Gout, unspecified - utilization review specialist (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 hypoglycemic drugs - Other halfway (current) drug therapy - Allergy to other foods - utilization review specialist (current) use of aspirin - Allergy status to other drugs, medicaments and biological substances - Allergy status to penicillin - Personal history of nicotine dependence - Essential (primary) hypertension - Type 2 diabetes mellitus without complications - Weakness 09/12/2021 05:51 [facility] [place] TYPE: Emergency COMPLAINT: - WEAKNESS DIAGNOSES: - Atherosclerotic heart disease of koi coronary artery without angina pectoris - Allergy status to other drugs, medicaments and biological substances - utilization review specialist (current) use of aspirin - Allergy to other foods - Weakness - Dysuria - Essential (primary) hypertension - Personal history of nicotine dependence - Allergy status to penicillin - Type 2 diabetes mellitus without complications - Other halfway (current) drug therapy - utilization review specialist (current) use of oral hypoglycemic drugs - Gout, unspecified 09/10/2021 06:18 [facility] [place] TYPE: Emergency COMPLAINT: - WEAKNESS DIAGNOSES: - Personal history of nicotine dependence - Contact with and (suspected) exposure to COVID-19 - Atherosclerotic heart disease of koi coronary artery without angina pectoris - Gout, unspecified - Old myocardial infarction - utilization review specialist (current) use of oral hypoglycemic drugs - utilization review specialist (current) use of aspirin - Type 2 diabetes mellitus without complications - Allergy status to penicillin - Allergy to other foods - Essential (primary) hypertension - Allergy status to other drugs, medicaments and biological substances - Other halfway (current) drug therapy - Weakness 09/05/2021 06:33 [facility] [place] TYPE: Emergency COMPLAINT: - URINE PROBLEMS DIAGNOSES: - utilization review specialist (current) use of aspirin - Allergy status to other drugs, medicaments and biological substances - Atherosclerotic heart disease of koi coronary artery without angina pectoris - Allergy status to penicillin - Personal history of nicotine dependence - Gout, unspecified - Other halfway (current) drug therapy - Old myocardial infarction - Allergy to other foods - Type 2 diabetes mellitus without complications - Essential (primary) hypertension - jail (current) use of oral hypoglycemic drugs - Retention of urine, unspecified - Weakness 09/03/2021 06:47 [facility] [place] TYPE: Emergency COMPLAINT: - WEAKNESS DIAGNOSES: - Other visitor services technician (current) drug therapy - Weakness - Essential (primary) hypertension - Old myocardial infarction - Gout, unspecified - Myasthenia gravis without (acute) exacerbation - Personal history of nicotine dependence - Allergy to other foods - jail (current) use of oral hypoglycemic drugs - Allergy status to penicillin - Type 2 diabetes mellitus without complications - Allergy status to other drugs, medicaments and biological substances - Atherosclerotic heart disease of koi coronary artery without angina pectoris 08/28/2021 19:13 [facility] [place] TYPE: Emergency COMPLAINT: - WEAKNESS DIAGNOSES: - utilization review specialist (current) use of aspirin - Weakness - Essential (primary) hypertension - Gout, unspecified - Personal history of nicotine dependence - Old myocardial infarction - Type 2 diabetes mellitus without complications - Atherosclerotic heart disease of koi coronary artery without angina pectoris - jail (current) use of oral hypoglycemic drugs - Other halfway (current) drug therapy - Allergy status to other drugs, medicaments and biological substances - Allergy to other foods - Allergy status to penicillin 08/07/2021 12:53 [facility] [place] TYPE: Emergency COMPLAINT: - FALL DIAGNOSES: - Gout, unspecified - utilization review specialist (current) use of oral hypoglycemic drugs - jail (current) use of aspirin - Other halfway (current) drug therapy - Allergy status to penicillin - Essential (primary) hypertension - Atherosclerotic heart disease of koi coronary artery without angina pectoris - Allergy status to other drugs, medicaments and biological substances - Fall on same level from slipping, tripping and stumbling with subsequent striking against unspecified object, initial encounter - Type 2 diabetes mellitus without complications - Unspecified injury of head, initial encounter - Hypomagnesemia - Old myocardial infarction - Allergy to other foods - Personal history of nicotine dependence 07/16/2021 06:28 [facility] [place] TYPE: Emergency COMPLAINT: - WEAKNESS 07/13/2021 13:30 [facility] [place] TYPE: Emergency COMPLAINT: - FALL DIAGNOSES: - Allergy status to other drugs, medicaments and biological substances - Type 2 diabetes mellitus without complications - Allergy to other foods - Personal history of nicotine dependence - jail (current) use of aspirin - Gout, unspecified - jail (current) use of oral hypoglycemic drugs - Old myocardial infarction - Other halfway (current) drug therapy - Atherosclerotic heart disease of koi coronary artery without angina pectoris - Hypomagnesemia - Weakness - Allergy status to penicillin - Encounter for examination and observation following other accident - Essential (primary) hypertension 07/12/2021 23:46 [facility] [place] TYPE: Emergency COMPLAINT: - VOMITING DIAGNOSES: - Other halfway (current) drug therapy - Allergy status to penicillin - Personal history of nicotine dependence - Atherosclerotic heart disease of koi coronary artery without angina pectoris - Old myocardial infarction - utilization review specialist (current) use of oral hypoglycemic drugs - Essential (primary) hypertension - Gout, unspecified - Type 2 diabetes mellitus without complications - Allergy status to other drugs, medicaments and biological substances - Vomiting, unspecified - Allergy to other foods - jail (current) use of aspirin 07/11/2021 22:01 [facility] [place] TYPE: Emergency COMPLAINT: - WEAKNESS DIAGNOSES: - Personal history of nicotine dependence - Acute kidney failure, unspecified - jail (current) use of oral hypoglycemic drugs - Weakness - Allergy to other foods - Type 2 diabetes mellitus without complications - Essential (primary) hypertension - utilization review specialist (current) use of aspirin - Allergy status to other drugs, medicaments and biological substances - Dehydration - Gout, unspecified - Atherosclerotic heart disease of koi coronary artery without angina pectoris - Old myocardial infarction - Other visitor services technician (current) drug therapy - Allergy status to penicillin - Contact with and (suspected) exposure to COVID-19 06/29/2021 17:[address] [facility] [place] TYPE: Emergency COMPLAINT: - R KNEE PAIN DIAGNOSES: - Old myocardial infarction - Gout, unspecified - Type 2 diabetes mellitus without complications - Allergy to other foods - Sprain of unspecified site of right knee, initial encounter - Essential (primary) hypertension - utilization review specialist (current) use of oral hypoglycemic drugs - Allergy status to penicillin - Other halfway (current) drug therapy - Atherosclerotic heart disease of koi coronary artery without angina pectoris - Allergy status to other drugs, medicaments and biological substances - Personal history of nicotine dependence - Pain in right knee - Other and unspecified overexertion or strenuous movements or postures, initial encounter - utilization review specialist (current) use of aspirin Plus 6 More Visits INPATIENT VISIT TRACKING (12 MO.) 10/10/2021 13:21 [facility] [place] TYPE: Medical Surgical COMPLAINT: - ACUTE RENAL FAILURE DIAGNOSES: - Personal history of nicotine dependence - Anxiety disorder, unspecified - Presence of prosthetic heart valve - jail (current) use of oral hypoglycemic drugs - Presence of coronary angioplasty implant and graft - Dehydration - Essential (primary) hypertension - Allergy status to penicillin - Myasthenia gravis without (acute) exacerbation - Acquired absence of other specified parts of digestive tract - Other visitor services technician (current) drug therapy - Depression, unspecified - Contact with and (suspected) exposure to COVID-19 - Type 2 diabetes mellitus without complications - Acute kidney failure, unspecified - Presence of aortocoronary bypass graft - Old myocardial infarction - Gout, unspecified - Allergy to other foods - Atherosclerotic heart disease of koi coronary artery without angina pectoris - Other specified postprocedural states - Other constipation - Unspecified mood [affective] disorder - Allergy status to other drugs, medicaments and biological substances 07/16/2021 12:19 [facility] [place] TYPE: Medical Surgical COMPLAINT: - CHEST PAIN,WEAKNESS,UTI,MYASTHENIA GRAVIS,HYPOMAGE DIAGNOSES: - Acquired absence of other specified parts of digestive tract - Depression, unspecified - Atherosclerotic heart disease of koi coronary artery without angina pectoris - Other visitor services technician (current) drug therapy - Hypertensive encephalopathy - Atherosclerotic heart disease of koi coronary artery without angina pectoris - Nonrheumatic aortic (valve) stenosis - Personal history of nicotine dependence - utilization review specialist (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 of anticoagulants - Hypertensive urgency - Dehydration - jail (current) use of oral hypoglycemic drugs - Other streptococcus as the cause of diseases classified elsewhere - Other specified postprocedural states - Allergy to other foods - Presence of prosthetic heart valve - jail (current) use of aspirin - Acute cystitis without hematuria - Allergy status to penicillin - Presence of coronary angioplasty implant and graft - Myasthenia gravis without (acute) exacerbation - Acute cystitis without hematuria - Other specified postprocedural states - Hypomagnesemia - Type 2 diabetes mellitus without complications - Hypomagnesemia - jail (current) use of oral hypoglycemic drugs - Nonrheumatic aortic (valve) stenosis - Urinary tract infection, site not specified - Presence of aortocoronary bypass graft - Dehydration - DEPRESSION, UNSPECIFIED - Metabolic encephalopathy - Essential (primary) hypertension - jail (current) use of aspirin - Metabolic encephalopathy - Hypertensive encephalopathy - Type 2 diabetes mellitus without complications - Anxiety disorder, unspecified - Functional quadriplegia - Myasthenia gravis without (acute) exacerbation - Other visitor services technician (current) drug therapy - Acquired absence of other specified parts of digestive tract - Presence of coronary angioplasty implant and graft - Functional quadriplegia - Allergy status to other drugs, medicaments and biological substances - Allergy status to other drugs, medicaments and biological substances 06/11/2021 11:[address] [facility] [place] TYPE: Medical Surgical COMPLAINT: - CELLULITIS DIAGNOSES: - Personal history of transient ischemic attack (TIA), and cerebral infarction without residual deficits - utilization review specialist (current) use of aspirin - Presence of coronary angioplasty implant and graft - Depression, unspecified - Personal history of other diseases of the digestive system - Anxiety disorder, unspecified - jail (current) use of insulin - Other specified postprocedural states - Atherosclerotic heart disease of koi coronary artery without angina pectoris - Personal history of other diseases of the digestive system - Type 2 diabetes mellitus with diabetic chronic kidney disease - Allergy status to other drugs, medicaments and biological substances - Cellulitis of right finger - Old myocardial infarction - Other halfway (current) drug therapy - Essential (primary) hypertension - Personal history of nicotine dependence - Presence of aortocoronary bypass graft - Metabolic encephalopathy - Contact with and (suspected) exposure to COVID-19 - utilization review specialist (current) use of insulin - Old myocardial infarction - Chronic kidney disease, unspecified - Personal history of nicotine dependence - Hypertensive chronic kidney disease with stage 1 through stage 4 chronic kidney disease, or unspecified chronic kidney disease - Hypertensive chronic kidney disease with stage 1 through stage 4 chronic kidney disease, or unspecified chronic kidney disease - Type 2 diabetes mellitus with diabetic nephropathy - Personal history of Methicillin resistant Staphylococcus aureus infection - Allergy status to other drugs, medicaments and biological substances - Metabolic encephalopathy - Myasthenia gravis without (acute) exacerbation - Allergy to other foods - DEPRESSION, UNSPECIFIED - Presence of coronary angioplasty implant and graft - Gout, unspecified - Atherosclerotic heart disease of koi coronary artery without angina pectoris - Type 2 diabetes mellitus without complications - Chronic kidney disease, unspecified - Allergy to other foods - Personal history of Methicillin resistant Staphylococcus aureus infection - Other specified postprocedural states - Personal history of transient ischemic attack (TIA), and cerebral infarction without residual deficits - Type 2 diabetes mellitus with diabetic chronic kidney disease - Other visitor services technician (current) drug therapy - Anxiety disorder, unspecified - DEPRESSION, UNSPECIFIED - jail (current) use of aspirin - Presence of aortocoronary bypass graft - Cellulitis of left finger - Gout, unspecified - Type 2 diabetes mellitus with diabetic nephropathy - Myasthenia gravis without (acute) exacerbation [email or web address]
[2021-12-27] MEDS ORDERED: PANTOPRAZOLE SO20 MG PO (15:17)
== END 2021-12-27 17:19 | disposition home or self-care (01) ==
LOC: ED 13:38
DX: K59.00 Constipation, unspecified (principal); I10 Essential (primary) hypertension; E11.9 Type 2 diabetes mellitus without complications; I25.10 Atherosclerotic heart disease of native coronary artery without angina pectoris; I25.2 Old myocardial infarction; Z87.891 Personal history of nicotine dependence; Z88.8 Allergy status to other drugs, medicaments and biological substances; Z91.018 Allergy to other foods; Z88.0 Allergy status to penicillin; Z79.899 Other long term (current) 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; Z79.82 Long term (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
CPT/HCPCS: 74018; 99283-25

== ENCOUNTER 2022-02-25 08:59 | Emergency (ER) | payer MEDICARE, OTHER ==
[~2022-02-25] VITALS: Ht 167.6 cm; Wt 74.7 kg
[~2022-02-25 08:59] MED LIST changes: +PANTOPRAZOLE SO20 MG PO
--- OUTSIDE RECORDS SUMMARY | 2022-02-25 09:05 | XMS ---
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 [employer] Pilot Events No recent Security Events currently on file CRITERIA MET - [facility] - 3 Facilities in 90 Days - 6 ED Visits in 6 Months - [facility] - Has Care Guidelines CARE PROVIDERS CHLOE KINGSTON DPM PHONE: [phone] JORGE LUIS DENG Internal Medicine Current PHONE: [phone] CARLOS SANCHEZ Nurse Practitioner Current PHONE: [phone] PRACHI COSTA Family Medicine 02/15/2021-Current PHONE: Unknown DEE ESPAÑA Nurse Practitioner: Family Current PHONE: Unknown JORGE SOUTH Internal Medicine Current PHONE: [phone] CHRYSTAL REA Nurse Practitioner Current PHONE: [phone] MARIA A VICK I. Physician Consulting Solution Manager Current PHONE: Unknown ELLIOT CARDENAS Nurse Practitioner Current PHONE: Unknown MARQUIS [facility] Current PHONE: [phone] KELLY NUÑEZ Physician Consulting Solution Manager Current PHONE: Unknown NATANAEL [facility] 04/12/2021-Current PHONE: Unknown Shaunna has no Care Guidelines for this patient. Care History Medical/Surgical 07/15/2021 [facility] CHW CALLED PATIENT LIFE [facility]NER INGE-PATIENT WAS NOT ANSWERING HIS PHONE- CONCERNED FOR PATIENT SAFETY AT HOME ALONE DUE TO RECENT FALLS. INGE STATED PATIENT HAS A NEUROLOGIST DR WORTHINGTON AND IS CURRENTLY WAITING FOR A REFERRAL TO PROCESS AT [facility] LOCATION. CHW CALLED [facility]- ASKED FOR AN URGENT FOLLOW UP APT DUE TO RECENT ED VISITS AND CONTINUED FALLS. THEY HAD PATIENT WAITING FOR AN AUTH. I HAD STATED MEDICARE PATIENT AN AUTH IS NOT NEEDED. THEY QUICKLY SENT FOR MD REVIEW. INGE CONTACTED CHW-STATED THEY HAD AN APT SCHEDULED WITH NEUROLOGIST DR WORTHINGTON 07/20/21 IN [place] AND INGE WILL TAKE THE PATIENT FOR [...] AND AGREES. NEUROLOGIST- DR WORTHINGTON CONTACT NUMBER [phone] 04/12/2021 [facility] - PATIENT RECENTLY DISCHARGED FROM [facility] . 02/16/2021 [facility] - PATIENT IS CURRENTLY RECEIVING HOME HEALTH SERVICES THRU [facility]. PLEASE CONTACT HOME HEALTH AGENCY IF PATIENT IS SEEN IN THE ED. - PER REQUEST OF PATIENT- SENDING RECENT ED CHART NOTES TO [facility]. E.D. VISIT COUNT (12 MO.) 1 [facility] 1 [facility] 24 [facility] TOTAL 26 NOTE: Visits indicate total known visits. ED/UCC VISIT TRACKING (12 MO.) 02/25/2022 08:59 [facility] [place] TYPE: Emergency COMPLAINT: - ABD PAIN 01/12/2022 06:38 [facility] [place] TYPE: Emergency COMPLAINT: - FALL, L LEG/HIP PAIN/INJURY DIAGNOSES: - Hydrocephalus, unspecified - Essential (primary) hypertension - Allergy status to penicillin - Fall from bed, initial encounter - Presence of prosthetic heart valve - Atherosclerotic heart disease of tangirnaq coronary artery without angina pectoris - director long term care (current) use of aspirin - Other fpc (current) drug therapy - Allergy status to other drugs, medicaments and biological substances - Allergy to other foods - Type 2 diabetes mellitus without complications - Pain in right hip - Personal history of nicotine dependence - Pain in right knee 12/29/2021 14:37 [facility] [place] TYPE: Emergency DIAGNOSES: - CONSTIPATED - Constipation, unspecified 12/27/2021 13:39 [facility] TYPE: Emergency COMPLAINT: - CONSTIPATION DIAGNOSES: - Constipation, unspecified - Personal history of nicotine dependence - Atherosclerotic heart disease of tangirnaq coronary artery without angina pectoris - Allergy status to other drugs, medicaments and biological substances - Type 2 diabetes mellitus without complications - Other fpc (current) drug therapy - Old myocardial infarction - USP (current) use of aspirin - Essential (primary) hypertension - Allergy to other foods - Allergy status to penicillin 12/27/2021 11:32 [facility] TYPE: Emergency COMPLAINT: - CONSTIPATION 12/20/2021 15:34 [facility] TYPE: Emergency DIAGNOSES: - Constipation, unspecified - constipation 12/20/2021 12:54 [facility] TYPE: Emergency COMPLAINT: - CONSTIPATION 12/13/2021 16:39 [facility] TYPE: Emergency COMPLAINT: - DIZZINESS DIAGNOSES: - Personal history of nicotine dependence - Syncope and collapse - Type 2 diabetes mellitus without complications - Allergy to other foods - Allergy status to other drugs, medicaments and biological substances - Atherosclerotic heart disease of tangirnaq coronary artery without angina pectoris - Old myocardial infarction - Myasthenia gravis without (acute) exacerbation - Allergy status to penicillin - Presence of prosthetic heart valve - Essential (primary) hypertension - Presence of aortocoronary bypass graft - Weakness 12/11/2021 19:21 [facility] TYPE: Emergency COMPLAINT: - VOMITING DIAGNOSES: - Type 2 diabetes mellitus without complications - Old myocardial infarction - USP (current) use of aspirin - Presence of prosthetic heart valve - Presence of aortocoronary bypass graft - Weakness - Personal history of nicotine dependence - Allergy status to penicillin - Personal history of transient ischemic attack (TIA), and cerebral infarction without residual deficits - Other director long term care (current) drug therapy - Dehydration - Atherosclerotic heart disease of tangirnaq coronary artery without angina pectoris - Allergy status to other drugs, medicaments and biological substances - Essential (primary) hypertension 10/08/2021 19:56 [facility] [place] TYPE: Emergency COMPLAINT: - WEAKNESS 09/21/2021 06:57 [facility] [place] TYPE: Emergency COMPLAINT: - WEAKNESS DIAGNOSES: - Atherosclerotic heart disease of tangirnaq coronary artery without angina pectoris - Essential (primary) hypertension - Other director long term care (current) drug therapy - director long term care (current) use of oral hypoglycemic drugs - Weakness - USP (current) use of aspirin - Personal history of nicotine dependence - Myasthenia gravis without (acute) exacerbation - Allergy to other foods - Type 2 diabetes mellitus without complications - Old myocardial infarction - Allergy status to penicillin - Gout, unspecified - Allergy status to other drugs, medicaments and biological substances 09/16/2021 12:59 [facility] [place] TYPE: Emergency COMPLAINT: - WEAKNESS DIAGNOSES: - Weakness - Old myocardial infarction - Atherosclerotic heart disease of tangirnaq coronary artery without angina pectoris - Gout, unspecified - USP (current) use of oral hypoglycemic drugs - Other director long term care (current) drug therapy - Allergy to other foods - director long term care (current) use of aspirin - Allergy status to other drugs, medicaments and biological substances - Allergy status to penicillin - Personal history of nicotine dependence - Essential (primary) hypertension - Type 2 diabetes mellitus without complications 09/12/2021 05:51 [facility] [place] TYPE: Emergency COMPLAINT: - WEAKNESS DIAGNOSES: - Gout, unspecified - Atherosclerotic heart disease of tangirnaq coronary artery without angina pectoris - Allergy status to other drugs, medicaments and biological substances - director long term care (current) use of aspirin - Allergy to other foods - Weakness - Dysuria - Essential (primary) hypertension - Personal history of nicotine dependence - Allergy status to penicillin - Type 2 diabetes mellitus without complications - Other director long term care (current) drug therapy - USP (current) use of oral hypoglycemic drugs 09/10/2021 06:18 [facility] [place] TYPE: Emergency COMPLAINT: - WEAKNESS DIAGNOSES: - Weakness - Personal history of nicotine dependence - Contact with and (suspected) exposure to COVID-19 - Atherosclerotic heart disease of tangirnaq coronary artery without angina pectoris - Gout, unspecified - Old myocardial infarction - USP (current) use of oral hypoglycemic drugs - USP (current) use of aspirin - Type 2 diabetes mellitus without complications - Allergy status to penicillin - Allergy to other foods - Essential (primary) hypertension - Allergy status to other drugs, medicaments and biological substances - Other director long term care (current) drug therapy 09/05/2021 06:33 [facility] [place] TYPE: Emergency COMPLAINT: - URINE PROBLEMS DIAGNOSES: - Weakness - USP (current) use of aspirin - Allergy status to other drugs, medicaments and biological substances - Atherosclerotic heart disease of tangirnaq coronary artery without angina pectoris - Allergy status to penicillin - Personal history of nicotine dependence - Gout, unspecified - Other director long term care (current) drug therapy - Old myocardial infarction - Allergy to other foods - Type 2 diabetes mellitus without complications - Essential (primary) hypertension - USP (current) use of oral hypoglycemic drugs - Retention of urine, unspecified 09/03/2021 06:47 [facility] [place] TYPE: Emergency COMPLAINT: - WEAKNESS DIAGNOSES: - Atherosclerotic heart disease of tangirnaq coronary artery without angina pectoris - Other director long term care (current) drug therapy - Weakness - Essential (primary) hypertension - Old myocardial infarction - Gout, unspecified - Myasthenia gravis without (acute) exacerbation - Personal history of nicotine dependence - Allergy to other foods - USP (current) use of oral hypoglycemic drugs - Allergy status to penicillin - Type 2 diabetes mellitus without complications - Allergy status to other drugs, medicaments and biological substances 08/28/2021 19:13 [facility] [place] TYPE: Emergency COMPLAINT: - WEAKNESS DIAGNOSES: - Allergy status to penicillin - director long term care (current) use of aspirin - Weakness - Essential (primary) hypertension - Gout, unspecified - Personal history of nicotine dependence - Old myocardial infarction - Type 2 diabetes mellitus without complications - Atherosclerotic heart disease of tangirnaq coronary artery without angina pectoris - director long term care (current) use of oral hypoglycemic drugs - Other director long term care (current) drug therapy - Allergy status to other drugs, medicaments and biological substances - Allergy to other foods 08/07/2021 12:53 [facility] [place] TYPE: Emergency COMPLAINT: - FALL DIAGNOSES: - Personal history of nicotine dependence - Gout, unspecified - USP (current) use of oral hypoglycemic drugs - director long term care (current) use of aspirin - Other fpc (current) drug therapy - Allergy status to penicillin - Essential (primary) hypertension - Atherosclerotic heart disease of tangirnaq coronary artery without angina pectoris - Allergy status to other drugs, medicaments and biological substances - Fall on same level from slipping, tripping and stumbling with subsequent striking against unspecified object, initial encounter - Type 2 diabetes mellitus without complications - Unspecified injury of head, initial encounter - Hypomagnesemia - Old myocardial infarction - Allergy to other foods 07/16/2021 06:28 [facility] [place] TYPE: Emergency COMPLAINT: - WEAKNESS 07/13/2021 13:30 [facility] [place] TYPE: Emergency COMPLAINT: - FALL DIAGNOSES: - Essential (primary) hypertension - Allergy status to other drugs, medicaments and biological substances - Type 2 diabetes mellitus without complications - Allergy to other foods - Personal history of nicotine dependence - USP (current) use of aspirin - Gout, unspecified - director long term care (current) use of oral hypoglycemic drugs - Old myocardial infarction - Other director long term care (current) drug therapy - Atherosclerotic heart disease of tangirnaq coronary artery without angina pectoris - Hypomagnesemia - Weakness - Allergy status to penicillin - Encounter for examination and observation following other accident Plus 6 More Visits INPATIENT VISIT TRACKING (12 MO.) 10/10/2021 13:21 [facility] [place] TYPE: Medical Surgical COMPLAINT: - ACUTE RENAL FAILURE DIAGNOSES: - Allergy status to other drugs, medicaments and biological substances - Anxiety disorder, unspecified - Personal history of nicotine dependence - director long term care (current) use of oral hypoglycemic drugs - Presence of prosthetic heart valve - Presence of coronary angioplasty implant and graft - Essential (primary) hypertension - Dehydration - Allergy status to penicillin - Acquired absence of other specified parts of digestive tract - Myasthenia gravis without (acute) exacerbation - Other director long term care (current) drug therapy - Contact with and (suspected) exposure to COVID-19 - Depression, unspecified - Type 2 diabetes mellitus without complications - Acute kidney failure, unspecified - Old myocardial infarction - Presence of aortocoronary bypass graft - Gout, unspecified - Atherosclerotic heart disease of tangirnaq coronary artery without angina pectoris - Allergy to other foods - Other specified postprocedural states - Unspecified mood [affective] disorder - Other constipation 07/16/2021 12:19 [facility] TYPE: Medical Surgical COMPLAINT: - CHEST PAIN,WEAKNESS,UTI,MYASTHENIA GRAVIS,HYPOMAGE DIAGNOSES: - Allergy status to other drugs, medicaments and biological substances - Allergy status to other drugs, medicaments and biological substances - Functional quadriplegia - Depression, unspecified - Atherosclerotic heart disease of tangirnaq coronary artery without angina pectoris - Acquired absence of other specified parts of digestive tract - Hypertensive encephalopathy - Atherosclerotic heart disease of tangirnaq coronary artery without angina pectoris - Other fpc (current) drug therapy - Personal history of nicotine dependence - director long term care (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 of anticoagulants - Nonrheumatic aortic (valve) stenosis - Dehydration - USP (current) use of oral hypoglycemic drugs - Hypertensive urgency - Other specified postprocedural states - Allergy to other foods - Other streptococcus as the cause of diseases classified elsewhere - USP (current) use of aspirin - Acute cystitis without hematuria - Presence of prosthetic heart valve - Presence of coronary angioplasty implant and graft - Myasthenia gravis without (acute) exacerbation - Allergy status to penicillin - Other specified postprocedural states - Hypomagnesemia - Acute cystitis without hematuria - Hypomagnesemia - USP (current) use of oral hypoglycemic drugs - Type 2 diabetes mellitus without complications - Nonrheumatic aortic (valve) stenosis - Urinary tract infection, site not specified - Dehydration - DEPRESSION, UNSPECIFIED - Presence of aortocoronary bypass graft - Essential (primary) hypertension - USP (current) use of aspirin - Metabolic encephalopathy - Hypertensive encephalopathy - Type 2 diabetes mellitus without complications - Metabolic encephalopathy - Functional quadriplegia - Myasthenia gravis without (acute) exacerbation - Anxiety disorder, unspecified - Acquired absence of other specified parts of digestive tract - Presence of coronary angioplasty implant and graft - Other fpc (current) drug therapy 06/11/2021 11:[address] [facility] [place] TYPE: Medical Surgical COMPLAINT: - CELLULITIS DIAGNOSES: - Type 2 diabetes mellitus with diabetic nephropathy - Myasthenia gravis without (acute) exacerbation - Gout, unspecified - director long term care (current) use of aspirin - Presence of coronary angioplasty implant and graft - Depression, unspecified - Personal history of transient ischemic attack (TIA), and cerebral infarction without residual deficits - Anxiety disorder, unspecified - USP (current) use of insulin - Personal history of other diseases of the digestive system - Atherosclerotic heart disease of tangirnaq coronary artery without angina pectoris - Personal history of other diseases of the digestive system - Other specified postprocedural states - Allergy status to other drugs, medicaments and biological substances - Cellulitis of right finger - Type 2 diabetes mellitus with diabetic chronic kidney disease - Other director long term care (current) drug therapy - Essential (primary) hypertension - Old myocardial infarction - Presence of aortocoronary bypass graft - Metabolic encephalopathy - Contact with and (suspected) exposure to COVID-19 - Personal history of nicotine dependence - Old myocardial infarction - Chronic kidney disease, unspecified - USP (current) use of insulin - Hypertensive chronic kidney disease with stage [...] and biological substances - Metabolic encephalopathy - Personal history of Methicillin resistant Staphylococcus aureus infection - Myasthenia gravis without (acute) exacerbation - Allergy to other foods - DEPRESSION, UNSPECIFIED - Gout, unspecified - Atherosclerotic heart disease of tangirnaq coronary artery without angina pectoris - Presence of coronary angioplasty implant and graft - Chronic kidney disease, unspecified - Allergy to other foods - Type 2 diabetes mellitus without complications - Other specified postprocedural states - Personal history of transient ischemic attack (TIA), and cerebral infarction without residual deficits - Personal history of Methicillin resistant Staphylococcus aureus infection - Other director long term care (current) drug therapy - Anxiety disorder, unspecified - Type 2 diabetes mellitus with diabetic chronic kidney disease - director long term care (current) use of aspirin - Presence of aortocoronary bypass graft - Cellulitis of left finger - DEPRESSION, UNSPECIFIED [email or web address]
[2022-02-25] MEDS ORDERED: ABACAVIR-LAMIV1 EAC1 PO (10:13)
[2022-02-25] MEDS ORDERED: PROZAC40 MG PO (10:14)
[2022-02-25] MEDS ORDERED: TIVICAY50 MG PO (10:15)
== END 2022-02-25 11:28 | disposition home or self-care (01) ==
LOC: ED 08:59
DX: K56.41 Fecal impaction (principal); I10 Essential (primary) hypertension; E11.9 Type 2 diabetes mellitus without complications; I25.10 Atherosclerotic heart disease of native coronary artery without angina pectoris; I25.2 Old myocardial infarction; Z87.891 Personal history of nicotine dependence; Z88.8 Allergy status to other drugs, medicaments and biological substances; Z91.018 Allergy to other foods; Z88.0 Allergy status to penicillin; Z79.899 Other long term (current) 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; Z79.82 Long term (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
CPT/HCPCS: 36415; 80053; 81001; 83690; 83735; 85025; 99284

== ENCOUNTER 2022-05-01 08:28 | Emergency (ER) | payer MEDICARE, OTHER ==
[~2022-05-01] VITALS: Ht 167.6 cm; Wt 87.1 kg
[~2022-05-01 08:28] MED LIST changes: +ABACAVIR-LAMIV1 EAC1 PO; +TIVICAY50 MG PO
--- OUTSIDE RECORDS SUMMARY | 2022-05-01 08:34 | XMS ---
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 [employer] Man Events No recent Security Events currently on file CRITERIA MET - [facility] - 6 ED Visits in 6 Months CARE PROVIDERS CHLOE KINGSTON Tobacco Scrap Sifterbob Simon PHONE: [phone] JORGE LUIS DENG Internal Medicine Current PHONE: [phone] CARLOS SANCHEZ Nurse Practitioner Current PHONE: [phone] PRACHI COSTA Family Medicine 02/15/2021-Current PHONE: Unknown DEE ESPAÑA Nurse Practitioner: Family Current PHONE: Unknown JORGE SOUTH Internal Medicine Current PHONE: [phone] CHRYSTAL REA Nurse Practitioner Current PHONE: [phone] MARIA A VICK I. Physician Fruit Shipper Current PHONE: Unknown ELLIOT CARDENAS Nurse Practitioner Current PHONE: Unknown MARQUIS [facility] Current PHONE: [phone] KELLY NUÑEZ Physician Fruit Shipper Current PHONE[facility] PHONE: Unknown Shaunna has no Care Guidelines for this patient. Care History Medical/Surgical 07/15/2021 [facility] CHW CALLED PATIENT LIFE PARTNER INGE-PATIENT WAS NOT ANSWERING HIS PHONE- CONCERNED FOR PATIENT SAFETY AT HOME ALONE DUE TO RECENT FALLS. INGE STATED PATIENT HAS A NEUROLOGIST DR WORTHINGTON AND IS CURRENTLY WAITING FOR A REFERRAL TO PROCESS AT [facility] LOCATION. CHW CALLED [facility]- ASKED FOR AN URGENT FOLLOW UP APT DUE TO RECENT ED VISITS AND CONTINUED FALLS. THEY HAD PATIENT WAITING FOR AN AUTH. I HAD STATED MEDICARE PATIENT AN AUTH IS NOT NEEDED. THEY QUICKLY SENT FOR MD REVIEW. INGE CONTACTED CHW-STATED THEY HAD AN APT SCHEDULED WITH NEUROLOGIST DR WORTHINGTON 07/20/21 IN [place] AND INGE WILL TAKE THE PATIENT FOR [...] AND AGREES. NEUROLOGIST- DR WORTHINGTON CONTACT NUMBER [phone] 04/12/2021 [facility] - PATIENT RECENTLY DISCHARGED FROM [facility] . 02/16/2021 [facility] - PATIENT IS CURRENTLY RECEIVING HOME HEALTH SERVICES THRU [facility]. PLEASE CONTACT HOME HEALTH AGENCY IF PATIENT IS SEEN IN THE ED. - PER REQUEST OF PATIENT- SENDING RECENT ED CHART NOTES TO [facility]. E.D. VISIT COUNT (12 MO.) 1 [facility] 1 [facility] 23 [facility] TOTAL 25 NOTE: Visits indicate total known visits. 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 - Atherosclerotic heart disease of andreafski coronary artery without angina pectoris - Old myocardial infarction - Fecal impaction - Personal history of nicotine dependence - Allergy status to penicillin 01/12/2022 06:38 [facility] [place] TYPE: Emergency COMPLAINT: - FALL, L LEG/HIP PAIN/INJURY DIAGNOSES: - Fall from bed, initial encounter - Presence of prosthetic heart valve - Atherosclerotic heart disease of andreafski coronary artery without angina pectoris - group home (current) use of aspirin - Other half-way (current) drug therapy - Allergy status to other drugs, medicaments and biological substances - Allergy to other foods - Type 2 diabetes mellitus without complications - Pain in right hip - Personal history of nicotine dependence - Pain in right knee - Hydrocephalus, unspecified - Essential (primary) hypertension - Allergy status to penicillin 12/29/2021 14:37 [facility] [place] TYPE: Emergency DIAGNOSES: - Constipation, unspecified - CONSTIPATED 12/27/2021 13:39 [facility] [place] TYPE: Emergency COMPLAINT: - CONSTIPATION DIAGNOSES: - Allergy status to other drugs, medicaments and biological substances - Type 2 diabetes mellitus without complications - Other half-way (current) drug therapy - Old myocardial infarction - group home (current) use of aspirin - Essential (primary) hypertension - Allergy to other foods - Allergy status to penicillin - Constipation, unspecified - Personal history of nicotine dependence - Atherosclerotic heart disease of andreafski coronary artery without angina pectoris 12/27/2021 11:32 [facility] [place] TYPE: Emergency COMPLAINT: - CONSTIPATION 12/20/2021 15:34 [facility] TYPE: Emergency DIAGNOSES: - constipation - Constipation, unspecified 12/20/2021 12:54 [facility] [place] TYPE: Emergency COMPLAINT: - CONSTIPATION 12/13/2021 16:39 [facility] [place] TYPE: Emergency COMPLAINT: - DIZZINESS DIAGNOSES: - Allergy to other foods - Allergy status to other drugs, medicaments and biological substances - Atherosclerotic heart disease of andreafski coronary artery without angina pectoris - Old myocardial infarction - Myasthenia gravis without (acute) exacerbation - Allergy status to penicillin - Presence of prosthetic heart valve - Essential (primary) hypertension - Presence of aortocoronary bypass graft - Weakness - Personal history of nicotine dependence - Syncope and collapse - Type 2 diabetes mellitus without complications 12/11/2021 19:21 [facility] [place] TYPE: Emergency COMPLAINT: - VOMITING DIAGNOSES: - Presence of prosthetic heart valve - Presence of aortocoronary bypass graft - Weakness - Personal history of nicotine dependence - Allergy status to penicillin - Personal history of transient ischemic attack (TIA), and cerebral infarction without residual deficits - Other half-way (current) drug therapy - Dehydration - Atherosclerotic heart disease of andreafski coronary artery without angina pectoris - Allergy status to other drugs, medicaments and biological substances - Essential (primary) hypertension - Type 2 diabetes mellitus without complications - Old myocardial infarction - group home (current) use of aspirin 10/08/2021 19:56 [facility] [place] TYPE: Emergency COMPLAINT: - WEAKNESS 09/21/2021 06:57 [facility] [place] TYPE: Emergency COMPLAINT: - WEAKNESS DIAGNOSES: - intermodal customer service (current) use of oral hypoglycemic drugs - Weakness - group home (current) use of aspirin - Personal history of nicotine dependence - Myasthenia gravis without (acute) exacerbation - Allergy to other foods - Type 2 diabetes mellitus without complications - Old myocardial infarction - Allergy status to penicillin - Gout, unspecified - Allergy status to other drugs, medicaments and biological substances - Atherosclerotic heart disease of andreafski coronary artery without angina pectoris - Essential (primary) hypertension - Other half-way (current) drug therapy 09/16/2021 12:59 [facility] [place] TYPE: Emergency COMPLAINT: - WEAKNESS DIAGNOSES: - Gout, unspecified - group home (current) use of oral hypoglycemic drugs - 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 - Allergy to other foods - intermodal customer service (current) use of aspirin - Allergy status to other drugs, medicaments and biological substances - Allergy status to penicillin - Personal history of nicotine dependence - Essential (primary) hypertension - Type 2 diabetes mellitus without complications - Weakness - Old myocardial infarction - Atherosclerotic heart disease of andreafski coronary artery without angina pectoris 09/12/2021 05:51 [facility] [place] TYPE: Emergency COMPLAINT: - WEAKNESS DIAGNOSES: - group home (current) use of aspirin - Allergy to other foods - Weakness - Dysuria - Essential (primary) hypertension - Personal history of nicotine dependence - Allergy status to penicillin - Type 2 diabetes mellitus without complications - 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 - intermodal customer service (current) use of oral hypoglycemic drugs - Gout, unspecified - Atherosclerotic heart disease of andreafski coronary artery without angina pectoris - Allergy status to other drugs, medicaments and biological substances 09/10/2021 06:18 [facility] [place] TYPE: Emergency COMPLAINT: - WEAKNESS DIAGNOSES: - Atherosclerotic heart disease of andreafski coronary artery without angina pectoris - Gout, unspecified - Old myocardial infarction - intermodal customer service (current) use of oral hypoglycemic drugs - group home (current) use of aspirin - Type 2 diabetes mellitus without complications - Allergy status to penicillin - Allergy to other foods - Essential (primary) hypertension - Allergy status to other drugs, medicaments and biological substances - 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 - Weakness - Personal history of nicotine dependence - Contact with and (suspected) exposure to COVID-19 09/05/2021 06:33 [facility] [place] TYPE: Emergency COMPLAINT: - URINE PROBLEMS DIAGNOSES: - Atherosclerotic heart disease of andreafski coronary artery without angina pectoris - Allergy status to penicillin - Personal history of nicotine dependence - Gout, unspecified - Other half-way (current) drug therapy - Old myocardial infarction - Allergy to other foods - Type 2 diabetes mellitus without complications - Essential (primary) hypertension - group home (current) use of oral hypoglycemic drugs - Retention of urine, unspecified - Weakness - intermodal customer service (current) use of aspirin - Allergy status to other drugs, medicaments and biological substances 09/03/2021 06:47 [facility] [place] TYPE: Emergency COMPLAINT: - WEAKNESS DIAGNOSES: - Essential (primary) hypertension - Old myocardial infarction - Gout, unspecified - Myasthenia gravis without (acute) exacerbation - Personal history of nicotine dependence - Allergy to other foods - intermodal customer service (current) use of oral hypoglycemic drugs - Allergy status to penicillin - Type 2 diabetes mellitus without complications - Allergy status to other drugs, medicaments and biological substances - Atherosclerotic heart disease of andreafski coronary artery without angina pectoris - Other half-way (current) drug therapy - Weakness 08/28/2021 19:13 [facility] [place] TYPE: Emergency COMPLAINT: - WEAKNESS DIAGNOSES: - Essential (primary) hypertension - Gout, unspecified - Personal history of nicotine dependence - Old myocardial infarction - Type 2 diabetes mellitus without complications - Atherosclerotic heart disease of andreafski coronary artery without angina pectoris - group home (current) use of oral hypoglycemic drugs - 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 - Allergy status to other drugs, medicaments and biological substances - Allergy to other foods - Allergy status to penicillin - group home (current) use of aspirin - Weakness 08/07/2021 12:53 [facility] TYPE: Emergency COMPLAINT: - FALL DIAGNOSES: - 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 - Allergy status to penicillin - Essential (primary) hypertension - Atherosclerotic heart disease of andreafski coronary artery without angina pectoris - Allergy [...] of nicotine dependence - Gout, unspecified - intermodal customer service (current) use of oral hypoglycemic drugs - intermodal customer service (current) use of aspirin 07/16/2021 06:28 [facility] TYPE: Emergency COMPLAINT: - WEAKNESS Plus 5 More Visits INPATIENT VISIT TRACKING (12 MO.) 10/10/2021 13:21 [facility] TYPE: Medical Surgical COMPLAINT: - ACUTE RENAL FAILURE DIAGNOSES: - Dehydration - Essential (primary) hypertension - Allergy status to penicillin - Myasthenia gravis without (acute) exacerbation - Acquired absence of other specified parts of digestive tract - 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 - Depression, unspecified - Contact with and (suspected) exposure to COVID-19 - Type 2 diabetes mellitus without complications - Acute kidney failure, unspecified - Presence of aortocoronary bypass graft - Old myocardial infarction - Gout, unspecified - Allergy to other foods - Atherosclerotic heart disease of andreafski coronary artery without angina pectoris - Other specified postprocedural states - Other constipation - Unspecified mood [affective] disorder - Allergy status to other drugs, medicaments and biological substances - Personal history of nicotine dependence - Anxiety disorder, unspecified - Presence of prosthetic heart valve - group home (current) use of oral hypoglycemic drugs - Presence of coronary angioplasty implant and graft 07/16/2021 12:[address] [facility] [place] TYPE: Medical Surgical COMPLAINT: - CHEST PAIN,WEAKNESS,UTI,MYASTHENIA GRAVIS,HYPOMAGE DIAGNOSES: - Hypertensive urgency - Dehydration - group home (current) use of oral hypoglycemic drugs - Other streptococcus as the cause of diseases classified elsewhere - Other specified postprocedural states - Allergy to other foods - Presence of prosthetic heart valve - intermodal customer service (current) use of aspirin - Acute cystitis without hematuria - Allergy status to penicillin - Presence of coronary angioplasty implant and graft - Myasthenia gravis without (acute) exacerbation - Acute cystitis without hematuria - Other specified postprocedural states - Hypomagnesemia - Type 2 diabetes mellitus without complications - Hypomagnesemia - intermodal customer service (current) use of oral hypoglycemic drugs - Nonrheumatic aortic (valve) stenosis - Urinary tract infection, site not specified - Presence of aortocoronary bypass graft - Dehydration - DEPRESSION, UNSPECIFIED - intermodal customer service (current) use of aspirin - Metabolic encephalopathy - Essential (primary) hypertension - Metabolic encephalopathy - Hypertensive encephalopathy - Type 2 diabetes mellitus without complications - Anxiety disorder, unspecified - Functional quadriplegia - Myasthenia gravis without (acute) exacerbation - 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 - Acquired absence of other specified parts of digestive tract - Presence of coronary angioplasty implant and graft - Functional quadriplegia - Allergy status to other drugs, medicaments and biological substances - Allergy status to other drugs, medicaments and biological substances - Acquired absence of other specified parts of digestive tract - Depression, unspecified - Atherosclerotic heart disease of andreafski coronary artery without angina pectoris - 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 - Essential (primary) hypertension - Contact with and (suspected) exposure to COVID-19 - Personal history of nicotine dependence - Presence of aortocoronary bypass graft - Metabolic encephalopathy - group home (current) use of insulin - Old myocardial infarction - Chronic kidney disease, unspecified - Type 2 diabetes mellitus with diabetic nephropathy - Personal history of nicotine dependence - Hypertensive chronic kidney disease with stage 1 through stage 4 chronic kidney disease, or unspecified chronic kidney disease - Hypertensive chronic kidney disease with stage 1 through stage 4 chronic kidney disease, or unspecified chronic kidney disease - Personal history of Methicillin resistant Staphylococcus aureus infection - Allergy status to other drugs, medicaments and biological substances - Metabolic encephalopathy - DEPRESSION, UNSPECIFIED - Myasthenia gravis without (acute) exacerbation - Allergy to other foods - Presence of coronary angioplasty implant and graft - Gout, unspecified - Atherosclerotic heart disease of andreafski coronary artery without angina pectoris - Allergy to other foods - Type 2 diabetes mellitus without complications - Chronic kidney disease, unspecified - Personal history of Methicillin resistant Staphylococcus aureus infection - Other specified postprocedural states - Personal history of transient ischemic attack (TIA), and cerebral infarction without residual deficits - Type 2 diabetes mellitus with diabetic chronic kidney disease - 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 - Anxiety disorder, unspecified - Cellulitis of left finger - DEPRESSION, UNSPECIFIED - intermodal customer service (current) use of aspirin - Presence of aortocoronary bypass graft - Gout, unspecified - Type 2 diabetes mellitus with diabetic nephropathy - Myasthenia gravis without (acute) exacerbation - Depression, unspecified - Personal history of transient ischemic attack (TIA), and cerebral infarction without residual deficits - intermodal customer service (current) use of aspirin - Presence of coronary angioplasty implant and graft - Personal history of other diseases of the digestive system - Anxiety disorder, unspecified - group home (current) use of insulin - Personal history of other diseases of the digestive system - Other specified postprocedural states - Atherosclerotic heart disease of andreafski coronary artery without angina pectoris [email or web address]
== END 2022-05-01 11:35 | disposition home or self-care (01) ==
LOC: ED 08:28
DX: S70.02XA Contusion of left hip, initial encounter (principal); S70.12XA Contusion of left thigh, initial encounter; I10 Essential (primary) hypertension; E11.9 Type 2 diabetes mellitus without complications; I25.10 Atherosclerotic heart disease of native coronary artery without angina pectoris; I25.2 Old myocardial infarction; M10.9 Gout, unspecified; Z87.891 Personal history of nicotine dependence; Z88.8 Allergy status to other drugs, medicaments and biological substances; Z88.0 Allergy status to penicillin; Z79.899 Other long term (current) 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; Z79.84 Long term (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 drugs; Z79.82 Long term (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; W05.0XXA Fall from non-moving wheelchair, initial encounter
CPT/HCPCS: 73502; 99283-25

== ENCOUNTER 2024-06-10 00:24 | Inpatient (IN) | payer MEDICARE, OTHER ==
[2024-06-10] VITALS (10 sets, daily range): BP systolic 152–182; BP diastolic 77–99
[~2024-06-10] VITALS: Ht 167.6 cm; Wt 95.4 kg
[2024-06-10] MEDS ORDERED: IBLOOD GLUCOSE TEST STRIP 1 EA TEST XX ONE (00:30)
[2024-06-10 00:54] LABS: INR 0.89 (0.80-1.30)
[2024-06-10 00:56] LABS: PARTIAL THROMBOPLASTIN TIME 25.3 Sec (22.9-41.3)
[2024-06-10 01:14] LABS: BASOPHILS 0.9 % (0-2); EOSINOPHILS 2.5 % (0-6); HEMATOCRIT 44.4 % (35.0-50.0); HEMOGLOBIN 15.3 g/dL (12.0-18.0); LYMPHOCYTES 22.8 % (24-44); MCH 35.1 (27-36); MCHC 34.5 g/dl (30-36); MCV 101.7 fl (81-99); MONOCYTES 11.7 % (0-12); NEUTROPHILS 62.1 % (39-80); PLATELET COUNT 192 K/uL (140-440); RBC 4.37 M/ul (4.3-5.7)
[2024-06-10] MEDS ORDERED: CLOPIDOGREL BISULFATE 75 MG TAB PO ONE (01:30)
[2024-06-10 01:35] LABS: ALBUMIN 3.5 g/dL (3.4-5.0); ALBUMIN/GLOBULIN RATIO 0.83 (1.1-2.4); ANION GAP 12.3 (7-21); BILIRUBIN, TOTAL 0.4 ng/dL (0.2-1.0); BUN/CREATININE RATIO 12.14 (6.0-28.6); CALCIUM 9.2 mg/dL (8.5-10.1); CREATININE, SERUM 2.8 mg/dL (0.70-1.30); POTASSIUM 4.3 mmol/L (3.5-5.1); PROTEIN, TOTAL 7.7 g/dL (6.4-8.2)
[2024-06-10] MEDS ORDERED: HUMALOG100 UNIT/2 SUB-Q (01:37)
[2024-06-10] MEDS ORDERED: LANTUS SOL100 UNIT/1 SUB-Q (01:37)
[2024-06-10 03:43] LABS: AMPHETAMINES, URINE NEGATIVE (NEGATIVE); BARBITURATES, URINE NEGATIVE (NEGATIVE); BENZODIAZEPINE, URINE NEGATIVE (NEGATIVE); BUPRENORPHINE, URINE NEGATIVE (NEGATIVE); CANNABINOID, URINE NEGATIVE (NEGATIVE); COCAINE, URINE NEGATIVE (NEGATIVE); ECSTASY, URINE NEGATIVE (NEGATIVE); FENTANYL, URINE NEGATIVE (NEGATIVE); METHADONE, URINE NEGATIVE (NEGATIVE); OPIATES, URINE NEGATIVE (NEGATIVE); OXYCODONE, URINE NEGATIVE (NEGATIVE); PHENCYCLIDINE, URINE NEGATIVE (NEGATIVE)
--- NOTE | 2024-06-10 04:11 | NUR ---
PT TO FLOOR APPROX [id number] WITH ED RN VIA STRETCHER. ALERT AND ORINETED. PT ABLE TO TRANSFER SELF WITH 2PA AND CANES FROM STRETCHER TO BED. PT ALERT AND ORIENTED X 3. BEDSIDE REPORT RECEIVED. VS AND WEIGHT OBTAINED. PT INCONTINENT OF LARGE AMOUNT OF URINE. TUTU CARE DONE. PT INCONTINENT AT BASELINE, MALE PUREWICK PLACED. ADMISSION ASSESSMENT COMPLETE. RIGHT SIDE WEAKNESS, RIGHT FACIAL DROOP, AND SLURRED SPEECH NOTED. PT DENIES PAIN OR NAUSEA. DENIES VISUAL DISTURBANCES. NO SWALLOWING ISSUES NOTED. TELE #7 PLACED. SR. HR 70'S. PT DENIES QUESTIONS OR CONCERNS. TO STAY THE NIGHT, LINENS PROVIDED. PT ORIENTED TO ROOM AND NURSE CALL LIGHT. NO FURTHER NEEDS. BED ALARM IN PLACE.
--- NOTE | 2024-06-10 06:28 | NUR ---
PT AWAKE IN BED. VS AND I&O OBTAINED. PT DENIES PAIN OR NAUSEA. NEURO ASSESSMENT UNCHANGED. MRI SCREENING COMPLETE. NO NEEDS AT THIS TIME. BED ALARM FOR SAFETY. CALL LIGHT IN REACH.
[2024-06-10] MEDS ORDERED: SODIUM CHLORIDE 0.9% 1,000 ML IV SCH (07:30)
--- NOTE | 2024-06-10 07:47 | NUR ---
REPORT RECEIVED FROM NINOSKA MCPHERSON. PT AND RESTING
[2024-06-10] MEDS ORDERED: ASPIRIN 81 MG CHEW PO SCH (08:00)
--- NOTE | 2024-06-10 08:24 | NUR ---
BLOOD SUGAR CHECKED UPON RN REQUEST. BLOOD WAS 229, RN NOTIFIED. PATIENT SITTING UP IN BED AT THIS TIME.
[2024-06-10] MEDS ORDERED: ondansetron HCL 4 MG/2 ML VIAL IV PRN ×2 (08:30→08:45)
[2024-06-10] MEDS ORDERED: GLUCAGON,HUMAN RECOMBINANT 1 MG/ML VIAL SUB-Q PRN ×2 (08:30→08:45)
[2024-06-10] MEDS ORDERED: IBLOOD GLUCOSE TEST STRIP 1 EA TEST XX PRN ×2 (08:30→08:45)
[2024-06-10] MEDS ORDERED: ACETAMINOPHEN 325 MG TAB PO PRN ×2 (08:30→08:45)
[2024-06-10] MEDS ORDERED: DEXTROSE 5% 1,000 ML IV PRN ×2 (08:30→08:45)
[2024-06-10] MEDS ORDERED: DEXTROSE 50% 50 ML SYR IV PRN ×4 (08:30→08:45)
[2024-06-10] MEDS ORDERED: CLOPIDOGREL BISULFATE 75 MG TAB PO SCH (09:00)
--- NOTE | 2024-06-10 09:30 | NUR ---
ASSISTED JOY EXTRACTIONS TECHNOLOGIST WITH BUBBLE STUDY FOR ECHO. PT TOLERATED WELL. THEN ASSISTED SYSTEM SALES CONSULTANT MARGARITA TO GET PT TO WHEELCHAIR AND CHANGED DEPENDS. WAS ABLE TO PIVOT AND TAKE SEVERAL STEPS TO CHAIR.
[2024-06-10] MEDS ORDERED: CARVEDILOL12.5 MG PO (10:33)
[2024-06-10] MEDS ORDERED: IBLOOD GLUCOSE TEST STRIP 1 EA TEST VI SCH ×2 (12:00)
[2024-06-10] MEDS ORDERED: PHARMACY RENAL DOSE ADJUSTMENT 1 DOSE MISC PO SCH ×2 (12:00)
[2024-06-10] MEDS ORDERED: INSULIN LISPRO 100 UNIT/ML ML SUB-Q SCH ×4 (12:00→17:00)
--- NOTE | 2024-06-10 12:03 | NUR ---
HOOKED PT BACK UP TO [facility]. DR HOLCOMB ROOM TO SEE PT.
[2024-06-10] MEDS ORDERED: K2-D3 5000 901 EACH PO (13:04)
--- NOTE | 2024-06-10 13:04 | NUR ---
MED REC COMPLETE
--- NOTE | 2024-06-10 13:08 | NUR ---
UR CLINICAL REVIEW: 2 MN FOR [facility] INPT CRITERIA FOR CVA MEDICARE OBS TO INPT 06/10/24 @ 7146 WILL SEND EMAIL TO ADMITTING TO UPDATE REG NO AUTH REQUIRED PER MEDICARE GUIDELINES PROBABLE DC TO SNF PENDING FURTHER EVAL
--- NOTE | 2024-06-10 13:13 | NUR ---
WOKE PT FOR INSULIN AND IVF. PT ATE MOST OF LUNCH AND THOUGHT IT WS GOOD. PT SITTING UP IN CHAIR AND DENIES CONCERNS.
--- NOTE | 2024-06-10 14:01 | NUR ---
ALERT AND ORIENTED, SITTING UP IN BED. STATES HE LIVES IN SINGLE WIDE TRAILER WITH SIGNIFICANT OTHER. THERE ARE 6 STEPS TO GET INTO THE HOUSE. STATES HE HAS A WALKER, CANE, SHOWER CHAIR. 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 STATES HE IS OPEN TO A LONG-TERM FACILITY. PREFERS TO STAY IN [place], IF POSSIBLE. IF [facility] HAS NO BEDS, STATES HE WILL GO WHERE THERE IS A BED FOR HIM. WILL FAX SNF REFERRAL TO [facility], [facility], NEENA DUQUE.
--- NOTE | 2024-06-10 14:10 | NUR ---
PT SITTING IN CHAIR. OFFERED TV, MAGAZINE, WINDOW OPEN. DECLINED ALL. DENIES CONCERNS ATT. CALL LIGHT ON SIDE TABLE.
--- NOTE | 2024-06-10 14:19 | NUR ---
PATIENT IN CHAIR AT THIS TIME. VITALS AND I&O'S DONE AND CHARTED. CALL LIGHT IN REACH. NO FURTHER NEEDS AT THIS TIME.
--- NOTE | 2024-06-10 16:32 | NUR ---
PT WOKE FOR [facility] NEURO ASSESS. PT REPORTS NO DIFFERENCE IN SENSATION ON EITHER SIDE. RIGHT ARM AND LEG CONTINUE TO BE SLIGHTLY WEAKER. PT FACIAL DROOP MINIMAL AND MOSTLY WHEN SMILING. DENIES SWALLOWING CONCERNS. BACK TO BED TO REST PRIOR TO DINNER.
--- NOTE | 2024-06-10 18:35 | NUR ---
PATIENT IN BED AT THIS TIME. VITALS AND I&O'S DONE AND CHARTED. FRESH WATER GIVEN. CALL LIGHT IN REACH. NO FURTHER NEEDS AT THIS TIME.
--- NOTE | 2024-06-10 19:42 | NUR ---
REPORT RECEIVED FROM DAY SHIFT RN. PT LYING IN BED ALERT AND ORIENTED. ASSISTED TO REPOSITION. NO NEEDS AT THIS TIME. WHITE BOARD UPDATED. CALL LIGHT IN REACH.
--- NOTE | 2024-06-10 20:57 | NUR ---
EVENING ASSESSMENT COMPLETE. SCHEDULED MEDS ADMIN PER EMAR. PT DENIES PAIN OR NAUSEA. DENIES HEADACHE OR VISUAL DISTURBANCES. RIGHT SIDE WEAKNESS NOTED WITH RIGHT FACIAL DROOP AND SLURRED SPEECH. PT REPORTS NUMBNESS IN RIGHT ARM. IVF INFUSING PER ORDER. MALE PUREWICK PATENT WITH YELLOW URINE. PT DENIES QUESTIONS OR CONCERNS. CALL LIGHT IN REACH. BED ALARM FOR SAFETY.
[2024-06-11] VITALS (10 sets, daily range): BP systolic 149–183; BP diastolic 82–94
--- NOTE | 2024-06-11 00:36 | NUR ---
ROUNDING ON PT. PT UP TO BSC WITH FWW AND 2PA TO HAVE LARGE BM. STAFF ASSIST WITH TUTU CARE. NEW PUREWICK PLACED. BACK TO BED, JANINE WELL. NEURO ASSESSMENT UNCHANGED. VS OBTAINED. NO FURTHER NEEDS. BED ALARM IN PLACE. CALL LIGHT IN REACH.
--- NOTE | 2024-06-11 02:56 | NUR ---
PT RESTING IN BED ON RIGHT SIDE. EYES CLOSED. RESPIRATIONS EVEN. CALL LIGHT IN REACH. BED ALARM FOR SAFETY.
--- NOTE | 2024-06-11 04:43 | NUR ---
PT RESTING IN BED WITH EYES CLOSED. RESPIRATIONS EVEN. CALL LIGHT IN REACH.
[2024-06-11 05:24] LABS: HEMATOCRIT 36.7 % (35.0-50.0); HEMOGLOBIN 12.9 g/dL (12.0-18.0); LYMPHOCYTES 28.8 % (24-44); MCH 35.2 (27-36); MCHC 35.2 g/dl (30-36); MONOCYTES 10.8 % (0-12); NEUTROPHILS 56.4 % (39-80); PLATELET COUNT 172 K/uL (140-440); RBC 3.66 M/ul (4.3-5.7); RDW 12.9 (10.5-15.0)
--- NOTE | 2024-06-11 05:25 | NUR ---
LAB IN FOR MORNING DRAW. VS AND I&O OBTAINED. PT INCONTINENT AROUND PUREWICK. TUTU CARE DONE AND NEW BRIEF IN PLACE. GOWN CHANGED. NEURO CHECK UNCHANGED. NO FURTHER NEEDS. BED ALARM FOR SAFETY. CALL LIGHT IN REACH.
[2024-06-11 05:51] LABS: ALBUMIN 2.8 g/dL (3.4-5.0); ALBUMIN/GLOBULIN RATIO 0.85 (1.1-2.4); ANION GAP 12.5 (7-21); BILIRUBIN, TOTAL 0.5 ng/dL (0.2-1.0); BUN/CREATININE RATIO 11.46 (6.0-28.6); CALCIUM 8.2 mg/dL (8.5-10.1); CREATININE, SERUM 2.18 mg/dL (0.70-1.30); POTASSIUM 3.5 mmol/L (3.5-5.1); PROTEIN, TOTAL 6.1 g/dL (6.4-8.2)
--- NOTE | 2024-06-11 07:24 | NUR ---
REPORT RECEIVED FROM VIDA XIAO.
--- NOTE | 2024-06-11 07:48 | NUR ---
ASSESSMENT COMPLETED. PT RESTING IN BED WITH SCDS ON. PT HAS GENERALIZED WEAKNESS ON R) SIDE WITH SLIGHT FACIAL DROOP AND C/O TINGLING IN R) UPPER EXTREMITY. PT DENIES PAIN AND HAS NO REQUESTS AT THIS TIME. CALL LIGHT WITHIN REACH. PT A&O X 4
--- NOTE | 2024-06-11 08:30 | NUR ---
PATIENT UP TO CHAIR FOR BREAKFAST, 1PA FWW. CALL LIGHT IN REACH. NO FURTHER NEEDS AT THIS TIME.
--- NOTE | 2024-06-11 08:34 | NUR ---
PT SITTING UP IN CHAIR EATING BREAKFAST. CALL LIGHT WITHIN REACH. MEDS GIVEN ORDERED.
--- NOTE | 2024-06-11 09:51 | NUR ---
IN TO DO VITALS AND I&O'S, DONE AND CHARTED. PATIENT TO BED FROM CHAIR, 1PA FWW. FRESH WATER GIVEN. CALL LIGHT IN REACH. BED ALARM ON. NO FURTHER NEEDS AT THIS TIME.
[2024-06-11] MEDS ORDERED: FLUOXETINE HCL 20 MG CAP PO SCH (09:55)
--- NOTE | 2024-06-11 10:17 | NUR ---
[facility] ABLE TO ACCEPT PATIENT WHEN MEDICALLY CLEARED.
--- NOTE | 2024-06-11 10:37 | NUR ---
PT NOT AVAILABLE FOR VISIT. PROVIDED PRAYER.
--- NOTE | 2024-06-11 10:46 | NUR ---
ST IN TO EVALUATE PT. PT'S SISTER AND BROTHER IN LAW IN TO VISIT PT. CALL LIGHT WITHIN REACH. NO REQUESTS AT THIS TIME. CALL LIGHT WITHIN REACH.
--- NOTE | 2024-06-11 12:20 | NUR ---
PT SITTING UP IN BED EATING LUNCH. PT STATES HE WISHES TO STAY IN BED AT THIS TIME. NO REQUESTS, CALL LIGHT WITHIN REACH.
--- NOTE | 2024-06-11 13:14 | NUR ---
PT SITTING UP IN BED VISITING WITH VISITOR. NO REQUESTS AT THIS TIME, CALL LIGHT WITHIN REACH.
--- NOTE | 2024-06-11 13:19 | NUR ---
SPOKE WITH PATIENT AND SPOUSE. SPOUSE STATES HE WILL NOT TAKE PATIENT TO [place]. INFORMED HIM [facility] AND [facility] ARE STILL PENDING ACCEPTANCE AND WILL UPDATE WHEN THEY ANSWER.
--- NOTE | 2024-06-11 14:20 | NUR ---
PATIENT IN CHAIR AT THIS TIME, IN ROOM. BED BATH GIVEN. NEW MALE PUREWICK PLACED, NEW ATTENDS, AND NEW GOWN. RN IN ROOM. VITALS AND I&O'S DONE AND CHARTED. CHAIR ALARM ON. CALL LIGHT IN REACH. NO FURTHER NEEDS AT THIS TIME.
--- NOTE | 2024-06-11 16:24 | NUR ---
PT RESTING IN CHAIR WITH LEGS ELEVATED AND EYES CLOSED. CALL LIGHT WITHIN REACH, VISITOR IN ROOM.
--- NOTE | 2024-06-11 17:35 | NUR ---
PT SITTING UP IN CHAIR EATING DINNER, NO REQUESTS AT THIS TIME. CALL LIGHT WITHIN REACH AND CHAIR ALARM ON.
--- NOTE | 2024-06-11 18:11 | NUR ---
PT ASSISTED FROM CHAIR TO BED WITH 1PA FWW. PT TOLERATED WELL. PT HAS SCDS ON, PUREWICK ON, BED ALARM ON, AND CALL LIGHT WITHIN REACH.
--- NOTE | 2024-06-11 18:15 | NUR ---
PATIENT IN BED AT THIS TIME. VITALS AND I&O'S DONE AND CHARTED. BED ALARM ON. CALL LIGHT IN REACH. NO FURTHER NEEDS AT THIS TIME.
--- NOTE | 2024-06-11 19:44 | NUR ---
REPORT RECEIVED FROM DAY SHIFT RN. PT LYING IN BED RESTING WITH EYES CLOSED. RESPIRATIONS EVEN. CALL LIGHT IN REACH. BED ALARM FOR SAFETY.
[2024-06-11] MEDS ORDERED: EZETIMIBE 10 MG TAB PO SCH (21:00)
--- NOTE | 2024-06-11 21:15 | NUR ---
BED ALARM ANSWERED. PT ADJUSTING IN BED. HAS NO OTHER NEEDS AT THIS TIME.
--- NOTE | 2024-06-11 21:23 | NUR ---
EVENING ASSESSMENT COMPLETE. SCHEDULED MEDS ADMIN PER EMAR. PT DENIES PAIN OR NAUSEA. RIGHT SIDE WEAKNESS, SLURRED SPEECH, AND RIGHT SIDE FACIAL DROOP NOTED. PT DENIES GUILLERMO OR VISUAL DISTURBANCES. MALE PUREWICK PATENT WITH CLEAR YELLOW URINE. ASSISTED PT TO REPOSITION IN BED. PT DENIES QUESTIONS OR CONCERNS. CALL LIGHT IN REACH. BED ALARM FOR SAFETY.
[2024-06-12] VITALS (10 sets, daily range): BP systolic 162–191; BP diastolic 83–97
--- NOTE | 2024-06-12 00:21 | NUR ---
PT RESTING IN BED WITH EYES CLOSED. RESPIRATIONS EVEN. CALL LIGHT IN REACH. BED ALARM FOR SAFETY.
--- NOTE | 2024-06-12 00:58 | NUR ---
PT AWAKE IN BED. ASSISTED TO REPOSITION TO RIGHT SIDE. NO FURTHER NEEDS. BED ALARM IN PLACE.
--- NOTE | 2024-06-12 01:53 | NUR ---
BED ALARM SOUNDING. IN TO ASSIST PT TO REPOSITION IN BED. NEURO CHECK UNCHANGED. NO FURTHER NEEDS. CALL LIGHT IN REACH. BED ALARM FOR SAFETY.
--- NOTE | 2024-06-12 02:41 | NUR ---
CHECKED ON PATIENT TO DO VITALS. PT AWAKE LAYING IN BED. HE SAID HE HAS NO NEEDS AT THIS TIME.
--- NOTE | 2024-06-12 05:00 | NUR ---
CALL LIGHT ANSWERED. IN TO ASSIST PT REPOSITION IN BED. VS AND I&O OBTAINED. PT REPORTS FEELING "CONFUSED" ABOUT SITUATION BUT ABLE TO ANSWER ALL ORIENTATION QUESTIONS. DISCUSSED PLAN OF CARE, PT RECEPTIVE. PRN TYLENOL ADMIN FOR COMFORT. NO FURTHER NEEDS. CALL LIGHT IN REACH. BED ALARM FOR SAFETY.
[2024-06-12 05:46] LABS: ALBUMIN 2.7 g/dL (3.4-5.0); ALBUMIN/GLOBULIN RATIO 0.84 (1.1-2.4); ANION GAP 14.5 (7-21); BILIRUBIN, TOTAL 0.4 ng/dL (0.2-1.0); CALCIUM 8.2 mg/dL (8.5-10.1); POTASSIUM 3.5 mmol/L (3.5-5.1); PROTEIN, TOTAL 5.9 g/dL (6.4-8.2)
--- NOTE | 2024-06-12 07:22 | NUR ---
PT RESTING IN BED WITH EYES CLOSED AND RESPIRATIONS EVEN AND UNLABORED. CALL LIGHT WITHIN REACH AND BED ALARM ON.
[2024-06-12] MEDS ORDERED: LABETALOL HCL 100 MG/20 ML MDV IV PRN (07:45)
--- NOTE | 2024-06-12 08:09 | NUR ---
Blood sugar checked and RN Hilary and student Lee notified.
[2024-06-12] MEDS ORDERED: LABETALOL HCL 20 MG/4 ML VIAL IV PRN (09:00)
[2024-06-12] MEDS ORDERED: AMLODIPINE BESYLATE 5 MG TAB PO SCH (09:00)
[2024-06-12] MEDS ORDERED: azaTHIOprine 50 MG TAB PO SCH (09:00)
--- NOTE | 2024-06-12 09:11 | NUR ---
MED GIVEN FOR HTN ORDERED.
--- NOTE | 2024-06-12 09:29 | NUR ---
UPDATES FAXED TO [facility] AND [facility]EE[facility].
--- NOTE | 2024-06-12 09:31 | NUR ---
PT BP 162/91, NO ADDITIONAL MED NEEDED
--- NOTE | 2024-06-12 09:39 | NUR ---
Patient's blood pressure was high, NINOSKA Richard already in room to give BP medication.
--- NOTE | 2024-06-12 11:52 | NUR ---
Mehulck replaced at 1130.
--- NOTE | 2024-06-12 12:33 | NUR ---
PT SITTING UP AT SIDE OF BED EATING LUNCH. IN ROOM. WATER REFRESHED, NO OTHER REQUESTS AT THIS TIME. CALL LIGHT WITHIN REACH.
--- NOTE | 2024-06-12 14:03 | NUR ---
VISITED DURING SPIRITUAL CARE ROUNDS. PT APPEARED TO BE SLEEPING. DID NOT DISTURB. PROVIDED PRAYER.
--- NOTE | 2024-06-12 14:12 | NUR ---
DR LOVELL CALLED REGARDING PT C/O "DARK SPOT" IN VISION EFFECTING HIS PERIPHERAL VISION.
--- NOTE | 2024-06-12 14:28 | NUR ---
PATIENT ALERT AND ORIENTED. UP IN RECLINER. SPOUSE IN ROOM. NOTIFIED CRYSTAL FROM [facility] HAS ACCEPTED PATIENT FOR [address] LOVELL, NURSING STAFF NOTIFIED WELL. CALLED AND SCHEDULED A WHEELCHAIR VAN FOR TRANSPORT AT 1000.
--- NOTE | 2024-06-12 14:50 | NUR ---
RECIEVED NOTIFICATION FROM CHERYL AT [facility], ADMIT DATE CHANGE TO MONDAY AT 1100. SPOKE WITH PATIENT AND SPOUSE, CONTINUE TO PLAN FOR WHEELCHAIR VAN. RESCHEDULED WHEELCHAIR VAN FOR MONDAY AT 1000, NURSING STAFF AND DR. LOVELL NOTIFIED WELL.
--- NOTE | 2024-06-12 17:09 | NUR ---
PT RESTING IN CHAIR WITH LEGS RECLINED WATCHING TV. IN ROOM ALSO. CALL LIGHT WITHIN REACH AND CHAIR ALARM ON. PT HAS NO REQUESTS AT THIS TIME.
--- NOTE | 2024-06-12 17:53 | NUR ---
PT SITTING UP IN HIS CHAIR EATING DINNER, IN ROOM ALSO. CALL LIGHT WITHIN REACH AND CHAIR ALARM ON.
--- NOTE | 2024-06-12 18:46 | NUR ---
PT SITTING UP IN CHAIR WATCHING TV, CHAIR ALARM ON AND CALL LIGHT WITHIN REACH. NO REQUESTS AT THIS TIME.
--- NOTE | 2024-06-12 18:53 | NUR ---
Doctor finished assessment. NINOSKA Richard in room.
--- NOTE | 2024-06-12 19:25 | NUR ---
REPORT RECEIVED FROM NINOSKA FISHER. pt UP IN CHAIR. CHAIR ALARM ON PER RN. pt RESTING IN CHAIR WITH EYES CLOSED. NO DISTRESS NOTED.
--- NOTE | 2024-06-12 20:45 | NUR ---
pt SLEEPING IN CHAIR. AWAKENS TO VOICE. ASSESSMENT COMPLETE. pt ORIENTED TO ALL EXCEPT EXACT DATE. IV SITES FLUSHED WNL. IVF INFUSING ORDERED. PRN BP MEDICATION ADMINISTERED FOR 183/90. pt IMMEDIATELY FALLS BACK ASLEEP AFTER REQUESTING TO STAY IN CHAIR. SIGN. OTHER IN ROOM SLEEPING ON COUCH, DENIES NEEDS.
--- NOTE | 2024-06-12 21:13 | EKG ---
[facility] [address] [place] [address] Signed Normal sinus rhythm T wave abnormality, consider lateral ischemia Prolonged QT Abnormal ECG When compared with ECG of 13-DEC-2021 16:46, Inverted T waves have replaced nonspecific T wave abnormality in Lateral leads Confirmed by Edward Lovell DO ([id number]) on 06/12/2024 9:13:09 PM Electronically Signed By: EDWARD LOVELL DO 06/12/242112 PATIENT NAME: ROBBIE RESTREPO SHIVANI Electrocardiogram DATE OF : 54 PHYSICIAN: EDWARD LOVELL DO REPORT #: [id number] REPORT IS CONFIDENTIAL AND NOT TO BE RELEASED WITHOUT AUTHORIZATION
--- NOTE | 2024-06-12 22:53 | NUR ---
IV PUMP ALARMING, pt BENDING ARM. SITE ASSESSED, IVF INFUSING WNL. pt DENIES NEEDS. CALL LIGHT IN REACH. CHAIR ALARM ON.
[2024-06-13] VITALS (13 sets, daily range): BP systolic 160–188; BP diastolic 85–112
--- NOTE | 2024-06-13 00:33 | NUR ---
IV PUMP ALARMING, pt SHIFTING IN CHAIR REPOSITIONING. LEFT ARM PLACED ON PILLOW FOR COMFORT. pt DENIES NEEDS. IVF INFUSING WNL. CALL LIGHT IN REACH.
--- NOTE | 2024-06-13 01:45 | NUR ---
IV PUMP ALARMING, IV SITE IN RIGHT FOREARM REDRESSED, FLUSHED WNL. IVF NOW INFUSING THIS SITE. LEFT AC IV SL. VSS. 1PA WITH FWW TO TRANSFER TO BED. pt REFUSES SCDS. NEURO CHECK COMPLETE, UNCHANGED FROM START OF SHIFT. URINE EMPTIED FROM [employer] CANNISTER. CALL LIGHT AND PERSONAL SUPPLIES IN REACH, BED ALARM ON.
--- NOTE | 2024-06-13 03:15 | NUR ---
ROUNDED ON pt. RESTING IN BED WATCHING TV. NO DISTRESS NOTED. IVF INFUSING ORDERED. SIGNIFICANT OTHER SLEEPING ON COUCH, NO DISTRESS NOTED.
[2024-06-13 05:42] LABS: ANION GAP 14.5 (7-21); BUN/CREATININE RATIO 11.88 (6.0-28.6); CALCIUM 8.8 mg/dL (8.5-10.1); CREATININE, SERUM 2.02 mg/dL (0.70-1.30); POTASSIUM 3.5 mmol/L (3.5-5.1)
--- NOTE | 2024-06-13 06:00 | NUR ---
CHECKED ON pt. RESTING IN BED ON RIGHT SIDE, BREATHING EQUAL AND UNLABORED. NO DISTRESS NOTED.
--- NOTE | 2024-06-13 06:11 | NUR ---
SECRETARY OF POLICE OBTAINED VITALS AND I&O. PUREWICK CANNISTER EMPTIED. PT STATES NO NEEDS AT THIS TIME. CALL LIGHT WITHIN REACH.
--- NOTE | 2024-06-13 07:18 | NUR ---
REPORT RECEIVED FROM NINOSKA MCKEON. PT RESTING ON R SIDE IN BED, RR EVEN AND UNLABORED. IVF INFUSING WNL, CALL LIGHT IN REACH.
--- NOTE | 2024-06-13 08:27 | NUR ---
Blood sugar checked and reported to NINOSKA Zamudio. No cares were requested.
--- NOTE | 2024-06-13 08:50 | NUR ---
INTO SEE PATIENT. PATIENT EATING BREAKFAST AND UP IN BED. LET HIM KNOW THE PLAN IS STILL [facility]. NO CM NEEDS AT THIS TIME.
[2024-06-13] MEDS ORDERED: AMLODIPINE BESYLATE 10 MG TAB PO SCH (09:00)
--- NOTE | 2024-06-13 09:36 | NUR ---
MEDICATIONS ADMINISTERED, SEE MAR. ASSESSMENT COMPLETE. PT RESTING IN BED AT THIS TIME, REPOSITIONED WITH FAMILY THERAPIST ASSISTANCE AND SAT UP TO EAT BREAKFAST. PT REFUSES GETTING UP TO CHAIR AT THIS TIME. PT HAS R SIDED WEAKNESS HE REPORTS IS UNCHANGED FROM ADMISSION. SLIGHT DRIFT IN BOTH RUE AND RLE, BUT DOES NOT TOUCH BED. PT REPORTS NUMBNESS IN RUE AND RLE, NO TINGLING OR PINPRICK SENSATION. PT IS UTILIZING R HAND WHILE EATING BREAKFAST, SLOW TO MOVE BUT ACCURATE IN HIS GRABS. INSURANCE AGENT STRENGTH IS SLOW TO RUE, BUT ULTIMATELY EQUAL IN STRENGTH TO LUE. PT UNSURE OF THE DATE, BUT CORRECTLY IDENTIFIED THE MONTH AND YEAR WELL HIS AGE, WHERE HE IS, AND WHY HE IS HERE. NIH SCORE OF 4 AT THIS TIME - NOTED TO BE UNCHANGED FROM PREVIOUS. PT BLOOD PRESSURE ELEVATED AT 188/112, PRN LABETOLOL ADMINISTERED. REPEAT BLOOD PRESSURE IS 177/86. PT TELE IS REMOVED AT THIS TIME PER ORDERS. PT HAS PUREWICK IN PLACE, CANNISTER EMPTIED BY FAMILY THERAPIST AFTER ASSISTING IN REPOSITIONING. URINE IS CLEAR AND YELLOW, PT DOES NOT REPORT ANY DYSURIA. PT FINISHES BREAKFAST, TRAY REMOVED. PT REMAINS IN BED WITH HOB ELEVATED, NO COMPLAINTS OF PAIN, DISCOMFORT, OR WANTS AT THIS TIME. BED IN LOWEST POSITION, BED ALARM ON, CALL LIGHT IN REACH.
--- NOTE | 2024-06-13 10:45 | NUR ---
VISITED DURING SPIRITUAL CARE ROUNDS. PT APPEARED TO BE SLEEPING. DID NOT DISTURB. PROVIDED PRAYER.
--- NOTE | 2024-06-13 10:55 | NUR ---
PT RESTING IN BED WITH HOB ELEVATED WATCHING TELEVISION. HE REPORTS NO NEEDS AT THIS TIME. CALL LIGHT IN REACH.
--- NOTE | 2024-06-13 13:59 | NUR ---
Patient refused lunch but agreed to an ensure protein drink (drank about 50%). They were asleep in bed and the head of the bed was laid back for comfort.
--- NOTE | 2024-06-13 14:04 | NUR ---
CALL TO [facility], HE HAS PATIENT HIV MEDICATION REGIMEN AT HOME. HE WILL BRING THOSE IN THIS EVENING. PHARMACY WAS NOTIFIED AND MD WILL BE UPDATED THAT THOSE CAN BE REORDERED FOR THIS EVENING, IF DESIRED. PT WILL ALSO HAVE THOSE HERE SO HE CAN TAKE TO [place] AND GET THOSE MEDICATIONS ORDERED OR GIVEN ACCORDINGLY. PRIMARY RN NOTIFIED OF PLAN.
[2024-06-13] MEDS ORDERED: LOSARTAN POTASSIUM 25 MG TAB PO SCH (15:15)
[2024-06-13 15:20] LABS: BASOPHILS 0.9 % (0-2); EOSINOPHILS 2.8 % (0-6); HEMATOCRIT 36.9 % (35.0-50.0); HEMOGLOBIN 12.8 g/dL (12.0-18.0); LYMPHOCYTES 17.8 % (24-44); MCH 35.2 (27-36); MCHC 34.8 g/dl (30-36); NEUTROPHILS 67.5 % (39-80); PLATELET COUNT 176 K/uL (140-440); RBC 3.65 M/ul (4.3-5.7); RDW 12.6 (10.5-15.0)
--- NOTE | 2024-06-13 15:20 | NUR ---
PT REPORTS "FEEL FUNNY, VERY TIRED, JUST WORN OUT". PT BLOOD PRESSURE CHECKED TWICE WITH DIASTOLIC OF 105 AND 97. MD NOTIFIED OF PTs BLOOD PRESSURE AND CHANGE IN STATUS. MD ENTERS ORDERS.
[2024-06-13 15:43] LABS: ALBUMIN 2.7 g/dL (3.4-5.0); ALBUMIN/GLOBULIN RATIO 0.82 (1.1-2.4); ANION GAP 11.8 (7-21); BILIRUBIN, TOTAL 0.3 ng/dL (0.2-1.0); BUN/CREATININE RATIO 13.13 (6.0-28.6); CALCIUM 8.6 mg/dL (8.5-10.1); CREATININE, SERUM 1.98 mg/dL (0.70-1.30); POTASSIUM 3.8 mmol/L (3.5-5.1); TSH, 3RD GENERATION 3.047 uIU/mL (0.358-3.740)
[2024-06-13] MEDS ORDERED: CYANOCOBALAMIN 1,000 MCG TAB PO SCH (16:23)
[2024-06-13] MEDS ORDERED: DOLUTEGRAVIR SODIUM 50 MG TABLET PO SCH (17:28)
[2024-06-13] MEDS ORDERED: ABACAVIR SULFATE PO SCH (17:35)
[2024-06-13] MEDS ORDERED: LAMIVUDINE PO SCH (17:35)
--- NOTE | 2024-06-13 17:51 | NUR ---
FRESH ICE WATER PROVIDED. DINNER TRAY REMOVED. PTs RESTING WITH EYES CLOSED, RR EVEN AND UNLABORED ON COUCH.PT HAS NO REQUESTS AT THIS TIME, CALL LIGHT IN REACH.
--- NOTE | 2024-06-13 18:40 | NUR ---
Purewick changed at 1530. Canister emptied and documented. Fresh ice water given.
--- NOTE | 2024-06-13 19:34 | NUR ---
PT RESTING IN BED, DENIES NEEDS OR CONCERNS AT THIS TIME. CALL LIGHT WITHIN REACH.
--- NOTE | 2024-06-13 19:36 | NUR ---
RECEIVED REPORT FROM NINOSKA RODRIGUEZ.
--- NOTE | 2024-06-13 20:15 | NUR ---
PT RESTING IN BED COMFORTABLY. VSS. HS MEDS ADMINISTERED PER EMAR. NO SWALLOWING DIFFICULTY NOTED. DENIES PAIN. SPEECH SLURRED. ORIENTED X 4. PERRLA. RIGHT FACIAL DROOP. RUE/RLE ATAXIA. RUE PRON/DRIFT. RIGHT SIDED MS 4/5, RIGHT ELECTRIC MOTORS SALESPERSON MOD, RIGHT PLANTAR/DORSI MOD. REPORTS TINGLING TO RUE, NUMBNESS TO RLE. PPP X 4. LSC. HRR W/ MURMUR. BTA, LBM TODAY. PT HAS MALE EXTERNAL CATH IN PLACE, BED LINENS WET UNDERNEATH. NEW LINENS AND NEW EXTERNAL CATH PLACED. PT AMBULATED TO BR W/ CGA AND FWW. LAC SL WNL, RAC IV INFUSING IVF. BED ALARM IN PLACE FOR SAFETY. SCD'S OFF FOR SHORT TIME PER PT REQUEST. CALL LIGHT WITHIN REACH.
--- NOTE | 2024-06-13 20:56 | NUR ---
M48 M60 ARMOR CREWMAN HELP PT TO THE BATHROOM, CHANGED THE SOILED LINENS, HELPED PT BACK TO BED, AND TOOK V.S.
--- NOTE | 2024-06-13 22:46 | NUR ---
SLEEPING SOUNDLY, APPEARS COMFORTABLE.
--- NOTE | 2024-06-14 00:07 | NUR ---
PT AWAKE, SLEEPING BETWEEN CARE. DENIES ANY NEEDS AT THIS TIME.
--- NOTE | 2024-06-14 03:07 | NUR ---
PT SLEEPING SOUNDLY, APPEARS COMFORTABLE.
--- NOTE | 2024-06-14 04:05 | NUR ---
PT AWAKE, REPORTS NOT SLEEPING WELL. NEURO UNCHANGED, RIGHT SUELLEN. MS 4/5. DENIES VISION CHANGES. PERRLA. NEW BAG IVF HUNG. CALL LIGHT WITHIN REACH.
--- NOTE | 2024-06-14 04:10 | NUR ---
DX: CVA RIGHT SUELLEN. REPORTS NOT SLEEPING WELL OVERNIGHT. SLURRED SPEECH, RIGHT FACIAL DROOP. PERRLA. RIGHT MS 08/17. MALE EXTERNAL CATH. PLANNED D/C TO [facility].
[2024-06-14 05:55] VITALS: BP 163/91
[2024-06-14 05:55] LABS: ANION GAP 13.4 (7-21); BUN/CREATININE RATIO 12.35 (6.0-28.6); CALCIUM 8.6 mg/dL (8.5-10.1); CREATININE, SERUM 1.78 mg/dL (0.70-1.30); POTASSIUM 3.4 mmol/L (3.5-5.1)
[2024-06-14 06:44] VITALS: BP 163/91
--- NOTE | 2024-06-14 06:45 | NUR ---
PT AWAKE, DENIES NEEDS AT THIS TIME.
--- NOTE | 2024-06-14 07:10 | NUR ---
REPORT RECEIVED FROM NINOSKA LUNA. PT AWAKE AND ALERT WHEN THIS RN ENTERS ROOM. REPORTS NO NEEDS, CALL LIGHT IN REACH.
[2024-06-14 07:47] VITALS: BP 178/95
--- NOTE | 2024-06-14 08:11 | NUR ---
MEDICATIONS ADMINISTERED, SEE JUL. ASSESSMENT COMPLETE. PT ALERT AND ORIENTED X4. R FACIAL DROOP UNCHANGED FROM YESTERDAY. PT REPORTS RUE TINGLING WITH SENSATION INTACT, DRIFT IMPROVED FROM YESTERDAY BUT STILL PRESENT, RING FACER STRENGTH EQUAL TO L HAND GIVEN TIME TO GRAB FINGERS. WHILE ASSESSING BLE PT IS HOLDING BOTH LEGS UP IN AIR IN ANTICIPATION, SMILING HE DOES SO. DRIFT TO RLE IMPROVED FROM YESTERDAY BUT STILL PRESENT, STRENGTH UNCHANGED FROM YESTERDAY AT 4/5 COMPARED TO LLE. PT REPORTS NUMBNESS TO R FOOT WITH SENSATION BEGINNING 1/3 UP THE THORPE. PT IS SMILING FREQUENTLY AND CONVERSING WITH THE RN, APPEARS IN BETTER SPIRITS THAN YESTERDAY. BILAT AC IVs FLUSH WNL, IV TO R AC HAS CONTINUOUS INFUSION RUNNING WNL. DRESSING TO R AC IC NOTED TO HAVE BEEN PREVIOUSLY DAMPENED, THOUGH NO CURRENT LEAKING NOTED WITH FLUSH. PT REPORTS NO PAIN OR DISCOMFORT. PT ASSISTED TO REPOSITION IN BED WITH GUI BARRETT. BREAKFAST TRAY ARRIVES. BED ALARM ON, BED IN LOWEST POSITION, PT HAS NO OTHER REQUESTS AT THIS TIME. CALL LIGHT IN REACH.
--- NOTE | 2024-06-14 08:16 | NUR ---
Blood sugar checked and NINOSKA Zamudio notified.
[2024-06-14] MEDS ORDERED: LOSARTAN POTASSIUM 50 MG TAB PO SCH (09:00)
[2024-06-14 09:04] VITALS: BP 160/102
--- NOTE | 2024-06-14 09:28 | NUR ---
PT PREVIOUSLY RECEIVED SCHEDULED DOSE OF LOSARTAN 25MG. MEDICATION HAS BEEN INCREASED TO 50MG. HALF OF 50MG LOSARTAN TAB ADMINISTERED WITH MD AT THIS TIME TO MEET MAX DOSE OF 50MG.
[2024-06-14 09:37] VITALS: BP 165/85
[2024-06-14] MEDS ORDERED: AMLODIPINE BESY10 MG PO (09:57)
[2024-06-14] MEDS ORDERED: LOSARTAN POTASS50 MG PO (09:57)
--- NOTE | 2024-06-14 09:57 | NUR ---
DISCHARGE PACKET GIVEN. WHEELCHAIR VAN HERE. FAXED OVER TO [facility]. CHERYL AMBROSIO.
[2024-06-14] MEDS ORDERED: ASPIRIN81 MG PO (09:58)
[2024-06-14] MEDS ORDERED: CLOPIDOGREL75 MG PO (09:59)
[2024-06-14] MEDS ORDERED: EZETIMIBE10 MG PO (09:59)
--- NOTE | 2024-06-14 10:26 | NUR ---
REPORT GIVEN TO ZOILA AT [facility]. ALL QUESTIONS ANSWERED.
--- NOTE | 2024-06-14 10:48 | NUR ---
SCRIPS SENT TO [facility] PER NEENA KOVACSOR REQUEST. MEDS CANCELED AT [facility].
== END 2024-06-14 09:55 | DRG 65 ==
LOC: ED 00:24 → MS 01:50
PROVIDERS: Internal Medicine; ADMIT Family Medicine; ATTEND Student in an Organized Health Care Education/Training Program
DX: I63.89 Other cerebral infarction (principal); G81.91 Hemiplegia, unspecified affecting right dominant side; N17.9 Acute kidney failure, unspecified; I10 Essential (primary) hypertension; Z21 Asymptomatic human immunodeficiency virus [HIV] infection status; H54.3 Unqualified visual loss, both eyes; E11.65 Type 2 diabetes mellitus with hyperglycemia; E78.5 Hyperlipidemia, unspecified; R47.81 Slurred speech; I25.10 Atherosclerotic heart disease of native coronary artery without angina pectoris; F32.A Depression, unspecified; G70.00 Myasthenia gravis without (acute) exacerbation; F41.9 Anxiety disorder, unspecified; Z86.14 Personal history of Methicillin resistant Staphylococcus aureus infection; Z86.73 Personal history of transient ischemic attack (TIA), and cerebral infarction without residual deficits; Z87.891 Personal history of nicotine dependence; Z88.8 Allergy status to other drugs, medicaments and biological substances; Z88.0 Allergy status to penicillin; Z95.1 Presence of aortocoronary bypass graft; Z95.5 Presence of coronary angioplasty implant and graft; Z95.2 Presence of prosthetic heart valve; Z79.82 Long term (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; Z79.899 Other long term (current) 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; Z79.84 Long term (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 drugs; R29.706 NIHSS score 6
CPT/HCPCS: 36415; 70450; 70496; 70498; 70551; 71045; 80048; 80053; 80061; 80307; 83036; 83735; 84439; 84443; 84484; 85025; 85610; 85730; 92526; 92610; 93005; 93010; 93306; 97110; 97112; 97116; 97162; 97166; 97530; 97535; 99285-25; A9270; G0378; G0480; J1815; J7030; J7500; Q3014; Q9967

== ENCOUNTER 2024-08-13 04:54 | Emergency (ER) | payer MEDICARE, OTHER ==
[~2024-08-13] VITALS: Ht 167.6 cm; Wt 95.0 kg
[~2024-08-13 04:54] MED LIST changes: +ASPIRIN81 MG PO; +CLOPIDOGREL75 MG PO; +EZETIMIBE10 MG PO; +HUMALOG100 UNIT/2 SUB-Q; +K2-D3 5000 901 EACH PO; +LOSARTAN POTASS50 MG PO
[2024-08-13] MEDS ORDERED: IBLOOD GLUCOSE TEST STRIP 1 EA TEST XX ONE (05:15)
[2024-08-13 05:34] LABS: BASOPHILS 1.1 % (0-2); EOSINOPHILS 2.4 % (0-6); HEMATOCRIT 39.7 % (35.0-50.0); HEMOGLOBIN 13.8 g/dL (12.0-18.0); LYMPHOCYTES 17.2 % (24-44); MCH 34.4 (27-36); MCHC 34.8 g/dl (30-36); MCV 98.7 fl (81-99); MONOCYTES 11.9 % (0-12); NEUTROPHILS 67.4 % (39-80); PLATELET COUNT 229 K/uL (140-440); RBC 4.03 M/ul (4.3-5.7); RDW 15.1 (10.5-15.0)
[2024-08-13 06:00] LABS: ALBUMIN 3.4 g/dL (3.4-5.0); ANION GAP 12.1 (7-21); BILIRUBIN, TOTAL 0.5 mg/dL (0.2-1.0); BUN/CREATININE RATIO 15.82 (6.0-28.6); CALCIUM 9.2 mg/dL (8.5-10.1); CREATININE, SERUM 2.78 mg/dL (0.70-1.30); MAGNESIUM 2.6 mg/dL (1.8-2.4); POTASSIUM 3.1 mmol/L (3.5-5.1); PROTEIN, TOTAL 6.8 g/dL (6.4-8.2)
[2024-08-13] MEDS ORDERED: SODIUM CHLORIDE 0.9% 1,000 ML IV PRN (08:00)
[2024-08-13] MEDS ORDERED: POTASSIUM CHLORIDE 20 MEQ/15 ML CUP PO ONE (08:00)
[2024-08-13 10:18] VITALS: BP 158/99
--- NOTE | 2024-08-13 12:16 | EKG ---
[facility] [address] [facility] [address] [facility] [place], [place] [address] Signed Normal sinus rhythm Nonspecific ST and T wave abnormality Prolonged QT Abnormal ECG When compared with ECG of 13-AUG-2024 05:34, (Unconfirmed) T wave inversion no longer evident in Inferior leads QT has shortened Confirmed by Edward Lovell DO ([id number]) on 08/13/2024 12:16:19 PM Electronically Signed By: EDWARD LOVELL DO 08/13/24 1216 PATIENT NAME: ROBBIE RESTREPO SHIVANI Electrocardiogram DATE OF : 54 PHYSICIAN: EDWARD LOVELL DO REPORT #: [id number] REPORT IS CONFIDENTIAL AND NOT TO BE RELEASED WITHOUT AUTHORIZATION
--- NOTE | 2024-08-14 11:02 | EKG ---
[facility] [address] [facility] [place], [place] [address] Signed EKG completed, results pending confirmation PATIENT NAME: ROBBIE RESTREPO SHIVANI Electrocardiogram DATE OF : 54 PHYSICIAN: PRELIMINARY REPORT #: [id number] REPORT IS CONFIDENTIAL AND NOT TO BE RELEASED WITHOUT AUTHORIZATION
== END 2024-08-13 10:20 | disposition home or self-care (01) ==
LOC: ED 04:54
PROVIDERS: Internal Medicine
DX: R55 Syncope and collapse (principal); E87.6 Hypokalemia; I10 Essential (primary) hypertension; E11.9 Type 2 diabetes mellitus without complications; I25.10 Atherosclerotic heart disease of native coronary artery without angina pectoris; M10.9 Gout, unspecified; Z21 Asymptomatic human immunodeficiency virus [HIV] infection status; Z86.73 Personal history of transient ischemic attack (TIA), and cerebral infarction without residual deficits; Z87.891 Personal history of nicotine dependence; Z88.8 Allergy status to other drugs, medicaments and biological substances; Z91.018 Allergy to other foods; Z88.0 Allergy status to penicillin; Z79.4 Long term (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 of insulin; Z79.899 Other long term (current) 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
CPT/HCPCS: 36415; 70450; 71045; 73502; 80053; 83735; 84484; 85025; 93005; 93010; 96360; 99285; 99285-25; A9270; J7030

== ENCOUNTER 2024-08-13 20:08 | Emergency (ER) | payer MEDICARE, OTHER ==
[~2024-08-13] VITALS: Ht 167.6 cm; Wt 95.0 kg
[2024-08-13 20:27] LABS: EOSINOPHILS 1.9 % (0-6); HEMATOCRIT 36.9 % (35.0-50.0); HEMOGLOBIN 12.9 g/dL (12.0-18.0); LYMPHOCYTES 20.8 % (24-44); MCH 34.6 (27-36); MCHC 34.9 g/dl (30-36); MCV 99.2 fl (81-99); MONOCYTES 13.2 % (0-12); NEUTROPHILS 63.1 % (39-80); PLATELET COUNT 224 K/uL (140-440); RBC 3.72 M/ul (4.3-5.7)
[2024-08-13 20:42] LABS: ALBUMIN 3.3 g/dL (3.4-5.0); ALBUMIN/GLOBULIN RATIO 1.03 (1.1-2.4); ANION GAP 9.7 (7-21); BILIRUBIN, TOTAL 0.4 mg/dL (0.2-1.0); BUN/CREATININE RATIO 14.96 (6.0-28.6); CALCIUM 8.6 mg/dL (8.5-10.1); CREATININE, SERUM 3.14 mg/dL (0.70-1.30); MAGNESIUM 2.6 mg/dL (1.8-2.4); POTASSIUM 3.7 mmol/L (3.5-5.1); PROTEIN, TOTAL 6.5 g/dL (6.4-8.2)
[2024-08-13] MEDS ORDERED: SODIUM CHLORIDE 0.9% 1,000 ML IV ONE (21:15)
[2024-08-13 21:58] VITALS: BP 162/96
== END 2024-08-13 21:50 | disposition home or self-care (01) ==
LOC: ED 20:08
PROVIDERS: Family Medicine
DX: N17.9 Acute kidney failure, unspecified (principal); I12.9 Hypertensive chronic kidney disease with stage 1 through stage 4 chronic kidney disease, or unspecified chronic kidney disease; E11.22 Type 2 diabetes mellitus with diabetic chronic kidney disease; N18.9 Chronic kidney disease, unspecified; E86.0 Dehydration; I25.10 Atherosclerotic heart disease of native coronary artery without angina pectoris; I25.2 Old myocardial infarction; Z86.73 Personal history of transient ischemic attack (TIA), and cerebral infarction without residual deficits; Z87.891 Personal history of nicotine dependence; Z88.0 Allergy status to penicillin; Z88.8 Allergy status to other drugs, medicaments and biological substances; Z91.018 Allergy to other foods; Z79.4 Long term (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 of insulin; Z79.82 Long term (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; Z79.01 Long term (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 of anticoagulants; Z79.899 Other long term (current) 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
CPT/HCPCS: 36415; 73502; 80053; 83735; 85025; 99285; J7030

== ENCOUNTER 2024-08-26 05:17 | Emergency (ER) | payer MEDICARE, OTHER ==
[~2024-08-26] VITALS: Ht 170.2 cm; Wt 96.4 kg
[2024-08-26] MEDS ORDERED: HYDROCHLOROTH12.5 MG (05:27)
[2024-08-26] MEDS ORDERED: ONDANSETRON ODT8 MG (05:27)
[2024-08-26] MEDS ORDERED: TIVICAY50 MG (05:28)
[2024-08-26] MEDS ORDERED: hydrALAZINE HCL 20 MG/ML VIAL IV ONE (05:30)
[2024-08-26] MEDS ORDERED: LABETALOL HCL 20 MG/4 ML VIAL IV ONE (05:30)
[2024-08-26] MEDS ORDERED: ACETAMINOPHEN 500 MG TAB PO ONE (05:45)
[2024-08-26 05:54] LABS: BASOPHILS 0.8 % (0-2); EOSINOPHILS 2.2 % (0-6); HEMATOCRIT 42.1 % (35.0-50.0); HEMOGLOBIN 14.7 g/dL (12.0-18.0); LYMPHOCYTES 17.4 % (24-44); MCH 34.4 (27-36); MCHC 34.9 g/dl (30-36); MCV 98.6 fl (81-99); NEUTROPHILS 68.6 % (39-80); PLATELET COUNT 254 K/uL (140-440); RBC 4.27 M/ul (4.3-5.7); RDW 16.3 (10.5-15.0)
[2024-08-26 06:18] LABS: ALBUMIN 3.9 g/dL (3.4-5.0); ALBUMIN/GLOBULIN RATIO 0.98 (1.1-2.4); ANION GAP 11.7 (7-21); BILIRUBIN, TOTAL 0.6 mg/dL (0.2-1.0); BUN/CREATININE RATIO 16.31 (6.0-28.6); CALCIUM 9.4 mg/dL (8.5-10.1); CREATININE, SERUM 2.39 mg/dL (0.70-1.30); MAGNESIUM 2.4 mg/dL (1.8-2.4); POTASSIUM 3.7 mmol/L (3.5-5.1); PROTEIN, TOTAL 7.9 g/dL (6.4-8.2)
[2024-08-26] MEDS ORDERED: DEXAMETHASONE SOD PHOS 10 MG/ML VIAL IV ONE (06:45)
[2024-08-26 06:50] VITALS: BP 157/95
--- NOTE | 2024-08-26 17:49 | EKG ---
[facility] [address] [facility] [place] [address] Signed Normal sinus rhythm Nonspecific intraventricular block Minimal voltage criteria for LVH, may be normal variant ( [place] product ) Nonspecific T wave abnormality Abnormal ECG When compared with ECG of 13-AUG-2024 05:37, Non-specific change in ST segment in Anterior leads Nonspecific T wave abnormality no longer evident in Anterior leads Confirmed by Marya Lovell DO ([id number]) on 08/26/2024 5:49:23 PM Electronically Signed By: MARYA LOVELL DO 08/26/24 1749 PATIENT NAME: ROBBIE RESTREPO Electrocardiogram DATE OF : 54 PHYSICIAN: MARYA LOVELL DO REPORT #: [id number] REPORT IS CONFIDENTIAL AND NOT TO BE RELEASED WITHOUT AUTHORIZATION
== END 2024-08-26 06:45 | disposition home or self-care (01) ==
LOC: ED 05:17
PROVIDERS: Internal Medicine
DX: S46.912A Strain of unspecified muscle, fascia and tendon at shoulder and upper arm level, left arm, initial encounter (principal); I16.0 Hypertensive urgency; I10 Essential (primary) hypertension; E11.9 Type 2 diabetes mellitus without complications; I25.10 Atherosclerotic heart disease of native coronary artery without angina pectoris; I25.2 Old myocardial infarction; M10.9 Gout, unspecified; Z21 Asymptomatic human immunodeficiency virus [HIV] infection status; Z86.73 Personal history of transient ischemic attack (TIA), and cerebral infarction without residual deficits; Z91.81 History of falling; Z87.891 Personal history of nicotine dependence; Z88.8 Allergy status to other drugs, medicaments and biological substances; Z91.018 Allergy to other foods; Z88.0 Allergy status to penicillin; Z79.82 Long term (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; Z79.01 Long term (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 of anticoagulants; Z79.4 Long term (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 of insulin; Z79.899 Other long term (current) 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; X58.XXXA Exposure to other specified factors, initial encounter
CPT/HCPCS: 36415; 71045; 73060; 80053; 83735; 84484; 85025; 93005; 93010; 96374; 96375; 99284-25; A9270; J0360; J1100

== ENCOUNTER 2025-01-11 17:29 | Emergency (ER) | payer MEDICARE, OTHER ==
[~2025-01-11] VITALS: Ht 170.2 cm; Wt 91.0 kg
[~2025-01-11 17:29] MED LIST changes: +HYDROCHLOROTH12.5 MG; +ONDANSETRON ODT8 MG; +TIVICAY50 MG
[2025-01-11] MEDS ORDERED: TICAGRELOR90 MG PO (17:44)
[2025-01-11] MEDS ORDERED: JARDIANCE10 MG PO (17:44)
[2025-01-11] MEDS ORDERED: LOSARTAN POTAS100 MG PO (17:44)
[2025-01-11 18:00] LABS: BASOPHILS 0.6 % (0.2-1.2); EOSINOPHILS 1.7 % (0.8-7.0); LYMPHOCYTES 19.3 % (21.8-53.1); MCH 33.3 PG (25.7-32.2); MCHC 34.5 g/dL (32.3-36.5); MCV 96.4 fL (79.0-92.2); MONOCYTES 13.2 % (5.3-12.2); NEUTROPHILS 65.0 % (34.0-67.9); RBC 4.42 M/uL (4.63-6.08)
[2025-01-11 18:43] LABS: ALT (SGPT) 18.0 U/L (14-59); AST (SGOT) 21.0 U/L (15-37); GLOMERULAR FILTRATION RATE,EST 25.0 mL/min (>60); PROTEIN, TOTAL 7.0 g/dL (6.4-8.2); UREA NITROGEN 37.0 mg/dL (7-18)
[2025-01-11 20:07] VITALS: BP 141/98
--- NOTE | 2025-01-12 14:54 | EKG ---
[facility] [address] [facility] [place] [address] Signed Normal sinus rhythm Minimal voltage criteria for LVH, may be normal variant ( [place] product ) Nonspecific ST and T wave abnormality Prolonged QT Abnormal ECG When compared with ECG of 26-AUG-2024 05:39, QRS duration has decreased ST now depressed in Anterior leads Confirmed by FINN AVILES MD ([id number]) on 01/12/2025 2:54:27 PM Electronically Signed By: FINN AVILES 01/12/25 1454 PATIENT NAME: ROBBIE RESTREPO SHIVANI Electrocardiogram DATE OF : [birth year] PHYSICIAN: FINN AVILES REPORT #: [id number] REPORT IS CONFIDENTIAL AND NOT TO BE RELEASED WITHOUT AUTHORIZATION
== END 2025-01-11 20:08 | disposition home or self-care (01) ==
LOC: ED 17:29
PROVIDERS: Emergency Medicine
DX: R07.89 Other chest pain (principal); I10 Essential (primary) hypertension; E11.9 Type 2 diabetes mellitus without complications; I25.10 Atherosclerotic heart disease of native coronary artery without angina pectoris; I25.2 Old myocardial infarction; Z95.1 Presence of aortocoronary bypass graft; Z95.5 Presence of coronary angioplasty implant and graft; Z87.891 Personal history of nicotine dependence; Z88.0 Allergy status to penicillin; Z88.8 Allergy status to other drugs, medicaments and biological substances; Z91.018 Allergy to other foods; Z79.82 Long term (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
CPT/HCPCS: 36415; 71045; 80053; 83735; 84484; 85025; 93005; 93010; 99285-25

== ENCOUNTER 2025-01-12 15:23 | Emergency (ER) | payer MEDICARE, OTHER ==
[~2025-01-12] VITALS: Ht 170.2 cm; Wt 85.0 kg
[~2025-01-12 15:23] MED LIST changes: +JARDIANCE10 MG PO; +TICAGRELOR90 MG PO
[2025-01-12 15:56] LABS: BASOPHILS 0.7 % (0.2-1.2); EOSINOPHILS 2.1 % (0.8-7.0); LYMPHOCYTES 19.8 % (21.8-53.1); MCH 33.3 PG (25.7-32.2); MCHC 34.4 g/dL (32.3-36.5); MCV 96.9 fL (79.0-92.2); MONOCYTES 11.0 % (5.3-12.2); NEUTROPHILS 66.2 % (34.0-67.9); RBC 4.26 M/uL (4.63-6.08)
[2025-01-12 16:12] LABS: ALT (SGPT) 17.0 U/L (14-59); AST (SGOT) 17.0 U/L (15-37); GLOMERULAR FILTRATION RATE,EST 25.0 mL/min (>60); PROTEIN, TOTAL 6.5 g/dL (6.4-8.2); UREA NITROGEN 36.0 mg/dL (7-18)
[2025-01-12 18:15] VITALS: BP 155/84
--- NOTE | 2025-01-13 07:24 | EKG ---
[facility] [address] [facility] [place], [place] [address] Signed Sinus rhythm with 1st degree AV block Minimal voltage criteria for LVH, may be normal variant ( [place] product ) Nonspecific ST and T wave abnormality Prolonged QT Abnormal ECG When compared with ECG of 11-JAN-2025 17:36, [place] interval has increased Confirmed by FINN AVILES MD ([id number]) on 01/13/2025 7:24:18 AM Electronically Signed By: FINN AVILES 01/13/25 0724 PATIENT NAME: ROBBIE RESTREPO SHIVANI Electrocardiogram DATE OF : 54 PHYSICIAN: FINN AVILES REPORT #: [id number] REPORT IS CONFIDENTIAL AND NOT TO BE RELEASED WITHOUT AUTHORIZATION
== END 2025-01-12 18:00 | disposition home or self-care (01) ==
LOC: ED 15:23
PROVIDERS: Emergency Medicine
DX: R53.1 Weakness (principal); R55 Syncope and collapse; I10 Essential (primary) hypertension; E11.9 Type 2 diabetes mellitus without complications; I25.10 Atherosclerotic heart disease of native coronary artery without angina pectoris; I25.2 Old myocardial infarction; Z86.73 Personal history of transient ischemic attack (TIA), and cerebral infarction without residual deficits; Z87.891 Personal history of nicotine dependence; Z88.8 Allergy status to other drugs, medicaments and biological substances; Z91.018 Allergy to other foods; Z79.84 Long term (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 drugs; Z79.4 Long term (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 of insulin; Z79.82 Long term (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; Z79.899 Other long term (current) 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
CPT/HCPCS: 36415; 70450; 80053; 84484; 85025; 93005; 93010; 99284

== ENCOUNTER 2025-02-19 08:01 | Emergency (ER) | payer MEDICARE, OTHER ==
[~2025-02-19] VITALS: Ht 170.2 cm; Wt 83.6 kg
[2025-02-19 09:05] LABS: BASOPHILS 0.8 % (0.2-1.2); EOSINOPHILS 2.8 % (0.8-7.0); LYMPHOCYTES 20.1 % (21.8-53.1); MCH 33.8 PG (25.7-32.2); MCHC 34.1 g/dL (32.3-36.5); MCV 99.0 fL (79.0-92.2); MONOCYTES 11.3 % (5.3-12.2); NEUTROPHILS 64.8 % (34.0-67.9); RBC 3.88 M/uL (4.63-6.08)
[2025-02-19 09:24] LABS: ALT (SGPT) 18.0 U/L (14-59); AST (SGOT) 23.0 U/L (15-37); GLOMERULAR FILTRATION RATE,EST 22.0 mL/min (>60); PROTEIN, TOTAL 6.5 g/dL (6.4-8.2); UREA NITROGEN 35.0 mg/dL (7-18)
[2025-02-19] MEDS ORDERED: SODIUM CHLORIDE 0.9% 1,000 ML IV PRN (09:45)
[2025-02-19 11:33] VITALS: BP 165/93
--- NOTE | 2025-02-20 15:02 | EKG ---
[facility] [address] [facility] [place] [address] Signed Normal sinus rhythm Minimal voltage criteria for LVH, may be normal variant ( [place] product ) Nonspecific T wave abnormality Abnormal ECG When compared with ECG of 12-JAN-2025 15:33, [place] interval has decreased Confirmed by Nancy Randle MD () on 02/20/2025 3:01:46 PM Electronically Signed By: NANCY RANDLE MD 02/20/25 1502 PATIENT NAME: ROBBIE RESTREPO Electrocardiogram DATE OF : [birth year] PHYSICIAN: NANCY RANDLE MD REPORT #: [id number] REPORT IS CONFIDENTIAL AND NOT TO BE RELEASED WITHOUT AUTHORIZATION
== END 2025-02-19 11:34 | disposition home or self-care (01) ==
LOC: ED 08:01
PROVIDERS: Emergency Medicine
DX: R55 Syncope and collapse (principal); D53.9 Nutritional anemia, unspecified; I10 Essential (primary) hypertension; E11.9 Type 2 diabetes mellitus without complications; I25.10 Atherosclerotic heart disease of native coronary artery without angina pectoris; I25.2 Old myocardial infarction; Z21 Asymptomatic human immunodeficiency virus [HIV] infection status; Z86.73 Personal history of transient ischemic attack (TIA), and cerebral infarction without residual deficits; Z87.891 Personal history of nicotine dependence; Z95.1 Presence of aortocoronary bypass graft; Z95.2 Presence of prosthetic heart valve; Z95.5 Presence of coronary angioplasty implant and graft; Z88.8 Allergy status to other drugs, medicaments and biological substances; Z91.018 Allergy to other foods; Z79.84 Long term (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 drugs; Z79.82 Long term (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; Z79.4 Long term (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 of insulin; Z79.899 Other long term (current) 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
CPT/HCPCS: 36415; 71045; 80053; 82800; 84484; 85025; 93005; 93010; 96360; 99284-25; J7030

== ENCOUNTER 2025-03-16 03:02 | Emergency (ER) | payer MEDICARE, OTHER ==
[~2025-03-16] VITALS: Ht 170.2 cm; Wt 81.3 kg
[2025-03-16] MEDS ORDERED: IBLOOD GLUCOSE TEST STRIP 1 EA TEST XX ONE (03:15)
[2025-03-16 03:16] LABS: BASOPHILS 0.6 % (0.2-1.2); EOSINOPHILS 2.7 % (0.8-7.0); LYMPHOCYTES 29.6 % (21.8-53.1); MCH 34.6 PG (25.7-32.2); MCHC 35.0 g/dL (32.3-36.5); MCV 99.0 fL (79.0-92.2); MONOCYTES 12.4 % (5.3-12.2); NEUTROPHILS 54.5 % (34.0-67.9); RBC 3.87 M/uL (4.63-6.08)
[2025-03-16 03:28] LABS: INR 1.02 (0.80-1.30); PROTIME 12.7 Sec (11.2-14.2)
[2025-03-16 03:35] LABS: ALT (SGPT) 14.0 U/L (14-59); AST (SGOT) 15.0 U/L (15-37); GLOMERULAR FILTRATION RATE,EST 22.0 mL/min (>60); PROTEIN, TOTAL 6.4 g/dL (6.4-8.2); UREA NITROGEN 39.0 mg/dL (7-18)
[2025-03-16 04:36] LABS: BLOOD/HGB, URINE SMALL (Negative); KETONE, URINE NEGATIVE (Negative); LEUK ESTERASE, URINE NEGATIVE (negative); NITRITE, URINE NEGATIVE (negative)
[2025-03-16 04:49] LABS: AMPHETAMINES, URINE NEGATIVE (NEGATIVE); BARBITURATES, URINE NEGATIVE (NEGATIVE); BENZODIAZEPINE, URINE NEGATIVE (NEGATIVE); CANNABINOID, URINE NEGATIVE (NEGATIVE); COCAINE, URINE NEGATIVE (NEGATIVE); ECSTASY, URINE NEGATIVE (NEGATIVE); FENTANYL, URINE NEGATIVE (NEGATIVE); METHADONE, URINE NEGATIVE (NEGATIVE); OPIATES, URINE NEGATIVE (NEGATIVE); OXYCODONE, URINE NEGATIVE (NEGATIVE); PHENCYCLIDINE, URINE NEGATIVE (NEGATIVE)
[2025-03-16 04:51] LABS: BACTERIA, URINE 1+ /hpf (negative); CRYSTALS, URINE NONE SEEN (0-1+); EPITHELIAL CELLS, URINE NS /lpf (0-1+)
[2025-03-16 04:52] LABS: CASTS, URINE HYALINE 2+ \\lpf; REFLEX CULTURE, URINE Yes (No)
[2025-03-16] MEDS ORDERED: CEFDINIR300 MG PO (05:04)
[2025-03-16 06:05] VITALS: BP 170/104
--- NOTE | 2025-03-17 21:30 | EKG ---
[facility] [address] [facility] [place] [address] Signed Normal sinus rhythm Nonspecific ST and T wave abnormality Abnormal ECG When compared with ECG of 19-FEB-2025 08:39, No significant change was found Confirmed by Nancy Randle MD () on 03/17/2025 9:30:13 PM Electronically Signed By: NANCY RANDLE MD 03/17/252129 PATIENT NAME: ROBBIE RESTREPO SHVIANI Electrocardiogram DATE OF : 54 PHYSICIAN: NANCY RANDLE MD REPORT #: [id number] REPORT IS CONFIDENTIAL AND NOT TO BE RELEASED WITHOUT AUTHORIZATION
== END 2025-03-16 06:05 | disposition home or self-care (01) ==
LOC: ED 03:02
PROVIDERS: Family Medicine
DX: N39.0 Urinary tract infection, site not specified (principal); I63.81 Other cerebral infarction due to occlusion or stenosis of small artery; I10 Essential (primary) hypertension; E10.9 Type 1 diabetes mellitus without complications; Z79.4 Long term (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 of insulin; Z79.899 Other long term (current) 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; Z79.82 Long term (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; Z88.8 Allergy status to other drugs, medicaments and biological substances; Z91.018 Allergy to other foods; Z87.891 Personal history of nicotine dependence
CPT/HCPCS: 36415; 51701; 70450; 80053; 80307; 81001; 83735; 84484; 85025; 85610; 85730; 87088; 93005; 93010; 96365; 99285-25; J0696

== ENCOUNTER 2025-04-25 06:36 | Emergency (ER) | payer MEDICARE, OTHER ==
[~2025-04-25] VITALS: Ht 170.2 cm; Wt 81.3 kg
--- NOTE | ~2025-04-25 | EKG ---
[facility] [address] [facility] [place], [place] [address] Draft EK completed, results pending confirmation PATIENT NAME: ROBBIE RESTREPO SHIVANI Electrocardiogram DATE OF : 54 PHYSICIAN: PRELIMINARY REPORT #: [id number] REPORT IS CONFIDENTIAL AND NOT TO BE RELEASED WITHOUT AUTHORIZATION
[~2025-04-25 06:36] MED LIST changes: +CEFDINIR300 MG PO
[2025-04-25 07:54] LABS: BASOPHILS 0.1 % (0.2-1.2); EOSINOPHILS 0.9 % (0.8-7.0); LYMPHOCYTES 8.0 % (21.8-53.1); MCH 34.6 PG (25.7-32.2); MCHC 36.0 g/dL (32.3-36.5); MCV 96.1 fL (79.0-92.2); MONOCYTES 7.8 % (5.3-12.2); NEUTROPHILS 82.8 % (34.0-67.9); RBC 3.84 M/uL (4.63-6.08)
[2025-04-25 08:19] LABS: ALT (SGPT) 38.0 U/L (14-59); AST (SGOT) 31.0 U/L (15-37); GLOMERULAR FILTRATION RATE,EST 21.0 mL/min (>60); PROTEIN, TOTAL 7.3 g/dL (6.4-8.2); UREA NITROGEN 51.0 mg/dL (7-18)
[2025-04-25 09:44] LABS: BLOOD/HGB, URINE TRACE-L (Negative); KETONE, URINE NEGATIVE (Negative); LEUK ESTERASE, URINE NEGATIVE (negative); NITRITE, URINE NEGATIVE (negative)
[2025-04-25 09:56] LABS: BACTERIA, URINE RARE /hpf (negative); CRYSTALS, URINE NONE SEEN (0-1+)
[2025-04-25 09:57] LABS: CASTS, URINE GRANULAR 1+ \\lpf; REFLEX CULTURE, URINE No (No)
--- NOTE | 2025-04-25 12:13 | EKG ---
[facility] [address] [facility] [place] [address] Signed Normal sinus rhythm with sinus arrhythmia T wave abnormality, consider inferior ischemia Abnormal ECG When compared with ECG of 25-APR-2025 08:03, (Unconfirmed) premature atrial complexes are no longer present Inverted T waves have replaced nonspecific T wave abnormality in Inferior leads Confirmed by Edward Lovell DO ([id number]) on 04/25/2025 12:12:56 PM Electronically Signed By: EDWARD LOVELL DO 04/25/25 1213 PATIENT NAME: ROBBIE RESTREPO SHIVANI Electrocardiogram DATE OF : [birth year] PHYSICIAN: EDWARD LOVELL DO REPORT #: [id number] REPORT IS CONFIDENTIAL AND NOT TO BE RELEASED WITHOUT AUTHORIZATION
[2025-04-25] MEDS ORDERED: AMOX TR-K CLV1 EAC1 PO (12:40)
[2025-04-25 13:14] VITALS: BP 109/69
[2025-04-27 01:51] LABS: VITAMIN D 25 OH 32 ng/mL (30-80)
== END 2025-04-25 13:15 | disposition home or self-care (01) ==
LOC: ED 06:36
PROVIDERS: Emergency Medicine
DX: J69.0 Pneumonitis due to inhalation of food and vomit (principal); E87.1 Hypo-osmolality and hyponatremia; I10 Essential (primary) hypertension; E11.9 Type 2 diabetes mellitus without complications; Z79.4 Long term (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 of insulin; Z79.899 Other long term (current) 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; Z91.018 Allergy to other foods; Z88.8 Allergy status to other drugs, medicaments and biological substances; Z87.891 Personal history of nicotine dependence
CPT/HCPCS: 36415; 71045; 80053; 81001; 82306; 83605; 85025; 93005; 93010; 99285-25